=== PATIENT | female | born 1940 | race Caucasian/White ===

== ENCOUNTER → 2016-11-30 | Outpatient (CLI) | payer MEDICARE, BC ==
--- NOTE | 2016-11-30 11:19 | BD ---
EXAMINATION TYPE: MG DEXA axial skeleton. DATE OF EXAM: 11/30/2016 9:59 AM COMPARISON: NONE CLINICAL HISTORY: Postmenopausal female. Height: 61.5 IN Weight: 169 LBS FRAX RISK QUESTIONS: Alcohol (3 or more units per day): NO Family History (Parent hip fracture): NO Glucocorticoids (More than 3mos): NO (Ex: prednisone, prednisolone, methylprednisolone, dexamethasone, and hydrocortisone). History of Fracture in Adulthood: NO Secondary Osteoporosis: 1. Type 1 Diabetes: NO 2. Hyperthyroidism: NO 3. Menopause before 45: NO 4. Malnutrition: NO 5. Chronic liver disease: NO Rheumatoid Arthritis: NO Current Tobacco Use: NO RISK FACTORS HISTORY OF: Active: YES Postmenopausal woman: AGE 51 MEDICATIONS: Additional Medications: CALCIUM, VIT D,AMLODIPINE, ARIMIDEX, ASPIRIN, ATORVASTATIN, BENAZEPRIL, EMLA TOPICAL CREAM, FENTANYL, MAGNESIUM OXIDE, METOPROLOL, NITROSTAT, PLAVIX, PRILOSEC,ZOLOFT, ZOFRAN Additional History: PT HAS HAD BREAST CANCER WITH CHEMO. PT HAS HAD OVARIAN CANCER WITH CHEMO. EXAM MEASUREMENTS: Bone mineral densitometry was performed using the Videoflow System. Bone mineral density as measured about the Lumbar spine is: ----- L1-L4(G/cm2): 1.575 T Score Values are as follows: ----- L2: 2.5 ----- L3: 5.0 ----- L4: 4.1 ----- L1-L4: 3.3 Bone mineral density has: Decreased -0.6% since study of: 07/05/2012 Bone mineral density about the R hip (g/cm2): 0.932 Bone mineral density about the L hip (g/cm2): 0.938 T Score values are as follows: -----R Neck: -0.8 -----L Neck: -0.7 -----R Total: 0.7 -----L Total: 0.7 Bone mineral density has: Decreased -2.9% since study of: 07/05/2012 IMPRESSION: No evidence for osteoporosis or osteopenia. NOTE: T-SCORE=SD OF THE YOUNG ADULT MEAN.
== END | disposition home or self-care (01) ==
LOC: RADBDWWP 09:48
PROVIDERS: ATTEND Internal Medicine Hematology & Oncology
DX: Z03.89 Encounter for observation for other suspected diseases and conditions ruled out (principal); C50.819 Malignant neoplasm of overlapping sites of unspecified female breast; C34.90 Malignant neoplasm of unspecified part of unspecified bronchus or lung; N95.1 Menopausal and female climacteric states; Z88.0 Allergy status to penicillin
CPT/HCPCS: 77080

== ENCOUNTER → 2016-12-15 | Outpatient (CLI) | payer MEDICARE, BC ==
[2016-12-15 13:50] LABS: Blood Urea Nitrogen 20 mg/dL (7-17); Non-African American GFR(MDRD) >60 (>60 ml/min/1.73 sqM)
--- NOTE | 2016-12-15 14:53 | CT ---
EXAMINATION TYPE: CT ChestAbdPelvis w con DATE OF EXAM: 12/15/2016 2:40 PM COMPARISON: April 08, 2016 HISTORY: Lung and breast cancer CT DLP: 997.40 mGycm CONTRAST: CT scan of the chest, abdomen and pelvis is performed with Oral Contrast and with IV Contrast, patien t injected with 100 ml mL of Omnipaque 300. CT Chest: LUNGS: The lungs are clear and free of infiltrate or atelectasis. Stable nodule left lower lobe measu res 5.2 mm. Additional stable 3 mm nodule left lower lobe as well. No additional nodules identified. Linear parenchymal scarring right middle lobe and right lower lobe medially. No pleural effusion or C T evidence of interstitial lung disease. MEDIASTINUM: Thoracic aorta is of normal caliber. The heart is not enlarged. No evidence for media stinal mass or adenopathy. HILAR STRUCTURES: No evidence for mass. No hilar adenopathy is appreciated. OTHER: Bilateral mastectomies are noted. CONTRAST CT ABDOMEN AND PELVIS FINDINGS: LIVER/GB: Mild hepatomegaly with moderate hepatic steatosis. No calcified gallstones. No space occ upying hepatic lesion. Biliary tree is of normal caliber. PANCREAS: No inflammation. No distinct mass. SPLEEN: No splenic enlargement. No lesion seen. ADRENALS: No nodule. No thickening. KIDNEYS/BLADDER: Diminutive the left kidney with areas of parenchymal scarring and parenchymal calcif ications unchanged from prior study. Parenchymal scarring midpole right kidney with adjacent calcific ation noted as well. No hydronephrosis. No nephrolithiasis. No disctinct renal mass. BOWEL: Normal appendix. Normal bowel caliber. No inflammation. GENITAL ORGANS: Hysterectomy changes identified. LYMPH NODES: No greater than 1cm abdominal or pelvic lymph nodes are appreciated. AORTA: No significant abnormality. OSSEOUS STRUCTURES: No significant abnormality is seen. OTHER: Soft tissue density within the right paracolic gutter axial image 73currently measures 17 mm v ersus 12 mm previously. [place] ventral hernia supraumbilical region contains a short segment of co eliceo. No evidence for incarceration at this time. IMPRESSION: 1. 1. Stable nonspecific pulmonary nodules at the left lung base. 2. Fatty liver with mild hepatomegaly. 3. Soft tissue density within the region of the right paracolic gutter is increased in size. Metastat ic deposit is difficult to exclude. 4. Renal parenchymal changes and calcifications are stable.
== END | disposition home or self-care (01) ==
LOC: RADPROMAIN 12:49
PROVIDERS: ATTEND Internal Medicine Hematology & Oncology
DX: R91.1 Solitary pulmonary nodule (principal); C34.90 Malignant neoplasm of unspecified part of unspecified bronchus or lung; C50.819 Malignant neoplasm of overlapping sites of unspecified female breast; K76.0 Fatty (change of) liver, not elsewhere classified; R16.0 Hepatomegaly, not elsewhere classified; M79.89 Other specified soft tissue disorders; N28.89 Other specified disorders of kidney and ureter
CPT/HCPCS: 82565; 84520; 71260; 74177; 36415; Q9967; J1642

== ENCOUNTER → 2017-03-18 | Outpatient (CLI) | payer MEDICARE, BC ==
[2017-03-18 12:13] LABS: Basophils % (A) 1 %; CH 28.1; CHCM 33.1; Eosinophils # (A) 0.1 k/uL (0-0.7); Eosinophils % (A) 2 %; HCT 39.5 % (34.0-46.0); HDW 2.76; HGB 13.3 gm/dL (11.4-16.0); Luc # (Auto) 0.18; Luc % (Auto) 3; Lymphocytes % (A) 32 %; MCH 28.7 pg (25.0-35.0); MCHC 33.7 g/dL (31.0-37.0); MCV 85.2 fL (80.0-100.0); Mean Platelet Volume 7.3; Monocytes # (A) 0.3 k/uL (0-1.0); Monocytes % (A) 5 %; Neutrophils # (A) 3.5 k/uL (1.3-7.7); Neutrophils % (A) 57 %; RBC 4.63 m/uL (3.80-5.40); RDW 13.4 % (11.5-15.5); WBC 6.1 k/uL (3.8-10.6); WBC (Perox) 6.15
[2017-03-18 12:50] LABS: ALT 30 U/L (9-52); AST 20 U/L (14-36); Alkaline Phosphatase 96 U/L (38-126); Anion Gap 10 mmol/L; Blood Urea Nitrogen 20 mg/dL (7-17); Calcium 10.1 mg/dL (8.4-10.2); Carbon Dioxide 25 mmol/L (22-30); Chloride 103 mmol/L (98-107); Glucose 295 mg/dL (74-99); Non-African American GFR(MDRD) >60 (>60 ml/min/1.73 sqM); Potassium 4.6 mmol/L (3.5-5.1); Sodium 138 mmol/L (137-145); Total Bilirubin 0.4 mg/dL (0.2-1.3); Total Protein 7.2 g/dL (6.3-8.2)
--- NOTE | 2017-03-18 13:39 | CT ---
EXAMINATION TYPE: CT ChestAbdPelvis w con DATE OF EXAM: 03/18/2017 COMPARISON: CT chest abdomen pelvis dated 12/15/2016 HISTORY: Lung cancer and breast cancer. CT DLP: 1013.4 mGycm. Automated Exposure Control for Dose Reduction was Utilized. CONTRAST: CT scan of the thorax, abdomen and pelvis is performed with IV Contrast, patient injected with 100 mL of Omnipaque 300. FINDINGS: LUNGS: The 5.2 mm left lower lobe pulmonary nodularity may relate to a true pulmonary nodule or chron ic focus of mucus plugging as a terminal bronchus leads directly to this area, however this is unchan ged in comparison to the prior. Additional left lower lobe punctate noncalcified nodule measures 3 mm it is unchanged in comparison the prior exam on series 4 image 38. Medial fibrosis is seen of the ri ght lower lung from protruding osteophytes of the thoracic spine. Pleural parenchymal scarring is not ed within the right middle lobe, unchanged. No new pulmonary nodule or mass is identified. There is n o pleural effusion or pneumothorax seen. The tracheobronchial tree is patent. MEDIASTINUM: There are no greater than 1 cm hilar or mediastinal lymph nodes. No pericardial effusi on is seen. Calcific atheromatous changes are seen of the thoracic aorta and three-vessel coronary a rtery calcifications are noted. OTHER: No additional significant abnormality is seen. LIVER/GB: Densely calcified granuloma is present in segment one adjacent to inferior vena cava. There is generalized hepatic hypoattenuation in comparison to that of the spleen relating to at least mild hepatic steatosis, limiting evaluation for underlying hepatic masses. No gross evidence of hepatic m asses seen. Gallbladder is either surgically absent or contracted and is not seen on this examination . No intrahepatic or extra hepatic biliary ductal dilatation. PANCREAS: No significant abnormality is seen. SPLEEN: Wedge-shaped area of hypoattenuation within the splenic parenchyma is stable from the prior a nd likely relates to prior infarct. ADRENALS: No significant abnormality is seen. KIDNEYS: Dystrophic cortical calcification is seen of the multilobulated left kidney in the superior pole. Lower pole calculi may represent dystrophic calcifications from prior scarring or nephrolithias is and measure 8 mm and 7 mm. Cortical scar is also seen on the right with punctate calcification. No evidence of hydronephrosis.. BOWEL: Sigmoid diverticula are present without pericolonic fat stranding. Moderate amount of retained stool is seen throughout the colon. Bowel is nondilated.. GENITAL ORGANS: Uterus is surgically absent. LYMPH NODES: No greater than 1cm abdominal or pelvic lymph nodes are appreciated. OSSEOUS STRUCTURES: No suspicious abnormality is seen. Degenerative changes of the femoral acetabular joints and axial skeleton are appreciated. OTHER: Mastectomies have been performed with left axillary node dissection and surgical clips in the left axilla as well as port in the right anterior midline chest wall. Soft tissue density continues t o decrease in size within the lateral conal fascia no measuring 2.0 cm and previously measuring 17 mm when measured in a similar plane. Wide neck ventral hernia is again seen with abutting nonincarcerat ed large bowel. IMPRESSION: 1. Enlarging soft tissue density along the right lateral conal fascia. Metastatic peritoneal implant continues to be considered as a possibility. 2. Stable left lower lobe pulmonary nodules, low suspicion for metastasis. 3. No new evidence of visceral or osseous metastasis.
[2017-03-18 18:08] LABS: Hemoglobin A1C 8.6 % (4.2-6.1)
== END | disposition home or self-care (01) ==
LOC: RADCTMAIN 11:43
PROVIDERS: ATTEND Internal Medicine Hematology & Oncology
DX: M79.89 Other specified soft tissue disorders (principal); R91.8 Other nonspecific abnormal finding of lung field; C50.319 Malignant neoplasm of lower-inner quadrant of unspecified female breast; C34.90 Malignant neoplasm of unspecified part of unspecified bronchus or lung; Z88.0 Allergy status to penicillin
CPT/HCPCS: 80053; 83036; 85025; 71260; 74177; Q9967; J1642

== ENCOUNTER → 2017-04-03 | Outpatient (CLI) | payer MEDICARE, BC | END | disposition home or self-care (01) | LOC: RADPETMAIN 08:08 | PROVIDERS: ATTEND Internal Medicine Hematology & Oncology | DX: Z53.9 Procedure and treatment not carried out, unspecified reason (principal) ==

== ENCOUNTER → 2017-04-10 | Outpatient (CLI) | payer MEDICARE, BC ==
--- NOTE | 2017-04-13 10:32 | PE ---
Nuclear medicine PET/CT HISTORY: Breast cancer, lung cancer Patient received 15 mCi F-18 FDG intravenously and delayed scanning was performed from the skull base through the mid thighs. Localization and attenuation correction CT scan was performed. Exam is corre lated to prior nuclear medicine PET/CT dated 07/28/2014. Neck and chest: There is no evident adenopathy. No suspicious hypermetabolic uptake. Right-sided Port -A-Cath is in place, distal tip of the catheter within the superior vena cava. The heart is enlarged. There are coronary artery calcifications. No evident pleural or pericardial effusion. No evident shila g mass. Patient is status post bilateral mastectomies. Abdomen pelvis: No suspicious hypermetabolic uptake. No retroperitoneal adenopathy evident. No liver mass on this noncontrast exam. Low-attenuation within the liver may represent hepatic steatosis. Retr operitoneal soft tissue focus lateral to the right kidney may be is present residual from previous in flammatory change. Bilateral renal calcifications are present without obstruction. No pelvic adenopat hy or free fluid. Bowel activity with questionable small bowel wall thickening felt likely to be phys iologic, correlate to exclude enteritis. Osseous structures: No lytic or blastic lesion evident. No suspicious hypermetabolic uptake. IMPRESSION: Marked improvement. Metastatic disease is not evident. Additional findings above.
== END ==
LOC: RADPETMAIN 07:21
PROVIDERS: ATTEND Internal Medicine Hematology & Oncology
DX: C50.819 Malignant neoplasm of overlapping sites of unspecified female breast (principal); C34.90 Malignant neoplasm of unspecified part of unspecified bronchus or lung
CPT/HCPCS: 78815; A9552

== ENCOUNTER → 2017-12-14 | Outpatient (CLI) | payer MEDICARE, BC ==
[2017-12-14 11:47] LABS: Blood Urea Nitrogen 21 mg/dL (7-17)
--- NOTE | 2017-12-14 14:53 | CT ---
EXAMINATION TYPE: CT ChestAbdPelvis w con DATE OF EXAM: 12/14/2017 COMPARISON: 04/10/2017 and 12/15/2016 HISTORY: 77-year-old female Breast and Lung cancer TECHNIQUE: Contiguous axial scanning of the chest, abdomen, and pelvis performed with IV Contrast, pa tient injected with 100 ml mL of Isovue 300. Delayed images through the kidneys were obtained. Iraheta l/sagittal reconstructions performed. CT DLP: 942.30 mGycm Automated exposure control for dose reduction was used. FINDINGS: Chest: Bilateral breast implants after mastectomies. Right IJ CVC tip at the mid to lower SVC level. Heart normal size without pericardial effusion. Coronary vessel calcifications are present in remarka ble for coronary artery disease. Moderate atherosclerotic calcifications within the aortic arch with conventional arch vessel branchin g anatomy. A few small mediastinal lymph nodes are unchanged. No thoracic lymphadenopathy by CT size criteria. Evaluation of the lungs shows a stable 5 mm peripheral left lower lobe pulmonary nodule isn't stable groundglass density in the left lower lobe, increased from 12/15/2016 but improved from 04/10/2017. Othe rwise, no consolidation or pleural effusion. ABDOMEN: Small hiatal hernia. Low attenuation of the hepatic parenchyma may select mild fatty infiltration. Portal venous system is patent. No biliary ductal dilatation. Gallbladder surgically absent. The adrenal glands, spleen, and pancreas show no gross abnormality. Cortical defect lateral right kid isma suggesting sequela of prior vascular infectious insult. Multiple cortical defects and relatively atrophic left kidney is similar with renal calculi measuring up to 1 cm. Proximally 5 calculi are present. Symmetric uptake and excretion of contrast from the ki dneys. Moderate to severe atherosclerotic calcifications throughout the abdominal aorta and iliac arteries. No dilated small bowel, free fluid, or free air. Scattered small left periaortic lymph nodes in the r etroperitoneum are unchanged. Normal appendix. Oral contrast progressed to the hepatic flexure. There is moderate scattered stool a nd sigmoid diverticulosis. No pericolonic inflammatory change. Abnormal soft tissue density is along the right lateral pararenal space/lateral conal fascia measures 3.7 x 2.3 cm versus 1.7 x 1.2 cm on 12/15/2016 and 2.5 x 1.6 cm on 04/10/2017. Pelvis: Bladder urine distended. Uterus surgically absent. Neither ovary clearly seen. No abnormal fluid carmita ection in the pelvis or pelvic lymphadenopathy identified. There is severe atherosclerotic calcificat ion involving the left common iliac artery. Bones: Degenerative changes of both hips and within the lower lumbar spine. Endplate spondylosis mid to lowe r thoracic spine. No osseous destructive process seen. IMPRESSION: 1. STATUS POST BILATERAL MASTECTOMIES. THERE IS A STABLE 5 MM LEFT LOWER LOBE PULMONARY NODULE. AGAIN , A BENIGN ETIOLOGY IS SUSPECTED. SOME GROUNDGLASS IN THE LEFT LOWER LOBE IS INCREASED FROM 12/15/2016 BUT SHOW SOME IMPROVEMENT FROM 04/10/2017. CORRELATE FOR A RESIDUAL PNEUMONITIS. 2. FURTHER ENLARGEMENT OF THE ABNORMAL SOFT TISSUE ALONG THE LATERAL RIGHT PARARENAL SPACE CURRENTLY MEASURING 3.7 CM VERSUS 2.5 CM ON 04/10/2017 AND 1.7 CM ON 12/15/2016. A METASTATIC DEPOSIT IS NOT EXCLU DED. 3. ATROPHIC LEFT KIDNEY WITH A NONOBSTRUCTIVE LEFT-SIDED NEPHROLITHIASIS MEASURING UP TO 1 CM. 4. SIGMOID DIVERTICULOSIS WITHOUT ACUTE DIVERTICULITIS.
== END | disposition home or self-care (01) ==
LOC: RADPROMAIN 10:39
PROVIDERS: ATTEND Internal Medicine Hematology & Oncology
DX: C50.819 Malignant neoplasm of overlapping sites of unspecified female breast (principal); C34.90 Malignant neoplasm of unspecified part of unspecified bronchus or lung; R91.1 Solitary pulmonary nodule; N26.1 Atrophy of kidney (terminal); N20.0 Calculus of kidney; K57.30 Diverticulosis of large intestine without perforation or abscess without bleeding; Z88.0 Allergy status to penicillin; Z90.12 Acquired absence of left breast and nipple
CPT/HCPCS: 82565; 84520; 71260; 74177; J1642; Q9967

== ENCOUNTER → 2017-12-25 | Outpatient (CLI) | payer MEDICARE, BC ==
--- NOTE | 2017-12-27 07:51 | PE ---
EXAMINATION TYPE: PET CT fusion skull to thigh DATE OF EXAM: 12/25/2017 COMPARISON: PET/CT dated 04/10/2017 and chest abdomen pelvis dated 12/14/2017 HISTORY: Breast and lung cancer. Subsequent treatment strategy. Prior surgical mastectomy in 2013 an d chemotherapy approximately 1.5 years ago. Surveillance. TECHNIQUE: Following the intravenous administration of 14.64 mCi of F-18 FDG, whole body images are performed from the skull base to the midthigh. Images are reviewed on the computer in the coronal, a xial, and sagittal planes. Reconstructed rotating images are created on independent workstation and reviewed on the computer. A localization and attenuation correction CT is performed in conjunction with the PET scan. SCAN: Second at this institution FINDINGS: Mediastinal background: 1.78. Hepatic background: 2.88. SKULL BASE AND NECK: Slightly asymmetric activity within the right lateral tonsil medial to the grou p of lymph nodes has a maximum SUV of 2.93 and is likely physiologic. CHEST, MEDIASTINUM, AND HILAR REGION: No suspicious hypermetabolic activity. Slight asymmetry and upt clovis is seen within the right lower lobe in the left lower lobe with a maximum SUV of 1.55 on the left and 0.88 on the right. Left basilar groundglass opacities are seen. Therefore pneumonitis versus a p ossibility. ABDOMEN AND PELVIS: The previously described abnormal soft tissue density within the right lateral co nal fascia/pararenal space on series 3 image 152 through 162 demonstrates avid hypermetabolic uptake with a maximum SUV of 6.94. This is suspicious for metastasis or second primary lesion and biopsy is recommended. There is extensive uptake in the sigmoid colon with a maximum SUV of 14.95. This is long segment and may relate to early or resolving inflammatory/infectious change although this colonoscopy has not bee n recently performed would be recommended. Other bowel uptake/excretion is likely physiologic. Mild uptake below mediastinal background at the greater trochanters and glenohumeral joints likely re lates to greater trochanteric bursitis and glenohumeral arthropathy. OSSEOUS STRUCTURES: No suspicious hypermetabolic activity. OTHER CT: There is redemonstrated of bilateral mastectomies, cardiomegaly, right-sided Mediport, candis nary artery calcifications and hepatic steatosis. Cortical atrophy of the left kidney and bilateral n onobstructing renal calculi are again seen. There is diastases recti with abutting small bowel. Colon ic diverticulosis is noted without surrounding inflammatory fat stranding. No dilated bowel. IMPRESSION: 1. Focal hypermetabolic activity within the abnormal soft tissue density along the right lateral cona l fascia/pararenal space that has demonstrated increasing growth over multiple exams. This is conside red suspicious for peritoneal metastatic implant or less likely new primary neoplasm. Biopsy could be performed for pathologic classification. 2. Left basilar uptake without hypermetabolic activity in the multifocal left basilar groundglass opa cities. This either relates to pneumonitis of infectious or inflammatory etiology. 3. Extensive uptake within the sigmoid colon in a long segment. This may relate to early or resolving infectious/inflammatory change although colonoscopy is recommended if not recently performed.
== END | disposition home or self-care (01) ==
LOC: RADPETMAIN 13:25
PROVIDERS: ATTEND Internal Medicine Hematology & Oncology
DX: C50.512 Malignant neoplasm of lower-outer quadrant of left female breast (principal); C34.90 Malignant neoplasm of unspecified part of unspecified bronchus or lung; R94.2 Abnormal results of pulmonary function studies; R93.3 Abnormal findings on diagnostic imaging of other parts of digestive tract; M79.89 Other specified soft tissue disorders
CPT/HCPCS: 78815; A9552

== ENCOUNTER → 2018-04-19 | Outpatient (CLI) | payer MEDICARE, BC ==
[2018-04-19 10:10] LABS: Blood Urea Nitrogen 25 mg/dL (7-17)
--- NOTE | 2018-04-19 13:02 | CT ---
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 TECHNIQUE: Contiguous axial scanning of the chest, abdomen, and pelvis performed with IV Contrast, pa tient injected with 100 mL of Isovue 300. Delayed images through the kidneys were obtained. Coronal/s agittal reconstructions performed. CT DLP: 1635 mGycm Automated exposure control for dose reduction was used. FINDINGS: Chest: Heart normal size with trace anterior pericardial fluid. Coronary vessel calcifications are present. Aorta normal caliber with moderate atherosclerotic arch calcifications and conventional arch vessel b ranching anatomy. Surgical clips in the left axilla status post bilateral mastectomies. Right anterior chest wall injec tion port with catheter tip at the lower SVC. No thoracic lymphadenopathy by CT size criteria. Small groundglass focus anterior right base is new, axial image 42. Stable nonspecific 2 mm posterior left basilar pulmonary nodule and additional 5 mm peripheral left b asilar pulmonary nodule axial image 44. No consolidation or pleural effusion otherwise seen. ABDOMEN: No focal liver lesion or biliary ductal dilatation. Portal venous system is patent. Adrenal glands, spleen, and pancreas show no gross abnormality. There is a diverticulum of the third portion of the duodenum projecting upwards into the pancreatic head region. Minimal residual thickening in the right lateral pararenal space measuring 2.2 x 1.0 cm as compared t o 3.7 x 2.3 cm on 12/14/2017. Multiple cortical defects within the left kidney with calculi measuring up to 1.1 cm. Additional nono bstructive calculi in the right kidney measuring up to 4 mm. Moderate atherosclerotic calcifications within the abdominal aorta and iliac arteries. No dilated small bowel, free fluid, or free air. No mesenteric or retroperitoneal lymphadenopathy. Normal appendix. Moderate stool burden with oral contrast progressed in the hepatic flexure. Diverticulosis along the descending and proximal to mid sigmoid colon. No pericolonic inflammatory ch dante. Pelvis: Bladder partially distended. Uterus surgically absent. No adnexal mass or abnormal fluid collection o r lymphadenopathy in the pelvis. Bones: Degenerative changes in the hips with anterior endplate spondylosis mid thoracic spine. No osseous de structive process seen. IMPRESSION: 1. PARTIAL OR EVOLVING TREATMENT RESPONSE. THE PATIENT'S ABNORMAL HYPERMETABOLIC SOFT TISSUE IN THE R IGHT LATERAL PARARENAL SPACE HAS DECREASED IN SIZE NOW MEASURING 2.2 X 1.0 CM VERSUS 3.7 X 2.3 CM, NC EVIOUSLY. 2. STATUS POST BILATERAL MASTECTOMIES WITH SURGICAL CLIPS IN THE LEFT AXILLA. 3. NONSPECIFIC 5 MM AND 2 MM LEFT LOWER LOBE PULMONARY NODULES ARE STABLE DATING BACK TO AT LEAST 04/10. 4. NEW SMALL AREA OF GROUNDGLASS IN THE ANTERIOR RIGHT BASE SUGGESTS A SMALL INFECTIOUS/INFLAMMATORY FOCUS. 5. LEFT-SIDED COLONIC DIVERTICULOSIS WITHOUT ACUTE DIVERTICULITIS. MULTIPLE BILATERAL NONOBSTRUCTING RENAL CALCULI MEASURING UP TO 1.1 CM. MULTIPLE CORTICAL DEFECTS IN THE LEFT KIDNEY SUGGEST PRIOR VASC ULAR OR INFECTIOUS INSULTS.
== END | disposition home or self-care (01) ==
LOC: RADPROMAIN 09:07
PROVIDERS: ATTEND Internal Medicine Hematology & Oncology
DX: K57.30 Diverticulosis of large intestine without perforation or abscess without bleeding (principal); N20.0 Calculus of kidney; R91.8 Other nonspecific abnormal finding of lung field; C48.1 Malignant neoplasm of specified parts of peritoneum; Z90.13 Acquired absence of bilateral breasts and nipples; Z88.0 Allergy status to penicillin
CPT/HCPCS: 82565; 84520; 71260; 74177; J1642; Q9967

== ENCOUNTER → 2018-06-06 | Outpatient (CLI) | payer MEDICARE, BC ==
--- NOTE | 2018-06-06 14:47 | CT ---
EXAMINATION TYPE: CT ChestAbdPelvis w con DATE OF EXAM: 06/06/2018 COMPARISON: 04/19/2018 HISTORY: Breast cancer CT DLP: 1478 mGycm Automated exposure control for dose reduction was used. CONTRAST: CT scan of the chest, abdomen and pelvis is performed with Oral Contrast and with IV Contrast, patien t injected with 100 mL of Isovue 300. FINDINGS: Chest: Heart normal size with trace anterior pericardial fluid. Coronary vessel calcifications are present. Aorta normal caliber with moderate atherosclerotic arch calcifications and conventional arch vessel b ranching anatomy. Surgical clips in the left axilla status post bilateral mastectomies. Right anterior chest wall injec tion port with catheter tip at the lower SVC. No thoracic lymphadenopathy by CT size criteria. Small groundglass focus anterior right base is stable. Stable nonspecific 2 mm posterior left basilar pulmonary nodule and additional 5 mm peripheral left basilar pulmonary nodule unchanged in size. Lef t upper lobe 2 mm subpleural nodule stable. No consolidation or pleural effusion otherwise seen. ABDOMEN: No focal liver lesion or biliary ductal dilatation. Portal venous system is patent. Calcification van r the IVC and right lobe of the liver stable. Finding nonspecific and of doubtful significance. Adrenal glands, spleen, and pancreas show no gross abnormality. There is a diverticulum of the third portion of the duodenum projecting upwards into the pancreatic head region. Minimal residual thickening in the right lateral pararenal space measuring 2.2 x 1.0 cm as compared t o 3.7 x 2.3 cm on 12/14/2017. Multiple cortical defects within the left kidney with calculi measuring up to 1.1 cm. Additional nonobstructive calculi in the right kidney measuring up to 4 mm. Moderate atherosclerotic calcifications within the abdominal aorta and iliac arteries. No dilated small bowel, free fluid, or free air. No mesenteric or retroperitoneal lymphadenopathy. Normal appendix. Moderate stool burden with oral contrast progressed in the hepatic flexure. Diverticulosis along the descending and proximal to mid sigmoid colon. No pericolonic inflammatory ch dante. Atherosclerotic change of the vasculature including the aorta and mesenteric branches. Atherosc lerotic change of the renal arteries. No aneurysm. Pelvis: Bladder partially distended. Uterus surgically absent. No adnexal mass or abnormal fluid collection o r lymphadenopathy in the pelvis. Bones: Degenerative changes in the hips with anterior endplate spondylosis mid thoracic spine. No osseous de structive process seen. Sclerotic tiny focuses within the left femoral head, sacrum and pelvis are ta ble and likely benign. IMPRESSION: 1. Stable TREATMENT RESPONSE. THE PATIENT'S ABNORMAL HYPERMETABOLIC SOFT TISSUE IN THE RIGHT LATERAL PARARENAL SPACE HAS DECREASED IN SIZE NOW MEASURING 2.2 X 1.0 CM VERSUS 2.2 x 1.0 CM, PREVIOUSLY. 2. STATUS POST BILATERAL MASTECTOMIES WITH SURGICAL CLIPS IN THE LEFT AXILLA. 3. NONSPECIFIC 5 MM AND 2 MM LEFT LOWER AND UPPER LOBE PULMONARY NODULES ARE STABLE DATING BACK TO AT LEAST 04/10/2017. 4. Stable AREA OF GROUNDGLASS IN THE ANTERIOR RIGHT BASE SUGGESTS A SMALL CHRONIC INFECTIOUS/INFLAMMA TORY FOCUS. 5. LEFT-SIDED COLONIC DIVERTICULOSIS WITHOUT ACUTE DIVERTICULITIS. MULTIPLE BILATERAL NONOBSTRUCTING RENAL CALCULI MEASURING UP TO 1.1 CM. MULTIPLE CORTICAL DEFECTS IN THE LEFT KIDNEY SUGGEST PRIOR VASC ULAR OR INFECTIOUS INSULTS.
== END | disposition home or self-care (01) ==
LOC: RADCTMAIN 12:12
PROVIDERS: ATTEND Internal Medicine Hematology & Oncology
DX: R91.8 Other nonspecific abnormal finding of lung field (principal); C50.819 Malignant neoplasm of overlapping sites of unspecified female breast; C48.1 Malignant neoplasm of specified parts of peritoneum; Z90.13 Acquired absence of bilateral breasts and nipples
CPT/HCPCS: 82565; 84520; 71260; 74177; J1642; Q9967

== ENCOUNTER → 2018-12-21 | Outpatient (CLI) | payer MEDICARE, BC ==
[2018-12-21 11:36] LABS: Basophils % (A) 0 %; Eosinophils # (A) 0.2 k/uL (0-0.7); Eosinophils % (A) 3 %; HCT 38.1 % (34.0-46.0); HGB 12.3 gm/dL (11.4-16.0); Lymphocytes # (A) 1.6 k/uL (1.0-4.8); Lymphocytes % (A) 30 %; MCH 30.5 pg (25.0-35.0); MCHC 32.4 g/dL (31.0-37.0); MCV 94.2 fL (80.0-100.0); Mean Platelet Volume 7.1; Monocytes # (A) 0.3 k/uL (0-1.0); Monocytes % (A) 6 %; Neutrophils # (A) 3.2 k/uL (1.3-7.7); Neutrophils % (A) 58 %; Platelet Count 154 k/uL (150-450); RBC 4.05 m/uL (3.80-5.40); WBC 5.4 k/uL (3.8-10.6)
[2018-12-21 11:40] LABS: ALT 10 U/L (9-52); AST 19 U/L (14-36); Alkaline Phosphatase 113 U/L (38-126); Anion Gap 7 mmol/L; Blood Urea Nitrogen 18 mg/dL (7-17); Carbon Dioxide 25 mmol/L (22-30); Chloride 107 mmol/L (98-107); Cholesterol 318 mg/dL (<200); Glucose 186 mg/dL (74-99); HDL Cholesterol 45 mg/dL (40-60); Potassium 4.6 mmol/L (3.5-5.1); Sodium 139 mmol/L (137-145); Total Bilirubin 0.4 mg/dL (0.2-1.3)
[2018-12-21 11:57] LABS: T4, Free (Free Thyroxine) 1.24 ng/dL (0.78-2.19)
[2018-12-21 12:08] LABS: Triglycerides 601 mg/dL (<150)
--- NOTE | 2018-12-21 13:25 | CT ---
EXAMINATION TYPE: CT ChestAbdPelvis w con DATE OF EXAM: 12/21/2018 COMPARISON: NONE HISTORY: History of breast and ovarian cancer. CT DLP: 1247.5 mGycm. Automated Exposure Control for Dose Reduction was Utilized. CONTRAST: CT scan of the thorax, abdomen and pelvis is performed with IV Contrast, patient injected with 100 mL of Isovue M300. FINDINGS: LUNGS: There is a 4 mm solid left basilar pulmonary nodule on series 3 image 39, unchanged from the p rior. No focal consolidation is seen. There is no pleural effusion or pneumothorax seen. The trach eobronchial tree is patent. MEDIASTINUM: There are no greater than 1 cm hilar or mediastinal lymph nodes. No pericardial effusi on is seen. OTHER: Postsurgical changes of the breasts and left axilla are seen from prior mastectomy and lymph n ode dissection. Right-sided Mediport is again noted. A left axillary lymph node that is nonenlarged a nd image 26 is unchanged measuring 5 mm in short axis. LIVER/GB: Hepatic parenchyma is diffusely hypoattenuated in comparison to that of the spleen, most co mmonly seen in hepatic steatosis. This finding limits evaluation for hepatic masses. No gross evidenc e of hepatic mass is seen. No intrahepatic biliary ductal dilatation. PANCREAS: No significant abnormality is seen. SPLEEN: No significant abnormality is seen. ADRENALS: No significant abnormality is seen. KIDNEYS: The left kidney is atrophic and there is chronic uroepithelial thickening of the left renal pelvis and proximal ureter. Multifocal cortical scarring and retraction are seen with nonobstructing renal calculi (3 in number) measuring up to 1.2 cm. Focal cortical scar the right kidney with associa aamir dystrophic calcification is seen on image 72. No right-sided hydronephrosis. BOWEL: Descending duodenal diverticulum is incidentally noted. Colonic diverticulosis is incidentally noted. No dilated large or small bowel. GENITAL ORGANS: No gross abnormality seen. LYMPH NODES: No greater than 1cm abdominal or pelvic lymph nodes are appreciated. OSSEOUS STRUCTURES: Punctate sclerotic focus is nonspecific in the left acetabulum is stable from the prior. Multilevel degenerative changes of the spine are again seen. OTHER: The nodular density in the right pararenal space has evolved and now has a thick nodular compo nent at its inferior margin measuring 1.4 cm and surrounding punctate nodular foci with the elongated portion now measuring up to 3.7 cm contiguous with the serosal hepatic surface, previously measuring up to 2.2 cm. Extensive atherosclerosis of the thoracic and abdominal aorta and its branches are seen. There is a w shane neck ventral abdominal hernia containing portions of the transverse colon and small bowel. The ne ck measures 5.0 cm and is supraumbilical in location. IMPRESSION: 1. More nodular appearance of the hypermetabolic soft tissue deposit in the pararenal space and inter jomar enlargement with spiculated appearance. This now measures up to 3.7 cm in anterior to posterior d imension with a nodular component measuring 1.4 cm. 2. Stable subcentimeter left lower lobe pulmonary nodule with the additional 2 mm pulmonary nodule no t seen on today's examination. 3. Hepatic steatosis. 4. Wide necked supraumbilical ventral hernia containing loops of small and large bowel. 5. Left renal atrophy and multifocal cortical scarring.
[2018-12-21 22:17] LABS: Hemoglobin A1C 7.5 % (4.0-6.0)
== END | disposition home or self-care (01) ==
LOC: RADPROMAIN 10:32
PROVIDERS: ATTEND Internal Medicine Hematology & Oncology
DX: K43.9 Ventral hernia without obstruction or gangrene (principal); R91.8 Other nonspecific abnormal finding of lung field; K76.0 Fatty (change of) liver, not elsewhere classified; N26.1 Atrophy of kidney (terminal); N28.89 Other specified disorders of kidney and ureter; C48.1 Malignant neoplasm of specified parts of peritoneum; N95.1 Menopausal and female climacteric states; Z79.890 Hormone replacement therapy
CPT/HCPCS: 84439; 84481; 80061; 80053; 84443; 85025; 82306; 83036; 71260; 74177; J1642; Q9967 ×2

== ENCOUNTER → 2019-02-03 | Outpatient (CLI) | payer MEDICARE, BC ==
--- NOTE | 2019-02-06 09:49 | PE ---
EXAMINATION TYPE: PET CT fusion skull to thigh DATE OF EXAM: 02/03/2019 COMPARISON: CT chest abdomen pelvis 12/21/2018 Prior PET/CT: 12/25/2017 HISTORY: Breast cancer, lung cancer TECHNIQUE: Following the intravenous administration of 10.802 mCi of F-18 FDG, whole body images are performed from the skull base to the midthigh. Images are reviewed on the computer in the coronal, axial, and sagittal planes. Reconstructed rotating images are created on independent workstation and reviewed on the computer. A localization and attenuation correction CT is performed in conjunction with the PET scan. DLP: 421.43 mGycm SCAN: Subsequent Blood glucose: 121 mg/dL Average Mediastinum SUV: 1.59 Average Liver SUV: 2.38 FINDINGS: NECK: Some minimal increased signal is in the region of the right parapharyngeal space near the leve l of the hyoid. This has an SUV value 2.46. Inflammatory change or metastatic lesion could be conside red. There is some mild diffuse uptake through this region THORAX: No suspicious uptake is evident. No suspicious mediastinal or abnormal uptake within the lung ulrich is evident. ABDOMEN: The right paracolic gutter near the level of the tip of the liver. Renal space has increased uptake with an SUV value of 4.2. This areas suspicious for intraperitoneal metastasis. Example image image 157. Given the diffuse nature of the uptake throughout the bowel loops of bowel within the abd omen and pelvis were subtle intraperitoneal metastasis may be difficult to identify. Obvious addition al foci are not readily apparent. PELVIS: There is some focal uptake within the posterior rectum. There is intense activity throughout the bowel. Some mild diffuse thickening of the rectum however may be present and direct visualization of this area is recommended. SUV value 4.24. Diffuse nature the bowel activity suggests this may be related to benign activity or some inflammatory bowel changes. Suspicious focal uptake is not otherwi se identified. OSSEOUS STRUCTURES: No abnormal uptake LOCALIZATION CT: Findings within the right parapharyngeal space may be new. Diffuse bowel activity is increased from comparison. There is previous intense activity in the region of the rectum diffusely. The more focal area identified currently was not evident. Bilateral breast prostheses are present. T he ascending thoracic aorta at the level the main pulmonary artery is 3.0 cm. The main pulmonary jackeline ry at the bifurcation is 2.8 cm. Coronary artery calcification is noted. The heart size is mildly pro minent. The right perirenal soft tissue stranding appears less dense and less consolidated than the c omparison of November. The appendix is normal. COMPARISON: Some small nodularity at the left lung base is stable from the 12/21/2018 comparison and h as an SUV value of 0.62 is not appear suspicious based on these findings. The right perirenal soft tissue thickening is diminished in size and diminished an SUV value over the interval. IMPRESSION: 1. Improving right pararenal and paracolic gutter uptake. SUV value is diminished from comparison and the appearance is less dense than comparison CT. 2. Small focus of radiotracer in the posterior distal rectum. Bowel uptake present on the current exa mination. Inflammatory processes could also be considered. Neoplasm is not excluded at this location. Direct visualization is recommended. 3. Some mild intermediate uptake may be in the right parapharyngeal space. Inflammatory changes shoul d be considered. Metastatic disease cannot be excluded. 4. Suspicious metastatic disease or progressive changes not identified.
== END | disposition home or self-care (01) ==
LOC: RADPETMAIN 14:37
PROVIDERS: ATTEND Internal Medicine Hematology & Oncology
DX: C48.1 Malignant neoplasm of specified parts of peritoneum (principal)
CPT/HCPCS: 78815; A9552

== ENCOUNTER → 2019-02-17 | Outpatient (CLI) | payer MEDICARE, BC ==
--- NOTE | 2019-02-17 14:28 | BD ---
EXAMINATION TYPE: Axial Bone Density DATE OF EXAM: 02/17/2019 COMPARISON: NONE CLINICAL HISTORY: Breast cancer, postmenopausal hormonal placement therapy Height: 5 FT 1 1/4 IN Weight: 177 FRAX RISK QUESTIONS: Glucocorticoids (More than 3mos): TOOK STEROIDS WITH CHEMO ENDED IN SEPTEMBER 2018 Secondary Osteoporosis: RISK FACTORS HISTORY OF: Active: YES Postmenopausal woman: AGE 51 Poor Health: FAIR MEDICATIONS: Additional Medications: AMLODIPINE, ARIMIDEX, ATORVASTATIN, BENAZEPRIL, CALCIUM, LEVOFLORACIN, MAGNES IUM OXIDE, METFORMIN, METOPROLOL, NEOMYCIN, NITROSTAT,PIOGLITAZONE, PLAVIX, ZOFRAN, ZOLOFT Additional History: BREAST CANCER 2011 CHEMO, PERITONEAL CANCER TREATMENT NOW EXAM MEASUREMENTS: Bone mineral densitometry was performed using the [employer] System. Bone mineral density as measured about the Lumbar spine is: ----- L1-L4(G/cm2): 1.636 T Score Values are as follows: ----- L2: 3.1 ----- L3: 4.9 ----- L4: 4.3 ----- L1-L4: 3.8 Bone mineral density has: INCREASED 2.0 % since study of: 2017 Bone mineral density about the R hip (g/cm2): 0.907 Bone mineral density about the L hip (g/cm2): 0.977 T Score values are as follows: -----R Neck: -0.9 -----L Neck: -0.4 -----R Total: 0.2 -----L Total: 0.6 Bone mineral density has: DECREASED -3.4 % since study of: 2017 IMPRESSION: Normal (Values between +1 and -1 indicate normal bone mass). Consider repeating this study in 5 year s or sooner if there is some new clinical indication. NOTE: T-SCORE=SD OF THE YOUNG ADULT MEAN.
== END | disposition home or self-care (01) ==
LOC: RADBDWWP 10:41
PROVIDERS: ATTEND Internal Medicine Hematology & Oncology
DX: C50.819 Malignant neoplasm of overlapping sites of unspecified female breast (principal); N95.1 Menopausal and female climacteric states; Z79.890 Hormone replacement therapy
CPT/HCPCS: 77080

== ENCOUNTER → 2019-05-13 | Outpatient (CLI) | payer MEDICARE, BC ==
--- NOTE | 2019-05-15 06:52 | PE ---
EXAMINATION TYPE: PET CT fusion skull to thigh DATE OF EXAM: 05/13/2019 COMPARISON: Prior PET/CT February 03, 2019 and older studies. 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 Originally diagnosed with ovarian cancer 2011. TECHNIQUE: Following the intravenous administration of 10.802 mCi of F-18 FDG, whole body images are performed from the skull base to the midthigh. Images are reviewed on the computer in the coronal, axial, and sagittal planes. Reconstructed rotating images are created on independent workstation and reviewed on the computer. A noncontrast CT is performed in conjunction with the PET scan. SCAN: Subsequent Scan FINDINGS: SKULL BASE AND NECK: No new areas of abnormal hypermetabolic uptake. CHEST, MEDIASTINUM, AND HILAR REGION: No new areas of abnormal hypermetabolic uptake. ABDOMEN AND PELVIS: Just posterior inferior to the right hepatic lobe there is increasing size and hy permetabolic uptake of soft tissue lesion adjacent to right kidney measuring 3.9 x 2.9 cm axial image 160, Max SUV is 7.7. Similar to prior studies and even being more prominent there is some hypermetab olic uptake along the bowel loops and subserosal studding would be difficult to exclude throughout th e abdomen and pelvis including sigmoid colon and rectum. No obvious new focal peritoneal hypermetabol ic masses are identified. OSSEOUS STRUCTURES: No areas of abnormal hypermetabolic uptake. OTHER CT: Stable right internal jugular Mediport catheter. Cardiomegaly with coronary artery calcific ation and tiny pericardial effusion are all redemonstrated along with enlarged pulmonary arteries and mild underlying emphysematous change. Bilateral breasts are surgically absent with surgical clips to wards the left axilla redemonstrated. Some cortical thinning in the left kidney. Diverticula in the sigmoid colon. Uterus is surgically abs ent or markedly atrophic. IMPRESSION: Worsening right pararenal and paracolic gutter localized disease. No definitive new perit mcdaniel deposits. More prominent diffuse bowel uptake including at level of rectum, smaller subserosal deposits cannot be excluded.
== END | disposition home or self-care (01) ==
LOC: RADPETMAIN 11:50
PROVIDERS: ATTEND Radiology Radiation Oncology
DX: K66.8 Other specified disorders of peritoneum (principal)
CPT/HCPCS: 78815; A9552

== ENCOUNTER 2019-12-05 09:53 | Inpatient (IN) | payer MEDICARE, BC ==
[2019-12-05] MEDS ORDERED: IPRATROPIUM-ALBUTEROL 3 ML NEB INHALATION STA (10:19)
[2019-12-05 10:54] LABS: Basophils # (A) 0.1 k/uL (0-0.2); Basophils % (A) 1 %; Eosinophils # (A) 0.2 k/uL (0-0.7); Eosinophils % (A) 3 %; HCT 26.8 % (34.0-46.0); HGB 8.7 gm/dL (11.4-16.0); Hypochromasia Slight; Lymphocytes % (A) 15 %; MCH 30.9 pg (25.0-35.0); MCHC 32.6 g/dL (31.0-37.0); MCV 94.8 fL (80.0-100.0); Mean Platelet Volume 8.7; Monocytes # (A) 0.4 k/uL (0-1.0); Monocytes % (A) 6 %; Neutrophils # (A) 5.1 k/uL (1.3-7.7); Neutrophils % (A) 73 %; Platelet Count 224 k/uL (150-450); RBC 2.83 m/uL (3.80-5.40); RDW 15.3 % (11.5-15.5); WBC 6.9 k/uL (3.8-10.6)
[2019-12-05 11:05] LABS: INR 1.1 (<1.2); Partial Thromboplastin Time 23.4 sec (22.0-30.0); Prothrombin Time 11.1 sec (9.0-12.0)
[2019-12-05 11:06] LABS: Albumin 3.5 g/dL (3.5-5.0); Calcium 9.2 mg/dL (8.4-10.2); Magnesium 1.7 mg/dL (1.6-2.3); Potassium 4.2 mmol/L (3.5-5.1); Total Bilirubin 0.5 mg/dL (0.2-1.3); Total Protein 6.2 g/dL (6.3-8.2)
--- NOTE | 2019-12-05 11:08 | XR ---
EXAMINATION TYPE: XR chest 2V DATE OF EXAM: 12/05/2019 COMPARISON: 08/06/2014 HISTORY: Shortness of breath TECHNIQUE: Frontal and lateral views of the chest are obtained. FINDINGS: Scattered senescent parenchymal changes noted. Hyperinflation compatible with COPD. There is cardiomegaly without pulmonary venous congestion and interstitial edema. Small pleural effus ions right greater than left as well as focal infiltrate or atelectasis right medial lung base. Mediastinal structures are stable and grossly unremarkable. No evidence for hilar prominence. Degenerative changes dorsal spine. IMPRESSION: 1. Correlate for congestive failure. Infiltrates of other etiology not excluded.
[2019-12-05] MEDS ORDERED: FUROSEMIDE 10 MG/ML 4 ML VIAL IV STA (11:41)
--- NOTE | 2019-12-05 12:32 | ED ---
SOB HPI - General Chief Complaint: Shortness of Breath Stated Complaint: shortness of breath Time Seen by Provider: 12/05/19 10:10 Source: patient, RN notes reviewed Mode of arrival: wheelchair Limitations: physical limitation - History of Present Illness Initial Comments: Is a 71-year-old female history of CHF who states she's been having exertional dyspnea and shortness of breath for the past week or so edema to her lower extremities and about a 15 pound weight gain over a longer period of time. She has any fevers chills sweats he does have a slight cough no sore throat earaches rhinorrhea. No chest pain no palpitations no other modifying factors MD Complaint: shortness of breath - Related Data Home Medications Medication Instructions Recorded Confirmed Anastrozole [Arimidex] 1 mg PO HS 02/08/14 08/06/14 Atorvastatin [Lipitor] 80 mg PO HS 02/08/14 08/06/14 Benazepril [Lotensin] 20 mg PO DAILY 02/08/14 08/06/14 Sertraline [Zoloft] 50 mg PO DAILY 02/08/14 08/06/14 amLODIPine [Norvasc] 5 mg PO DAILY 02/08/14 08/06/14 Metoprolol Tartrate [Lopressor] 1 tab PO BID 04/25/14 08/06/14 Clopidogrel [Plavix] 1 tab PO DAILY 05/01/14 07/30/14 Acetaminophen [Tylenol] 325 mg PO Q4H PRN 07/30/14 07/30/14 Aspirin 81 mg PO DAILY 07/30/14 07/30/14 Calcium Carb-Vit D 500Mg-200Un 1 tab DAILY 07/30/14 08/06/14 [Oscal 500+D] Enoxaparin [Lovenox] 40 mg SQ DAILY 07/30/14 08/06/14 Nitroglycerin Sl Tabs [Nitrostat] 1 tab SUBLINGUAL TID 07/30/14 08/06/14 Omeprazole [PriLOSEC] 20 mg PO AC-BRKFST 07/30/14 08/06/14 metFORMIN HCL [Glucophage] 500 mg PO BID 07/30/14 08/06/14 Allergies Allergy/AdvReac Type Severity Reaction Status Date / Time Penicillins Allergy Intermediate Swelling Verified 12/05/19 10:04 Review of Systems ROS Statement: Those systems with pertinent positive or pertinent negative responses have been documented in the HPI. ROS Other: All systems not noted in ROS Statement are negative. Past Medical History Past Medical History: Cancer, Heart Failure, Diabetes Mellitus, Hyperlipidemia, Hypertension Additional Past Medical History / Comment(s): Pt instructed to inform Dr. Britany daniels's office.Breast CA 2011- bilateral mastectomy, Kidney Stones History of Any Multi-Drug Resistant Organisms: None Reported Past Surgical History: Heart Catheterization With Stent Additional Past Surgical History / Comment(s): Last heart cath 2012 with stent times 5, TKA 2008, Cataract 2000, Left Lithotripsy ([facility]) 2001, Blepharoplasty 2006, percutaneous nephrostolithomy 04/25/14, surgery for tumours on ovaries and instomach Jul 2014. Past Anesthesia/Blood Transfusion Reactions: No Reported Reaction Date of Last Stent Placement:: 12/2012 Past Psychological History: No Psychological Hx Reported Smoking Status: Former smoker Past Alcohol Use History: None Reported Past Drug Use History: None Reported - Past Family History Father Family Medical History: Myocardial Infarction ([place]) Additional Family Medical History / Comment(s): Father at 85 of [place] Mother Sister(s) Family Medical History: Cancer Additional Family Medical History / Comment(s): Mother and sister both of breast CA Sister(s) Family Medical History: Cancer Additional Family Medical History / Comment(s): Breast CA, Kidney Tumors. Mother Family Medical History: Cancer General Exam - General Exam Comments Initial Comments: This is a well-developed well-nourished awake alert oriented 3 female Limitations: physical limitation General appearance: alert, anxious, in distress Head exam: Present: atraumatic, normocephalic, normal inspection Eye exam: Present: normal appearance, PERRL, EOMI. Absent: scleral icterus, conjunctival injection, periorbital swelling ENT exam: Present: normal exam, mucous membranes moist Neck exam: Present: normal inspection, full ROM, other (No stridor JVD or bruits). Absent: tenderness, meningismus, lymphadenopathy Respiratory exam: Present: wheezes, rales, accessory muscle use, decreased breath sounds. Absent: respiratory distress, rhonchi, stridor Cardiovascular Exam: Present: regular rate, normal rhythm, normal heart sounds. Absent: systolic murmur, diastolic murmur, rubs, gallop, clicks GI/Abdominal exam: Present: soft, normal bowel sounds. Absent: distended, tenderness, guarding, rebound, rigid Extremities exam: Present: normal inspection, full ROM, normal capillary refill, pedal edema. Absent: tenderness, joint swelling, calf tenderness Back exam: Present: normal inspection Neurological exam: Present: alert, oriented X3, CN II-XII intact Psychiatric exam: Present: normal affect, normal mood Skin exam: Present: warm, dry, intact, normal color. Absent: rash Course Vital Signs 12/05/19 12/05/19 12/05/19 10:00 11:07 11:22 Temperature 98.2 F Pulse Rate 60 63 65 Respiratory 24 Rate Blood Pressure 118/68 O2 Sat by Pulse 90 L Oximetry 12/05/19 11:34 Temperature Pulse Rate 62 Respiratory Rate Blood Pressure 114/91 O2 Sat by Pulse 94 L Oximetry - Reevaluation(s) Reevaluation #1: 12/05/19 13:10 Reevaluation reveals some improvement in her breathing after the updraft. Reevaluation #2: 12/05/19 13:11 I did also discuss the findings the patient and her daughter was present. Medical Decision Making - Medical Decision Making I did discuss findings with patient family as well as with . Patient will be admitted with cardiology consultation presentation is consistent with congestive heart failure elevated troponin also noted. - Lab Data Result diagrams: 12/05/19 10:35 12/05/19 10:35 Lab Results 12/05/19 12/05/19 12/05/19 Range/Units 10:35 10:35 10:35 WBC 6.9 (3.8-10.6) k/uL RBC 2.83 L (3.80-5.40) m/uL Hgb 8.7 L (11.4-16.0) gm/dL Hct 26.8 L (34.0-46.0) % MCV 94.8 (80.0-100.0) fL MCH 30.9 (25.0-35.0) pg MCHC 32.6 (31.0-37.0) g/dL RDW 15.3 (11.5-15.5) % Plt Count 224 (150-450) k/uL Neutrophils % 73 % Lymphocytes % 15 % Monocytes % 6 % Eosinophils % 3 % Basophils % 1 % Neutrophils # 5.1 (1.3-7.7) k/uL Lymphocytes # 1.0 (1.0-4.8) k/uL Monocytes # 0.4 (0-1.0) k/uL Eosinophils # 0.2 (0-0.7) k/uL Basophils # 0.1 (0-0.2) k/uL Hypochromasia Slight PT 11.1 (9.0-12.0) sec INR 1.1 (<1.2) APTT 23.4 (22.0-30.0) sec Sodium 140 (137-145) mmol/L Potassium 4.2 (3.5-5.1) mmol/L Chloride 106 (98-107) mmol/L Carbon Dioxide 27 (22-30) mmol/L Anion Gap 7 mmol/L BUN 23 H (7-17) mg/dL Creatinine 0.91 (0.52-1.04) mg/dL Est GFR (CKD-EPI)AfAm 70 (>60 ml/min/1.73 sqM) Est GFR (CKD-EPI)NonAf 61 (>60 ml/min/1.73 sqM) Glucose 141 H (74-99) mg/dL Plasma Lactic Acid Ernesto (0.7-2.0) mmol/L Calcium 9.2 (8.4-10.2) mg/dL Magnesium 1.7 (1.6-2.3) mg/dL Total Bilirubin 0.5 (0.2-1.3) mg/dL AST 29 (14-36) U/L ALT 24 (4-34) U/L Alkaline Phosphatase 101 (38-126) U/L Creatine Kinase 81 (30-135) U/L Troponin I (0.000-0.034) ng/mL NT-Pro-B Natriuret Pep pg/mL Total Protein 6.2 L (6.3-8.2) g/dL Albumin 3.5 (3.5-5.0) g/dL Urine Color Urine Appearance (Clear) Urine pH (5.0-8.0) Ur Specific [place] (1.001-1.035) Urine Protein (Negative) Urine Glucose (UA) (Negative) Urine Ketones (Negative) Urine Blood (Negative) Urine Nitrite (Negative) Urine Bilirubin (Negative) Urine Urobilinogen (<2.0) mg/dL Ur Leukocyte Esterase (Negative) Urine RBC (0-5) /hpf Urine WBC (0-5) /hpf Urine Bacteria (None) /hpf Coronavirus (PCR) (Not Detectd) 12/05/19 12/05/19 12/05/19 Range/Units 10:35 10:35 10:35 WBC (3.8-10.6) k/uL RBC (3.80-5.40) m/uL Hgb (11.4-16.0) gm/dL Hct (34.0-46.0) % MCV (80.0-100.0) fL MCH (25.0-35.0) pg MCHC (31.0-37.0) g/dL RDW (11.5-15.5) % Plt Count (150-450) k/uL Neutrophils % % Lymphocytes % % Monocytes % % Eosinophils % % Basophils % % Neutrophils # (1.3-7.7) k/uL Lymphocytes # (1.0-4.8) k/uL Monocytes # (0-1.0) k/uL Eosinophils # (0-0.7) k/uL Basophils # (0-0.2) k/uL Hypochromasia PT (9.0-12.0) sec INR (<1.2) APTT (22.0-30.0) sec Sodium (137-145) mmol/L Potassium (3.5-5.1) mmol/L Chloride (98-107) mmol/L Carbon Dioxide (22-30) mmol/L Anion Gap mmol/L BUN (7-17) mg/dL Creatinine (0.52-1.04) mg/dL Est GFR (CKD-EPI)AfAm (>60 ml/min/1.73 sqM) Est GFR (CKD-EPI)NonAf (>60 ml/min/1.73 sqM) Glucose (74-99) mg/dL Plasma Lactic Acid Ernesto 0.9 (0.7-2.0) mmol/L Calcium (8.4-10.2) mg/dL Magnesium (1.6-2.3) mg/dL Total Bilirubin (0.2-1.3) mg/dL AST (14-36) U/L ALT (4-34) U/L Alkaline Phosphatase (38-126) U/L Creatine Kinase (30-135) U/L Troponin I 0.262 H* (0.000-0.034) ng/mL NT-Pro-B Natriuret Pep 6170 pg/mL Total Protein (6.3-8.2) g/dL Albumin (3.5-5.0) g/dL Urine Color Urine Appearance (Clear) Urine pH (5.0-8.0) Ur Specific [place] (1.001-1.035) Urine Protein (Negative) Urine Glucose (UA) (Negative) Urine Ketones (Negative) Urine Blood (Negative) Urine Nitrite (Negative) Urine Bilirubin (Negative) Urine Urobilinogen (<2.0) mg/dL Ur Leukocyte Esterase (Negative) Urine RBC (0-5) /hpf Urine WBC (0-5) /hpf Urine Bacteria (None) /hpf Coronavirus (PCR) (Not Detectd) 12/05/19 12/05/19 Range/Units 10:35 12:29 WBC (3.8-10.6) k/uL RBC (3.80-5.40) m/uL Hgb (11.4-16.0) gm/dL Hct (34.0-46.0) % MCV (80.0-100.0) fL MCH (25.0-35.0) pg MCHC (31.0-37.0) g/dL RDW (11.5-15.5) % Plt Count (150-450) k/uL Neutrophils % % Lymphocytes % % Monocytes % % Eosinophils % % Basophils % % Neutrophils # (1.3-7.7) k/uL Lymphocytes # (1.0-4.8) k/uL Monocytes # (0-1.0) k/uL Eosinophils # (0-0.7) k/uL Basophils # (0-0.2) k/uL Hypochromasia PT (9.0-12.0) sec INR (<1.2) APTT (22.0-30.0) sec Sodium (137-145) mmol/L Potassium (3.5-5.1) mmol/L Chloride (98-107) mmol/L Carbon Dioxide (22-30) mmol/L Anion Gap mmol/L BUN (7-17) mg/dL Creatinine (0.52-1.04) mg/dL Est GFR (CKD-EPI)AfAm (>60 ml/min/1.73 sqM) Est GFR (CKD-EPI)NonAf (>60 ml/min/1.73 sqM) Glucose (74-99) mg/dL Plasma Lactic Acid Ernesto (0.7-2.0) mmol/L Calcium (8.4-10.2) mg/dL Magnesium (1.6-2.3) mg/dL Total Bilirubin (0.2-1.3) mg/dL AST (14-36) U/L ALT (4-34) U/L Alkaline Phosphatase (38-126) U/L Creatine Kinase (30-135) U/L Troponin I (0.000-0.034) ng/mL NT-Pro-B Natriuret Pep pg/mL Total Protein (6.3-8.2) g/dL Albumin (3.5-5.0) g/dL Urine Color Light Yellow Urine Appearance Clear (Clear) Urine pH 7.0 (5.0-8.0) Ur Specific [place] 1.011 (1.001-1.035) Urine Protein 3+ H (Negative) Urine Glucose (UA) Negative (Negative) Urine Ketones Negative (Negative) Urine Blood Trace H (Negative) Urine Nitrite Positive H (Negative) Urine Bilirubin Negative (Negative) Urine Urobilinogen <2.0 (<2.0) mg/dL Ur Leukocyte Esterase Moderate H (Negative) Urine RBC 1 (0-5) /hpf Urine WBC 21 H (0-5) /hpf Urine Bacteria Many H (None) /hpf Coronavirus (PCR) Not Detected (Not Detectd) - EKG Data -: EKG Interpreted by Me EKG shows normal: sinus rhythm EKG Comments: EKG shows sinus rhythm a 61. Interval 172 QRS 96 QT since QTC 424/[address]-T wave configuration - Radiology Data Radiology results: report reviewed (I did review the imaging and report evidence of congestive heart failure.), image reviewed Critical Care Time Critical Care Time: Yes Critical Care Time: 39 minutes of critical care time which includes initial presentation with history physical labs x-rays multiple reevaluation the patient discussed with the patient family regarding findings discussed with the beta physician admission orders neck mentation the above Disposition Clinical Impression: Congestive heart failure, Peripheral edema, Bronchospasm, Elevated troponin, COPD (chronic obstructive pulmonary disease) Disposition: ADMITTED IP TO THIS HOSP Condition: Fair Referrals: Quang Lagos MD [Primary Care Provider] - 1-2 days
[2019-12-05 12:48] LABS: Appearance,Urine Clear (Clear); Bacteria,Urine Many /hpf; Bilirubin,Urine Negative (Negative); Blood,Urine Trace (Negative); Color,Urine Light Yellow; Glucose,Urine (UA) Negative (Negative); Ketones,Urine Negative (Negative); Leukocyte Esterase,Urine Moderate (Negative); Nitrite,Urine Positive (Negative); Protein,Urine 3+ (Negative); RBC,Urine 1 /hpf (0-5); Specific Gravity,Urine 1.011 (1.001-1.035); Urobilinogen,Urine <2.0 mg/dL (<2.0); WBC,Urine 21 /hpf (0-5)
[2019-12-05] MEDS ORDERED: NITROGLYCERIN SL TABS 0.4 MG TAB SUBLINGUAL PRN (14:35)
[2019-12-05] MEDS ORDERED: NITROGLYCERIN SL TABS 0.4 MG TAB SUBLINGUAL SCH (16:00)
[2019-12-05] MEDS ORDERED: LEVOFLOXACIN 500MG-D5W PMX 500 MG in DEXTROSE/WATER 1 100ML.BAG IVPB ONE (16:00)
[2019-12-05 16:16] LABS: Basophils # (A) 0.1 k/uL (0-0.2); Basophils % (A) 1 %; Eosinophils # (A) 0.2 k/uL (0-0.7); Eosinophils % (A) 3 %; HCT 33.7 % (34.0-46.0); HGB 10.8 gm/dL (11.4-16.0); Hypochromasia Moderate; Lymphocytes # (A) 0.9 k/uL (1.0-4.8); Lymphocytes % (A) 14 %; MCH 30.8 pg (25.0-35.0); MCHC 31.9 g/dL (31.0-37.0); MCV 96.6 fL (80.0-100.0); Mean Platelet Volume 8.3; Monocytes # (A) 0.5 k/uL (0-1.0); Monocytes % (A) 7 %; Neutrophils # (A) 4.8 k/uL (1.3-7.7); Neutrophils % (A) 74 %; Platelet Count 196 k/uL (150-450); RBC 3.49 m/uL (3.80-5.40); RDW 15.1 % (11.5-15.5); WBC 6.6 k/uL (3.8-10.6)
--- NOTE | 2019-12-05 16:20 | P.HPIM ---
History of Present Illness H&P Date: 12/05/19 Chief Complaint: Shortness of breath This is a pleasant 79-year-old female past medical history of congestive heart failure, [id number] diabetes mellitus, hypertension, hyperlipidemia, coronary artery disease status post PTCA 5, breast cancer status post bilateral mastectomies, abdominal tumor currently undergoing radiation, anxiety, and depression who presents with increased exertional dyspnea over the past month. Patient also admits to a 17 pound weight gain. Patient has been residing in [place] since this past July. Patient does admit that she has been noncompliant with a diabetic and cardiac diet while in [place]. Patient drove from [place] to [place] this past Wednesday to get treatment by her own doctors. Patient arrived home last night. Hence,that is why she waited so long to address her current symptoms. Patient denies chest p ain at this time. Patient does admit to shortness of breath with activity and speaking. Patient denies nausea, vomiting, fevers, chills, diarrhea, or constipation. Patient further denies dizziness, hematochezia, melena, hematuria and hemoptysis. Once patient was evaluated in the emergency department chest x-ray was obtained and it was found to have small pleural effusions right greater than left as well as focal infiltrate or atelectasis right medial lung base. UA was abnormal. Patient also had an elevated troponin level of 0.262 and an elevated pro-BNP of 6170. Patient was treated and admitted for acute heart failure. Symptoms have improved with treatment with IV Lasix, breathing treatments, and oxygen. COV ID 19 was negative. Patient seen and examined at bedside and is resting comfortably. Review of Systems A 12 point review of systems was assessed and patient was only positive for those pertinent in HPI. Past Medical History Past Medical History: Cancer, Heart Failure, Diabetes Mellitus, Hyperlipidemia, Hypertension Additional Past Medical History / Comment(s): Pt instructed to inform Dr. 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 Past Anesthesia/Blood Transfusion Reactions: No Reported Reaction Date of Last Stent Placement:: 12/2012 Past Psychological History: No Psychological Hx Reported Smoking Status: Former smoker Past Alcohol Use History: None Reported Past Drug Use History: None Reported - Past Family History Father Family Medical History: Myocardial Infarction ([place]) Additional Family Medical History / Comment(s): Father at 85 of [place] Mother Sister(s) Family Medical History: Cancer Additional Family Medical History / Comment(s): Mother and sister both of breast CA Sister(s) Family Medical History: Cancer Additional Family Medical History / Comment(s): Breast CA, Kidney Tumors. Mother Family Medical History: Cancer Medications and Allergies Home Medications Medication Instructions Recorded Confirmed Type Anastrozole [Arimidex] 1 mg PO HS 02/08/14 08/06/14 History Atorvastatin [Lipitor] 80 mg PO HS 02/08/14 08/06/14 History Benazepril [Lotensin] 20 mg PO DAILY 02/08/14 08/06/14 History Sertraline [Zoloft] 50 mg PO DAILY 02/08/14 08/06/14 History amLODIPine [Norvasc] 5 mg PO DAILY 02/08/14 08/06/14 History Metoprolol Tartrate [Lopressor] 1 tab PO BID 04/25/14 08/06/14 History Clopidogrel [Plavix] 1 tab PO DAILY 05/01/14 07/30/14 History Acetaminophen [Tylenol] 325 mg PO Q4H PRN 07/30/14 07/30/14 History Aspirin 81 mg PO DAILY 07/30/14 07/30/14 History Calcium Carb-Vit D 500Mg-200Un 1 tab DAILY 07/30/14 08/06/14 History [Oscal 500+D] Enoxaparin [Lovenox] 40 mg SQ DAILY 07/30/14 08/06/14 History Nitroglycerin Sl Tabs [Nitrostat] 1 tab SUBLINGUAL TID 07/30/14 08/06/14 History Omeprazole [PriLOSEC] 20 mg PO AC-BRKFST 07/30/14 08/06/14 History metFORMIN HCL [Glucophage] 500 mg PO BID 07/30/14 08/06/14 History Allergies Allergy/AdvReac Type Severity Reaction Status Date / Time Penicillins Allergy Intermediate Swelling Verified 12/05/19 10:04 Physical Exam Osteopathic Statement: *. No significant issues noted on an osteopathic structural exam other than those noted in the History and Physical/Consult. Vitals: Vital Signs Temp Pulse Resp BP Pulse Ox 12/05/19 14:00 97.8 F 65 18 169/67 95 12/05/19 11:34 62 114/91 94 L 12/05/19 11:22 65 12/05/19 11:07 63 12/05/19 10:00 98.2 F 60 24 118/68 90 L Intake and Output 12/05/19 12/05/19 12/05/19 06:59 14:59 22:59 Other: Weight 89.358 kg General: [non toxic], [no distress], [appears at stated age] Derm: [warm], [dry] Head: [atraumatic], [normocephalic], [symmetric] Eyes: [EOMI], [no lid lag], [anicteric sclera] Mouth: [no lip lesion], [mucus membranes moist] Cardiovascular: [S1S2 reg], [no murmur], [positive posterior tibial pulse bilateral], Lungs: [bilateral crackles], [no rhonchi, no rales] , [no accessory muscle use] Abdominal: [soft], [ nontender to palpation], [no guarding], [no appreciable organomegaly] Ext: [no gross muscle atrophy], [+2 b/l LE edema], [no contractures] Neuro: [ CN II-XI grossly intact], [no focal neuro deficits] Psych: [Alert], [oriented], [appropriate affect] Results CBC & Chem 7: 12/05/19 10:35 12/05/19 10:35 Labs: Abnormal Lab Results - Last 24 Hours (Table) 12/05/19 12/05/19 12/05/19 Range/Units 10:35 10:35 10:35 RBC 2.83 L (3.80-5.40) m/uL Hgb 8.7 L (11.4-16.0) gm/dL Hct 26.8 L (34.0-46.0) % BUN 23 H (7-17) mg/dL Glucose 141 H (74-99) mg/dL Troponin I 0.262 H* (0.000-0.034) ng/mL Total Protein 6.2 L (6.3-8.2) g/dL Urine Protein (Negative) Urine Blood (Negative) Urine Nitrite (Negative) Ur Leukocyte Esterase (Negative) Urine WBC (0-5) /hpf Urine Bacteria (None) /hpf 12/05/19 Range/Units 12:29 RBC (3.80-5.40) m/uL Hgb (11.4-16.0) gm/dL Hct (34.0-46.0) % BUN (7-17) mg/dL Glucose (74-99) mg/dL Troponin I (0.000-0.034) ng/mL Total Protein (6.3-8.2) g/dL Urine Protein 3+ H (Negative) Urine Blood Trace H (Negative) Urine Nitrite Positive H (Negative) Ur Leukocyte Esterase Moderate H (Negative) Urine WBC 21 H (0-5) /hpf Urine Bacteria Many H (None) /hpf Assessment and Plan Assessment: Acute exacerbation of congestive heart failure -Continue IV Lasix, oxygen, and Duonebs -Consult cardiology -Trend troponin levels -Trend pro BNP Possible focal infiltrate or atelectasis of right medial lung base with abnormal UA -Levaquin IV piggyback will be added -Repeat chest x-ray in a.m. -Urine culture ordered CAD status post PTCA 5 per patient -Continue statin, aspirin, Plavix Normocytic anemia no sign of acute GI bleed likely caused from chemo and radiation therapy -Trend H&H -FOB -Consult patient's assistant director of security/oncologist Dr. OJEDA [id number] diabetes mellitus -Insulin sliding scale -Check hemoglobin A1c Hypertension currently uncontrolled -Restart home medications HLD -On statin Anxiety depression -Restart Zoloft History of breast cancer status post bilateral mastectomy History of abdominal tumor followed by Dr. Ojeda oncologist and Dr. Tyler radiology oncology Diabetic diet Activity as tolerated GI DVT prophylaxis Patient is a full code Greater than 60 minutes coordinating care and counseling patient
[2019-12-05 17:25] LABS: Glucose,Whole Blood 184 mg/dL (75-99)
[2019-12-05] MEDS ORDERED: metFORMIN 500 MG TAB PO SCH (17:30)
[2019-12-05] MEDS: INSULIN ASPART (NovoLOG) 100 UNIT/ML VIAL SQ SCH ×2 (17:45→21:10)
[2019-12-05] MEDS: IPRATROPIUM-ALBUTEROL 3 ML NEB INHALATION SCH ×2 (19:17→23:25)
[2019-12-05 20:32] LABS: Glucose,Whole Blood 143 mg/dL (75-99)
[2019-12-05] MEDS: FUROSEMIDE 10 MG/ML 4 ML VIAL IV SCH (21:09)
[2019-12-05] MEDS: ATORVASTATIN 80 MG TAB PO SCH (21:09)
[2019-12-05] MEDS: ANASTROZOLE 1 MG TAB PO SCH (21:10)
[2019-12-05] MEDS: METOPROLOL TARTRATE 25 MG TAB PO SCH (21:10)
[2019-12-06] MEDS ORDERED: FUROSEMIDE 40 MG TAB PO SCH
[2019-12-06] MEDS ORDERED: HEPARIN SODIUM,PORCINE 5,000 UNIT/ML 1 ML VIAL IV PRN (01:58)
[2019-12-06] MEDS ORDERED: HEPARIN SODIUM,PORCINE 5,000 UNIT/ML 1 ML VIAL IV ONE (01:58)
[2019-12-06] MEDS ORDERED: HEPARIN SOD,PORK IN 0.45% NACL 25,000 UNIT in 0.45% NACL 1 250ML.BAG IV SCH (02:00)
[2019-12-06 03:27] LABS: Basophils % (A) 0 %; Eosinophils # (A) 0.2 k/uL (0-0.7); Eosinophils % (A) 3 %; HCT 33.3 % (34.0-46.0); HGB 10.6 gm/dL (11.4-16.0); Hypochromasia Slight; Lymphocytes % (A) 15 %; MCH 30.3 pg (25.0-35.0); MCHC 31.7 g/dL (31.0-37.0); MCV 95.5 fL (80.0-100.0); Mean Platelet Volume 9.2; Monocytes # (A) 0.5 k/uL (0-1.0); Monocytes % (A) 8 %; Neutrophils # (A) 4.6 k/uL (1.3-7.7); Neutrophils % (A) 71 %; Platelet Count 182 k/uL (150-450); RBC 3.49 m/uL (3.80-5.40); WBC 6.5 k/uL (3.8-10.6)
[2019-12-06 03:46] LABS: Albumin 3.3 g/dL (3.5-5.0); Calcium 8.8 mg/dL (8.4-10.2); Potassium 3.8 mmol/L (3.5-5.1); Total Bilirubin 0.4 mg/dL (0.2-1.3); Total Protein 5.9 g/dL (6.3-8.2)
[2019-12-06] MEDS: IPRATROPIUM-ALBUTEROL 3 ML NEB INHALATION SCH ×5 (03:53→20:29)
[2019-12-06 04:21] LABS: INR 1.2 (<1.2); Partial Thromboplastin Time 32.1 sec (22.0-30.0); Prothrombin Time 12.1 sec (9.0-12.0)
[2019-12-06 06:00] LABS: Glucose,Whole Blood 151 mg/dL (75-99)
--- NOTE | 2019-12-06 06:35 | XR ---
EXAMINATION TYPE: XR chest 2V DATE OF EXAM: 12/06/2019 COMPARISON: Most recent CT December 21, 2018. Chest x-ray from yesterday. HISTORY: History of breast and colon cancer with shortness of breath TECHNIQUE: Frontal and lateral views of the chest are obtained. FINDINGS: There is stable right internal jugular Mediport catheter. Stable mild cardiomegaly with at herosclerotic thoracic aorta. Background chronic parenchymal change of small right greater than left pleural effusions and associated bibasilar atelectasis and/or infiltrate redemonstrated. Surgical cli ps left axilla redemonstrated. Multilevel spurring in the spine again seen. IMPRESSION: Chronic parenchymal changes and mild cardiomegaly with small right greater than left ple ural effusions and associated bibasilar atelectasis and/or infiltrate. No significant change from one day earlier.
[2019-12-06] MEDS: INSULIN ASPART (NovoLOG) 100 UNIT/ML VIAL SQ SCH ×4 (06:53→21:05)
[2019-12-06] MEDS: PANTOPRAZOLE 40 MG TABLET PO SCH (06:53)
[2019-12-06] MEDS ORDERED: ENOXAPARIN 40 MG/0.4 ML SYRINGE SQ SCH (09:00)
--- NOTE | 2019-12-06 09:00 | P.CONS ---
History of Present Illness - Reason for Consult Consult date: 12/06/19 anemia, Hx cancer/chemo Requesting physician: Camelia Andrew - Chief Complaint SOB, wt gain - History of Present Illness She is currently admitted with c/o LUCY on exertion, at least 15lb wt. gain in the last 2 weeks, she just drove home from [facility]. CTA was neg for PE, pleural nodules and a sternal lesion noted. Denies fevers, chills, chest pain, SOB is stable, little better since admit, no chest pain, palpitations, she was found to be in a-flutter, started on eliquis, denies bleeding, no nausea, diarrhea, or constipation. She did ot complete recommended radiation course for a perirenal mass last year. She has not had any imaging since leaving. Malignancy Hx: Mrs. Iraheta initially presented with dark colored drainage from the lt. nipple starting 10/11, intermittent but then became persistent, fluid cytology was non-diagnostic, suspicious lesion on mammo and US. 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 MRI revealed possible area of suspicion in the right breast also. Pt opted for bilateral mastectomy with sentinel node biopsy on the left, 03/31/12, without reconstruction. Right breast was negative for malignancy but, she had residual disease on the left, with a mesenchymal component. She was referred to Dr. Ojeda for evaluation and recommendations re: adjuvant therapy. Due to the small mesenchymal component she was [facility]. It was recommended to essentially ignore the small mesenchymal component and proceed with Oncotype Dx testing. This put her in the low intermediate risk category. After detailed discussion, decided to treat with hormonal manipulation alone and she was initiated on Anastrozole in 06/13. She was last seen in 12/12. She then developed cardiac issues and had to have stents. Due to the same, and other family health issues, she did not follow up. She then felt a mass in her LLQ in the latter half of 06/15. Imaging revealed a LLQ pelvic mass. She was referred to Dr. Chayito Ybarra at [facility], and underwent radical resection on 07/03/14. She was found to have a large pelvic mass 22cm x 16 cm, pathology showing small cell carcinoma. There was extensive disease with involvement of the mesentery, retroperitoneum and diaphragm. She required ICU care and rehab. She was seen for f/u for this new diagnosis. Given the extent and type of cancer, she was advised that her disease was not curable. She had a PET scan, and underwent a thoracentesis on 08/06/14 for a right pleural effusion, that was negative for malignancy. Her PS did improve, and she started palliative chemo with TERRAZZO WORKER 16 and Carboplatin. She completed 4 cycles 10/14. F/U CT in 03/18 raised the possibility of progression in the omentum, however, PET and tumor markers were negative. CT scans showed further growth of soft tissue in the rt pararenal space. PET scan showed increased uptake in this area, as well as a long segment of sigmoid colon. Her tumor markers were again negative. She had a biopsy of the rt pararenal mass, positive for high grade carcinoma with neuroendocrine features. She was started back on TERRAZZO WORKER 16 and Carboplatin on 03/23/18, completing 4 cycles 05/27/18. Referred back to [facility], but was not felt to be a candidate for repeat surgery. They recommended continuation of chemo. Thus her regimen was resumed on 07/13/18. She completed s/p 5 cycles and then left for [place]. She continued chemo there and completed 8 cycles by early 10/18. CT scans 12/18 indicated increased nodularity in the rt pararenal density. PET showed decreased uptake, with new uptake in the rectum. Colonoscopy in 01/17 was negative. Referred to Rad Onc for consolidative RT to the rt pararenal area, per Rad Onc, after detailed discussion, she declined the same but, ended up having 1 treatment before leaving. She had no further Radiation. She was last seen 04/17/19, she was going to [facility]. Review of Systems 14 point ROS is negative except as stated in HPI Past Medical History Past Medical History: Cancer, Heart Failure, Diabetes Mellitus, Hyperlipidemia, Hypertension Additional Past Medical History / Comment(s): Pt instructed to inform Dr. 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 Past Anesthesia/Blood Transfusion Reactions: No Reported Reaction Date of Last Stent Placement:: 12/2012 Past Psychological History: No Psychological Hx Reported Smoking Status: Former smoker Past Alcohol Use History: None Reported Past Drug Use History: None Reported - Past Family History Father Family Medical History: Myocardial Infarction ([place]) Additional Family Medical History / Comment(s): Father at 85 of [place] Mother Sister(s) Family Medical History: Cancer Additional Family Medical History / Comment(s): Mother and sister both of breast CA Sister(s) Family Medical History: Cancer Additional Family Medical History / Comment(s): Breast CA, Kidney Tumors. Mother Family Medical History: Cancer Medications and Allergies Home Medications Medication Instructions Recorded Confirmed Type Anastrozole [Arimidex] 1 mg PO DAILY 02/08/14 12/05/19 History Atorvastatin [Lipitor] 80 mg PO HS 02/08/14 12/05/19 History Metoprolol Tartrate [Lopressor] 50 mg PO AC-BID 12/05/19 12/05/19 History Oxybutynin Chloride [Ditropan XL] 5 mg PO DAILY 12/05/19 12/05/19 History Pioglitazone HCl 30 mg PO DAILY 12/05/19 12/05/19 History amLODIPine [Norvasc] 5 mg PO DAILY 12/05/19 12/05/19 History Allergies Allergy/AdvReac Type Severity Reaction Status Date / Time Penicillins Allergy Intermediate Swelling Verified 12/05/19 16:31 Physical Exam Vitals: Vital Signs Temp Pulse Pulse Resp BP BP Pulse Ox 12/06/19 08:40 90 12/06/19 08:28 90 12/06/19 03:00 98.1 F 105 H 20 126/81 95 12/05/19 23:32 67 12/05/19 23:25 65 12/05/19 23:03 84 18 114/76 90 L 12/05/19 21:14 98.8 F 78 18 116/61 96 12/05/19 19:30 66 12/05/19 19:20 65 12/05/19 15:10 98.7 F 72 16 133/77 96 12/05/19 14:00 97.8 F 65 18 169/67 95 12/05/19 11:34 62 114/91 94 L 12/05/19 11:22 65 12/05/19 11:07 63 12/05/19 10:00 98.2 F 60 24 118/68 90 L Intake and Output 12/05/19 12/06/19 12/06/19 22:59 06:59 14:59 Intake Total 120 240 Output Total 750 Balance 120 -750 240 Intake: Oral 120 240 Output: Urine 750 Other: Voiding Method Toilet # Voids 1 Weight 89.358 kg 88.9 kg - Constitutional General appearance: cooperative, no acute distress, obese - EENT Eyes: anicteric sclerae, edentulous ENT: hearing grossly normal, normal oropharynx - Neck Neck: no lymphadenopathy - Respiratory Respiratory: bilateral: diminished - Cardiovascular bradycardia Heart sounds: normal: S1, S2 Abnormal Heart Sounds: no systolic murmur, no diastolic murmur, no rub, no S3 Gallop, no S4 Gallop, no click, no other leg Peripheral Edema: bilateral: 1+, Pitting - Gastrointestinal General gastrointestinal: no absent bowel sounds, no decreased bowel sounds, no distended, no hepatomegaly, no hyperactive bowel sounds, normal bowel sounds, no organomegaly, no rigid, no scaphoid, soft, no splenomegaly, no tenderness, no umbilical hernia, no ventral hernia - Neurologic Neurologic: CNII-XII intact - Musculoskeletal Musculoskeletal: strength equal bilaterally - Psychiatric Psychiatric: A&O x's 3, appropriate affect, intact judgment & insight Results CBC & Chem 7: 12/06/19 02:38 12/06/19 02:38 Labs: Abnormal Lab Results - Last 24 Hours (Table) 12/05/19 12/05/19 12/05/19 Range/Units 10:35 10:35 10:35 RBC 2.83 L (3.80-5.40) m/uL Hgb 8.7 L (11.4-16.0) gm/dL Hct 26.8 L (34.0-46.0) % Lymphocytes # (1.0-4.8) k/uL PT (9.0-12.0) sec INR (<1.2) APTT (22.0-30.0) sec BUN 23 H (7-17) mg/dL Glucose 141 H (74-99) mg/dL POC Glucose (mg/dL) (75-99) mg/dL Troponin I 0.262 H* (0.000-0.034) ng/mL Total Protein 6.2 L (6.3-8.2) g/dL Albumin (3.5-5.0) g/dL Urine Protein (Negative) Urine Blood (Negative) Urine Nitrite (Negative) Ur Leukocyte Esterase (Negative) Urine WBC (0-5) /hpf Urine Bacteria (None) /hpf 12/05/19 12/05/19 12/05/19 Range/Units 12:29 15:56 15:56 RBC 3.49 L (3.80-5.40) m/uL Hgb 10.8 L (11.4-16.0) gm/dL Hct 33.7 L (34.0-46.0) % Lymphocytes # 0.9 L (1.0-4.8) k/uL PT (9.0-12.0) sec INR (<1.2) APTT (22.0-30.0) sec BUN (7-17) mg/dL Glucose (74-99) mg/dL POC Glucose (mg/dL) (75-99) mg/dL Troponin I 0.227 H* (0.000-0.034) ng/mL Total Protein (6.3-8.2) g/dL Albumin (3.5-5.0) g/dL Urine Protein 3+ H (Negative) Urine Blood Trace H (Negative) Urine Nitrite Positive H (Negative) Ur Leukocyte Esterase Moderate H (Negative) Urine WBC 21 H (0-5) /hpf Urine Bacteria Many H (None) /hpf 12/05/19 12/05/19 12/06/19 Range/Units 17:24 20:30 02:38 RBC 3.49 L (3.80-5.40) m/uL Hgb 10.6 L (11.4-16.0) gm/dL Hct 33.3 L (34.0-46.0) % Lymphocytes # (1.0-4.8) k/uL PT (9.0-12.0) sec INR (<1.2) APTT (22.0-30.0) sec BUN (7-17) mg/dL Glucose (74-99) mg/dL POC Glucose (mg/dL) 184 H 143 H (75-99) mg/dL Troponin I (0.000-0.034) ng/mL Total Protein (6.3-8.2) g/dL Albumin (3.5-5.0) g/dL Urine Protein (Negative) Urine Blood (Negative) Urine Nitrite (Negative) Ur Leukocyte Esterase (Negative) Urine WBC (0-5) /hpf Urine Bacteria (None) /hpf 12/06/19 12/06/19 12/06/19 Range/Units 02:38 02:38 05:59 RBC (3.80-5.40) m/uL Hgb (11.4-16.0) gm/dL Hct (34.0-46.0) % Lymphocytes # (1.0-4.8) k/uL PT 12.1 H (9.0-12.0) sec INR 1.2 H (<1.2) APTT 32.1 H (22.0-30.0) sec BUN 21 H (7-17) mg/dL Glucose 137 H (74-99) mg/dL POC Glucose (mg/dL) 151 H (75-99) mg/dL Troponin I (0.000-0.034) ng/mL Total Protein 5.9 L (6.3-8.2) g/dL Albumin 3.3 L (3.5-5.0) g/dL Urine Protein (Negative) Urine Blood (Negative) Urine Nitrite (Negative) Ur Leukocyte Esterase (Negative) Urine WBC (0-5) /hpf Urine Bacteria (None) /hpf 12/06/19 Range/Units 08:13 RBC (3.80-5.40) m/uL Hgb (11.4-16.0) gm/dL Hct (34.0-46.0) % Lymphocytes # (1.0-4.8) k/uL PT (9.0-12.0) sec INR (<1.2) APTT 33.7 H (22.0-30.0) sec BUN (7-17) mg/dL Glucose (74-99) mg/dL POC Glucose (mg/dL) (75-99) mg/dL Troponin I (0.000-0.034) ng/mL Total Protein (6.3-8.2) g/dL Albumin (3.5-5.0) g/dL Urine Protein (Negative) Urine Blood (Negative) Urine Nitrite (Negative) Ur Leukocyte Esterase (Negative) Urine WBC (0-5) /hpf Urine Bacteria (None) /hpf Microbiology - Last 24 Hours (Table) 12/05/19 12:29 Urine Culture - Preliminary Urine,Voided CT scan - chest: report reviewed (no PE, pleural nodules, sternal lesion) Assessment and Plan (1) Papillary adenocarcinoma Current Visit: No Status: Chronic Priority: Medium Code(s): C80.1 - MALIGNANT (PRIMARY) NEOPLASM, UNSPECIFIED SNOMED Code(s): 263035145 (2) Small cell carcinoma carcinomatosis Current Visit: No Status: Chronic Priority: Medium Code(s): C80.0 - DISSEMINATED MALIGNANT NEOPLASM, UNSPECIFIED SNOMED Code(s): 426290009 (3) Neuroendocrine carcinoma Current Visit: No Status: Chronic Priority: Medium Code(s): C7A.8 - OTHER MALIGNANT NEUROENDOCRINE TUMORS SNOMED Code(s): 366146651 Plan: Pt has all of the above malignancy diagnoses, most recent the NET. She never finished XRT to the rt pararenal mass. CT AP to assess disease. May need new biopsy Pt was to see Rad Onc soon. Will discuss case with them Dr Attests: I have performed H&P and developed impression and plan of care for pt, discussed with dictator. I agree with dictated note, documented as a scribe.
[2019-12-06] MEDS: CLOPIDOGREL 75 MG TAB PO SCH (09:04)
[2019-12-06] MEDS: SERTRALINE 50 MG TAB PO SCH (09:04)
[2019-12-06] MEDS: LISINOPRIL 20 MG TAB PO SCH (09:04)
[2019-12-06] MEDS: ASPIRIN 81 MG PO SCH (09:04)
[2019-12-06] MEDS: FUROSEMIDE 10 MG/ML 4 ML VIAL IV SCH ×2 (09:04→21:05)
[2019-12-06] MEDS: METOPROLOL TARTRATE 25 MG TAB PO SCH (09:04)
[2019-12-06] MEDS: amLODIPine 5 MG TAB PO SCH (09:04)
[2019-12-06] MEDS ORDERED: HEPARIN SODIUM 1,000 UN/ML (10ML VL) MISCELLANE ONE (09:49)
--- NOTE | 2019-12-06 10:48 | P.CRDCN ---
History of Present Illness Consult date: 12/06/19 Requesting physician: Marychuy Alicea Consult reason: atrial fibrillation, congestive heart failure Chief complaint: Shortness of breath History of present illness: This is a 79-year-old female patient who follows Dr. OCTAVIA Us in the office. She has a known history of hypertension, hyperlipidemia, presented to the hospital with symptoms of several week duration of progressively worsening shor tness of breath, much worse over the past week. Patient also noticed lower extremity edema and increased weight gain. Her EKG on presentation here showed normal sinus rhythm with nonspecific ST-T wave changes. Chest x-ray showed chronic changes with small right greater than left pleural effusion. Blood pressure 126/80, heart rate 80-100, respirations 20 white blood cell count 6.5, hemoglobin 10.6, platelet count 182. Sodium 139, potassium 3.8, BUN 21, creatinine 0.9. Troponin 0.22, 0.26. BNP level 6620, TSH 2.7. On review of the patient's telemetry, this morning she is noted to be in atrial fibrillation with moderately rapid ventricular response. This appears to be new for the patient, she has not been on anticoagulation in the past. She is currently on IV heparin which we will transition over to Eliquis. We will also request a d- dimer be performed, to rule out the possibility of a pulmonary embolism. Past Medical History Past Medical History: Cancer, Heart Failure, Diabetes Mellitus, Hyperlipidemia, Hypertension Additional Past Medical History / Comment(s): Pt instructed to inform Dr. 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 Past Anesthesia/Blood Transfusion Reactions: No Reported Reaction Date of Last Stent Placement:: 12/2012 Past Psychological History: No Psychological Hx Reported Smoking Status: Former smoker Past Alcohol Use History: None Reported Past Drug Use History: None Reported - Past Family History Father Family Medical History: Myocardial Infarction (PR) Additional Family Medical History / Comment(s): Father at 85 of PR Mother Sister(s) Family Medical History: Cancer Additional Family Medical History / Comment(s): Mother and sister both of breast CA Sister(s) Family Medical History: Cancer Additional Family Medical History / Comment(s): Breast CA, Kidney Tumors. Mother Family Medical History: Cancer Medications and Allergies Home Medications Medication Instructions Recorded Confirmed Type Anastrozole [Arimidex] 1 mg PO DAILY 02/08/14 12/05/19 History Atorvastatin [Lipitor] 80 mg PO HS 02/08/14 12/05/19 History Metoprolol Tartrate [Lopressor] 50 mg PO AC-BID 12/05/19 12/05/19 History Oxybutynin Chloride [Ditropan XL] 5 mg PO DAILY 12/05/19 12/05/19 History Pioglitazone HCl 30 mg PO DAILY 12/05/19 12/05/19 History amLODIPine [Norvasc] 5 mg PO DAILY 12/05/19 12/05/19 History Allergies Allergy/AdvReac Type Severity Reaction Status Date / Time Penicillins Allergy Intermediate Swelling Verified 12/05/19 16:31 Physical Exam Vitals: Vital Signs Temp Pulse Pulse Resp BP BP Pulse Ox 12/06/19 08:40 90 12/06/19 08:28 90 12/06/19 08:00 98.4 F 98 24 106/63 96 12/06/19 03:00 98.1 F 105 H 20 126/81 95 12/05/19 23:32 67 12/05/19 23:25 65 12/05/19 23:03 84 18 114/76 90 L 12/05/19 21:14 98.8 F 78 18 116/61 96 12/05/19 19:30 66 12/05/19 19:20 65 12/05/19 15:10 98.7 F 72 16 133/77 96 12/05/19 14:00 97.8 F 65 18 169/67 95 12/05/19 11:34 62 114/91 94 L 12/05/19 11:22 65 12/05/19 11:07 63 Intake and Output 12/05/19 12/06/19 12/06/19 22:59 06:59 14:59 Intake Total 120 312.898 Output Total 750 Balance 120 -750 312.898 Intake: Intake, IV Titration 72.898 Amount Heparin Sod,Pork in 0.45% 72.898 NaCl 25,000 unit In 0.45 % NaCl 1 250ml.bag @ 11 UNITS/KG/HR 9.829 mls/hr IV .Q[facility]H [facility] Rx#: [id number] Oral 120 240 Output: Urine 750 Other: Voiding Method Toilet # Voids 1 Weight 89.358 kg 88.9 kg PHYSICAL EXAMINATION: GENERAL: 79-year-old female in no acute distress at the time of examination HEENT: Head is atraumatic, normocephalic. Pupils equal, round. Sclera anicteric. Conjunctiva are clear. Mucous membranes of the mouth are moist. Neck is supple. There is mild elevated jugular venous pressure. No carotid bruit is heard. HEART EXAMINATION: Heart S1 and S2 irregularly irregular CHEST EXAMINATION: Lungs reveal mild decreased air entry to the bases bilaterally ABDOMEN: Soft, nontender. Bowel sounds are heard. No organomegaly noted. EXTREMITIES: 2+ peripheral pulses with trace evidence of peripheral edema and no calf tenderness noted. NEUROLOGIC patient is awake, alert and oriented 3 . . Results 12/06/19 02:38 12/06/19 02:38 Cardiac Enzymes 12/05/19 12/05/19 12/05/19 Range/Units 10:35 10:35 15:56 AST 29 (14-36) U/L Troponin I 0.262 H* 0.227 H* (0.000-0.034) ng/mL 12/06/19 Range/Units 02:38 AST 26 (14-36) U/L Troponin I (0.000-0.034) ng/mL Coagulation 12/05/19 12/06/19 12/06/19 Range/Units 10:35 02:38 08:13 PT 11.1 12.1 H (9.0-12.0) sec APTT 23.4 32.1 H 33.7 H (22.0-30.0) sec CBC 12/05/19 12/05/19 12/06/19 Range/Units 10:35 15:56 02:38 WBC 6.9 6.6 6.5 (3.8-10.6) k/uL RBC 2.83 L 3.49 L 3.49 L (3.80-5.40) m/uL Hgb 8.7 L 10.8 L 10.6 L (11.4-16.0) gm/dL Hct 26.8 L 33.7 L 33.3 L (34.0-46.0) % Plt Count 224 196 182 (150-450) k/uL Comprehensive Metabolic Panel 12/05/19 12/06/19 Range/Units 10:35 02:38 Sodium 140 139 (137-145) mmol/L Potassium 4.2 3.8 (3.5-5.1) mmol/L Chloride 106 104 (98-107) mmol/L Carbon Dioxide 27 27 (22-30) mmol/L BUN 23 H 21 H (7-17) mg/dL Creatinine 0.91 0.92 (0.52-1.04) mg/dL Glucose 141 H 137 H (74-99) mg/dL Calcium 9.2 8.8 (8.4-10.2) mg/dL AST 29 26 (14-36) U/L ALT 24 19 (4-34) U/L Alkaline Phosphatase 101 108 (38-126) U/L Total Protein 6.2 L 5.9 L (6.3-8.2) g/dL Albumin 3.5 3.3 L (3.5-5.0) g/dL Current Medications Generic Name Dose Route Start Last Admin Trade Name Freq PRN Reason Stop Dose Admin Acetaminophen 325 mg 12/05/19 13:16 Tylenol Tab PO Q4H PRN Pain Albuterol/Ipratropium 3 ml 12/05/19 20:00 12/06/19 08:28 Duoneb 0.5 Mg-3 Mg/3 Ml Soln INHALATION 3 ml RT-Q4H [facility] Administration Amlodipine Besylate 5 mg 12/06/19 09:00 12/06/19 09:04 Norvasc PO 5 mg DAILY [facility] Administration Anastrozole 1 mg 12/05/19 21:00 12/05/19 21:10 Arimidex PO 1 mg HS [facility] Administration Aspirin 81 mg 12/06/19 09:00 12/06/19 09:04 Aspirin PO 81 mg DAILY [facility] Administration Atorvastatin Calcium 80 mg 12/05/19 21:00 12/05/19 21:09 Lipitor PO 80 mg HS [facility] Administration Clopidogrel Bisulfate 75 mg 12/06/19 09:00 12/06/19 09:04 Plavix PO 75 mg DAILY [facility] Administration Furosemide 40 mg 12/05/19 21:00 12/06/19 09:04 Lasix IV 40 mg Q12HR [facility] Administration Heparin Sodium (Porcine) 0 unit 12/06/19 01:58 12/06/19 09:57 Heparin IV 4,000 unit PER PROTOCOL PRN Administration Low PTT Protocol Levofloxacin/Dextrose 250 mg/ 50 mls @ 50 mls/hr 12/06/19 17:00 IV Solution IVPB Q24H [facility] Heparin Sodium/Sodium Chloride 250 mls @ 9.829 mls/hr 12/06/19 02:00 12/06/19 09:38 25,000 unit/ Sodium Chloride IV 14 units/kg/hr .Q24H [facility] 12.51 mls/hr Titration Protocol 11 UNITS/KG/HR Insulin Aspart 0 unit 12/05/19 17:30 12/06/19 06:53 Novolog SQ 1 unit ACHS [facility] Administration Protocol Lisinopril 20 mg 12/06/19 09:00 12/06/19 09:04 Zestril PO 20 mg DAILY [facility] Administration Metoprolol Tartrate 37.5 mg 12/06/19 21:00 Lopressor PO BID [facility] Nitroglycerin 0.4 mg 12/05/19 14:35 Nitrostat SUBLINGUAL Q5M PRN Chest Pain Pantoprazole Sodium 40 mg 12/06/19 07:30 12/06/19 06:53 Protonix PO 40 mg AC-BRKFST [facility] Administration Sertraline HCl 50 mg 12/06/19 09:00 12/06/19 09:04 Zoloft PO 50 mg DAILY [facility] Administration Intake and Output 12/05/19 12/06/19 12/06/19 22:59 06:59 14:59 Intake Total 120 312.898 Output Total 750 Balance 120 -750 312.898 Intake: Intake, IV Titration 72.898 Amount Heparin Sod,Pork in 0.45% 72.898 NaCl 25,000 unit In 0.45 % NaCl 1 250ml.bag @ 11 UNITS/KG/HR 9.829 mls/hr IV .Q24H [facility] Rx#: [id number] Oral 120 240 Output: Urine 750 Other: Voiding Method Toilet # Voids 1 Weight 89.358 kg 88.9 kg 12/06/19 02:38 12/06/19 02:38 EKG Interpretations (text) Initial EKG shows normal sinus rhythm with nonspecific ST-T wave changes Assessment and Plan Plan: Assessment and plan #1 symptoms of shortness of breath for several weeks duration, significantly worse over the past one week. Element of congestive heart failure, mild. Rule out possibility of embolism. #2 hypertension #3 hyperlipidemia #4 atrial fibrillation with rapid ventricular response, appears to be new for the patient, paroxysmal Plan We will obtain an echocardiogram with Doppler study, increase dose of beta b locker, obtain a d-dimer to rule out possibility of pulmonary embolism. Continue to diurese the patient monitoring intake and output along with daily weights and daily lytes BUN and creatinine. Discontinue IV heparin and transition the patient over to oral Eliquis. Further recommendations to follow. DNP note has been reviewed, I agree with a documented findings and plan of care. Patient was seen and examined.
[2019-12-06 11:08] LABS: % Iron Saturation 9.51 (12.00-45.00)
--- NOTE | 2019-12-06 12:20 | CT ---
EXAMINATION TYPE: CT angio chest DATE OF EXAM: 12/06/2019 COMPARISON: Most recent CT December 21, 2018 HISTORY: SOB, elevated d dimer. 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 CT DLP: 387 mGycm. Automated Exposure Control for Dose Reduction was Utilized. CONTRAST: CTA scan of the thorax is performed with IV Contrast, patient injected with 55 mL of Isovue 370, pulm onary embolism protocol. MIP Images are created on CT scanner and reviewed. FINDINGS: LUNGS: New small left and [id number] size right pleural fluid collections with associated righ t basilar compressive atelectasis. Mild to moderate bibasilar linear atelectasis progressed from most recent CT. Suspicious peripheral subcentimeter nodularity for reference axial image 81 in the lingul a measuring 6 mm. MEDIASTINUM: There is satisfactory enhancement of the pulmonary artery and its branches, there is no CT evidence for pulmonary embolism. There are suspicious prominent but subcentimeter bilateral hilar and mediastinal lymph nodes on current study. No cardiomegaly or pericardial effusion is seen. Bay picious right pericardial lymph node axial image 100 from prior study. Suspicious new 1.3 x 0.7 cm th ere are sternal lesion axial image 49. OTHER: Redemonstration of right internal jugular Mediport catheter. Surgical clips left axilla with s table subcentimeter lymph node inferior to this axis image 61. Bilateral mastectomy changes redemonst rated. IMPRESSION: No CT evidence for acute pulmonary embolism. New small to moderate size right greater tereza n left pleural effusions. Suspicious mediastinal and peripheral probable pleural-based nodularity lik ruben reflecting neoplastic progression. Consider repeat PET/CT to confirm.
[2019-12-06 12:24] LABS: Glucose,Whole Blood 164 mg/dL (75-99)
[2019-12-06 14:48] LABS: Hemoglobin A1C 7.2 % (4.0-6.0)
[2019-12-06] MEDS: APIXABAN 5 MG TAB PO SCH ×2 (14:50→21:07)
[2019-12-06 15:08] VITALS: BMI 38.2
--- NOTE | 2019-12-06 15:11 | P.PN ---
Subjective Progress Note Date: 12/06/19 Principal diagnosis: Shortness of breath Patient was seen and examined. No acute events overnight. Patient reports considerable improvement in her breathing since admission. She continues to complain of shortness of breath. She denies any chest pain or palpitations. No nausea or vomiting. No fever or chills. Objective - Vital Signs Vital signs: Vital Signs Temp 98.4 F 12/06/19 12:00 Pulse 65 12/06/19 12:00 Resp 3 L 12/06/19 12:00 BP 95/65 12/06/19 12:00 Pulse Ox 95 12/06/19 12:00 Intake & Output 12/05/19 12/06/19 12/06/19 18:59 06:59 18:59 Intake Total 120 672.898 Output Total 750 800 Balance 120 -750 -127.102 Weight 89.358 kg 88.9 kg Intake: Intake, IV Titration 72.898 Amount Heparin Sod,Pork in 0.45% 72.898 NaCl 25,000 unit In 0.45 % NaCl 1 250ml.bag @ 11 UNITS/KG/HR 9.829 mls/hr IV .Q24H [facility] Rx#: [id number] Oral 120 600 Output: Urine 750 800 Other: Voiding Method Toilet Toilet # Voids 1 1 - Exam General: [non toxic], [no distress], [appears at stated age] Derm: [warm], [dry] Head: [atraumatic], [normocephalic], [symmetric] Eyes: [EOMI], [no lid lag], [anicteric sclera] Mouth: [no lip lesion], [mucus membranes moist] Cardiovascular: [S1S2 reg], [no murmur], [positive DP pulse bilateral], Lungs: [Decreased breath sounds bilateral], [no rhonchi, no rales] , [no accessory muscle use] Abdominal: [soft], [ nontender to palpation], [no guarding], [no appreciable organomegaly] Ext: [no gross muscle atrophy], [no edema], [no contractures] Neuro: [no focal neuro deficits] Psych: [Alert], [oriented], [appropriate affect] - Labs CBC & Chem 7: 12/06/19 02:38 05/06/20 02:38 Labs: Abnormal Lab Results - Last 24 Hours (Table) 12/05/19 12/05/19 12/05/19 Range/Units 15:56 15:56 17:24 RBC 3.49 L (3.80-5.40) m/uL Hgb 10.8 L (11.4-16.0) gm/dL Hct 33.7 L (34.0-46.0) % Lymphocytes # 0.9 L (1.0-4.8) k/uL PT (9.0-12.0) sec INR (<1.2) APTT (22.0-30.0) sec D-Dimer (<0.60) mg/L FEU BUN (7-17) mg/dL Glucose (74-99) mg/dL POC Glucose (mg/dL) 184 H (75-99) mg/dL Hemoglobin A1c (4.0-6.0) % Iron (50-170) ug/dL % Saturation (12.00-45.00) Troponin I 0.227 H* (0.000-0.034) ng/mL Total Protein (6.3-8.2) g/dL Albumin (3.5-5.0) g/dL 12/05/19 12/06/19 12/06/19 Range/Units 20:30 02:38 02:38 RBC 3.49 L (3.80-5.40) m/uL Hgb 10.6 L (11.4-16.0) gm/dL Hct 33.3 L (34.0-46.0) % Lymphocytes # (1.0-4.8) k/uL PT (9.0-12.0) sec INR (<1.2) APTT (22.0-30.0) sec D-Dimer (<0.60) mg/L FEU BUN (7-17) mg/dL Glucose (74-99) mg/dL POC Glucose (mg/dL) 143 H (75-99) mg/dL Hemoglobin A1c 7.2 H (4.0-6.0) % Iron (50-170) ug/dL % Saturation (12.00-45.00) Troponin I (0.000-0.034) ng/mL Total Protein (6.3-8.2) g/dL Albumin (3.5-5.0) g/dL 12/06/19 12/06/19 12/06/19 Range/Units 02:38 02:38 05:59 RBC (3.80-5.40) m/uL Hgb (11.4-16.0) gm/dL Hct (34.0-46.0) % Lymphocytes # (1.0-4.8) k/uL PT 12.1 H (9.0-12.0) sec INR 1.2 H (<1.2) APTT 32.1 H (22.0-30.0) sec D-Dimer (<0.60) mg/L FEU BUN 21 H (7-17) mg/dL Glucose 137 H (74-99) mg/dL POC Glucose (mg/dL) 151 H (75-99) mg/dL Hemoglobin A1c (4.0-6.0) % Iron 29 L (50-170) ug/dL % Saturation 9.51 L (12.00-45.00) Troponin I (0.000-0.034) ng/mL Total Protein 5.9 L (6.3-8.2) g/dL Albumin 3.3 L (3.5-5.0) g/dL 12/06/19 12/06/19 12/06/19 Range/Units 08:13 08:13 12:23 RBC (3.80-5.40) m/uL Hgb (11.4-16.0) gm/dL Hct (34.0-46.0) % Lymphocytes # (1.0-4.8) k/uL PT (9.0-12.0) sec INR (<1.2) APTT 33.7 H (22.0-30.0) sec D-Dimer 3.83 H (<0.60) mg/L FEU BUN (7-17) mg/dL Glucose (74-99) mg/dL POC Glucose (mg/dL) 164 H (75-99) mg/dL Hemoglobin A1c (4.0-6.0) % Iron (50-170) ug/dL % Saturation (12.00-45.00) Troponin I (0.000-0.034) ng/mL Total Protein (6.3-8.2) g/dL Albumin (3.5-5.0) g/dL Microbiology - Last 24 Hours (Table) 12/05/19 12:29 Urine Culture - Preliminary Urine,Voided Assessment and Plan Assessment: Shortness of breath likely related to Acute exacerbation of congestive heart failure -Elevated d-dimer, chest CTA ruled out PE -Continue IV Lasix, oxygen, and Duonebs -Consult cardiology, follow echocardiogram Troponin elevation -Troponin 0.262, 0.227 with EKG showing normal sinus rhythm with T-wave abnormalities -Acute coronary syndrome ruled out -Telemetry monitoring. -Follow cardiology recommendations Abnormal UA -Levaquin IV piggyback will be added -Urine culture ordered CAD status post PTCA 5 per patient -Continue statin, aspirin, Plavix Normocytic anemia no sign of acute GI bleed likely caused from chemo and radiation therapy -Trend H&H -Iron studies show iron deficiency -Consult patient's basketballs and footballs reverser/oncologist Dr. FONTANA [id number] diabetes mellitus -Insulin sliding scale -A1c 7.2 Hypertension currently uncontrolled -Restart home medications HLD -On statin Anxiety depression -Restart Zoloft Possible progression of neoplastic disease seen on CTA chest. Oncology is consulted. [Patient is pending clinical improvement. Likely DC in 1-3 days.]
[2019-12-06] MEDS: LEVOFLOXACIN 250MG-D5W PMX 250 MG in DEXTROSE/WATER 1 50ML.BAG IVPB SCH (16:42)
[2019-12-06 16:50] LABS: Glucose,Whole Blood 119 mg/dL (75-99)
[2019-12-06 20:13] LABS: Glucose,Whole Blood 222 mg/dL (75-99)
[2019-12-06] MEDS: ANASTROZOLE 1 MG TAB PO SCH (21:05)
[2019-12-06] MEDS: ATORVASTATIN 80 MG TAB PO SCH (21:05)
[2019-12-06] MEDS: METOPROLOL TARTRATE 12.5 MG TAB PO SCH (21:05)
[2019-12-06] MEDS: ACETAMINOPHEN TAB 325 MG TAB PO PRN (21:14)
[2019-12-07] MEDS: IPRATROPIUM-ALBUTEROL 3 ML NEB INHALATION SCH ×6 (04:34→23:12)
[2019-12-07 06:11] LABS: Glucose,Whole Blood 149 mg/dL (75-99)
[2019-12-07] MEDS: INSULIN ASPART (NovoLOG) 100 UNIT/ML VIAL SQ SCH ×4 (06:32→20:45)
[2019-12-07] MEDS: PANTOPRAZOLE 40 MG TABLET PO SCH (06:32)
[2019-12-07] MEDS: ASPIRIN 81 MG PO SCH (08:16)
[2019-12-07] MEDS: FUROSEMIDE 10 MG/ML 4 ML VIAL IV SCH ×3 (08:16→22:31)
[2019-12-07] MEDS: SERTRALINE 50 MG TAB PO SCH (08:16)
[2019-12-07] MEDS: METOPROLOL TARTRATE 12.5 MG TAB PO SCH ×2 (08:16→19:59)
[2019-12-07] MEDS: CLOPIDOGREL 75 MG TAB PO SCH (08:16)
[2019-12-07] MEDS: APIXABAN 5 MG TAB PO SCH ×2 (08:16→20:00)
[2019-12-07] MEDS: LISINOPRIL 20 MG TAB PO SCH (08:19)
--- NOTE | 2019-12-07 09:50 | ECHOF ---
Referral Reason:chf MEASUREMENTS -------- HEIGHT: 152.4 cm WEIGHT: 88.5 kg BP: 106/63 RVIDd: 3.4 cm (< 3.3) IVSd: 1.7 cm (0.6 - 1.1) LVIDd: 4.7 cm (3.9 - 5.3) LVPWd: 1.8 cm (0.6 - 1.1) IVSs: 2.3 cm LVIDs: 3.5 cm LVPWs: 2.0 cm LAESV Index (A-L): 47.54 ml/m Ao Diam: 2.8 cm (2.0 - 3.7) AV Cusp: 1.8 cm (1.5 - 2.6) MV EXCURSION: 12.148 mm (> 18.000) MV EF SLOPE: 60 mm/s (70 - 150) EPSS: 1.0 cm MV E Diogenes: 1.51 m/s MV DecT: 222 ms MV A Diogenes: 1.00 m/s MV E/A Ratio: 1.50 RAP: 5.00 mmHg RVSP: 43.39 mmHg FINDINGS -------- Sinus rhythm. This was a technically adequate study. The left ventricular size is normal. There is severe concentric left ventricular hypertrophy. Ove rall left ventricular systolic function is mildly impaired with, an EF between 45 - 50 %. Both the mean atrial pressure as well as the LV end diastolic pressure is elevated 25.06. The right ventricle is mildly enlarged. LA is severely dilated >40 ml/m2 The right atrial size is normal. Interatrial and interventricular septum intact. The aortic valve is trileaflet and appears structurally normal. There is mild aortic valve sclerosi s. There is no evidence of aortic regurgitation. There is no evidence of aortic stenosis. Eacsqhdc-df-hqlfop mitral regurgitation is present. Moderate tricuspid regurgitation present. There is moderate pulmonary hypertension. The right hernandez tricular systolic pressure, as measured by Doppler, is 43.39mmHg. Trace/mild (physiologic) pulmonic regurgitation. The aortic root size is normal. IVC Not well visulized. There is no pericardial effusion. CONCLUSIONS -------- 1. Sinus rhythm. 2. This was a technically adequate study. 3. The left ventricular size is normal. 4. There is severe concentric left ventricular hypertrophy. 5. Overall left ventricular systolic function is mildly impaired with, an EF between 45 - 50 %. 6. Both the mean atrial pressure as well as the LV end diastolic pressure is elevated 25.06. 7. The right ventricle is mildly enlarged. 8. LA is severely dilated >40 ml/m2 9. The right atrial size is normal. 10. Interatrial and interventricular septum intact. 11. The aortic valve is trileaflet and appears structurally normal. 12. There is mild aortic valve sclerosis. 13. There is no evidence of aortic regurgitation. 14. There is no evidence of aortic stenosis. 15. Uydaxjbh-sa-zgvhhk mitral regurgitation is present. 16. Moderate tricuspid regurgitation present. 17. There is moderate pulmonary hypertension. 18. The right ventricular systolic pressure, as measured by Doppler, is 43.39mmHg. 19. Trace/mild (physiologic) pulmonic regurgitation. 20. The aortic root size is normal. 21. IVC Not well visulized. 22. There is no pericardial effusion. BRAILLE TEACHER: Kelly Short RDCS
[2019-12-07] MEDS: IOPAMIDOL CONTRAST (ORAL USE) VIAL PO PRN ×2 (10:10→11:30)
[2019-12-07] MEDS: amLODIPine 5 MG TAB PO SCH (10:52)
[2019-12-07 10:55] LABS: Albumin 3.6 g/dL (3.5-5.0); Total Bilirubin 0.5 mg/dL (0.2-1.3); Total Protein 6.5 g/dL (6.3-8.2)
--- NOTE | 2019-12-07 10:59 | P.PN ---
<Melvina Cobb - Last Filed: 12/07/19 10:55> Subjective Progress Note Date: 12/07/19 Principal diagnosis: CHF In f/u today pt looks better, less labored breathing, she feels good, swelling in the legs is down. No pain to report. CT is at Noon today Objective - Vital Signs Vital signs: Vital Signs Temp 98.3 F 12/07/19 08:00 Pulse 80 12/07/19 09:07 Resp 18 12/07/19 08:00 BP 109/58 12/07/19 08:00 Pulse Ox 95 12/07/19 08:00 Intake & Output 12/06/19 12/07/19 12/07/19 18:59 06:59 18:59 Intake Total 1032.898 222 240 Output Total 1500 1250 Balance -467.102 -1028 240 Weight 88.9 kg 64.8 kg Intake: Intake, IV Titration 72.898 Amount Heparin Sod,Pork in 0.45% 72.898 NaCl 25,000 unit In 0.45 % NaCl 1 250ml.bag @ 11 UNITS/KG/HR 9.829 mls/hr IV .Q24H [facility] Rx#: [id number] Oral 960 222 240 Output: Urine 1500 1250 Other: Voiding Method Toilet Toilet # Voids 1 2 - Constitutional General appearance: Present: average body habitus, cooperative, no acute distress - EENT Eyes: Present: anicteric sclerae, EOMI ENT: Present: hearing grossly normal - Respiratory Details: Less labored today Respiratory: bilateral: diminished - Cardiovascular Heart sounds: normal: S1, S2 - Peripheral edema leg Peripheral Edema: bilateral: Trace - Gastrointestinal General gastrointestinal: Present: soft - Integumentary Integumentary: Present: normal - Neurologic Neurologic: Present: CNII-XII intact - Musculoskeletal Musculoskeletal: Present: strength equal bilaterally - Psychiatric Psychiatric: Present: A&O x's 3, appropriate affect, intact judgment & insight - Labs CBC & Chem 7: 12/06/19 02:38 12/06/19 02:38 Labs: Abnormal Lab Results - Last 24 Hours (Table) 12/06/19 12/06/19 12/06/19 Range/Units 02:38 02:38 12:23 POC Glucose (mg/dL) 164 H (75-99) mg/dL Hemoglobin A1c 7.2 H (4.0-6.0) % Iron 29 L (50-170) ug/dL % Saturation 9.51 L (12.00-45.00) 12/06/19 12/06/19 12/07/19 Range/Units 16:49 20:09 06:10 POC Glucose (mg/dL) 119 H 222 H 149 H (75-99) mg/dL Hemoglobin A1c (4.0-6.0) % Iron (50-170) ug/dL % Saturation (12.00-45.00) Microbiology - Last 24 Hours (Table) 12/05/19 12:29 Urine Culture - Preliminary Urine,Voided Gram Neg Bacilli Assessment and Plan (1) Papillary adenocarcinoma Status: Chronic Priority: Medium Code(s): C80.1 - MALIGNANT (PRIMARY) NEOPLASM, UNSPECIFIED SNOMED Code(s): 916414544 (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 She never finished XRT to the rt pararenal mass. CT AP to assess disease. If target for biopsy will request the same. If no target, PET outpt will be scheduled Will discuss with Rad Onc today. Pt daughter on phone, she was updated and her questions answered. Attests: I have performed H&P and developed impression and plan of care for pt, discussed with dictator. I agree with dictated note, documented as a scribe. <Caleb Ojeda - Last Filed: 12/10/19 00:15> Subjective Clarification : Pt did complete recommended RT course. She was recommended and given 1 session of SBRT to the rt pararenal lesion, prior to leaving for [place] Objective - Vital Signs Vital signs: Vital Signs Temp 99.4 F 12/08/19 11:16 Pulse 75 12/08/19 12:00 Resp 18 12/08/19 11:16 BP 115/60 12/08/19 11:16 Pulse Ox 93 L 12/08/19 11:16 - Labs CBC & Chem 7: 12/08/19 12:07 12/08/19 12:07
[2019-12-07 11:40] LABS: Glucose,Whole Blood 198 mg/dL (75-99)
--- NOTE | 2019-12-07 11:40 | XR ---
EXAMINATION TYPE: XR chest 1V portable DATE OF EXAM: 12/07/2019 HISTORY: Shortness of breath. COMPARISON: 12/06/2019 TECHNIQUE: Single view of the chest is submitted. FINDINGS: Demonstrated are scattered senescent parenchymal change. Cardiomegaly with pulmonary venous congestion and small bilateral pleural effusions persist. Right ba silar atelectasis or infiltrate. Overall no change. Hilar and mediastinal structures are within normal limits. Degenerative changes are seen of the dorsal spine. IMPRESSION: 1. Cardiomegaly with pulmonary venous congestion and small bilateral pleural effusions persist. Righ t basilar atelectasis or infiltrate. Overall no change.
--- NOTE | 2019-12-07 14:59 | P.PN ---
Subjective Progress Note Date: 12/07/19 Principal diagnosis: Shortness of breath Patient was seen and examined. No acute events overnight. Patient reports considerable improvement in her breathing since admission, almost back to baseline. She denies any dysuria. She denies any chest pain or palpitations. No nausea or vomiting. No fever or chills. Objective - Vital Signs Vital signs: Vital Signs Temp 98.3 F 12/07/19 08:00 Pulse 82 12/07/19 13:28 Resp 18 12/07/19 12:00 BP 112/70 12/07/19 12:00 Pulse Ox 95 12/07/19 12:00 Intake & Output 12/06/19 12/07/19 12/07/19 18:59 06:59 18:59 Intake Total 1032.898 222 480 Output Total 1500 1250 Balance -467.102 -1028 480 Weight 88.9 kg 64.8 kg 84.6 kg Intake: Intake, IV Titration 72.898 Amount Heparin Sod,Pork in 0.45% 72.898 NaCl 25,000 unit In 0.45 % NaCl 1 250ml.bag @ 11 UNITS/KG/HR 9.829 mls/hr IV .Q24H [facility] Rx#: [id number] Oral 960 222 480 Output: Urine 1500 1250 Other: Voiding Method Toilet Toilet # Voids 1 2 1 # Bowel Movements 0 - Exam General: [non toxic], [no distress], [appears at stated age] Derm: [warm], [dry] Head: [atraumatic], [normocephalic], [symmetric] Eyes: [EOMI], [no lid lag], [anicteric sclera] Mouth: [no lip lesion], [mucus membranes moist] Cardiovascular: [S1S2 reg], [no murmur], [positive DP pulse bilateral], Lungs: [Decreased breath sounds bilateral], [no rhonchi, no rales] , [no accessory muscle use] Abdominal: [soft], [ nontender to palpation], [no guarding], [no appreciable organomegaly] Ext: [no gross muscle atrophy], [no edema], [no contractures] Neuro: [no focal neuro deficits] Psych: [Alert], [oriented], [appropriate affect] - Labs CBC & Chem 7: 12/06/19 02:38 12/07/19 09:58 Labs: Abnormal Lab Results - Last 24 Hours (Table) 12/06/19 12/06/19 12/07/19 Range/Units 16:49 20:09 06:10 Glucose (74-99) mg/dL POC Glucose (mg/dL) 119 H 222 H 149 H (75-99) mg/dL 12/07/19 12/07/19 Range/Units 09:58 11:25 Glucose 198 H (74-99) mg/dL POC Glucose (mg/dL) 198 H (75-99) mg/dL Microbiology - Last 24 Hours (Table) 12/05/19 12:29 Urine Culture - Preliminary Urine,Voided Gram Neg Bacilli Assessment and Plan Assessment: Shortness of breath likely related to Acute exacerbation of congestive heart failure -Elevated d-dimer, chest CTA ruled out PE -Continue IV Lasix (increased to 3 times a day as chest x-ray shows continued venous congestion), oxygen, and Duonebs -Strict intake and output, daily weights -Consult cardiology, echocardiogram shows EF 45-50% with severe concentric LVH -Follow home oxygen testing Troponin elevation -Troponin 0.262, 0.227 with EKG showing normal sinus rhythm with T-wave abnormalities -Acute coronary syndrome ruled out -Telemetry monitoring -Follow cardiology recommendations Abnormal UA -Levaquin IV piggyback will be added -Urine culture shows gram-negative bacilli, culture pending CAD status post PTCA 5 per patient -Continue statin, aspirin, Plavix Normocytic anemia no sign of acute GI bleed likely caused from chemo and radiation therapy -Trend H&H -Iron studies show iron deficiency -Consult patient's blankmaker/oncologist Dr. FONTANA Qea-qbhtofs-slnjjnues diabetes mellitus -Insulin sliding scale -A1c 7.2 Hypertension currently uncontrolled -Restart home medications HLD -On statin Anxiety depression -Restart Zoloft Possible progression of neoplastic disease seen on CTA chest. Oncology is consulted and CT chest is ordered. [Patient is pending clinical improvement. Pending urine culture. Follow 6 minute walk test. Oncology testing underway. Likely DC tomorrow.]
--- NOTE | 2019-12-07 15:03 | P.PN ---
Subjective Progress Note Date: 12/07/19 This is a 79-year-old female patient who follows Dr. OCTAVIA Us in the office. She has a known history of hypertension, hyperlipidemia, presented to the hospital with symptoms of several week duration of progressively worsening shortness of breath, much worse over the past week. Patient also noticed lower extremity edema and increased weight gain. Her EKG on presentation here showed normal sinus rhythm with nonspecific ST-T wave changes. Chest x-ray showed chronic changes with small right greater than left pleural effusion. Blood pressure 126/80, heart rate 80-100, respirations 20 white blood cell count 6.5, hemoglobin 10.6, platelet count 182. Sodium 139, potassium 3.8, BUN 21, creatinine 0.9. Troponin 0.22, 0.26. BNP level 6620, TSH 2.7. On review of the patient's telemetry, this morning she is noted to be in atrial fibrillation with moderately rapid ventricular response. This appears to be new for the patient, she has not been on anticoagulation in the past. She is currently on I V heparin which we will transition over to Eliquis. We will also request a d- dimer be performed, to rule out the possibility of a pulmonary embolism. 12/07/2019 Patient seen and examined today, overall feeling better, continues to be short of breath and had bilateral lower extremity edema. Continues to be on IV Lasix 40 mg twice a day. Blood pressure 112/70 with a heart rate in the 70s, 95% on 2 L of oxygen. Sodium 139, potassium 4.0, BUN 16, creatinine 0.8. Objective - Vital Signs Vital signs: Vital Signs Temp 98.3 F 12/07/19 08:00 Pulse 82 12/07/19 13:28 Resp 18 12/07/19 12:00 BP 112/70 12/07/19 12:00 Pulse Ox 95 12/07/19 12:00 Intake & Output 12/06/19 12/07/19 12/07/19 18:59 06:59 18:59 Intake Total 1032.898 222 480 Output Total 1500 1250 Balance -467.102 -1028 480 Weight 88.9 kg 64.8 kg 84.6 kg Intake: Intake, IV Titration 72.898 Amount Heparin Sod,Pork in 0.45% 72.898 NaCl 25,000 unit In 0.45 % NaCl 1 250ml.bag @ 11 UNITS/KG/HR 9.829 mls/hr IV .Q24H [facility] Rx#: [id number] Oral 960 222 480 Output: Urine 1500 1250 Other: Voiding Method Toilet Toilet # Voids 1 2 1 # Bowel Movements 0 - Exam PHYSICAL EXAMINATION: GENERAL: 79-year-old female in no acute distress at the time of examination HEENT: Head is atraumatic, normocephalic. Pupils equal, round. Sclera anicteric. Conjunctiva are clear. Mucous membranes of the mouth are moist. Neck is supple. There is mild elevated jugular venous pressure. No carotid bruit is heard. HEART EXAMINATION: Heart S1 and S2 irregularly irregular CHEST EXAMINATION: Lungs reveal mild decreased air entry to the bases bilaterally ABDOMEN: Soft, nontender. Bowel sounds are heard. No organomegaly noted. EXTREMITIES: 2+ peripheral pulses with trace evidence of peripheral edema and no calf tenderness noted. NEUROLOGIC patient is awake, alert and oriented 3 . - Labs CBC & Chem 7: 12/06/19 02:38 12/07/19 09:58 Labs: Abnormal Lab Results - Last 24 Hours (Table) 12/06/19 12/06/19 12/06/19 Range/Units 02:38 16:49 20:09 Glucose (74-99) mg/dL POC Glucose (mg/dL) 119 H 222 H (75-99) mg/dL Hemoglobin A1c 7.2 H (4.0-6.0) % 12/07/19 12/07/19 12/07/19 Range/Units 06:10 09:58 11:25 Glucose 198 H (74-99) mg/dL POC Glucose (mg/dL) 149 H 198 H (75-99) mg/dL Hemoglobin A1c (4.0-6.0) % Microbiology - Last 24 Hours (Table) 12/05/19 12:29 Urine Culture - Preliminary Urine,Voided Gram Neg Bacilli Assessment and Plan Plan: Assessment and plan #1 symptoms of shortness of breath for several weeks duration, significantly worse over the past one week. Diastolic congestive heart failure acute on chronic . #2 hypertension #3 hyperlipidemia #4 atrial fibrillation with rapid ventricular response, appears to be new for the patient, paroxysmal Plan Echocardiogram with Doppler study was performed which revealed an ejection fraction of 45-50%. Moderate to severe mitral regurgitation with moderate tricuspid regurg. Our recommendation is to continue current dose of IV Lasix. Continue Eliquis 5 twice a day. DNP note has been reviewed, I agree with a documented findings and plan of care. Patient was seen and examined.
[2019-12-07] MEDS ORDERED: FUROSEMIDE 10 MG/ML 4 ML VIAL IV SCH ×2 (16:00→21:00)
[2019-12-07 16:46] LABS: Glucose,Whole Blood 212 mg/dL (75-99)
[2019-12-07] MEDS: LEVOFLOXACIN 250MG-D5W PMX 250 MG in DEXTROSE/WATER 1 50ML.BAG IVPB SCH (17:43)
[2019-12-07] MEDS: ATORVASTATIN 80 MG TAB PO SCH (19:59)
[2019-12-07] MEDS: ANASTROZOLE 1 MG TAB PO SCH (20:00)
[2019-12-07] MEDS: ACETAMINOPHEN TAB 325 MG TAB PO PRN (20:00)
[2019-12-07 20:28] LABS: Glucose,Whole Blood 201 mg/dL (75-99)
[2019-12-08] MEDS: IPRATROPIUM-ALBUTEROL 3 ML NEB INHALATION SCH ×3 (02:56→11:49)
[2019-12-08 06:20] LABS: Glucose,Whole Blood 168 mg/dL (75-99)
[2019-12-08] MEDS: INSULIN ASPART (NovoLOG) 100 UNIT/ML VIAL SQ SCH ×2 (06:22→12:28)
[2019-12-08] MEDS: PANTOPRAZOLE 40 MG TABLET PO SCH (06:23)
[2019-12-08] MEDS: FUROSEMIDE 10 MG/ML 4 ML VIAL IV SCH (08:31)
[2019-12-08] MEDS: amLODIPine 5 MG TAB PO SCH (08:32)
[2019-12-08] MEDS: LISINOPRIL 20 MG TAB PO SCH (08:32)
[2019-12-08] MEDS: APIXABAN 5 MG TAB PO SCH (08:32)
[2019-12-08] MEDS: CLOPIDOGREL 75 MG TAB PO SCH (08:32)
[2019-12-08] MEDS: SERTRALINE 50 MG TAB PO SCH (08:32)
[2019-12-08] MEDS: ASPIRIN 81 MG PO SCH (08:32)
[2019-12-08] MEDS: METOPROLOL TARTRATE 12.5 MG TAB PO SCH (08:32)
[2019-12-08 08:43] VITALS: RESP 18
[2019-12-08 11:19] VITALS: BP 115/60; TEMP 99.4
[2019-12-08] MEDS ORDERED: LEVOFLOXACIN 250 MG TAB PO STA (11:30)
--- NOTE | 2019-12-08 11:49 | P.DS ---
Providers Date of admission: 12/05/19 13:14 Expected date of discharge: 12/08/19 Attending physician: Marychuy Alicea DO Consults: 12/05/19 13:14 Consult Physician Routine Consulting Provider: Cathy Us Consult Reason/Comments: CHF, elevated troponin Do you want consulting provider notified?: Yes 12/05/19 15:39 Consult Physician Routine Consulting Provider: Caleb Ojeda Consult Reason/Comments: Anemia with history of chemo and radiation Do you want consulting provider notified?: Yes Primary care physician: [facility] Course: 79-year-old female with PMH of CHF, diabetes mellitus, hypertension, dyslipidemia, CAD post PTCA, breast cancer post bilateral mastectomies, abdominal tumor currently undergoing radiation, anxiety and depression presented to the ED for exertional shortness of breath and 17 pound weight gain. She reported noncompliance with her diet while vacationing in [place]. Upon presentation to the ED, chest x-ray showed small pleural effusions right greater than left as well as focal infiltrate or atelectasis. Urinalysis was positive for nitrates and patient did have some urinary hesitancy. She had an elevated troponin of 0.262 and elevated BNP of 6170. She was admitted for treatment of CHF with cardiology consultation. Coronavirus testing was negative. She was started on Lasix 40 mg IV 3 times a day. Echocardiogram was ordered which showed EF 45-50% with severe concentric LVH. CTA chest was done which ruled out PE but showed pleural based nodularity likely reflecting neoplastic progression. Oncology was consulted and recommended CT of the abdomen and pelvis. Urine culture came back for gram-negative bacilli at the time of discharge. She did complete 3 days of levofloxacin while inpatient. Patient was seen and examined. No acute events overnight. Patient reports significant improvement in her breathing, back to baseline. She denies any chest pain, shortness of breath or palpitations. No dysuria. No abdominal pain. Tolerating diet well. General: [non toxic], [no distress], [appears at stated age] Derm: [warm], [dry] Head: [atraumatic], [normocephalic], [symmetric] Eyes: [EOMI], [no lid lag], [anicteric sclera] Mouth: [no lip lesion], [mucus membranes moist] Cardiovascular: [S1S2 reg], [no murmur], [positive DP pulse bilateral], Lungs: [Decreased breath sounds bilateral], [no rhonchi, no rales] , [no accessory muscle use] Abdominal: [soft], [ nontender to palpation], [no guarding], [no appreciable organomegaly] Ext: [no gross muscle atrophy], [no edema], [no contractures] Neuro: [no focal neuro deficits] Psych: [Alert], [oriented], [appropriate affect] Shortness of breath likely related to Acute exacerbation of congestive heart failure -Elevated d-dimer, chest CTA ruled out PE -Continue IV Lasix (transition to Lasix by mouth for discharge), oxygen, and Duonebs -Strict intake and output, daily weights -Consult cardiology, echocardiogram shows EF 45-50% with severe concentric LVH -Follow home oxygen testing A. fib with RVR -As seen on telemetry -Continue metoprolol for rate control along with Eliquis for anticoagulation as started by cardiology Troponin elevation -Troponin 0.262, 0.227 with EKG showing normal sinus rhythm with T-wave ab normalities -Acute coronary syndrome ruled out -Telemetry monitoring -Follow cardiology recommendations Abnormal UA -Urine culture shows gram-negative bacilli, culture pending, completed 3 days of levofloxacin CAD status post PTCA 5 per patient -Continue statin, aspirin, Plavix Normocytic anemia no sign of acute GI bleed likely caused from chemo and radiation therapy -Trend H&H -Iron studies show iron deficiency -Consult patient's com writer/oncologist Dr. OJEDA Dgn-owtaaoo-icykzwoew diabetes mellitus -Insulin sliding scale -A1c 7.2 Hypertension currently uncontrolled -Restart home medications HLD -On statin Anxiety depression -Restart Zoloft Possible progression of neoplastic disease seen on CTA chest. Oncology is consulted and CT chest is obtained. [Patient has completed 3 days of antibiotics for UTI. Her breathing is considerably improved. She is rate controlled. Anticipated DC today. This complex discharge took about 35 minutes to complete.] Pertinent Studies: Chest x-ray, chest CTA, echocardiogram, CT abdomen and pelvis Patient Condition at Discharge: Stable Plan - Discharge Summary Discharge Rx Participant: Yes New Discharge Prescriptions: New Aspirin 81 mg PO DAILY #30 chew Apixaban [Eliquis] 5 mg PO BID #60 tab Furosemide [Lasix] 40 mg PO BID #60 tablet Metoprolol Tartrate [Lopressor] 37.5 mg PO BID #60 tab amLODIPine [Norvasc] 5 mg PO DAILY #30 tab Clopidogrel [Plavix] 75 mg PO DAILY #30 tab Lisinopril [Zestril] 20 mg PO DAILY #30 tab Sertraline [Zoloft] 50 mg PO DAILY tab Continue Anastrozole [Arimidex] 1 mg PO DAILY Oxybutynin Chloride [Ditropan XL] 5 mg PO DAILY amLODIPine [Norvasc] 5 mg PO DAILY Pioglitazone HCl 30 mg PO DAILY Atorvastatin [Lipitor] 80 mg PO HS #30 tab Discontinued Metoprolol Tartrate [Lopressor] 50 mg PO AC-BID Discharge Medication List Anastrozole [Arimidex] 1 mg PO DAILY 02/08/14 [History] Oxybutynin Chloride [Ditropan XL] 5 mg PO DAILY 12/05/19 [History] Pioglitazone HCl 30 mg PO DAILY 12/05/19 [History] amLODIPine [Norvasc] 5 mg PO DAILY 12/05/19 [History] Apixaban [Eliquis] 5 mg PO BID #60 tab 12/08/19 [Rx] Aspirin 81 mg PO DAILY #30 chew 12/08/19 [Rx] Atorvastatin [Lipitor] 80 mg PO HS #30 tab 12/08/19 [Rx] Clopidogrel [Plavix] 75 mg PO DAILY #30 tab 12/08/19 [Rx] Furosemide [Lasix] 40 mg PO BID #60 tablet 12/08/19 [Rx] Lisinopril [Zestril] 20 mg PO DAILY #30 tab 12/08/19 [Rx] Metoprolol Tartrate [Lopressor] 37.5 mg PO BID #60 tab 12/08/19 [Rx] Sertraline [Zoloft] 50 mg PO DAILY tab 12/08/19 [Rx] amLODIPine [Norvasc] 5 mg PO DAILY #30 tab 12/08/19 [Rx] Follow up Appointment(s)/Referral(s): Caleb Ojeda MD [STAFF PHYSICIAN] - 12/14/19 2:30 pm Prince Tyler MD [STAFF PHYSICIAN] - 12/20/19 10:30 am Quang Lagos MD [Primary Care Provider] - 1-2 days Travis Shah MD [STAFF PHYSICIAN] - 1 Week Activity/Diet/Wound Care/Special Instructions: Diet: Diabetic, cardiac Follow-up PCP within 3 days of discharge. Follow-up with cardiology within 1 week of discharge. Follow up with oncology within 1 week of discharge. Take all medications as advised. Come back to the ED or call 911 for worsening chest pain, shortness of breath, lightheadedness or palpitations. Discharge Disposition: HOME SELF-CARE
[2019-12-08 11:52] VITALS: PULSE 75
[2019-12-08 12:03] LABS: Glucose,Whole Blood 160 mg/dL (75-99)
[2019-12-08 13:03] LABS: Albumin 3.6 g/dL (3.5-5.0); Calcium 9.4 mg/dL (8.4-10.2); Potassium 3.9 mmol/L (3.5-5.1); Total Bilirubin 0.4 mg/dL (0.2-1.3); Total Protein 6.4 g/dL (6.3-8.2)
[2019-12-08 13:05] LABS: Basophils % (A) 1 %; Eosinophils # (A) 0.2 k/uL (0-0.7); Eosinophils % (A) 3 %; HGB 11.2 gm/dL (11.4-16.0); Hypochromasia Marked; Lymphocytes # (A) 0.9 k/uL (1.0-4.8); Lymphocytes % (A) 13 %; MCH 30.2 pg (25.0-35.0); MCHC 31.3 g/dL (31.0-37.0); MCV 96.7 fL (80.0-100.0); Mean Platelet Volume 8.1; Monocytes # (A) 0.5 k/uL (0-1.0); Monocytes % (A) 7 %; Neutrophils # (A) 5.1 k/uL (1.3-7.7); Neutrophils % (A) 75 %; Platelet Count 221 k/uL (150-450); RBC 3.72 m/uL (3.80-5.40); RDW 14.6 % (11.5-15.5); WBC 6.8 k/uL (3.8-10.6)
--- NOTE | 2019-12-08 13:43 | P.PN ---
Subjective This is Chyna Hanna PA-C scribing on behalf of Dr. Shah The patient was interviewed and examined by Dr. Shah HPI/interval history Patient is a 79-year-old female with a history of hypertension, dyslipidemia who presented with complaints of progressive shortness of breath, lower extremity edema, and weight gain. She was admitted for treatment of congestive heart failure. Her initial EKG showed sinus rhythm on telemetry she was noted to be in atrial fibrillation with RVR. She has been started on anticoagulation with eliquis. She has converted back to sinus rhythm and remains in sinus rhythm today. She remains on IV Lasix. Patient seen and examined in follow-up by Dr. Shah today. Patient states she is feeling much better and her breathing has improved. EXAMINATION Temperature 99.4F, pulse in 70s, respirations 18, blood pressure 115/60, oxygen saturation 93% on room air Patient was seen and examined by Dr. Shah Lungs reveal mildly diminished air entry at the bases Heart is regular, no audible murmurs Trace edema bilaterally REVIEW OF LABS, ECG WBC 6.8, hemoglobin 11.2, platelets 221, potassium 3.9, BUN 19, creatinine 0.96 Telemetry reveals sinus mechanism, rates in the 70s IMPRESSION / ASSESSMENT: #1 symptoms of shortness of breath for several weeks duration, significantly worse over the past one week secondary to acute systolic CHF, improved #2 hypertension #3 hyperlipidemia #4 paroxysmal atrial fibrillation with rapid ventricular response, currently in sinus rhythm with rates in the 70s, anticoagulated with eliquis #5 valvular heart disease, moderate to severe MR and moderate tricuspid regu rgitation #6 cardiomyopathy, EF 45-50% recent echocardiogram, previous echocardiogram shows EF 55% in 2019 #7 history of CAD status post stenting to the RCA in 2012 PLAN: Discontinue baby aspirin, continue eliquis and Plavix to reduce risk of GI bleeding switch to oral Lasix, 80 milligrams in the morning and 40 mg in the afternoon Monitor BMP Continue statins and beta blockers Continue antihypertensive therapy Outpatient workup for newly detected cardiomyopathy Objective - Vital Signs Vital signs: Vital Signs Temp 99.4 F 12/08/19 11:16 Pulse 75 12/08/19 12:00 Resp 18 12/08/19 11:16 BP 115/60 12/08/19 11:16 Pulse Ox 93 L 12/08/19 11:16 Intake & Output 12/07/19 12/08/19 12/08/19 18:59 06:59 18:59 Intake Total 720 120 Output Total 1700 Balance 720 -1700 120 Weight 84.6 kg 83.3 kg Intake: Oral 720 120 Output: Urine 1700 Other: Voiding Method Toilet Toilet Toilet # Voids 1 # Bowel Movements 0 - Labs CBC & Chem 7: 12/08/19 12:07 12/08/19 12:07 Labs: Abnormal Lab Results - Last 24 Hours (Table) 12/07/19 12/07/19 12/08/19 Range/Units 16:23 20:26 06:19 POC Glucose (mg/dL) 212 H 201 H 168 H (75-99) mg/dL 12/08/19 Range/Units 11:56 POC Glucose (mg/dL) 160 H (75-99) mg/dL
--- NOTE | 2019-12-08 14:21 | CT ---
EXAMINATION TYPE: CT abdomen pelvis w con DATE OF EXAM: 12/07/2019 COMPARISON: PET/CT 05/13/2019, CT 12/21/2018 HISTORY: Untreated malignancy, restaging.Peritoneal cancer completed chemotherapy in September 2018. Orig inally diagnosed with ovarian cancer 2011. CT DLP: 1348.3 mGycm CONTRAST: CT scan of the abdomen and pelvis is performed with Oral Contrast and with IV Contrast, patient injec aamir with 100 mL of Isovue 300. FINDINGS: LUNG BASES-: There is cardiomegaly and moderate bilateral pleural effusions right greater than left w ith compressive atelectasis. Nodularity at the lung bases persists. LIVER/GB: The gallbladder is surgically absent. No space occupying hepatic lesion. Biliary tree is of normal caliber. PANCREAS: No inflammation. No distinct mass. SPLEEN: No splenic enlargement. No lesion seen. ADRENALS: No nodule. No thickening. KIDNEYS/BLADDER: No hydronephrosis. No nephrolithiasis. No distinct renal mass. Urinary bladder g rossly unremarkable. Nodularity adjacent to the right kidney persists and currently measures 2.7 cm i n maximal dimension versus 3.7 cm previously. Atrophic changes left kidney again noted with parenchym al calcifications noted. BOWEL: Normal appendix. Normal bowel caliber. No inflammation. GENITAL ORGANS: Hysterectomy and oophorectomy change. No recurrent mass seen. LYMPH NODES: No greater than 1cm abdominal or pelvic lymph nodes are appreciated. AORTA: No significant abnormality. OSSEOUS STRUCTURES: No significant abnormality is seen. OTHER: Umbilical hernia contains a short segment of the colon without obstruction. IMPRESSION: 1. Persistent nodular density right pararenal space is slightly smaller in size. No new nodules are i dentified. 2. Increasing basilar pleural effusions, and compressive atelectasis. Nodularity persists.
[2019-12-08] MEDS ORDERED: LEVOFLOXACIN 250 MG TAB PO SCH (17:00)
[2019-12-09] MEDS ORDERED: FUROSEMIDE 80 MG TAB PO SCH (08:00)
[2019-12-09] MEDS ORDERED: FUROSEMIDE 40 MG TAB PO SCH (14:00)
== END 2019-12-08 13:59 | disposition home or self-care (01) | DRG 292 ==
LOC: EC 09:53 → 3SCARD 13:14
PROVIDERS: ADMIT Internal Medicine; ATTEND Internal Medicine
DX: I11.0 Hypertensive heart disease with heart failure (principal); C80.0 Disseminated malignant neoplasm, unspecified; N39.0 Urinary tract infection, site not specified; I50.33 Acute on chronic diastolic (congestive) heart failure; D64.81 Anemia due to antineoplastic chemotherapy; T45.1X5A Adverse effect of antineoplastic and immunosuppressive drugs, initial encounter; T66.XXXA Radiation sickness, unspecified, initial encounter; W88.1XXA Exposure to radioactive isotopes, initial encounter; E11.9 Type 2 diabetes mellitus without complications; E61.1 Iron deficiency; E78.5 Hyperlipidemia, unspecified; F41.9 Anxiety disorder, unspecified; F32.9 Major depressive disorder, single episode, unspecified; I25.10 Atherosclerotic heart disease of native coronary artery without angina pectoris; I42.9 Cardiomyopathy, unspecified; I48.0 Paroxysmal atrial fibrillation; J44.9 Chronic obstructive pulmonary disease, unspecified; I08.1 Rheumatic disorders of both mitral and tricuspid valves; Z20.828 Contact with and (suspected) exposure to other viral communicable diseases; Z79.01 Long term (current) use of anticoagulants; Z79.02 Long term (current) use of antithrombotics/antiplatelets; Z79.811 Long term (current) use of aromatase inhibitors; Z79.82 Long term (current) use of aspirin; Z79.84 Long term (current) use of oral hypoglycemic drugs; Z79.899 Other long term (current) drug therapy; Z80.3 Family history of malignant neoplasm of breast; Z82.49 Family history of ischemic heart disease and other diseases of the circulatory system; Z85.3 Personal history of malignant neoplasm of breast; Z87.442 Personal history of urinary calculi; Z87.891 Personal history of nicotine dependence; Z90.13 Acquired absence of bilateral breasts and nipples; Z91.11 Patient's noncompliance with dietary regimen; Z91.19 Patient's noncompliance with other medical treatment and regimen; Z95.5 Presence of coronary angioplasty implant and graft; Z96.659 Presence of unspecified artificial knee joint; Z88.0 Allergy status to penicillin; Z98.49 Cataract extraction status, unspecified eye; D3A.8 Other benign neuroendocrine tumors
CPT/HCPCS: 36415; 71045; 71046; 71275; 74177; 80053; 81001; 82550; 83036; 83540; 83550; 83605; 83735; 83880; 84443; 84484; 85025; 85379; 85610; 85730; 87086; 87635; 93005; 93306; 94640; 96374; 99291

== ENCOUNTER → 2019-12-22 | Outpatient (CLI) | payer MEDICARE, BC ==
--- NOTE | 2019-12-26 07:23 | PE ---
Nuclear medicine PET/CT HISTORY: Peritoneal carcinoma, subsequent Patient received 11.3 mCi F-18 FDG intravenously in delayed scanning was performed from the skull bas e to the mid thighs. Localization and attenuation correction CT scan was performed. Correlation to CT scan 12/07/2019, prior nuclear medicine PET/CT 05/13/2019 Neck and chest: There is no cervical or supraclavicular adenopathy. No mediastinal, axillary, or afia r adenopathy. Surgical clips are present in the left axillary region as on previous exam. There are c oronary artery calcifications. No pleural or pericardial effusion. No suspicious hypermetabolic uptak e. There is a port in the right pectoral region, catheter courses via a right internal jugular vein a pproach into the superior vena cava. No evident lung mass. Patient shows post mastectomy changes. ABDOMEN: The soft tissue density seen along the region of the right kidney as described on prior CT i s not show associated hypermetabolic uptake. Visualized bowel uptake is felt likely to be physiologic . No evident liver mass or retroperitoneal adenopathy. There is a calcification along the intrahepati c inferior vena cava is noted on previous exams. Extensive atheromatous change present within the aor ta and iliac regions. Uterus and adnexal structures are not seen. Left kidney somewhat atrophic and s hows associated calcifications. Diverticular changes are present within the colon. Probable phlebolit hs within the pelvis. Along the anterior abdomen there is a focus of hypermetabolic uptake present which is at the level of the skin, SUV 9.6, no corresponding abnormality on CT, this may represent contamination. Osseous structures show no suspicious abnormality. IMPRESSION: No suspicious uptake, previous identified uptake in the pararenal space on the right has improved. Interval resolution of patient's pleural effusions. Possible skin contamination, area of in determinate uptake as described
== END | disposition home or self-care (01) ==
LOC: RADPETMAIN 12:04
PROVIDERS: ATTEND Radiology Radiation Oncology
DX: R93.421 Abnormal radiologic findings on diagnostic imaging of right kidney (principal); C48.1 Malignant neoplasm of specified parts of peritoneum
CPT/HCPCS: 78815; A9552

== ENCOUNTER → 2020-01-10 | Outpatient (CLI) | payer MEDICARE, BC ==
[2020-01-10 13:03] LABS: HCT 39.9 % (34.0-46.0); HGB 12.4 gm/dL (11.4-16.0); MCH 28.5 pg (25.0-35.0); MCV 91.9 fL (80.0-100.0); Mean Platelet Volume 7.6; Platelet Count 207 k/uL (150-450); RBC 4.34 m/uL (3.80-5.40); RDW 14.7 % (11.5-15.5); WBC 6.4 k/uL (3.8-10.6)
[2020-01-10 13:18] LABS: Potassium 4.7 mmol/L (3.5-5.1)
== END | disposition home or self-care (01) ==
LOC: LABWHC1 12:15
PROVIDERS: ATTEND Internal Medicine Interventional Cardiology
DX: Z01.818 Encounter for other preprocedural examination (principal); Z11.59 Encounter for screening for other viral diseases; I25.10 Atherosclerotic heart disease of native coronary artery without angina pectoris; I10 Essential (primary) hypertension
CPT/HCPCS: 80051; 82565; 82947; 84520; 85027; 36415; U0003

== ENCOUNTER → 2020-01-11 | Day surgery (SDC) | payer MEDICARE, BC ==
[2020-01-09 12:16] VITALS: BMI 33.2
[~2020-01-11] MED LIST: ALPRAZolam 0.25 MG TAB PO PRN; ALPRAZolam 0.5 MG TAB PO PRN; ASPIRIN 325 MG TAB PO STA; HEPARIN SOD,PORK IN 0.45% NACL 25,000 UNIT in 0.45% NACL 1 250ML.BAG IV ONE; INSULIN ASPART (NovoLOG) 100 UNIT/ML VIAL SQ ONE; IOPAMIDOL-370 100ML BTL INJ ONE; LIDOCAINE 1% INJ 10MG/ML (20 ML MDV) SQ ONE; MIDAZOLAM 2 MG/2 ML VIAL IV ONE; NITROGLYCERIN SL TABS 0.4 MG TAB SUBLINGUAL PRN; SODIUM CHLORIDE 0.9% 1,000 ML IV ONE; SODIUM CHLORIDE 0.9% 1,000 ML in EMPTY BAG 1 BAG IV ONE
[2020-01-11 07:09] LABS: Glucose,Whole Blood 223 mg/dL (75-99)
[2020-01-11 07:10] VITALS: BP 106/61; PULSE 75; RESP 16; TEMP 97.9
--- NOTE | 2020-01-11 10:23 | CC ---
CARDIAC CATHETERIZATION REPORT DATE OF SERVICE: 01/11/2020. PROCEDURE: Left heart catheterization and coronary angiography. PERFORMED BY: Dr. Bettina Us. Moderate conscious sedation time was 28 minutes. Patient was administered Versed. Oxygen saturation, hemodynamics and EKG were monitored closely. CLINICAL INFORMATION: Mrs. Jennifer Iraheta is a 79-year-old lady with ovarian and breast cancer in remission. She has history of CAD and in December 2012, I performed stenting of a heavily calcified tortuous RCA in 2 locations and also the PLV branch. She has since then developed ovarian cancer, which has been in remission. She has also developed recently paroxysmal atrial fibrillation, was on Eliquis 5 mg b.i.d., which has been held 48 hours before the cardiac cath today. She has other comorbid conditions in the form of hypertension and hyperlipidemia. She has type 2 diabetes under decent control. Because of significant symptoms of angina, I recommended coronary angiography and brought in for the procedure. Stress test also with Lexiscan revealed inferolateral reversible defect of a moderate size. PROCEDURE NOTE: Under local anesthesia and strict aseptic precautions, a 6-Malian introducer was placed in the right femoral artery. Using standard Nadeen catheters, I performed coronary angiography and the same right Nadeen catheter was used to check pressures in the LV. LV gram was not performed. The sheath was sutured and I advised that she should be transferred to [facility] for chronic total occlusion of the proximal/ostial RCA with heavy calcification. The results were discussed in detail with the patient, her and daughter by phone. CARDIAC CATHETERIZATION FINDINGS: The left ventricular end-diastolic pressure was 15 mmHg without any gradient across the aortic valve. CORONARY ANGIOGRAPHY FINDINGS: RIGHT CORONARY ARTERY: A very dominant vessel, heavily calcified. The ostium of the vessel appears to be patent and I was barely able to get antegrade injection. The proximal portion is a chronic total occlusion. The vessel fills very slowly and appears to opacify at least until the distal portion of the RCA and the bifurcation is also visualized, but the ostium and proximal RCA have a chronic total occlusion of at least 15 mm length with heavy calcification. There are stents located in the proximal and mid RCA as well as in the PLV branch. The are rich collaterals coming from the left system opacifying the branches of RCA. RCA is a super dominant vessel. LEFT MAIN CORONARY ARTERY: This is a very long vessel, free of significant disease that bifurcates into a circumflex and LAD. Left main itself has mild narrowing distally of about 15%. LEFT ANTERIOR DESCENDING CORONARY ARTERY: Good caliber vessel, gives off a good-sized diagonal branch, several septal branches runs all the way to the apex, has minor irregularities. No significant disease is noted in the LAD other than 20%-40% narrowing diffusely. LEFT POSTERIOR CIRCUMFLEX CORONARY ARTERY: Technically nondominant vessel, has a groove branch and a single obtuse marginal branch, has minor irregularities, no significant disease in the circumflex system. COLLATERAL CIRCULATION: There is a rich network of collaterals coming from the left system. Both circumflex and LAD opacifying the branches of RCA. FINAL IMPRESSION: This patient has slightly elevated filling pressures. No gradient across the aortic valve, chronic total occlusion of the proximal/ostial RCA which is a super dominant vessel that was stented in three areas in the proximal, mid branch of RCA and proximal and midportion of RCA and the PLV branch. This vessel is subtotally occluded, filling by collaterals from the left system. Left main has 15% stenosis. The LAD has 20%-40% areas of mild irregularities and no significant disease in the nondominant circumflex. RECOMMENDATIONS: In view of the preserved LV function and because of the ostium of the RCA and proximal RCA appearing like a chronic total occlusion, I am recommending that she should be transferred to [facility] for possible Rotablator and intervention. I discussed my thoughts in detail with the patient, , and also talked to the daughter by phone. I will transfer her by [facility] ambulance today and place her on a heparin drip. MMSRINIVAS / IJN: [id number] /
== END ==
LOC: CATHCVL 06:12
PROVIDERS: ATTEND Internal Medicine Interventional Cardiology
DX: I25.10 Atherosclerotic heart disease of native coronary artery without angina pectoris (principal); I25.84 Coronary atherosclerosis due to calcified coronary lesion; I25.82 Chronic total occlusion of coronary artery; I10 Essential (primary) hypertension; R94.39 Abnormal result of other cardiovascular function study; Z72.0 Tobacco use; Z85.3 Personal history of malignant neoplasm of breast; Z85.43 Personal history of malignant neoplasm of ovary; E11.9 Type 2 diabetes mellitus without complications; Z79.4 Long term (current) use of insulin; Z98.890 Other specified postprocedural states; E78.00 Pure hypercholesterolemia, unspecified; I48.0 Paroxysmal atrial fibrillation; R60.0 Localized edema; E78.5 Hyperlipidemia, unspecified; Z79.01 Long term (current) use of anticoagulants; Z79.84 Long term (current) use of oral hypoglycemic drugs; Z79.82 Long term (current) use of aspirin; Z79.899 Other long term (current) drug therapy; Z88.0 Allergy status to penicillin
CPT/HCPCS: 93458; C1769 ×3; C1894; J2250; J2001; Q9967; J1644

== ENCOUNTER → 2020-03-25 | Outpatient (CLI) | payer MEDICARE, BC ==
--- NOTE | 2020-03-25 21:24 | CT ---
EXAMINATION TYPE: CT ChestAbdPelvis w con DATE OF EXAM: 03/25/2020 INDICATION: Peritoneal cancer. COMPARISON: PET/CT 12/22/2019 CT DLP: 1152.4 mGycm CONTRAST: Performed with Oral Contrast and with IV Contrast, patient injected with 80ml mL of Isovue 300. TECHNIQUE: Axial images at 5 mm thick sections. Reconstructed images in the coronal plane. Delayed images through the kidneys. FINDINGS: CT CHEST: Portion of the thyroid visualized is normal. There is a 0.6 cm nodule along the periphery of the lingula. Series 4 image 44 No enlarged mediastinal or hilar adenopathy is evident. The ascending aorta diameter at the level of the main pulmonary artery is 3.0 cm. The main pulmonary artery diameter at the bifurcation is 3.2 cm. Dense coronary artery calcification is noted. CT ABDOMEN: Anterior abdominal wall hernias present containing a loop of colon. No obstruction is pat dent Liver: Normal Spleen: Normal Pancreas: Normal Adrenal glands: The adrenal glands are normal. Gallbladder: Not identified. Correlate with surgical history. Kidneys: Left kidney is atrophic. No masses are evident. No hydronephrosis is present. No cysts are present. There is a 1.5 cm calcification at the inferior pole left kidney without obstruction. Aorta: Vascular calcification is within the aorta. Inferior vena cava: Normal. CT PELVIS: Loops of bowel within the abdomen and pelvis are normal. Diverticulosis without acute diverticulitis is within the sigmoid colon There are loops of bowel which are incompletely distended or lack oral contrast limiting their evaluation. Appendix: Normal as visualized. Urinary bladder: Decompressed with limited evaluation Genitourinary structures: Uterus and ovaries are not identified. Osseous structures: No suspicious lytic or sclerotic lesions. Facet degenerative changes are present. IMPRESSIONS: 1. Diverticulosis without acute diverticulitis. 2. Left renal atrophy with large calcification inferior pole
== END | disposition home or self-care (01) ==
LOC: RADPROMAIN 14:03
PROVIDERS: ATTEND Internal Medicine Hematology & Oncology
DX: K57.30 Diverticulosis of large intestine without perforation or abscess without bleeding (principal); N26.1 Atrophy of kidney (terminal); N28.89 Other specified disorders of kidney and ureter; C48.1 Malignant neoplasm of specified parts of peritoneum; Z88.0 Allergy status to penicillin
CPT/HCPCS: 82565; 84520; 71260; 74177; 36415; J1642; Q9967

== ENCOUNTER → 2020-05-30 | Outpatient (CLI) | payer MEDICARE, BC ==
--- NOTE | 2020-05-30 14:31 | CT ---
EXAMINATION TYPE: CT ChestAbdPelvis wo/w con DATE OF EXAM: 05/30/2020 COMPARISON: 03/25/2020 HISTORY: 79-year-old female Right flank pain, history of ovarian CA TECHNIQUE: Contiguous axial scanning of the chest, abdomen, and pelvis performed without and with IV Contrast, patient injected with 100 mL of Isovue 300. Delayed images through the kidneys were obtaine d. Coronal/sagittal reconstructions performed. CT DLP: 2794 mGycm Automated exposure control for dose reduction was used. FINDINGS: CHEST: Right anterior chest wall injection port with catheter tip in the upper SVC. Heart normal size without pericardial effusion. Extensive LAD and RCA coronary artery calcifications are present. Moderate scattered vascular calcifications thoracic aorta. Stable nonenlarged mediastinal lymph nodes. Right upper internal mammary chain lymph node remains pro minent at 8 mm thick, unchanged. Enlarging right pericardiac lymph nodes measuring 2.1 x 1.0 cm and 2.2 x 1.7 cm (versus 1.6 x 1.0 cm and 1.8 x 1.4 cm, previously and respectively). Stable 6 mm and 3 mm left lower lobe pulmonary nodules. No consolidation or pleural effusion. ABDOMEN: No focal liver lesion seen. Portal venous system is patent. Stable prominent duct measuring 8 mm stat us post cholecystectomy. Adrenal glands within normal limits. Stable 8 mm cystic lesion at the junction of the pancreatic body and tail. Large 3.6 cm diverticulum of the third portion of the duodenum projecting into the pancreatic head region. Continued fluid and soft tissue thickening inferior to the right hepatic lobe along the right paracol ic gutter. Some nodularity in the right lateral pararenal space measures 1.5 cm versus 1.4 cm, previo usly, axial image 77. Some nodularity just anteriorly measures up to 1.0 cm and has increased in size . There is abnormal hypoenhancement involving the lateral midpole of the right kidney for which bilater al nephritis should be excluded. Symmetric uptake and excretion of contrast from both kidneys. Multiple cortical defects within the left kidney from prior vascular infectious insult. Left-sided ne phrolithiasis measuring up to 1.1 cm. Additional contour deformity upper pole spleen probably from pr ior vascular insults. Moderate to advanced atherosclerotic calcification and plaque throughout the ab dominal aorta and common iliac arteries. No dilated small bowel, free fluid, or free air. No mesenteric or retroperitoneal lymphadenopathy. Normal appendix. There is some annular narrowing and wall thickening along the upper ascending colon which persists on the delayed kidney images, refer to axial image 74. Moderate stool burden. Sigmoid diverticulosis. No pericolonic inflammatory change. PELVIS: The bladder is urine distended. Uterus surgically absent. Neither ovary clearly identified. There is some focal irregular soft tissue within the cul-de-sac measuring 2.9 x 1.2 cm versus 2.4 x 0.9 cm on 12/22/2019. BONES: Degenerative change of the hips. Hypertrophic facet arthropathy lower lumbar spine. DISH within the m id to lower thoracic spine. IMPRESSION: 1. FOCAL HYPOENHANCEMENT INVOLVING THE MIDPOLE OF THE RIGHT KIDNEY. FINDINGS CAN BE SEEN IN SETTING O F PYELONEPHRITIS. CLINICALLY CORRELATE. 2. LEFT NEPHROLITHIASIS WITHOUT HYDRONEPHROSIS. 3. FINDINGS SUGGEST SUBTLE DISEASE PROGRESSION GIVEN ENLARGING RIGHT PARACARDIAC LYMPH NODES, SOFT TI SSUE NODULARITY IN THE RIGHT PARARENAL SPACE ALSO SLIGHTLY ENLARGING, AND IRREGULAR SOFT TISSUE IN TH E CUL-DE-SAC ALSO SLIGHTLY LARGER 2.9 X 1.2 CM (VERSUS 2.4 X 0.9 CM ON 12/22/2019). 4. THERE IS SOME MURAL THICKENING AND NARROWING INVOLVING THE UPPER ASCENDING COLON ADJACENT TO THE R IGHT PARARENAL SPACE THAT COULD REPRESENT EARLY SEROSAL DISEASE.
== END | disposition home or self-care (01) ==
LOC: RADPROMAIN 11:57
PROVIDERS: ATTEND Nurse Practitioner Adult Health
DX: N12 Tubulo-interstitial nephritis, not specified as acute or chronic (principal); N20.0 Calculus of kidney; R59.9 Enlarged lymph nodes, unspecified; K63.89 Other specified diseases of intestine; C34.90 Malignant neoplasm of unspecified part of unspecified bronchus or lung; C50.819 Malignant neoplasm of overlapping sites of unspecified female breast; C56.1 Malignant neoplasm of right ovary; R10.9 Unspecified abdominal pain; Z88.0 Allergy status to penicillin
CPT/HCPCS: 82565; 84520; 71270; 74178; 36415; J1642; Q9967; 80048; 83036

== ENCOUNTER → 2020-06-07 | Outpatient (CLI) | payer MEDICARE, BC ==
--- NOTE | 2020-06-10 13:30 | PE ---
[facility] PET/CT HISTORY: Peritoneal carcinoma Patient received 12.3 mCi F-18 FDG intravenously in delayed scanning was performed from the skull bas e to the mid thighs. Localization and attenuation correction CT scan was performed. Correlation to prior nuclear medicine PET/CT 12/22/2019 Chest and neck: Left supraclavicular node is present and shows associated hypermetabolic uptake which is a new finding. Second smaller node is also present with associated uptake. Small posterior medias tinal node also shows uptake which was not seen on prior exam, internal mammary node on the right ford ws uptake that was not identified on prior exam, the node is increased in size. Epicardial nodes are noted on the right which show associated uptake which is new, lymph nodes have increased in size. Ret rocrural nodes are also present with associated uptake which is progressed from prior. abdomen: Uptake along the right paracolic gutter is an interval finding, there is some associated abn ormal soft tissue at this level. Uptake in the perineum is indeterminate. Osseous structures: No hypermetabolic uptake. IMPRESSION: There has been progression of uptake as described.
== END | disposition home or self-care (01) ==
LOC: RADPETMAIN 14:22
PROVIDERS: ATTEND Internal Medicine Hematology & Oncology
DX: C48.1 Malignant neoplasm of specified parts of peritoneum (principal); R93.5 Abnormal findings on diagnostic imaging of other abdominal regions, including retroperitoneum; R91.8 Other nonspecific abnormal finding of lung field
CPT/HCPCS: 78815; A9552; J1642

== ENCOUNTER → 2020-08-12 | Outpatient (CLI) | payer MEDICARE, BC | END | disposition home or self-care (01) | LOC: LABPAT 11:03 | PROVIDERS: ATTEND Thoracic Surgery (Cardiothoracic Vascular Surgery) | DX: Z01.818 Encounter for other preprocedural examination (principal); C78.1 Secondary malignant neoplasm of mediastinum; R59.0 Localized enlarged lymph nodes; U07.1 COVID-19 | CPT/HCPCS: 87635; C9803; U0005; 36591; 80051; 82565; 82947; 84520; 85025; 85610; 85730 ==

== ENCOUNTER → 2020-08-12 | Outpatient (CLI) | payer MEDICARE, BC ==
[2020-08-12 12:17] LABS: Potassium 4.2 mmol/L (3.5-5.1)
[2020-08-12 12:30] LABS: Basophils # (A) 0.1 k/uL (0-0.2); Basophils % (A) 1 %; Eosinophils # (A) 0.1 k/uL (0-0.7); Eosinophils % (A) 2 %; HCT 35.6 % (34.0-46.0); HGB 11.9 gm/dL (11.4-16.0); Lymphocytes # (A) 0.9 k/uL (1.0-4.8); Lymphocytes % (A) 12 %; MCH 30.2 pg (25.0-35.0); MCHC 33.5 g/dL (31.0-37.0); MCV 90.2 fL (80.0-100.0); Mean Platelet Volume 7.8; Monocytes # (A) 0.5 k/uL (0-1.0); Monocytes % (A) 7 %; Neutrophils # (A) 5.6 k/uL (1.3-7.7); Neutrophils % (A) 78 %; Platelet Count 199 k/uL (150-450); RBC 3.94 m/uL (3.80-5.40); RDW 14.9 % (11.5-15.5); WBC 7.2 k/uL (3.8-10.6)
[2020-08-12 12:58] LABS: INR 0.9 (<1.2)
== END | disposition home or self-care (01) ==
LOC: PROCWHC3 11:11
PROVIDERS: ATTEND Thoracic Surgery (Cardiothoracic Vascular Surgery)
DX: Z01.818 Encounter for other preprocedural examination (principal); R59.0 Localized enlarged lymph nodes; C78.1 Secondary malignant neoplasm of mediastinum
CPT/HCPCS: 80051; 82565; 82947; 84520; 85025; 85610; 85730; 36591; J1642

== ENCOUNTER → 2020-08-26 | Outpatient (CLI) | payer MEDICARE, BC | END | disposition home or self-care (01) | LOC: LABWHC1 10:28 | PROVIDERS: ATTEND Thoracic Surgery (Cardiothoracic Vascular Surgery) | DX: U07.1 COVID-19 (principal) | CPT/HCPCS: U0003; C9803; U0005 ==

== ENCOUNTER → 2020-12-18 | Outpatient (CLI) | payer MEDICARE, BC ==
[2020-12-18 15:35] VITALS: BP 114/69; PULSE 61; RESP 18; TEMP 98.2
[2020-12-18 18:46] LABS: Potassium 4.7 mmol/L (3.5-5.1)
[2020-12-18 19:17] LABS: HCT 35.8 % (34.0-46.0); HGB 11.9 gm/dL (11.4-16.0); MCHC 33.3 g/dL (31.0-37.0); MCV 90.2 fL (80.0-100.0); Mean Platelet Volume 7.9; Platelet Count 253 k/uL (150-450); RBC 3.97 m/uL (3.80-5.40); RDW 14.7 % (11.5-15.5); WBC 6.8 k/uL (3.8-10.6)
== END ==
LOC: PROCWHC3 15:18
PROVIDERS: ATTEND Internal Medicine
DX: Z01.818 Encounter for other preprocedural examination (principal); Z88.0 Allergy status to penicillin; Z87.891 Personal history of nicotine dependence
CPT/HCPCS: 80051; 82565; 84520; 85027; 36591; J1642

== ENCOUNTER 2020-12-30 22:53 | Inpatient (IN) | payer MEDICARE, BC ==
[2020-12-30] MEDS ORDERED: MORPHINE SULFATE 4 MG/ML SYRINGE IVP STA (23:13)
[2020-12-30] MEDS ORDERED: LABETALOL 5 MG/ML VIAL MDV IVP STA (23:13)
--- NOTE | 2020-12-30 23:14 | ED ---
Chest Pain HPI - General Chief Complaint: Chest Pain Stated Complaint: Chest Pain, Abd Pain Time Seen by Provider: 12/30/20 23:03 Source: patient, RN notes reviewed, old records reviewed Mode of arrival: ambulatory Limitations: no limitations - History of Present Illness Initial Comments: This is a 80-year-old female to the ER today. Patient presents today for evaluation of chest pain patient has severe chest pain in her chest and back. Patient states she is scheduled for heart catheterization in the morning MD Complaint: chest pain -: days(s) Onset: during rest, during exertion Pain Location: substernal, left chest Pain Radiation: back Severity: moderate Severity scale (1-10): 7 Quality: sharp Consistency: constant Improves With: nothing Worsens With: nothing Anginal Symptoms: nausea, dyspnea Other Symptoms: palpitations Treatments Prior to Arrival: none - Related Data Home Medications Medication Instructions Recorded Confirmed Anastrozole [Arimidex] 1 mg PO DAILY 02/08/14 01/06/21 metFORMIN HCL [Glucophage] 500 mg PO DIRECTED 01/09/20 01/06/21 Clopidogrel [Plavix] 75 mg PO DIRECTED 08/09/20 01/06/21 Furosemide [Lasix] 40 mg PO DAILY 08/09/20 01/06/21 Nitroglycerin Sl Tabs [Nitrostat] 0.4 mg SL Q5M PRN 12/27/20 01/06/21 Apixaban [Eliquis] 2.5 mg PO DIRECTED 12/31/20 01/06/21 Calcium Carbonate [Tums] 500 mg PO DAILY 12/31/20 01/06/21 Lidocaine-Prilocaine Cream [Emla 1 applic TOPICAL DIRECTED 12/31/20 01/06/21 Cream 2.5%/2.5%] Magnesium Oxide 400 mg PO DAILY 12/31/20 01/06/21 Metoprolol Tartrate [Lopressor] 50 mg PO BID 12/31/20 01/06/21 lisinopriL [Zestril] 10 mg PO BID 12/31/20 01/06/21 metFORMIN HCL [Glucophage] 1,000 mg PO DIRECTED 12/31/20 01/06/21 dexAMETHasone ORAL [Hexadrol] See Taper PO DIRECTED 01/06/21 01/06/21 oxyCODONE-APAP 10-325MG [Percocet 1 tab PO Q6H PRN 01/06/21 01/06/21 10-325 mg] Previous Rx's Medication Instructions Recorded Atorvastatin [Lipitor] 80 mg PO HS #30 tab 12/08/19 Sertraline [Zoloft] 50 mg PO DAILY tab 12/08/19 Sennosides [Senokot] 8.6 mg PO BID PRN #30 tab 01/03/21 amLODIPine [Norvasc] 10 mg PO DAILY #30 tab 01/03/21 polyethylene glycoL 3350 [Miralax] 17 gm PO DAILY PRN #20 powd.pack 01/03/21 HYDROmorphone [Dilaudid] 4 mg PO Q6H PRN 3 Days #12 tab 01/06/21 Ondansetron Odt [Zofran Odt] 4 mg PO Q8HR PRN #12 tab 01/06/21 Famotidine [Pepcid] 20 mg PO BID #60 tablet 01/07/21 Allergies Allergy/AdvReac Type Severity Reaction Status Date / Time Penicillins Allergy Intermediate Swelling Verified 01/06/21 11:31 Review of Systems ROS Statement: Those systems with pertinent positive or pertinent negative responses have been documented in the HPI. ROS Other: All systems not noted in ROS Statement are negative. EKG Findings - EKG Comments: EKG Findings:: EKG is sinus rhythm 97, CA 192 QRS 90 QTC 421 - EKG Results: EKG: WNL (EKG is sinus rhythm 81 CA 132 QRS 78 QTc 455) Past Medical History Past Medical History: Cancer, Chest Pain / Angina, Heart Failure, Diabetes Mellitus, Hyperlipidemia, Hypertension, Osteoarthritis (OA) Additional Past Medical History / Comment(s): Breast CA 2011- bilateral mastectomy-radiation & chemo, Kidney Stones-having left flank pain currently- thinks she might have one now-restarted antibiotic on her own for, some SOB w/exertion, chest pain w/exertion recently History of Any Multi-Drug Resistant Organisms: None Reported Past Surgical History: Heart Catheterization With Stent Additional Past Surgical History / Comment(s): Last heart cath 2013 with stent times 7, left TKA 2008, Cataract 2000, Left Lithotripsy ([facility]) 2001, Blepharoplasty 2006, percutaneous nephrostolithomy 04/25/14, 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 Past Anesthesia/Blood Transfusion Reactions: No Reported Reaction Date of Last Stent Placement:: January 2020 Past Psychological History: No Psychological Hx Reported Smoking Status: Former smoker Past Alcohol Use History: None Reported Past Drug Use History: None Reported - Past Family History Mother Sister(s) Family Medical History: Cancer Sister(s) Family Medical History: Cancer Additional Family Medical History / Comment(s): 2 had Breast CA, 1 had Kidney cancer Mother Family Medical History: Cancer Additional Family Medical History / Comment(s): kidney, breast cancer General Exam Limitations: no limitations General appearance: alert, in no apparent distress, anxious Head exam: Present: atraumatic, normocephalic, normal inspection Eye exam: Present: normal appearance, PERRL, EOMI. Absent: scleral icterus, conjunctival injection, periorbital swelling ENT exam: Present: normal exam, mucous membranes moist Neck exam: Present: normal inspection. Absent: tenderness, meningismus, lymphadenopathy Respiratory exam: Present: normal lung sounds bilaterally. Absent: respiratory distress, wheezes, rales, rhonchi, stridor Cardiovascular Exam: Present: regular rate, normal rhythm, normal heart sounds. Absent: systolic murmur, diastolic murmur, rubs, gallop, clicks GI/Abdominal exam: Present: soft, normal bowel sounds. Absent: distended, tenderness, guarding, rebound, rigid Extremities exam: Present: normal inspection, full ROM, normal capillary refill. Absent: tenderness, pedal edema, joint swelling, calf tenderness Back exam: Present: normal inspection Neurological exam: Present: alert, oriented X3, CN II-XII intact Psychiatric exam: Present: normal affect, normal mood Skin exam: Present: warm, dry, intact, normal color. Absent: rash Course Vital Signs 12/30/20 12/30/20 12/30/20 22:57 23:30 23:55 Temperature 98.0 F Pulse Rate 99 83 Pulse Rate [ 82 [employer] ] Respiratory 20 18 Rate Blood Pressure 204/118 180/109 O2 Sat by Pulse 95 95 Oximetry 12/31/20 12/31/20 00:30 01:31 Temperature Pulse Rate 67 82 Pulse Rate [ [employer] ] Respiratory 18 16 Rate Blood Pressure 107/72 118/78 O2 Sat by Pulse 94 L 92 L Oximetry - Reevaluation(s) Reevaluation #1: Medical record is reviewed Patient symptoms are improved here in the ER Patient informed results questions answered Patient feels comfortable with observation for chest pain does not fill comfortable with discharge Reevaluation #2: Studies CT chest negative for acute disease Chest Pain MDM - MDM 80 female DF for evaluation patient be admitted for cardiology to observe and see Critical Care Time Critical Care Time: Yes Total Critical Care Time: 31 Disposition Clinical Impression: Chest pain, NSTEMI (non-ST elevated myocardial infarction) Disposition: ADMITTED IP TO THIS HOSP Condition: Undetermined Is patient prescribed a controlled substance at d/c from ED?: No
[2020-12-30 23:40] LABS: Basophils # (A) 0.1 k/uL (0-0.2); Basophils % (A) 1 %; Eosinophils # (A) 0.2 k/uL (0-0.7); Eosinophils % (A) 2 %; HGB 11.8 gm/dL (11.4-16.0); Lymphocytes # (A) 1.2 k/uL (1.0-4.8); Lymphocytes % (A) 16 %; MCH 29.4 pg (25.0-35.0); MCHC 32.8 g/dL (31.0-37.0); MCV 89.7 fL (80.0-100.0); Mean Platelet Volume 7.1; Monocytes # (A) 0.6 k/uL (0-1.0); Monocytes % (A) 8 %; Neutrophils # (A) 5.5 k/uL (1.3-7.7); Neutrophils % (A) 71 %; Platelet Count 213 k/uL (150-450); RBC 4.01 m/uL (3.80-5.40); RDW 14.6 % (11.5-15.5); WBC 7.7 k/uL (3.8-10.6)
[2020-12-30 23:54] LABS: Albumin 4.2 g/dL (3.5-5.0); Calcium 10.4 mg/dL (8.4-10.2); Magnesium 1.5 mg/dL (1.6-2.3); Potassium 4.6 mmol/L (3.5-5.1); Total Bilirubin 0.2 mg/dL (0.2-1.3); Total Protein 7.2 g/dL (6.3-8.2)
[2020-12-31 00:18] LABS: INR 0.9 (<1.2); Prothrombin Time 9.9 sec (9.0-12.0)
[2020-12-31 00:25] LABS: Partial Thromboplastin Time 17.9 sec (22.0-30.0)
--- NOTE | 2020-12-31 00:30 | XR ---
EXAMINATION TYPE: XR abdomen acute w cxr DATE OF EXAM: 12/31/2020 COMPARISON: Chest x-ray 12/07/2019 HISTORY: Chest pain TECHNIQUE: 4 views FINDINGS: Heart size is normal. There is no heart failure. There are multiple small pulmonary nodules scattered in the lungs. There is a larger nodule in the right upper lobe that measures 17 mm. There are chest leads. There are no hilar masses. There is right central venous catheter with tip in the murray perior vena cava. There is no sign of intestinal obstruction or pneumoperitoneum. Fecal pattern is normal. There is no evidence of a mass. IMPRESSION: Nonacute abdomen. Numerous pulmonary nodules appear essentially new compared to the recent exam of 12/07/2019. Follow-up is recommended. There is clearing of the small pleural effusions to a large extent compared to last exam.
[2020-12-31] MEDS ORDERED: ASPIRIN 81 MG PO STA (01:32)
[2020-12-31] MEDS ORDERED: NITROGLYCERIN SL TABS 0.4 MG TAB SUBLINGUAL PRN (01:32)
--- NOTE | 2020-12-31 02:05 | CT ---
EXAM: CT Angiography Chest With Intravenous Contrast CLINICAL HISTORY: ITS.REASON CT Reason: pain TECHNIQUE: Axial computed tomographic angiography images of the chest with intravenous contrast. CTDI is 8.8 mGy and DLP is 332.70 mGy-cm. This CT exam was performed using one or more of the following dose reduction techniques: automated exposure control, adjustment of the mA and/or kV according to patient size, and/or use of iterative reconstruction technique. MIP reconstructed images were created and reviewed. COMPARISON: 05/30/2020 CT chest abdomen pelvis. Chest x-ray earlier today. FINDINGS: Pulmonary arteries: Unremarkable. No pulmonary embolism. Aorta: Moderate atherosclerotic calcifications of the aorta and branches. Coronary calcifications. No thoracic aortic aneurysm. Lungs: Multiple bilateral pulmonary nodules, as seen on chest x-ray today and new since the prior CT. Largest nodules in the upper lobes measure approximately 1.8 cm. Pleural space: Unremarkable. No significant effusion. No pneumothorax. Heart: See above. Bones/joints/soft tissues: Irregular, sclerotic lesion involving the whole T12 vertebral body and extending into the pedicles, especially on the right side. New/increased since the prior. Surrounding paravertebral soft tissue edema/tumor extension. Likely some component extending posteriorly into the spinal canal and right foramen, although limited evaluation. Increased confluent nodes/lobular mass in the right pericardiophrenic fat. Asymmetric soft tissue nodule along the right internal mammary vessels, approximately 2 cm. Possible adjacent sternal involvement. Left axillary clips as on the prior. Mastectomies. Lymph nodes: Mediastinal adenopathy, new since the prior. Query narrowing of the mid esophagus by adenopathy versus nondistended appearance. Liver: Partially visualized liver lesion. Please see CT abdomen pelvis also today for further details. Tubes, lines and devices: Right-sided chest port with the tip in the distal SVC. IMPRESSION: 1. Multiple bilateral pulmonary nodules, as seen on chest x-ray today and new since the prior CT. 2. Mediastinal adenopathy, new since the prior. Query narrowing of the mid esophagus by adenopathy versus nondistended appearance. 3. Increased confluent nodes/lobular mass in the right pericardiophrenic fat. 4. Irregular, sclerotic lesion involving the whole T12 vertebral body and extending into the pedicles, especially on the right side. New/increased since the prior. Surrounding paravertebral soft tissue edema/tumor extension. Likely some component extending posteriorly into the spinal canal and right foramen, although limited evaluation. MRI may be helpful to evaluate extent. 5. Partially visualized liver lesion. Please see CT abdomen pelvis also today for further details. 6. Asymmetric soft tissue nodule along the right internal mammary vessels, approximately 2 cm. Possible adjacent sternal involvement.
--- NOTE | 2020-12-31 02:17 | CT ---
EXAM: CT Abdomen and Pelvis With Intravenous Contrast CLINICAL HISTORY: ITS.REASON CT Reason: pain TECHNIQUE: Axial computed tomography images of the abdomen and pelvis with intravenous contrast. CTDI is 25.17 mGy and DLP is 937.80 mGy-cm. This CT exam was performed using one or more of the following dose reduction techniques: automated exposure control, adjustment of the mA and/or kV according to patient size, and/or use of iterative reconstruction technique. COMPARISON: 05/30/2020 CT chest abdomen pelvis. Chest x-ray earlier today. FINDINGS: Lung bases: See chest CTA also today ABDOMEN: Liver: Multiple mildly hypodense liver lesions, new since the prior. Largest in the inferior right hepatic lobe 5 cm. Gallbladder and bile ducts: Cholecystectomy and mild central biliary dilation, similar to the prior and likely chronic postcholecystectomy changes. Pancreas: Stable 8 mm pancreatic cystic lesion at the body and tail junction. No ductal dilation. Spleen: Stable heterogeneous appearance of the spleen and contour. Adrenals: Unremarkable. No mass. Kidneys and ureters: 4.5 cm heterogeneous right renal mass. Scarring of the left kidney. Multiple bilateral renal nonobstructing calculi. Stomach and bowel: Colonic diverticulosis. Duodenal diverticula. No obstruction. No mucosal thickening. PELVIS: Appendix: Normal appendix. Bladder: Unremarkable. No mass. Reproductive: Hysterectomy ABDOMEN and PELVIS: Intraperitoneal space: Unremarkable. No free air. No significant fluid collection. Bones/joints: No acute fracture. No dislocation. Soft tissues: Increased nodularity in the right anterior pararenal space. Posterior pelvic soft tissue density mildly increased. Series 501 image 60. Vasculature: Marked atherosclerotic calcifications of the aorta and branches. No abdominal aortic aneurysm. Lymph nodes: Retroperitoneal adenopathy, increased since the prior. Aortocaval node. 13.3 mm. IMPRESSION: 1. Please also see CT chest today regarding thoracic findings. 2. Multiple findings consistent with progression of metastases as below. 3. Multiple mildly hypodense liver lesions, new since the prior. Largest in the inferior right hepatic lobe 5 cm. 4. Increased nodularity in the right anterior pararenal space. 5. 4.5 cm heterogeneous right renal mass. 6. Retroperitoneal adenopathy, increased since the prior. 7. Posterior pelvic soft tissue density mildly increased. 8. Other nonacute findings.
[2020-12-31] MEDS: MORPHINE SULFATE 4 MG/ML SYRINGE IVP PRN ×3 (03:35→19:32)
[2020-12-31] MEDS: SODIUM CHLORIDE 0.9% 1,000 ML IV SCH ×3 (03:44→22:00)
[2020-12-31] MEDS ORDERED: Magnesium Replacement Protocol 1 EACH MISC MISCELLANE PRN (08:18)
[2020-12-31] MEDS: MAGNESIUM SULFATE-D5W PMX 1 GM in DEXTROSE/WATER 1 100ML.BAG IVPB SCH ×2 (09:21→10:35)
[2020-12-31 11:09] LABS: Basophils % (A) 1 %; Eosinophils # (A) 0.1 k/uL (0-0.7); Eosinophils % (A) 1 %; HCT 30.1 % (34.0-46.0); HGB 10.1 gm/dL (11.4-16.0); Lymphocytes % (A) 16 %; MCH 30.5 pg (25.0-35.0); MCHC 33.6 g/dL (31.0-37.0); MCV 90.9 fL (80.0-100.0); Mean Platelet Volume 8.8; Monocytes # (A) 0.5 k/uL (0-1.0); Monocytes % (A) 9 %; Neutrophils # (A) 4.5 k/uL (1.3-7.7); Neutrophils % (A) 72 %; Platelet Count 168 k/uL (150-450); RBC 3.32 m/uL (3.80-5.40); RDW 14.8 % (11.5-15.5); WBC 6.1 k/uL (3.8-10.6)
--- NOTE | 2020-12-31 11:23 | P.CRDCN ---
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 She follows in the office with Dr. Us. We have been asked to see in consultation for chest pain. She presented to the hospital with symptoms of lower back pain and chest tightness. She is seen and examined resting comfortably with her at the bedside. She is quite fatigued and falling asleep frequently during my exam. On admission she underwent CT imaging revealing multiple bilateral pulmonary nodules, mediastinal adenopathy, narrowing of the mid esophagus secondary to adenopathy, increased nodes/lobular mass in the right. Cardiophrenic fat, irregular sclerotic lesion involving T2 vertebral body and extending into the pedicles, multiple hypodense liver lesions, soft tissue nodule along the right internal mammary vessels, right renal mass, posterior pelvic soft tissue density increased from previous study and retroperitoneal adenopathy. Most recent cardiac catheterization performed January 2020 revealed chronic total occlusion of the proximal/ostial RCA, subtotally occluded filling by collaterals from the left system, left main has 15% stenosis, LAD has 20-40% areas of mild irregularities with no significant disease. At that time she was transferred to [facility] for high risk PCI with Rotablator. She is maintained on eliquis and plavix. Most recent echocardiogram obtained December 2019 reveals mildly impaired LV systolic function with ejection fraction 45-50%, severely dilated left atrium, moderate to severe mitral regurgitation, moderate tricuspid regurgitation and moderate pulmonary hypertension with RVSP of 43 mmHg. DIAGNOSTICS EKG reveals sinus mechanism with mild ST depression noted in the inferior lateral leads. Telemetry tracings indicate sinus mechanism. Laboratory reviewed, CBC unremarkable, sodium 140, potassium 4.6, creatinine 0.94, magnesium 1.5, troponin negative 2 and third value 0.08, NT proBNP 1710. Current cardiac medications include Eliquis 2.5 mg twice a day, atorvastatin 80 mg daily, Plavix 75 mg daily, Lasix 40 mg daily, Lopressor 50 mg twice a day, amlodipine 5 mg daily and lisinopril 10 mg twice a day. REVIEW OF SYSTEMS At the time of my exam: CONSTITUTIONAL: Denies fever or chills. CARDIOVASCULAR: Denies chest pain, shortness of breath, orthopnea, PND or palpitations. RESPIRATORY: Denies cough. GASTROINTESTINAL: Denies abdominal pain, diarrhea, constipation, nausea or vom iting. MUSCULOSKELETAL: Denies myalgias. NEUROLOGIC: Denies numbness, tingling, headacbe or weakness. ENDOCRINE: Denies fatigue, weight change, polydipsia or polyurina. GENITOURINARY: Denies burning, hematuria or urgency with micturation. HEMATOLOGIC: Denies history of anemia or bleeding. PHYSICAL EXAMINATION Blood pressure 160/70 heart rate 63 afebrile and maintaining oxygen saturation on room air. CONSTITUTIONAL: No apparent distress. HEENT: Head is normocephalic. Pupils are equal, round. Sclerae anicteric. Mucous membranes of the mouth are moist. No JVD. No carotid bruit. CHEST EXAMINATION: Lungs are clear to auscultation. No chest wall tenderness is noted on palpation or with deep breathing. HEART EXAMINATION: Regular rate and rhythm. S1, S2 heard. Systolic ejection murmur at the left sternal border, no gallops or rub. ABDOMEN: Soft, nontender. Positive bowel sounds. EXTREMITIES: 2+ peripheral pulses, no lower extremity edema and no calf tenderness. NEUROLOGIC EXAMINATION: Patient is awake, alert and oriented x3. ASSESSMENT NSTEMI Metastatic cancer Coronary artery disease status post recent PCI maintained on eliquis and plavix Paroxysmal atrial fibrillation on long-term anticoagulation currently maintaining sinus mechanism Hypertension Dyslipidemia Diabetes mellitus PLAN Obtain 2D echocardiogram and doppler stud to assess cardiac structure and function. Continue eliquis and plavix. Given her significant metastatic disease, we would not recommend invasive cardia c procedures at this time. We will maximize her medical therapy. Thank you kindly for this consultation. Nurse Practitioner note has been reviewed, I agree with a documented findings and plan of care. Patient was seen and examined. Past Medical History Past Medical History: Cancer, Chest Pain / Angina, Heart Failure, Diabetes Mellitus, Hyperlipidemia, Hypertension, Osteoarthritis (OA) Additional Past Medical History / Comment(s): Breast CA 2011- bilateral mastectomy-radiation to the spine tx last treatment was 07/2020 & chemo last 2018, Kidney Stones-having left flank pain currently-thinks she might have one now-restarted antibiotic on her own for, some SOB w/exertion, chest pain w/exertion recently History of Any Multi-Drug Resistant Organisms: None Reported Past Surgical History: Breast Surgery, Cholecystectomy, Heart Catheterization With Stent, Hysterectomy Additional Past Surgical History / Comment(s): Last heart cath 2012 with stent t imes 7, left TKA 2008, Cataract 2000, Left Lithotripsy ([facility]) 2001, Blepharoplasty 2006, percutaneous nephrostolithomy 04/25/14, 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 Past Anesthesia/Blood Transfusion Reactions: No Reported Reaction Date of Last Stent Placement:: January 2020 Past Psychological History: Depression Smoking Status: Former smoker Past Alcohol Use History: None Reported Additional Past Alcohol Use History / Comment(s): quit smoking 25 yrs. ago, smoked for 10 yrs. <ppd Past Drug Use History: None Reported - Past Family History Mother Sister(s) Family Medical History: Cancer Sister(s) Family Medical History: Cancer Additional Family Medical History / Comment(s): 2 had Breast CA, 1 had Kidney cancer Mother Family Medical History: Cancer Additional Family Medical History / Comment(s): kidney, breast cancer Medications and Allergies Home Medications Medication Instructions Recorded Confirmed Type Anastrozole [Arimidex] 1 mg PO DAILY 02/08/14 12/31/20 History amLODIPine [Norvasc] 5 mg PO DAILY 12/05/19 12/31/20 History Atorvastatin [Lipitor] 80 mg PO HS #30 tab 12/08/19 12/31/20 Rx Sertraline [Zoloft] 50 mg PO DAILY tab 12/08/19 12/31/20 Rx metFORMIN HCL [Glucophage] 500 mg PO DAILY 01/09/20 12/31/20 History Clopidogrel [Plavix] 75 mg PO DAILY 08/09/20 12/31/20 History Furosemide [Lasix] 40 mg PO DAILY 08/09/20 12/31/20 History Nitroglycerin Sl Tabs [Nitrostat] 0.4 mg SUBLINGUAL Q5M PRN 12/27/20 12/31/20 History Apixaban [Eliquis] 2.5 mg PO BID 12/31/20 12/31/20 History Calcium Carbonate [Tums] 500 mg PO DAILY 12/31/20 12/31/20 History Lidocaine-Prilocaine Cream [Emla 1 applic TOPICAL DIRECTED 12/31/20 12/31/20 History Cream 2.5%/2.5%] Magnesium Oxide 400 mg PO DAILY 12/31/20 12/31/20 History Metoprolol Tartrate [Lopressor] 50 mg PO BID 12/31/20 12/31/20 History lisinopriL [Zestril] 10 mg PO BID 12/31/20 12/31/20 History metFORMIN HCL [Glucophage] 1,000 mg PO HS 12/31/20 12/31/20 History Allergies Allergy/AdvReac Type Severity Reaction Status Date / Time Penicillins Allergy Intermediate Swelling Verified 12/31/20 06:56 Physical Exam Vitals: Vital Signs Temp Pulse Pulse Resp BP BP Pulse Ox 12/31/20 07:37 63 12/31/20 07:00 97.9 F 63 16 160/70 93 L 12/31/20 04:22 69 18 163/66 91 L 12/31/20 03:30 98.4 F 72 18 193/93 96 12/31/20 01:31 82 16 118/78 92 L 12/31/20 00:30 67 18 107/72 94 L 12/30/20 23:55 82 12/30/20 23:30 83 18 180/109 95 12/30/20 22:57 98.0 F 99 20 204/118 95 Intake and Output 12/30/20 12/31/20 12/31/20 22:59 06:59 14:59 Other: Voiding Method Toilet Incontinent # Voids 1 Weight 72.575 kg 72.575 kg Results 12/31/20 05:23 12/30/20 23:20 Cardiac Enzymes 12/30/20 12/30/20 12/31/20 Range/Units 23:20 23:20 02:19 AST 30 (14-36) U/L Troponin I <0.012 0.029 (0.000-0.034) ng/mL 12/31/20 Range/Units 05:23 AST (14-36) U/L Troponin I 0.080 H* (0.000-0.034) ng/mL Coagulation 12/30/20 Range/Units 23:20 PT 9.9 (9.0-12.0) sec APTT 17.9 L (22.0-30.0) sec CBC 12/30/20 Range/Units 23:20 WBC 7.7 (3.8-10.6) k/uL RBC 4.01 (3.80-5.40) m/uL Hgb 11.8 (11.4-16.0) gm/dL Hct 36.0 (34.0-46.0) % Plt Count 213 (150-450) k/uL Comprehensive Metabolic Panel 12/30/20 Range/Units 23:20 Sodium 140 (137-145) mmol/L Potassium 4.6 (3.5-5.1) mmol/L Chloride 108 H (98-107) mmol/L Carbon Dioxide 23 (22-30) mmol/L BUN 26 H (7-17) mg/dL Creatinine 0.94 (0.52-1.04) mg/dL Glucose 158 H (74-99) mg/dL Calcium 10.4 H (8.4-10.2) mg/dL AST 30 (14-36) U/L ALT 11 (4-34) U/L Alkaline Phosphatase 177 H (38-126) U/L Total Protein 7.2 (6.3-8.2) g/dL Albumin 4.2 (3.5-5.0) g/dL Current Medications Generic Name Dose Route Start Last Admin Trade Name Freq PRN Reason Stop Dose Admin Aspirin 325 mg 01/01/21 09:00 Aspirin 325 Mg Tab PO DAILY SANDEEP Sodium Chloride 1,000 mls @ 100 mls/hr 12/31/20 01:45 12/31/20 03:44 Saline 0.9% IV 100 mls/hr .Q10H SANDEEP Administration Magnesium Sulfate/Dextrose 1 100 mls @ 100 mls/hr 12/31/20 08:30 gm/ IV Solution IVPB 12/31/20 10:29 Q1H [facility] Miscellaneous Information 1 each 12/31/20 08:18 Magnesium Replacement Protocol 1 Each Misc MISCELLANE DAILY PRN Per Protocol Protocol Morphine Sulfate 4 mg 12/30/20 23:13 12/31/20 03:35 Morphine Sulfate 4 Mg/Ml Syringe IVP 4 mg Q4HR PRN Administration Pain Nitroglycerin 0.4 mg 12/31/20 01:32 Nitroglycerin Sl Tabs 0.4 Mg Tab SUBLINGUAL Q5M PRN Chest Pain Intake and Output 12/30/20 12/31/20 12/31/20 22:59 06:59 14:59 Other: Voiding Method Toilet Incontinent # Voids 1 Weight 72.575 kg 72.575 kg 12/30/20 23:20 12/30/20 23:20
[2020-12-31] MEDS: dexAMETHasone 4 MG TAB PO SCH (11:47)
[2020-12-31] MEDS: amLODIPine 5 MG TAB PO SCH (11:47)
[2020-12-31] MEDS: FUROSEMIDE 40 MG TAB PO SCH (11:47)
[2020-12-31] MEDS: lisinopriL 10 MG TAB PO SCH ×2 (11:48→23:21)
[2020-12-31] MEDS: PANTOPRAZOLE 40 MG/10 ML VIAL IVP SCH ×2 (11:48→23:36)
[2020-12-31 12:21] LABS: Glucose,Whole Blood 210 mg/dL (75-99)
--- NOTE | 2020-12-31 13:43 | P.HPIM ---
History of Present Illness 80-year-old female patient came in the with complaints of severe low back pain. Is also complaining of epigastric abdominal discomfort which is mostly burning sensation. Patient had a CT angios the chest as well as abdominal CT both of which showed multiple liver lesions and multiple nodular lesions in the left lung as well as a 4.5 cm heterogeneous mass in the right kidney and retroperitoneal adenopathy and an irregular sclerotic lesion involving the T12 vertebral body with the paravertebral soft tissue edema. Patient does have history of breast cancer for which patient completed her chemotherapy and radiation therapy in September. Patient appears to have progression of the disease. Cardiology was consulted with concerns of chest pain. Patient has minimally elevated troponin of 0.080 and the troponin before that was 0.012. Patient will also comparing of some numbness in the mid to lower back area no weakness. Review of Systems REVIEW OF SYSTEMS: CONSTITUTIONAL: No fever, no malaise, no fatigue. HEENT: No recent visual problems or hearing problems. Denied any sore throat. CARDIOVASCULAR: No chest pain, orthopnea, PND, no palpitations, no syncope. PULMONARY: No shortness of breath, no cough, no hemoptysis. GASTROINTESTINAL: As mentioned in HPI NEUROLOGICAL: No headaches, no weakness, no numbness. HEMATOLOGICAL: Denies any bleeding or petechiae. GENITOURINARY: Denies any burning micturition, frequency, or urgency. MUSCULOSKELETAL/RHEUMATOLOGICAL: Back pain as mentioned in HPI ENDOCRINE: Denies any polyuria or polydipsia. The rest of the 14-point review of systems is negative. Past Medical History Past Medical History: Cancer, Chest Pain / Angina, Heart Failure, Diabetes Mellitus, Hyperlipidemia, Hypertension, Osteoarthritis (OA) Additional Past Medical History / Comment(s): Breast CA 2011- bilateral mastectomy-radiation to the spine tx last treatment was 07/2020 & chemo last 2018, Kidney Stones-having left flank pain currently-thinks she might have one now-restarted antibiotic on her own for, some SOB w/exertion, chest pain w/exertion recently History of Any Multi-Drug Resistant Organisms: None Reported Past Surgical History: Breast Surgery, Cholecystectomy, Heart Catheterization With Stent, Hysterectomy Additional Past Surgical History / Comment(s): Last heart cath 2012 with stent times 7, left TKA 2008, Cataract 2000, Left Lithotripsy ([facility]) 2001, Blepharoplasty 2006, percutaneous nephrostolithomy 04/25/14, 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 Past Anesthesia/Blood Transfusion Reactions: No Reported Reaction Date of Last Stent Placement:: January 2020 Past Psychological History: Depression Smoking Status: Former smoker Past Alcohol Use History: None Reported Additional Past Alcohol Use History / Comment(s): quit smoking 25 yrs. ago, s moked for 10 yrs. <ppd Past Drug Use History: None Reported - Past Family History Mother Sister(s) Family Medical History: Cancer Sister(s) Family Medical History: Cancer Additional Family Medical History / Comment(s): 2 had Breast CA, 1 had Kidney cancer Mother Family Medical History: Cancer Additional Family Medical History / Comment(s): kidney, breast cancer Medications and Allergies Home Medications Medication Instructions Recorded Confirmed Type Anastrozole [Arimidex] 1 mg PO DAILY 02/08/14 12/31/20 History amLODIPine [Norvasc] 5 mg PO DAILY 12/05/19 12/31/20 History Atorvastatin [Lipitor] 80 mg PO HS #30 tab 12/08/19 12/31/20 Rx Sertraline [Zoloft] 50 mg PO DAILY tab 12/08/19 12/31/20 Rx metFORMIN HCL [Glucophage] 500 mg PO DAILY 01/09/20 12/31/20 History Clopidogrel [Plavix] 75 mg PO DAILY 08/09/20 12/31/20 History Furosemide [Lasix] 40 mg PO DAILY 08/09/20 12/31/20 History Nitroglycerin Sl Tabs [Nitrostat] 0.4 mg SUBLINGUAL Q5M PRN 12/27/20 12/31/20 History Apixaban [Eliquis] 2.5 mg PO BID 12/31/20 12/31/20 History Calcium Carbonate [Tums] 500 mg PO DAILY 12/31/20 12/31/20 History Lidocaine-Prilocaine Cream [Emla 1 applic TOPICAL DIRECTED 12/31/20 12/31/20 History Cream 2.5%/2.5%] Magnesium Oxide 400 mg PO DAILY 12/31/20 12/31/20 History Metoprolol Tartrate [Lopressor] 50 mg PO BID 12/31/20 12/31/20 History lisinopriL [Zestril] 10 mg PO BID 12/31/20 12/31/20 History metFORMIN HCL [Glucophage] 1,000 mg PO HS 12/31/20 12/31/20 History Allergies Allergy/AdvReac Type Severity Reaction Status Date / Time Penicillins Allergy Intermediate Swelling Verified 12/31/20 06:56 Physical Exam Vitals: Vital Signs Temp Pulse Pulse Resp BP BP Pulse Ox 12/31/20 07:37 63 12/31/20 07:00 97.9 F 63 16 160/70 93 L 12/31/20 04:22 69 18 163/66 91 L 12/31/20 03:30 98.4 F 72 18 193/93 96 12/31/20 01:31 82 16 118/78 92 L 12/31/20 00:30 67 18 107/72 94 L 12/30/20 23:55 82 12/30/20 23:30 83 18 180/109 95 12/30/20 22:57 98.0 F 99 20 204/118 95 Intake and Output 12/30/20 12/31/20 12/31/20 22:59 06:59 14:59 Intake Total 340 Balance 340 Intake: Intake, IV Titration 340 Amount Magnesium Sulfate-D5w Pmx 200 1 gm In Dextrose/Water 1 100ml.bag @ 100 mls/hr IVPB Q1H SANDEEP Rx#: [id number] Sodium Chloride 0.9% 1, 140 000 ml @ 100 mls/hr IV . Q10H SANDEEP Rx#:[id number] Other: Voiding Method Toilet Incontinent # Voids 1 Weight 72.575 kg 72.575 kg PHYSICAL EXAMINATION: GENERAL: The patient is alert and oriented x3, not in any acute distress. Well developed, well nourished. HEENT: Pupils are round and equally reacting to light. EOMI. No scleral icterus. No conjunctival pallor. Normocephalic, atraumatic. No pharyngeal erythema. No thyromegaly. CARDIOVASCULAR: S1 and S2 present. No murmurs, rubs, or gallops. PULMONARY: Chest is clear to auscultation, no wheezing or crackles. ABDOMEN: Soft, nontender, nondistended, normoactive bowel sounds. No palpable organomegaly. MUSCULOSKELETAL: No joint swelling or deformity. Patient does have tenderness in mid to lower lumbar spine area EXTREMITIES: No cyanosis, clubbing, or pedal edema. NEUROLOGICAL: Gross neurological examination did not reveal any focal deficits. SKIN: No rashes. Results CBC & Chem 7: 12/31/20 05:23 12/30/20 23:20 Labs: Abnormal Lab Results - Last 24 Hours (Table) 12/30/20 12/30/20 12/31/20 Range/Units 23:20 23:20 05:23 RBC (3.80-5.40) m/uL Hgb (11.4-16.0) gm/dL Hct (34.0-46.0) % APTT 17.9 L (22.0-30.0) sec Chloride 108 H (98-107) mmol/L BUN 26 H (7-17) mg/dL Glucose 158 H (74-99) mg/dL POC Glucose (mg/dL) (75-99) mg/dL Calcium 10.4 H (8.4-10.2) mg/dL Magnesium 1.5 L (1.6-2.3) mg/dL Alkaline Phosphatase 177 H (38-126) U/L Troponin I 0.080 H* (0.000-0.034) ng/mL 12/31/20 12/31/20 Range/Units 05:23 12:18 RBC 3.32 L (3.80-5.40) m/uL Hgb 10.1 L (11.4-16.0) gm/dL Hct 30.1 L (34.0-46.0) % APTT (22.0-30.0) sec Chloride (98-107) mmol/L BUN (7-17) mg/dL Glucose (74-99) mg/dL POC Glucose (mg/dL) 210 H (75-99) mg/dL Calcium (8.4-10.2) mg/dL Magnesium (1.6-2.3) mg/dL Alkaline Phosphatase (38-126) U/L Troponin I (0.000-0.034) ng/mL Thrombosis Risk Factor Assmnt - Choose All That Apply Any of the Below Risk Factors Present?: Yes Each Factor Represents 1 point: Obesity (BMI >25) Other Risk Factors: Yes Each Risk Factor Represents 2 Points: Malignancy Each Risk Factor Represents 3 Points: Age 75 years or older Other congenital or acquired thrombophilia - If yes, enter type in comment: No Thrombosis Risk Factor Assessment Total Risk Factor Score: 6 Thrombosis Risk Factor Assessment Level: High Risk Assessment and Plan Plan: -Abdominal pain: Secondary to peptic ulcer disease or gastritis patient will be started on Protonix twice a day. Cardiology evaluated the patient patient has minimally elevated troponin. -Lower back pain secondary to metastatic disease patient probably will need radiation therapy radiation oncology and oncology will be consulted -Breast cancer with the metastatic disease possible worsening. Patient completed chemotherapy and radiation therapy oncology will be consulted as mentioned above and patient is on anastrozole which will be continued -History of coronary artery disease with PCI in the past -Hypertension -Hyperlipidemia -Type 2 diabetes mellitus For above-mentioned chronic medical problems patient will resumed on appropriate home medications -DVT prophylaxis patient is already on Eliquis
--- NOTE | 2020-12-31 17:30 | ECHOF ---
Referral Reason:nstemi MEASUREMENTS -------- HEIGHT: 152.4 cm WEIGHT: 72.6 kg BP: 160/72 IVSd: 1.3 cm (0.6 - 1.1) LVIDd: 4.5 cm (3.9 - 5.3) LVPWd: 2.0 cm (0.6 - 1.1) IVSs: 1.6 cm LVIDs: 3.4 cm LVPWs: 1.6 cm LA Diam: 4.3 cm (2.7 - 3.8) LAESV Index (A-L): 50.36 ml/m Ao Diam: 2.7 cm (2.0 - 3.7) AV Cusp: 1.5 cm (1.5 - 2.6) LA Diam: 4.3 cm (2.7 - 3.8) MV EXCURSION: 19.436 mm (> 18.000) MV EF SLOPE: 54 mm/s (70 - 150) EPSS: 0.3 cm MV E Diogenes: 0.79 m/s MV DecT: 337 ms MV A Diogenes: 1.28 m/s MV E/A Ratio: 0.62 RAP: 5.00 mmHg RVSP: 15.06 mmHg FINDINGS -------- Sinus rhythm. This was a technically adequate study. The left ventricular size is normal. There is mild concentric left ventricular hypertrophy. Overa ll left ventricular systolic function is low-normal with, an EF between 50 - 55 %. The right ventricle is normal in size. LA is severely dilated >40 ml/m2 The right atrial size is normal. There is mild aortic valve sclerosis. There is no evidence of aortic regurgitation. Mild mitral regurgitation is present. Mild tricuspid regurgitation present. Right ventricular systolic pressure is normal at < 35 mmHg. Trace/mild (physiologic) pulmonic regurgitation. The aortic root size is normal. There is no pericardial effusion. CONCLUSIONS -------- 1. The left ventricular size is normal. 2. There is mild concentric left ventricular hypertrophy. 3. Overall left ventricular systolic function is low-normal with, an EF between 50 - 55 %. 4. The right ventricle is normal in size. 5. LA is severely dilated >40 ml/m2 6. The right atrial size is normal. 7. There is mild aortic valve sclerosis. 8. Mild mitral regurgitation is present. 9. Mild tricuspid regurgitation present. 10. Trace/mild (physiologic) pulmonic regurgitation. 11. The aortic root size is normal. 12. There is no pericardial effusion. HYSTER MACHINE OPERATOR: Margie Trevino RDCS
[2020-12-31] MEDS ORDERED: ONDANSETRON 4 MG/2 ML VIAL IVP PRN (19:23)
[2020-12-31] MEDS: NITROGLYCERIN SL TABS 0.4 MG TAB SUBLINGUAL PRN ×3 (20:34→20:45)
[2020-12-31] MEDS ORDERED: HEPARIN SODIUM 1,000 UN/ML (10ML VL) IV PRN (20:50)
[2020-12-31] MEDS ORDERED: HEPARIN SODIUM 1,000 UN/ML (10ML VL) IV ONE (20:50)
[2020-12-31] MEDS ORDERED: APIXABAN 2.5 MG TABLET PO SCH (21:00)
[2020-12-31] MEDS ORDERED: HEPARIN SOD,PORK IN 0.45% NACL 25,000 UNIT in 0.45% NACL 1 250ML.BAG IV SCH (21:00)
[2020-12-31] MEDS ORDERED: LIDOCAINE 1% INJ 10MG/ML (20 ML MDV) ONE (21:01)
[2020-12-31 21:02] LABS: Basophils % (A) 0 %; Eosinophils % (A) 1 %; HCT 35.1 % (34.0-46.0); HGB 11.9 gm/dL (11.4-16.0); Lymphocytes # (A) 0.9 k/uL (1.0-4.8); Lymphocytes % (A) 10 %; MCH 30.4 pg (25.0-35.0); MCV 89.5 fL (80.0-100.0); Mean Platelet Volume 7.4; Monocytes # (A) 0.2 k/uL (0-1.0); Monocytes % (A) 2 %; Neutrophils # (A) 7.3 k/uL (1.3-7.7); Neutrophils % (A) 86 %; Platelet Count 263 k/uL (150-450); RBC 3.92 m/uL (3.80-5.40); WBC 8.5 k/uL (3.8-10.6)
[2020-12-31 21:11] LABS: INR 1.1 (<1.2); Prothrombin Time 11.9 sec (9.0-12.0)
[2020-12-31] MEDS ORDERED: METOPROLOL TARTRATE 5 MG/5 ML VIAL IVP ONE ×4 (21:13→21:35)
[2020-12-31] MEDS ORDERED: IV FLUID CONTINUATION 1,000 ML IV ONE (21:13)
[2020-12-31] MEDS ORDERED: LIDOCAINE 1% INJ 10MG/ML (20 ML MDV) SQ ONE (21:15)
[2020-12-31] MEDS ORDERED: MIDAZOLAM 2 MG/2 ML VIAL IV ONE (21:15)
[2020-12-31] MEDS ORDERED: fentaNYL (PF) 50 MCG/ML 2 ML AMP IV ONE (21:15)
[2020-12-31] MEDS ORDERED: NITROGLYCERIN OINT 1 INCH/GM PACKET TOPICAL ONE ×2 (21:16→21:22)
[2020-12-31] MEDS ORDERED: fentaNYL (PF) 50 MCG/ML 2 ML AMP ONE (21:16)
--- NOTE | 2020-12-31 21:29 | P.CONS ---
History of Present Illness - Reason for Consult Consult date: 12/31/20 Progressive Cancer Requesting physician: Shahab Torres - History of Present Illness We were asked to see patient regarding her known history of malignancy, unfortunetly she has not remained adherent and has not followed since Novemebr until recently. Concern of progression at present, repeat biopsy will be needed. An outpatient PET is scheduled. Full History of Malignancy This is a very pleasant post menopausal WF , who developed some dark colored drainage from the left nipple since 10/11. This was initially off and on but became more persistent this summer. She contacted Dr Lagos and hui referred to Dr Sullivan. Her fluid cytology was non-diagnostic, but mammogram and ultrasound did show a suspicious lesion. 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 She then had a MRI which revealed possible area of suspicion in the right breast also. The pt opted for bilateral mastectomy with sentinel node biopsy on the left, without reconstruction, and underwent that on 03/31/12. She tolerated surgery well without any major post-op complications. 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 She was referred here for evaluation and recommendations re adjuvant therapy. Due to the small mesenchymal component she was referred to the [facility] for an opinion. It was recommended by the [facility] to essentially ignore the small mesenchymal component and proceed with Oncotype Dx testing. This put her in the low intermediate risk category. After detailed discussion , we decided to treat with hormonal manipulation alone and she was initiated on Anastrozole in 06/13. Baseline bone density was normal. She was last seen in 12/12. She then developed cardiac issues, and had to have stents. Due to the same, and other family health issues, she did not follow up. She developed problems with obstruction due to kidney stones in 05/15, and had to have percutaneous and cystoscopic removal. She then felt a mass in her LLQ in the latter half of 06/15. She was seen by Dr Lagos, and then Dr Baca, with imaging revealing a LLQ pelvic mass. She was referred to Dr Chayito Ybarra at [facility], and underwent radical resection on 07/03. She was found to have a large pelvic mass 22cm x 16 cm, with pathology actually showing small cell carcinoma. There was extensive disease with inolvement of the mesentry, retroperitoneum and diaphragm. Post surgery she developed respiratory failure, requiring ICU care. Post discharge, she did require rehab. She was seen for f/u for this new diagnosis. Given the extent and type of cancer, she was advised that her disease was not curable. She had a PET scan, and underwent a thoracentesis on 08/06/14 for a right pleural effusion, that was negative for malignancy. Her PS did improve, and she started palliative chemo with RAILCAR MECHANIC 16 and Carboplatin. She is s/p 4 cycles, completing those in 10/14 While in [place], in 11/14, she was admitted overnight with n/v/sweating. This resolved within 24 hrs, and apparently pancreatitis was diagnosed. F/U CT in 03/18 raised the possibility of progression in the omentum. However, PET and tumor ,markers were negative . CT scans showed further growth of soft tissue in the rt pararenal space. PET scan showed increased uptake in this area, as well as a long segment of sigmoid colon. Her tumor markers were again negative. She had a biopsy of the rt pararenal mass, positive for high grade ca with NE features. She was started back on RAILCAR MECHANIC 16 and Carboplatin on 03/23/18 and is s/p 4 cycles. completing those on 05/27/18. She was then referred back to [facility], but was not felt to be a candidate for repeat surgery. They recommended continuation of chemo. Thus her regimen was resumed on 07/13/18. She completed s/p 5 cycles, and then left for [place]. She continued chemo there and completed 8 cycles by early 10/18. Ct scans in 12/18 indicated increased nodularity in the rt pararenal density PET scan however showed decreased uptake, with new uptake in the rectum. She however had had a colonoscopy in 01/17 , with PET positivity in rectum, which was negative. She was referred to Rad Onc for consolidative RT to the rt pararenal area. However per Rad Onc after detailed discussion, she initially declined the same. on repeat follow-up she subsequently agreed to radiation and had 1 dose of SB RT in 05/20, prior to leaving for [place] for the winter. Telemedicine audiovisual 12/14/19: The patient had a fairly uneventful winter in [place]. However on coming back to [place], she was admitted in early 12/19 with shortness of breath, orthopnea, lower extremity swelling and palpitations. She also reported a cough. She was felt to have congestive heart failure with ongoing a flutter. There was also possibility of underlying pneumonia, with coronavirus testing being negative. CT scans were negative for PE. However there was evidence of borderline adenopathy and some peripheral nodularity that was overall small nonspecific. CT of the abdomen and pelvis showed urther decrease in size of the pararenal mass with no new findings. The patient was discharged on 12/07/19. She denies any fever/chills/nausea/vomiting at this time. Respiratory status is back to normal. She is not having any palpitations or chest pain ae tolerating eliquis well. She reports fair appetite. No lower extremity swelling at this time. E ndurance is still somewhat diminished but improving. Review of systems otherwise as per HPI and negative out of 10 telemedicine audiovisual 12/26/19: Due to the findings on the CT scan in the hospital, the patient proceeded to a PET scan on 12/22/19. This was negative for any evidence of recurrent malignancy. She denied any fevers/chills/nausea or vomiting. She is tolerating eliquis w ell. Respiratory status is stable. She has had no recurrent symptoms assistive of active CHF. She continues anastrozole with good tolerance. endurance is improving slowly. She has been evaluated by cardiology, and cardiac catheterization is planned. Review of systems otherwise as per HPI and negative out of 10 As above. the patient had a CT scan of the chest abdomen and pelvis ordered by her PCP in late 05/21. This was prompted by right flank pain which actually turned out to be due to a UTI. However the CT scans showed enlarging right epicardial lymph nodes, as well as some increase in the right pararenal soft tissue. The patient then had a PET scan which showed hypermetabolic uptake in the left supraclavicular node, right internal mammary node, the above-mentioned epicardial notes, as well as in the right pararenal nodular soft tissue. at this point the patient was referred to cardiology thoracic surgery for biopsy. She states that she was anxious about the same and initially delayed it. She was seen by radiation oncology, and had radiation to one of the right retrocrural nodes that was felt to be impinging on the T12 nerve roots. According to the patient the biopsy was then delayed as she contracted Covid. Subsequently she states that she started feeling overwhelmed and just decided to "take off". [place] went [place] She came back to [place] in 12/20 and called the office to reestablish follow-up. She denied any fevers/chills/nausea or vomiting. right flank / mid back pain has been persistent, and [id number].. She is tolerating eliquis well. he reports some increase in shortness of breath, and chest tightness with exertion. She is scheduled to have a cardiac catheterization on 12/31/20. She has had no recurrent symptoms ssuggest of active CHF. She continues anastrozole with good tolerance. Endurance is improved. SHe had a cardiac stent placed in 02/18 Review of systems otherwise as per HPI and negative out of 10 Last seen 12/25/20: And prior to this was June of 2020, the patient unfortunately has been quite noncompliant with her recommendations and follow- up. As noted she did not follow-up with cardiothoracic surgery for lymph node biopsy after recovery from coronavirus infection. She left [facility] for the winter, and canceled her follow-up here. She states that she felt overwhelmed with the situation and just decided to take off. She did not inform us of the same. - She continues to complain of persistent right flank/midback pain even after completion of radiation. She also reports some increasing shortness of breath for which a cardiac workup is planned. - Her CBC was normal other than hemoglobin of 11.1 - The patient was advised that most likely she has had progression of for zakiya barlow. We will restage her with a PET scan and see her back in the short-term. Further recommendations will depend on the results of the PET scan, including plans for repeat biopsy. Review of Systems All systems: negative Constitutional: Reports as per HPI Past Medical History Past Medical History: Cancer, Chest Pain / Angina, Heart Failure, Diabetes Mellitus, Hyperlipidemia, Hypertension, Osteoarthritis (OA) Additional Past Medical History / Comment(s): Breast CA 2011- bilateral mastectomy-radiation to the spine tx last treatment was 07/2020 & chemo last 2017, Kidney Stones-having left flank pain currently-thinks she might have one now-restarted antibiotic on her own for, some SOB w/exertion, chest pain w/exertion recently History of Any Multi-Drug Resistant Organisms: None Reported Past Surgical History: Breast Surgery, Cholecystectomy, Heart Catheterization With Stent, Hysterectomy Additional Past Surgical History / Comment(s): Last heart cath 2012 with stent times 7, left TKA 2008, Cataract 2000, Left Lithotripsy ([facility]) 2001, Blepharoplasty 2006, percutaneous nephrostolithomy 04/25/14, 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 Past Anesthesia/Blood Transfusion Reactions: No Reported Reaction Date of Last Stent Placement:: January 2020 Past Psychological History: Depression Smoking Status: Former smoker Past Alcohol Use History: None Reported Additional Past Alcohol Use History / Comment(s): quit smoking 25 yrs. ago, smoked for 10 yrs. <ppd Past Drug Use History: None Reported - Past Family History Mother Sister(s) Family Medical History: Cancer Sister(s) Family Medical History: Cancer Additional Family Medical History / Comment(s): 2 had Breast CA, 1 had Kidney c ancer Mother Family Medical History: Cancer Additional Family Medical History / Comment(s): kidney, breast cancer Medications and Allergies Home Medications Medication Instructions Recorded Confirmed Type Anastrozole [Arimidex] 1 mg PO DAILY 02/08/14 12/31/20 History amLODIPine [Norvasc] 5 mg PO DAILY 12/05/19 12/31/20 History Atorvastatin [Lipitor] 80 mg PO HS #30 tab 12/08/19 12/31/20 Rx Sertraline [Zoloft] 50 mg PO DAILY tab 12/08/19 12/31/20 Rx metFORMIN HCL [Glucophage] 500 mg PO DAILY 01/09/20 12/31/20 History Clopidogrel [Plavix] 75 mg PO DAILY 08/09/20 12/31/20 History Furosemide [Lasix] 40 mg PO DAILY 08/09/20 12/31/20 History Nitroglycerin Sl Tabs [Nitrostat] 0.4 mg SUBLINGUAL Q5M PRN 12/27/20 12/31/20 History Apixaban [Eliquis] 2.5 mg PO BID 12/31/20 12/31/20 History Calcium Carbonate [Tums] 500 mg PO DAILY 12/31/20 12/31/20 History Lidocaine-Prilocaine Cream [Emla 1 applic TOPICAL DIRECTED 12/31/20 12/31/20 History Cream 2.5%/2.5%] Magnesium Oxide 400 mg PO DAILY 12/31/20 12/31/20 History Metoprolol Tartrate [Lopressor] 50 mg PO BID 12/31/20 12/31/20 History lisinopriL [Zestril] 10 mg PO BID 12/31/20 12/31/20 History metFORMIN HCL [Glucophage] 1,000 mg PO HS 12/31/20 12/31/20 History Allergies Allergy/AdvReac Type Severity Reaction Status Date / Time Penicillins Allergy Intermediate Swelling Verified 12/31/20 06:56 Physical Exam Vitals: Vital Signs Temp Pulse Pulse Resp BP BP Pulse Ox 12/31/20 07:37 63 12/31/20 07:00 97.9 F 63 16 160/70 93 L 12/31/20 04:22 69 18 163/66 91 L 12/31/20 03:30 98.4 F 72 18 193/93 96 12/31/20 01:31 82 16 118/78 92 L 12/31/20 00:30 67 18 107/72 94 L 12/30/20 23:55 82 12/30/20 23:30 83 18 180/109 95 12/30/20 22:57 98.0 F 99 20 204/118 95 Intake and Output 12/30/20 12/31/20 12/31/20 22:59 06:59 14:59 Other: Voiding Method Toilet Incontinent # Voids 1 Weight 72.575 kg 72.575 kg - Constitutional General appearance: cooperative, no acute distress - EENT Eyes: EOMI, PERRLA ENT: NA/AT - Neck Neck: normal ROM - Respiratory Respiratory: bilateral: diminished - Cardiovascular Rhythm: regular - Gastrointestinal General gastrointestinal: soft - Integumentary Integumentary: pale - Neurologic Neurologic: CNII-XII intact - Musculoskeletal Musculoskeletal: generalized weakness - Psychiatric Psychiatric: A&O x's 3 Results CBC & Chem 7: 01/01/21 01:59 01/01/21 01:59 Labs: Abnormal Lab Results - Last 24 Hours (Table) 12/30/20 12/30/20 12/31/20 Range/Units 23:20 23:20 05:23 APTT 17.9 L (22.0-30.0) sec Chloride 108 H (98-107) mmol/L BUN 26 H (7-17) mg/dL Glucose 158 H (74-99) mg/dL Calcium 10.4 H (8.4-10.2) mg/dL Magnesium 1.5 L (1.6-2.3) mg/dL Alkaline Phosphatase 177 H (38-126) U/L Troponin I 0.080 H* (0.000-0.034) ng/mL CT scan - abdomen: report reviewed CT scan - chest: report reviewed CT scan - pelvis: report reviewed Assessment and Plan Plan: Assessment and Recommendations: High Grade Neuroendocrine cancer: - 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
[2020-12-31] MEDS ORDERED: IOPAMIDOL-370 125ML BTL INJ ONE (21:31)
[2020-12-31] MEDS ORDERED: hydrALAZINE HCL 20 MG/ML 1 ML VIAL ONE (21:32)
[2020-12-31] MEDS ORDERED: ASPIRIN 325 MG TAB PO STA (21:35)
[2020-12-31] MEDS ORDERED: hydrALAZINE HCL 20 MG/ML 1 ML VIAL IV ONE (21:36)
[2020-12-31] MEDS: LABETALOL SYRINGE 5 MG/ML IV ONE ×2 (21:45→21:55)
[2020-12-31] MEDS ORDERED: RX INFO: IV CONTRAST WAS GIVEN 1 EACH MISC MISCELLANE PRN (21:54)
[2020-12-31] MEDS ORDERED: FUROSEMIDE 10 MG/ML 4 ML VIAL ONE (22:04)
[2020-12-31] MEDS ORDERED: FUROSEMIDE 10 MG/ML 4 ML VIAL IV ONE (22:04)
--- NOTE | 2020-12-31 22:41 | P.EN ---
A team note 80 year old female admitted for NSTEMI cardiology evaluated earlier and recommended maximal medical therapy , she also has possible metastatic cancer to the spine now patient is complaining of recurrent chest pain ,described as severe 10/10 retrosternal lungs good breath sounds bilaterally heart tachycardia HR 110 BP 178/101 repeat EKG showed STEMI inferior leads supervisor cytogenetic laboratory activated , cardiology notified patient given ASA 325, nitro , she is already on plavix and statin , metoprolol. she is currently on eliquis , will hold and start on heparin drip 35 minutes were spent in critical care time in the care of this patient
[2020-12-31] MEDS: METOPROLOL TARTRATE 50 MG TAB PO SCH (23:32)
[2020-12-31] MEDS: metFORMIN 500 MG TAB PO SCH (23:41)
[2020-12-31] MEDS: ATORVASTATIN 80 MG TAB PO SCH (23:42)
[2021-01-01] MEDS: dexAMETHasone 4 MG TAB PO SCH ×3 (00:22→21:11)
[2021-01-01] MEDS: SODIUM CHLORIDE 0.9% 1,000 ML IV SCH ×4 (02:09→20:49)
[2021-01-01 02:30] LABS: Basophils % (A) 0 %; Eosinophils % (A) 0 %; HCT 33.1 % (34.0-46.0); HGB 11.1 gm/dL (11.4-16.0); Lymphocytes # (A) 0.6 k/uL (1.0-4.8); Lymphocytes % (A) 7 %; MCH 30.2 pg (25.0-35.0); MCHC 33.4 g/dL (31.0-37.0); MCV 90.4 fL (80.0-100.0); Monocytes # (A) 0.3 k/uL (0-1.0); Monocytes % (A) 4 %; Neutrophils # (A) 7.5 k/uL (1.3-7.7); Neutrophils % (A) 88 %; Platelet Count 222 k/uL (150-450); RBC 3.66 m/uL (3.80-5.40); WBC 8.5 k/uL (3.8-10.6)
[2021-01-01 02:47] LABS: Prothrombin Time 10.7 sec (9.0-12.0)
[2021-01-01 02:49] LABS: Partial Thromboplastin Time 21.2 sec (22.0-30.0)
--- NOTE | 2021-01-01 07:54 | CC ---
CARDIAC CATHETERIZATION REPORT INDICATION: Acute coronary syndrome. This is a 80-year-old lady with history of coronary artery disease status post prior angioplasty who was to undergo an outpatient cardiac catheterization today by Dr. Bettina Us, her primary napper runner. Came into hospital yesterday with chest pain but was found to have metastatic cancer with mets into the bones. Due to this, Dr. Us has canceled the cardiac catheterization and advised medical therapy. Late this evening, patient developed chest pain with new EKG changes including ST-segment elevation in the inferior leads. Due to this, the hospitalists have activated the STEMI team and I was called about it. At the time of my evaluation, the patient is in chest pain. She is tachycardic. Blood pressure is poorly controlled. We gave her nitro paste, intravenous Lopressor and decided to proceed with cardiac catheterization. She understood risks and benefits. PROCEDURE NOTE: After obtaining informed consent, left heart catheterization and coronary angiogram were performed via the right femoral artery using standard Nadeen catheters. Patient tolerated the procedure well without any obvious immediate complications. A femoral angiogram was performed and the patient will have manual hemostasis. FINDINGS: HEMODYNAMICS: Left ventricular end-diastolic pressure is 26 mm. There is no significant gradient across the aortic valve. LEFT VENTRICULOGRAM: Not performed. ANGIOGRAPHIC DATA: RIGHT CORONARY ARTERY: Right coronary artery was extensively stented in the past. It seems occluded proximally. Both with a blair and Nadeen catheter, we could not visualize the proximal right coronary artery. There are extensive collaterals from the left filling the distal RCA all the way to the mid right coronary artery. LEFT MAIN: Left main coronary artery is a normal-sized vessel and is free of stenosis. Divides into left anterior descending coronary artery and circumflex coronary artery. LEFT ANTERIOR DESCENDING CORONARY ARTERY: LAD and its branches are free of significant stenosis. CIRCUMFLEX CORONARY ARTERY: There is a small nondominant circumflex coronary artery that shows ostial stenosis of 70-80 percent. CONCLUSIONS: Chronic occlusion of the right coronary artery with extensive collaterals to the distal right from the left. No significant disease in the LAD and ostial stenosis in the small nondominant circumflex coronary artery. The angiographic data was reviewed by Dr. Andrade the on-call iridologist, and decision was made for medical therapy. The patient's chest pain and the EKG changes could be related to severe uncontrolled hypertension and tachycardia. We will treat her with beta blockers, nitrates, adequate pain control and we can admit her back to the floor. MMODL / IJN: [id number] /
[2021-01-01] MEDS: CLOPIDOGREL 75 MG TAB PO SCH (08:30)
[2021-01-01] MEDS: FUROSEMIDE 40 MG TAB PO SCH (08:30)
[2021-01-01] MEDS: lisinopriL 10 MG TAB PO SCH ×2 (08:30→21:12)
[2021-01-01] MEDS: ANASTROZOLE 1 MG TAB PO SCH (08:30)
[2021-01-01] MEDS: SERTRALINE 50 MG TAB PO SCH (08:30)
[2021-01-01] MEDS: amLODIPine 5 MG TAB PO SCH (08:30)
[2021-01-01] MEDS: PANTOPRAZOLE 40 MG/10 ML VIAL IVP SCH ×2 (08:30→21:12)
[2021-01-01] MEDS: METOPROLOL TARTRATE 50 MG TAB PO SCH ×2 (08:30→21:12)
[2021-01-01] MEDS: MORPHINE SULFATE 4 MG/ML SYRINGE IVP PRN (08:37)
[2021-01-01] MEDS ORDERED: MAGNESIUM OXIDE 400 MG TAB PO SCH (09:00)
[2021-01-01] MEDS ORDERED: ASPIRIN 325 MG TAB PO SCH (09:00)
[2021-01-01] MEDS: APIXABAN 2.5 MG TABLET PO SCH ×2 (09:10→21:11)
[2021-01-01 10:50] LABS: African American GFR (CKD) 49.8 (60.0-200.0); Albumin 3.8 g/dL (3.80-4.90); Albumin/Globulin Ratio 1.58 (1.60-3.17); Anion Gap 11.1 mmol/L (4.00-12.00); BUN/Creat Ratio 25.83 Ratio (12.00-20.00); Calcium 9.3 mg/dL (8.7-10.3); Carbon Dioxide 22.9 mmol/L (21.6-31.8); Chol/HDL Ratio 3.22; Globulin 2.4 g/dL (1.6-3.3); LDL Cholesterol,Calculated 64.8 mg/dL (0.0-131.0); Magnesium 1.7 mg/dL (1.5-2.4); Non-African American GFR(CKD) 42.9 (60.0-200.0); Potassium 4.8 mmol/L (3.5-5.5); Total Bilirubin 0.2 mg/dL (0.2-1.2); Total Protein 6.2 g/dL (6.2-8.2); VLDL Calculation 35.2 mg/dL (5.00-40.00)
[2021-01-01] MEDS ORDERED: HYDROcodone/APAP 7.5-325MG 1 EACH TAB PO PRN (11:05)
--- NOTE | 2021-01-01 11:06 | P.PN ---
Subjective HISTORY OF PRESENTING ILLNESS This is a pleasant 80-year-old female past medical history significant for coronary artery disease status post PCI, history of breast cancer status post bilateral mastectomy, metastatic disease to the spine status post radiation July 2020, hypertension, dyslipidemia, diabetes mellitus, chronic diastolic heart failure and paroxysmal atrial fibrillation on long-term anticoagulation. She follows in the office with Dr. Us. We have been asked to see in consultation for chest pain. She presented to the hospital with symptoms of lower back pain and chest tightness. She is seen and examined resting c omfortably with her at the bedside. She is quite fatigued and falling asleep frequently during my exam. On admission she underwent CT imaging revealing multiple bilateral pulmonary nodules, mediastinal adenopathy, narrowing of the mid esophagus secondary to adenopathy, increased nodes/lobular mass in the right. Cardiophrenic fat, irregular sclerotic lesion involving T2 vertebral body and extending into the pedicles, multiple hypodense liver lesions, soft tissue nodule along the right internal mammary vessels, right renal mass, posterior pelvic soft tissue density increased from previous study and retroperitoneal adenopathy. Most recent cardiac catheterization performed January 2020 revealed chronic total occlusion of the proximal/ostial RCA, subtotally occluded filling by collaterals from the left system, left main has 15% stenosis, LAD has 20-40% areas of mild irregularities with no significant disease. At that time she was transferred to [facility] for high risk PCI with Rotablator. She is maintained on eliquis and plavix. Most recent echocardiogram obtained December 2019 reveals mildly impaired LV systolic function with ejection fraction 45-50%, severely dilated left atrium, moderate to severe mitral regurgitation, moderate tricuspid regurgitation and moderate pulmonary hypertension with RVSP of 43 mmHg. 01/01/2021 Patient seen and examined sitting up eating breakfast in no acute distress. She underwent cardiac catheterization last night revealing RCA extensively stented previously with proximal occlusion noted, inability to visualize the proximal RCA, extensive collaterals from the left filling the distal RCA all the way to the mid portion, left main free of stenosis, LAD free of stenosis, circumflex with an ostial stenosis of 70-80%. Medical therapy was recommended by Dr. Dr. Andrade. Blood pressure 113/68 heart rate 76 afebrile maintaining oxygen saturation on nasal cannula. Laboratory data reviewed, WBC 8.5, hemoglobin 11.1, platelets 222. She denies symptoms of chest pain, shortness of breath, dizziness or palpitations. In general she states she feels extremely tired and is having ongoing recurrent lower back discomfort. Echocardiogram obtained reveals preserved LV systolic function with ejection fraction 50-55%, severely dilated left atrium, mild MR and mild TR noted. PHYSICAL EXAMINATION CONSTITUTIONAL: No apparent distress. HEENT: Head is normocephalic. Pupils are equal, round. Sclerae anicteric. Mucous membranes of the mouth are moist. No JVD. No carotid bruit. CHEST EXAMINATION: Lungs are clear to auscultation. No chest wall tenderness is noted on palpation or with deep breathing. HEART EXAMINATION: Regular rate and rhythm. S1, S2 heard. Systolic ejection murmur at the left sternal border, no gallops or rub. EXTREMITIES: 2+ peripheral pulses, no lower extremity edema and no calf tenderness. Right femoral access site soft, nontender with no ecchymosis, hematoma or bleeding. ASSESSMENT NSTEMI Metastatic cancer Coronary artery disease status post recent PCI maintained on eliquis and plavix Paroxysmal atrial fibrillation on long-term anticoagulation currently maintaining sinus mechanism Hypertension Dyslipidemia Diabetes mellitus PLAN Continue current medical regimen. Repeat troponin. Maximize her medical therapy from a cardiac perspective. Nurse Practitioner note has been reviewed, I agree with a documented findings and plan of care. Patient was seen and examined. Objective - Vital Signs Vital signs: Vital Signs Temp 98.2 F 01/01/21 07:00 Pulse 76 01/01/21 07:00 Resp 16 01/01/21 07:00 BP 113/68 01/01/21 07:00 Pulse Ox 95 01/01/21 07:00 Intake & Output 12/31/20 01/01/21 01/01/21 18:59 06:59 18:59 Intake Total 640 150 200 Output Total 1600 Balance 640 -1450 200 Intake: IV 150 Intake, IV Titration 340 Amount Magnesium Sulfate-D5w Pmx 200 1 gm In Dextrose/Water 1 100ml.bag @ 100 mls/hr IVPB Q1H SANDEEP Rx#: [id number] Sodium Chloride 0.9% 1, 140 000 ml @ 100 mls/hr IV . Q10H SANDEEP Rx#:[id number] Oral 300 200 Output: Urine 1600 Other: Voiding Method Toilet Toilet Incontinent Incontinent # Voids 1 1 - Labs CBC & Chem 7: 01/01/21 01:59 01/01/21 01:59 Labs: Abnormal Lab Results - Last 24 Hours (Table) 12/31/20 12/31/20 12/31/20 Range/Units 05:23 05:23 12:18 RBC 3.32 L (3.80-5.40) m/uL Hgb 10.1 L (11.4-16.0) gm/dL Hct 30.1 L (34.0-46.0) % Lymphocytes # (1.0-4.8) k/uL APTT (22.0-30.0) sec POC Glucose (mg/dL) 210 H (75-99) mg/dL Troponin I (0.000-0.034) ng/mL Vitamin D 25-Hydroxy 15.3 L (30.0-100.0) ng/mL 12/31/20 12/31/20 01/01/21 Range/Units 20:58 20:58 01:59 RBC (3.80-5.40) m/uL Hgb (11.4-16.0) gm/dL Hct (34.0-46.0) % Lymphocytes # 0.9 L (1.0-4.8) k/uL APTT 21.2 L (22.0-30.0) sec POC Glucose (mg/dL) (75-99) mg/dL Troponin I 0.107 H* (0.000-0.034) ng/mL Vitamin D 25-Hydroxy (30.0-100.0) ng/mL 01/01/21 Range/Units 01:59 RBC 3.66 L (3.80-5.40) m/uL Hgb 11.1 L (11.4-16.0) gm/dL Hct 33.1 L (34.0-46.0) % Lymphocytes # 0.6 L (1.0-4.8) k/uL APTT (22.0-30.0) sec POC Glucose (mg/dL) (75-99) mg/dL Troponin I (0.000-0.034) ng/mL Vitamin D 25-Hydroxy (30.0-100.0) ng/mL
--- NOTE | 2021-01-01 11:45 | P.PN ---
Subjective Progress Note Date: 01/01/21 Principal diagnosis: Progressive metastatic Cancer CT scans with what looks progressive metastatic disease liver, enlarging retroperitonal nodes Objective - Vital Signs Vital signs: Vital Signs Temp 98.2 F 01/01/21 07:00 Pulse 76 01/01/21 07:00 Resp 16 01/01/21 07:00 BP 113/68 01/01/21 07:00 Pulse Ox 95 01/01/21 07:00 Intake & Output 12/31/20 01/01/21 01/01/21 18:59 06:59 18:59 Intake Total 640 150 200 Output Total 1600 Balance 640 -1450 200 Intake: IV 150 Intake, IV Titration 340 Amount Magnesium Sulfate-D5w Pmx 200 1 gm In Dextrose/Water 1 100ml.bag @ 100 mls/hr IVPB Q1H [facility] Rx#: [id number] Sodium Chloride 0.9% 1, 140 000 ml @ 100 mls/hr IV . Q10H SANDEEP Rx#:[id number] Oral 300 200 Output: Urine 1600 Other: Voiding Method Toilet Toilet Incontinent Incontinent # Voids 1 1 - Exam - Constitutional General appearance: cooperative, no acute distress - EENT Eyes: EOMI, PERRLA ENT: NA/AT - Neck Neck: normal ROM - Respiratory Respiratory: bilateral: diminished - Cardiovascular Rhythm: regular - Gastrointestinal General gastrointestinal: soft - Integumentary Integumentary: pale - Neurologic Neurologic: CNII-XII intact - Musculoskeletal Musculoskeletal: generalized weakness - Psychiatric Psychiatric: A&O x's 3 - Labs CBC & Chem 7: 01/01/21 01:59 01/01/21 01:59 Labs: Abnormal Lab Results - Last 24 Hours (Table) 12/31/20 12/31/20 12/31/20 Range/Units 05:23 12:18 20:58 RBC (3.80-5.40) m/uL Hgb (11.4-16.0) gm/dL Hct (34.0-46.0) % Lymphocytes # 0.9 L (1.0-4.8) k/uL APTT (22.0-30.0) sec BUN (9.0-27.0) mg/dL Est GFR (CKD-EPI)AfAm (60.0-200.0) Est GFR (CKD-EPI)NonAf (60.0-200.0) BUN/Creatinine Ratio (12.00-20.00) Ratio Glucose (70-110) mg/dL POC Glucose (mg/dL) 210 H (75-99) mg/dL Alkaline Phosphatase (41-126) U/L Troponin I (0.000-0.034) ng/mL Albumin/Globulin Ratio (1.60-3.17) g/dL Triglycerides (0.0-149.0) mg/dL Vitamin D 25-Hydroxy 15.3 L (30.0-100.0) ng/mL 12/31/20 01/01/21 01/01/21 Range/Units 20:58 01:59 01:59 RBC (3.80-5.40) m/uL Hgb (11.4-16.0) gm/dL Hct (34.0-46.0) % Lymphocytes # (1.0-4.8) k/uL APTT 21.2 L (22.0-30.0) sec BUN 31.0 H (9.0-27.0) mg/dL Est GFR (CKD-EPI)AfAm 49.8 L (60.0-200.0) Est GFR (CKD-EPI)NonAf 42.9 L (60.0-200.0) BUN/Creatinine Ratio 25.83 H (12.00-20.00) Ratio Glucose 235 H (70-110) mg/dL POC Glucose (mg/dL) (75-99) mg/dL Alkaline Phosphatase 161 H (41-126) U/L Troponin I 0.107 H* (0.000-0.034) ng/mL Albumin/Globulin Ratio 1.58 L (1.60-3.17) g/dL Triglycerides 176.0 H (0.0-149.0) mg/dL Vitamin D 25-Hydroxy (30.0-100.0) ng/mL 01/01/21 Range/Units 01:59 RBC 3.66 L (3.80-5.40) m/uL Hgb 11.1 L (11.4-16.0) gm/dL Hct 33.1 L (34.0-46.0) % Lymphocytes # 0.6 L (1.0-4.8) k/uL APTT (22.0-30.0) sec BUN (9.0-27.0) mg/dL Est GFR (CKD-EPI)AfAm (60.0-200.0) Est GFR (CKD-EPI)NonAf (60.0-200.0) BUN/Creatinine Ratio (12.00-20.00) Ratio Glucose (70-110) mg/dL POC Glucose (mg/dL) (75-99) mg/dL Alkaline Phosphatase (41-126) U/L Troponin I (0.000-0.034) ng/mL Albumin/Globulin Ratio (1.60-3.17) g/dL Triglycerides (0.0-149.0) mg/dL Vitamin D 25-Hydroxy (30.0-100.0) ng/mL Assessment and Plan Plan: Assessment and Recommendations: High Grade Neuroendocrine cancer: - 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 plan: - Biopsy of liver given history of two primary cancers - unknown which is metastatic - MRI brain and Thoracic SPine - Discussed with primary team will hold rojas feliciano 12/31 Physician Attest: i have completed the full history and physical and agree with above dictation, dictated as a ascribe
--- NOTE | 2021-01-01 14:44 | P.PN ---
Subjective 80-year-old female patient came in the with complaints of severe low back pain. Is also complaining of epigastric abdominal discomfort which is mostly burning sensation. Patient had a CT angios the chest as well as abdominal CT both of which showed multiple liver lesions and multiple nodular lesions in the left lung as well as a 4.5 cm heterogeneous mass in the right kidney and retroperitoneal adenopathy and an irregular sclerotic lesion involving the T12 vertebral body with the paravertebral soft tissue edema. Patient does have history of breast cancer for which patient completed her chemotherapy and radiation therapy in September. Patient appears to have progression of the disease. Cardiology was consulted with concerns of chest pain. Patient has minimally elevated troponin of 0.080 and the troponin before that was 0.012. Patient will also comparing of some numbness in the mid to lower back area no weakness. 01/01/2021 Patient had an episode yesterday where she had epigastric abdominal discomfort and EKG was obtained at that time it was better patient had ST elevation myocardial infarction and patient had a cardiac catheterization which showed complete occlusion of RCA although this is a chronic occlusion with the collate rals. LAD is at essentially not occluded. Medical management was advised by cardiology. Patient's epigastric pain is secondary to gastritis or peptic ulcer disease. Patient is receiving Decadron at this time will order Maalox will continue with Protonix. Patient will undergo 6 MRA of the head and thoracic spine for metastatic disease. Biopsy of one of these lesions is being ordered as well. Oncology evaluated the patient. Patient still having pain patient had a fall without any significant injury today. Patient's troponin went up to 2.8. This is probably because of cardiac catheterization. Patient can use to have pain patient will be started on oral opiate medications for pain. Constitutional: Denied any fatigue denied any fever. Cardio vascular: denied any chest pain, palpitations Gastrointestinal as mentioned in HPI Pulmonary: Denied any shortness of breath cough Neurologic denied any new focal deficits All inpatient medications were reviewed and appropriate changes in these medications as dictated in the interval history and assessment and plan. Objective - Vital Signs Vital signs: Vital Signs Temp 98.2 F 01/01/21 07:00 Pulse 76 01/01/21 07:00 Resp 16 01/01/21 07:00 BP 113/68 01/01/21 07:00 Pulse Ox 95 01/01/21 07:00 Intake & Output 12/31/20 01/01/21 01/01/21 18:59 06:59 18:59 Intake Total 640 150 200 Output Total 1600 Balance 640 -1450 200 Intake: IV 150 Intake, IV Titration 340 Amount Magnesium Sulfate-D5w Pmx 200 1 gm In Dextrose/Water 1 100ml.bag @ 100 mls/hr IVPB Q1H [facility] Rx#: [id number] Sodium Chloride 0.9% 1, 140 000 ml @ 100 mls/hr IV . Q10H [facility] Rx#:[id number] Oral 300 200 Output: Urine 1600 Other: Voiding Method Toilet Toilet Incontinent Incontinent # Voids 1 1 1 - Exam PHYSICAL EXAMINATION: GENERAL: The patient is alert and oriented x3, not in any acute distress. Well developed, well nourished. HEENT: Pupils are round and equally reacting to light. EOMI. No scleral icterus. No conjunctival pallor. Normocephalic, atraumatic. No pharyngeal erythema. No thyromegaly. CARDIOVASCULAR: S1 and S2 present. No murmurs, rubs, or gallops. PULMONARY: Chest is clear to auscultation, no wheezing or crackles. ABDOMEN: Soft, nontender, nondistended, normoactive bowel sounds. No palpable organomegaly. MUSCULOSKELETAL: No joint swelling or deformity. EXTREMITIES: No cyanosis, clubbing, or pedal edema. NEUROLOGICAL: Gross neurological examination did not reveal any focal deficits. SKIN: No rashes. - Labs CBC & Chem 7: 01/01/21 01:59 01/01/21 01:59 Labs: Abnormal Lab Results - Last 24 Hours (Table) 12/31/20 12/31/20 12/31/20 Range/Units 05:23 20:58 20:58 RBC (3.80-5.40) m/uL Hgb (11.4-16.0) gm/dL Hct (34.0-46.0) % Lymphocytes # 0.9 L (1.0-4.8) k/uL APTT (22.0-30.0) sec BUN (9.0-27.0) mg/dL Est GFR (CKD-EPI)AfAm (60.0-200.0) Est GFR (CKD-EPI)NonAf (60.0-200.0) BUN/Creatinine Ratio (12.00-20.00) Ratio Glucose (70-110) mg/dL Alkaline Phosphatase (41-126) U/L Troponin I 0.107 H* (0.000-0.034) ng/mL Albumin/Globulin Ratio (1.60-3.17) g/dL Triglycerides (0.0-149.0) mg/dL Vitamin D 25-Hydroxy 15.3 L (30.0-100.0) ng/mL 01/01/21 01/01/21 01/01/21 Range/Units 01:59 01:59 01:59 RBC 3.66 L (3.80-5.40) m/uL Hgb 11.1 L (11.4-16.0) gm/dL Hct 33.1 L (34.0-46.0) % Lymphocytes # 0.6 L (1.0-4.8) k/uL APTT 21.2 L (22.0-30.0) sec BUN 31.0 H (9.0-27.0) mg/dL Est GFR (CKD-EPI)AfAm 49.8 L (60.0-200.0) Est GFR (CKD-EPI)NonAf 42.9 L (60.0-200.0) BUN/Creatinine Ratio 25.83 H (12.00-20.00) Ratio Glucose 235 H (70-110) mg/dL Alkaline Phosphatase 161 H (41-126) U/L Troponin I (0.000-0.034) ng/mL Albumin/Globulin Ratio 1.58 L (1.60-3.17) g/dL Triglycerides 176.0 H (0.0-149.0) mg/dL Vitamin D 25-Hydroxy (30.0-100.0) ng/mL 01/01/21 Range/Units 12:33 RBC (3.80-5.40) m/uL Hgb (11.4-16.0) gm/dL Hct (34.0-46.0) % Lymphocytes # (1.0-4.8) k/uL APTT (22.0-30.0) sec BUN (9.0-27.0) mg/dL Est GFR (CKD-EPI)AfAm (60.0-200.0) Est GFR (CKD-EPI)NonAf (60.0-200.0) BUN/Creatinine Ratio (12.00-20.00) Ratio Glucose (70-110) mg/dL Alkaline Phosphatase (41-126) U/L Troponin I 2.840 H* (0.000-0.034) ng/mL Albumin/Globulin Ratio (1.60-3.17) g/dL Triglycerides (0.0-149.0) mg/dL Vitamin D 25-Hydroxy (30.0-100.0) ng/mL Assessment and Plan Plan: -Abdominal pain: Secondary to peptic ulcer disease or gastritis patient will continued on Protonix twice a day. -Elevated troponin possibly day for non-ST elevation myocardial infarction patient is status post cardiac catheterization with chronic occlusion of RCA with collaterals -Lower back pain secondary to metastatic disease patient probably will need radiation therapy radiation oncology and oncology evaluated the patient. MRI of the thoracic spine is being ordered. -Breast cancer with the metastatic disease possible worsening. Patient completed chemotherapy and radiation therapy patient is on anastrozole which will be continued -History of coronary artery disease with PCI in the past -Hypertension -Hyperlipidemia -Type 2 diabetes mellitus -DVT prophylaxis patient is already on Eliquis
--- NOTE | 2021-01-01 16:50 | MR ---
EXAMINATION TYPE: MR brain wo/w con DATE OF EXAM: 01/01/2021 COMPARISON: NONE HISTORY: Concern for metastatic disease, Breast CA TECHNIQUE: Multiplanar, multisequence images of the brain and brainstem is performed without and with IV contras t, utilizing 7 mL intravenous Gadavist . FINDINGS: Diffusion weighted images demonstrate no evidence of a recent infarct or other diffusion ab normality. There is mild to moderate diffuse ventricular and sulcal prominence. There are focal and confluent areas of T2 hyperintensity seen throughout the white matter bilaterally. Lesions are nonspe cific in appearance and distribution. Midline structures demonstrate somewhat empty sella morphology. The craniocervical junction appears within normal limits. Post contrast images demonstrate no suspicious enhancing intraparenchymal mass es. The dural venous sinuses appear patent. Visualized paranasal sinuses are clear. The globes are intact bilaterally. In the left orbit intracon al fat there is 4 mm round lesion of T1 hypointensity and T2 hyperintensity upper outer quadrant with homogeneous postcontrast enhancement of uncertain etiology axial postcontrast image 28. IMPRESSION: There is mild to moderate diffuse cerebral atrophy and fairly advanced nonspecific white matter changes may be an basis of product of proximal small vessel ischemic change. Other etiologies not excluded. There is 4 mm round enhancing structure left orbit possible mass versus focal aneurysm, this can be better investigated with dedicated orbital imaging.
--- NOTE | 2021-01-01 16:59 | MR ---
EXAMINATION TYPE: MR thoracic spine wo/w con DATE OF EXAM: 01/01/2021 COMPARISON: CTA chest from yesterday HISTORY: Concern for metastatic disease, Breast CA, back pain. TECHNIQUE: Multiplanar, multisequence imaging of thoracic spine is performed without contrast FINDINGS: Localizer shows posterior disc herniation effaces anterior thecal sac at C6-C7 level sagitt al image 7. Spinal cord shows normal course, caliber, and signal as it courses the thoracic spine. V ertebral body heights and alignment are satisfactory. Disc space heights are fairly well-maintained i n the thoracic spine. Mild to moderate multilevel anterior spurring is seen. There is diffuse low T1 and heterogeneous diminished T2 signal with heterogeneous postcontrast enhancement involving the T12 vertebra at the site of sclerosis on CT. No suspicious posterior disc herniation seen on sagittal jared ges. Review of the axial images shows no significant spinal canal stenosis or neural foraminal narrowing a t any thoracic level. There is heterogeneous enhancing soft tissue near the T12 vertebra most promin ent posterior right aspect extending to the neural foramina. There is right lateral involvement throu gh the pedicle and lamina with abnormal diminished signal and enhancement. Corresponding to CT there are innumerable bilateral pulmonary nodules consistent with metastatic disease. IMPRESSION: Confirmation of osseous metastatic disease T12 vertebra with right paraspinal soft tissue involvement. Involvement of the right lower thoracic neural foramina noted at both T11-T12 and T12- L1 levels. Pulmonary metastatic disease redemonstrated.
[2021-01-01] MEDS: MAG HYDROX/AL HYDROX/SIMETH 30 ML CUP PO SCH ×2 (18:12→21:13)
[2021-01-01 18:17] LABS: Cancer Antigen 153 12.3 U/mL (0.0-32.3)
[2021-01-01] MEDS: ATORVASTATIN 80 MG TAB PO SCH (21:11)
[2021-01-01] MEDS: metFORMIN 500 MG TAB PO SCH (21:12)
[2021-01-02] MEDS: SODIUM CHLORIDE 0.9% 1,000 ML IV SCH ×4 (00:25→17:52)
[2021-01-02 02:24] LABS: African American GFR (CKD) 62.1 (60.0-200.0); Albumin 3.5 g/dL (3.80-4.90); Albumin/Globulin Ratio 1.35 (1.60-3.17); Anion Gap 18.6 mmol/L (4.00-12.00); Calcium 9.3 mg/dL (8.7-10.3); Carbon Dioxide 10.4 mmol/L (21.6-31.8); Globulin 2.6 g/dL (1.6-3.3); Magnesium 1.4 mg/dL (1.5-2.4); Non-African American GFR(CKD) 53.5 (60.0-200.0); Phosphorus 3.7 mg/dL (2.4-5.1); Potassium 4.6 mmol/L (3.5-5.5); Total Bilirubin 0.1 mg/dL (0.2-1.2); Total Protein 6.1 g/dL (6.2-8.2)
[2021-01-02 06:27] LABS: African American GFR (CKD) 54 (>60 ml/min/1.73 sqM); Anion Gap 5 mmol/L; Blood Urea Nitrogen 38 mg/dL (7-17); Calcium 9.3 mg/dL (8.4-10.2); Carbon Dioxide 28 mmol/L (22-30); Chloride 106 mmol/L (98-107); Glucose 185 mg/dL (74-99); Non-African American GFR(CKD) 46 (>60 ml/min/1.73 sqM); Potassium 4.8 mmol/L (3.5-5.1); Sodium 139 mmol/L (137-145)
[2021-01-02] MEDS: MAG HYDROX/AL HYDROX/SIMETH 30 ML CUP PO SCH ×4 (07:40→20:57)
[2021-01-02] MEDS: lisinopriL 10 MG TAB PO SCH ×2 (07:40→20:56)
[2021-01-02] MEDS: dexAMETHasone 4 MG TAB PO SCH ×2 (07:40→20:55)
[2021-01-02] MEDS: PANTOPRAZOLE 40 MG/10 ML VIAL IVP SCH ×2 (07:41→20:57)
[2021-01-02] MEDS: FUROSEMIDE 40 MG TAB PO SCH (07:41)
[2021-01-02] MEDS: METOPROLOL TARTRATE 50 MG TAB PO SCH ×2 (07:41→20:56)
[2021-01-02] MEDS: SERTRALINE 50 MG TAB PO SCH (07:41)
[2021-01-02] MEDS: amLODIPine 5 MG TAB PO SCH (07:41)
[2021-01-02] MEDS: ANASTROZOLE 1 MG TAB PO SCH (07:42)
[2021-01-02 09:37] LABS: HCT 31.8 % (37.2-46.3); HGB 9.9 g/dL (12.0-15.0); MCHC 31.1 g/dL (32.0-37.0); MCV 93.3 fL (80.0-97.0); Mean Platelet Volume 10.2 fL (9.5-12.2); Platelet Count 221 X 10*3/uL (140-440); RBC 3.41 X 10*6/uL (4.10-5.20); RDW 14.8 % (11.5-14.5); WBC 10.28 X 10*3/uL (4.50-10.00)
[2021-01-02] MEDS ORDERED: amLODIPine 5 MG TAB PO STA (09:59)
[2021-01-02] MEDS: APIXABAN 2.5 MG TABLET PO SCH ×2 (10:02→20:55)
[2021-01-02] MEDS: CLOPIDOGREL 75 MG TAB PO SCH (10:03)
--- NOTE | 2021-01-02 10:52 | P.PN ---
Subjective HISTORY OF PRESENTING ILLNESS This is a pleasant 80-year-old female past medical history significant for coronary artery disease status post PCI, history of breast cancer status post bilateral mastectomy, metastatic disease to the spine status post radiation July 2020, hypertension, dyslipidemia, diabetes mellitus, chronic diastolic heart failure and paroxysmal atrial fibrillation on long-term anticoagulation. She follows in the office with Dr. Us. We have been asked to see in consultation for chest pain. She presented to the hospital with symptoms of lower back pain and chest tightness. She is seen and examined resting c omfortably with her at the bedside. She is quite fatigued and falling asleep frequently during my exam. On admission she underwent CT imaging revealing multiple bilateral pulmonary nodules, mediastinal adenopathy, narrowing of the mid esophagus secondary to adenopathy, increased nodes/lobular mass in the right. Cardiophrenic fat, irregular sclerotic lesion involving T2 vertebral body and extending into the pedicles, multiple hypodense liver lesions, soft tissue nodule along the right internal mammary vessels, right renal mass, posterior pelvic soft tissue density increased from previous study and retroperitoneal adenopathy. Most recent cardiac catheterization performed January 2020 revealed chronic total occlusion of the proximal/ostial RCA, subtotally occluded filling by collaterals from the left system, left main has 15% stenosis, LAD has 20-40% areas of mild irregularities with no significant disease. At that time she was transferred to [facility] for high risk PCI with Rotablator. She is maintained on eliquis and plavix. Most recent echocardiogram obtained December 2019 reveals mildly impaired LV systolic function with ejection fraction 45-50%, severely dilated left atrium, moderate to severe mitral regurgitation, moderate tricuspid regurgitation and moderate pulmonary hypertension with RVSP of 43 mmHg. 01/02/2021 Patient seen and examined sitting up eating breakfast in no acute distress. She denies symptoms of chest pain, shortness of breath, dizziness or palpitations. She continues to have lower back discomfort. She underwent an MRI of the thoracic spine and brain yesterday revealing mild to moderate diffuse cerebral atrophy and fairly advanced nonspecific white matter changes with a 4 mm round enhancing structure of the left orbit possible mass versus focal aneurysm, confirmation of osseous metastatic disease of T12 vertebra and right paraspinal soft tissue involvement, involvement of the right lower thoracic neural foramina noted at T11 through T12 and T12 through L1. There is also redemonstrated pulmonary metastatic disease. Blood pressure 166/72 heart rate 70 afebrile maintaining oxygen saturation on room air. Laboratory data reviewed, WBC 10, hemoglobin 9.9, platelets 221, sodium 139, potassium 4.8, creatinine 1.13. Currently maintained on Plavix 75 mg daily, amlodipine 5 mg daily, Eliquis 2.5 mg twice a day, atorvastatin 80 mg at bedtime, Lasix 40 mg daily, lisinopril 10 mg twice a day and Lopressor 50 mg twice a day. PHYSICAL EXAMINATION CONSTITUTIONAL: No apparent distress. HEENT: Head is normocephalic. Pupils are equal, round. Sclerae anicteric. Mucous membranes of the mouth are moist. No JVD. No carotid bruit. CHEST EXAMINATION: Lungs are clear to auscultation. No chest wall tenderness is noted on palpation or with deep breathing. HEART EXAMINATION: Regular rate and rhythm. S1, S2 heard. Systolic ejection murmur at the left sternal border, no gallops or rub. EXTREMITIES: 2+ peripheral pulses, no lower extremity edema and no calf tenderness. Right femoral access site soft, nontender with no ecchymosis, hematoma or bleeding. ASSESSMENT NSTEMI Metastatic cancer, progressively worsening Coronary artery disease status post recent PCI maintained on eliquis and plavix Paroxysmal atrial fibrillation on long-term anticoagulation currently maintaining sinus mechanism Hypertension Dyslipidemia Diabetes mellitus PLAN Increase amlodipine to 10 mg daily for optimal blood pressure control. Eliquis currently being held by nursing for probable liver biopsy. Resume when appropriate for thromboembolic protection. Clinically stable on current medical regimen, we will follow along as needed. Follow up in the office with Dr. Us next week. Nurse Practitioner note has been reviewed, I agree with a documented findings and plan of care. Patient was seen and examined. Objective - Vital Signs Vital signs: Vital Signs Temp 97.8 F 01/02/21 07:00 Pulse 70 01/02/21 07:00 Resp 16 01/02/21 07:00 BP 166/72 01/02/21 07:00 Pulse Ox 95 01/02/21 07:00 Intake & Output 01/01/21 01/02/21 01/02/21 18:59 06:59 18:59 Intake Total 700 180 Output Total 620 Balance 700 -620 180 Intake: Oral 700 180 Output: Urine 620 Other: Voiding Method Toilet Toilet Incontinent Incontinent # Voids 1 2 - Labs CBC & Chem 7: 01/02/21 04:58 01/02/21 04:58 Labs: Abnormal Lab Results - Last 24 Hours (Table) 12/31/20 01/01/21 01/01/21 Range/Units 05:23 01:59 01:59 WBC (4.50-10.00) X 10*3/uL RBC (4.10-5.20) X 10*6/uL Hgb (12.0-15.0) g/dL Hct (37.2-46.3) % MCHC (32.0-37.0) g/dL RDW (11.5-14.5) % Chloride 115 H (96-109) mmol/L Carbon Dioxide 10.4 L (21.6-31.8) mmol/L Anion Gap 18.60 H (4.00-12.00) mmol/L BUN 31.0 H (9.0-27.0) mg/dL Creatinine (0.52-1.04) mg/dL Est GFR (CKD-EPI)AfAm 49.8 L (60.0-200.0) Est GFR (CKD-EPI)NonAf 53.5 L 42.9 L (60.0-200.0) BUN/Creatinine Ratio 26.00 H 25.83 H (12.00-20.00) Ratio Glucose 133 H 235 H (70-110) mg/dL Magnesium 1.4 L (1.5-2.4) mg/dL Total Bilirubin 0.1 L (0.2-1.2) mg/dL Alkaline Phosphatase 149 H 161 H (41-126) U/L Troponin I (0.000-0.034) ng/mL Total Protein 6.1 L (6.2-8.2) g/dL Albumin 3.50 L (3.80-4.90) g/dL Albumin/Globulin Ratio 1.35 L 1.58 L (1.60-3.17) g/dL Triglycerides 176.0 H (0.0-149.0) mg/dL CA 125 Antigen 39.0 H (0.0-30.1) U/mL 01/01/21 01/02/21 01/02/21 Range/Units 12:33 04:58 04:58 WBC 10.28 H (4.50-10.00) X 10*3/uL RBC 3.41 L (4.10-5.20) X 10*6/uL Hgb 9.9 L (12.0-15.0) g/dL Hct 31.8 L (37.2-46.3) % MCHC 31.1 L (32.0-37.0) g/dL RDW 14.8 H (11.5-14.5) % Chloride (96-109) mmol/L Carbon Dioxide (21.6-31.8) mmol/L Anion Gap (4.00-12.00) mmol/L BUN 38 H (9.0-27.0) mg/dL Creatinine 1.13 H (0.52-1.04) mg/dL Est GFR (CKD-EPI)AfAm (60.0-200.0) Est GFR (CKD-EPI)NonAf (60.0-200.0) BUN/Creatinine Ratio (12.00-20.00) Ratio Glucose 185 H (70-110) mg/dL Magnesium (1.5-2.4) mg/dL Total Bilirubin (0.2-1.2) mg/dL Alkaline Phosphatase (41-126) U/L Troponin I 2.840 H* (0.000-0.034) ng/mL Total Protein (6.2-8.2) g/dL Albumin (3.80-4.90) g/dL Albumin/Globulin Ratio (1.60-3.17) g/dL Triglycerides (0.0-149.0) mg/dL CA 125 Antigen (0.0-30.1) U/mL
[2021-01-02] MEDS ORDERED: polyethylene glycoL 3350 17 GM POWD.PACK PO PRN (11:09)
[2021-01-02] MEDS ORDERED: SENNOSIDES 8.6 MG TAB PO PRN (11:09)
--- NOTE | 2021-01-02 13:37 | P.PN ---
Subjective 80-year-old female patient came in the with complaints of severe low back pain. Is also complaining of epigastric abdominal discomfort which is mostly burning sensation. Patient had a CT angios the chest as well as abdominal CT both of which showed multiple liver lesions and multiple nodular lesions in the left lung as well as a 4.5 cm heterogeneous mass in the right kidney and retroperitoneal adenopathy and an irregular sclerotic lesion involving the T12 vertebral body with the paravertebral soft tissue edema. Patient does have history of breast cancer for which patient completed her chemotherapy and radiation therapy in September. Patient appears to have progression of the disease. Cardiology was consulted with concerns of chest pain. Patient has minimally elevated troponin of 0.080 and the troponin before that was 0.012. Patient will also comparing of some numbness in the mid to lower back area no weakness. 01/01/2021 Patient had an episode yesterday where she had epigastric abdominal discomfort and EKG was obtained at that time it was better patient had ST elevation myocardial infarction and patient had a cardiac catheterization which showed complete occlusion of RCA although this is a chronic occlusion with the collate rals. LAD is at essentially not occluded. Medical management was advised by cardiology. Patient's epigastric pain is secondary to gastritis or peptic ulcer disease. Patient is receiving Decadron at this time will order Maalox will continue with Protonix. Patient will undergo 6 MRA of the head and thoracic spine for metastatic disease. Biopsy of one of these lesions is being ordered as well. Oncology evaluated the patient. Patient still having pain patient had a fall without any significant injury today. Patient's troponin went up to 2.8. This is probably because of cardiac catheterization. Patient can use to have pain patient will be started on oral opiate medications for pain. 01/02/2021 Patient had an MRI of the thorax is 6 spine which showed osseous metastatic lesion involving T12 vertebrae along with soft tissue involvement and involvement of right lower thoracic neural foramina in both T11-T12 and T12- level LI. Patient had a MRI of the head which showed nonspecific white matter changes along with a 4 mm round enhancing structure in the left orbit which is possibly a metastatic lesion. Still has some epigastric and chest pain. Patient will be switched from" Percocet for better pain control. Patient is constipated will start her on senna scheduled and MiraLAX as needed. Constipation secondary to opiates. Awaiting recommendations from physical therapy and occupational therapy patient was also scheduled to get biopsy of the liver and anticoagulation and antiplatelet therapy is on hold presently Constitutional: Denied any fatigue denied any fever. Cardio vascular: Continue strict complain of chest pain and back pain Gastrointestinal as mentioned in HPI Pulmonary: Denied any shortness of breath cough Neurologic denied any new focal deficits All inpatient medications were reviewed and appropriate changes in these medications as dictated in the interval history and assessment and plan. Objective - Vital Signs Vital signs: Vital Signs Temp 97.8 F 01/02/21 07:00 Pulse 70 01/02/21 08:00 Resp 16 01/02/21 08:00 BP 166/72 01/02/21 07:00 Pulse Ox 95 01/02/21 07:00 Intake & Output 01/01/21 01/02/21 01/02/21 18:59 06:59 18:59 Intake Total 700 180 Output Total 620 Balance 700 -620 180 Intake: Oral 700 180 Output: Urine 620 Other: Voiding Method Toilet Toilet Toilet Incontinent Incontinent Incontinent # Voids 1 2 1 - Exam PHYSICAL EXAMINATION: GENERAL: The patient is alert and oriented x3, not in any acute distress. Well developed, well nourished. HEENT: Pupils are round and equally reacting to light. EOMI. No scleral icterus. No conjunctival pallor. Normocephalic, atraumatic. No pharyngeal erythema. No thyromegaly. CARDIOVASCULAR: S1 and S2 present. No murmurs, rubs, or gallops. PULMONARY: Chest is clear to auscultation, no wheezing or crackles. ABDOMEN: Soft, nontender, nondistended, normoactive bowel sounds. No palpable organomegaly. MUSCULOSKELETAL: No joint swelling or deformity. EXTREMITIES: No cyanosis, clubbing, or pedal edema. NEUROLOGICAL: Gross neurological examination did not reveal any focal deficits. SKIN: No rashes. - Labs CBC & Chem 7: 01/02/21 04:58 01/02/21 04:58 Labs: Abnormal Lab Results - Last 24 Hours (Table) 12/31/20 01/01/21 01/01/21 Range/Units 05:23 01:59 12:33 WBC (4.50-10.00) X 10*3/uL RBC (4.10-5.20) X 10*6/uL Hgb (12.0-15.0) g/dL Hct (37.2-46.3) % MCHC (32.0-37.0) g/dL RDW (11.5-14.5) % Chloride 115 H (96-109) mmol/L Carbon Dioxide 10.4 L (21.6-31.8) mmol/L Anion Gap 18.60 H (4.00-12.00) mmol/L BUN (7-17) mg/dL Creatinine (0.52-1.04) mg/dL Est GFR (CKD-EPI)NonAf 53.5 L (60.0-200.0) BUN/Creatinine Ratio 26.00 H (12.00-20.00) Ratio Glucose 133 H (70-110) mg/dL Magnesium 1.4 L (1.5-2.4) mg/dL Total Bilirubin 0.1 L (0.2-1.2) mg/dL Alkaline Phosphatase 149 H (41-126) U/L Troponin I 2.840 H* (0.000-0.034) ng/mL Total Protein 6.1 L (6.2-8.2) g/dL Albumin 3.50 L (3.80-4.90) g/dL Albumin/Globulin Ratio 1.35 L (1.60-3.17) g/dL CA 125 Antigen 39.0 H (0.0-30.1) U/mL 01/02/21 01/02/21 Range/Units 04:58 04:58 WBC 10.28 H (4.50-10.00) X 10*3/uL RBC 3.41 L (4.10-5.20) X 10*6/uL Hgb 9.9 L (12.0-15.0) g/dL Hct 31.8 L (37.2-46.3) % MCHC 31.1 L (32.0-37.0) g/dL RDW 14.8 H (11.5-14.5) % Chloride (96-109) mmol/L Carbon Dioxide (21.6-31.8) mmol/L Anion Gap (4.00-12.00) mmol/L BUN 38 H (7-17) mg/dL Creatinine 1.13 H (0.52-1.04) mg/dL Est GFR (CKD-EPI)NonAf (60.0-200.0) BUN/Creatinine Ratio (12.00-20.00) Ratio Glucose 185 H (70-110) mg/dL Magnesium (1.5-2.4) mg/dL Total Bilirubin (0.2-1.2) mg/dL Alkaline Phosphatase (41-126) U/L Troponin I (0.000-0.034) ng/mL Total Protein (6.2-8.2) g/dL Albumin (3.80-4.90) g/dL Albumin/Globulin Ratio (1.60-3.17) g/dL CA 125 Antigen (0.0-30.1) U/mL Assessment and Plan Plan: -Abdominal pain: Secondary to peptic ulcer disease or gastritis patient will c ontinued on Protonix twice a day. -Elevated troponin possibility of non-ST elevation myocardial infarction patient is status post cardiac catheterization with chronic occlusion of RCA with collaterals -Lower back pain secondary to metastatic disease patient MRI of the brain and thoracic spine as mentioned above showed metastatic disease to thoracic spine and MRI of the brain showed some metastases to orbit. -Breast cancer with the metastatic disease possible worsening. Patient completed chemotherapy and radiation therapy patient is on anastrozole which will be continued. Oncology is recommending biopsy of the liver. Anticoagulation is on hold at this time. -History of coronary artery disease with PCI in the past -Hypertension -Hyperlipidemia -Type 2 diabetes mellitus -DVT prophylaxis patient is on Eliquis which is being held for possible biopsy of the liver lesion
[2021-01-02] MEDS: MORPHINE SULFATE 4 MG/ML SYRINGE IVP PRN (15:19)
[2021-01-02] MEDS: ATORVASTATIN 80 MG TAB PO SCH (20:56)
[2021-01-02] MEDS: metFORMIN 500 MG TAB PO SCH (20:56)
[2021-01-03] MEDS: SODIUM CHLORIDE 0.9% 1,000 ML IV SCH ×4 (01:11→09:11)
[2021-01-03] MEDS: oxyCODONE-APAP 10-325MG 1 EACH TAB PO PRN ×2 (05:03→12:17)
[2021-01-03] MEDS ORDERED: metFORMIN 500 MG TAB PO SCH (07:30)
--- NOTE | 2021-01-03 08:07 | P.CONS ---
History of Present Illness - Reason for Consult Consult date: 01/02/21 T12 painful metastasis Requesting physician: Caleb Ojeda - Chief Complaint back pain - History of Present Illness The patient is a 80-year-old female with a remote history of an early stage breast cancer treated with mastectomy in 2011 followed by endocrine therapy. 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 She underwent resection followed by adjuvant chemotherapy, and subsequently underwent further chemotherapy in 2017 for disease progression. In June 2020, the patient had some imaging again worrisome for disease progression. She underwent palliative radiotherapy finishing in July to a T12 lesion causing pain. She was recommended to have repeat biopsy of some of her progressive adenopathy, but this was delayed and subsequently the patient traveled to [place] and did not follow-up for some time. She has now been hospitalized with significant evidence of disease progression. The patient was admitted to the hospital secondary to difficulty with lower back pain and epigastric discomfort. During her hospital stay, she was found to have an NSTEMI and had cardiac catheterization. Medical management was recommended only as the patient's stenosis appeared chronic. She reports that she has had increasing back pain over the past few weeks. She states over the last 1-2 weeks the pain has become constant in nature. It can be up to 9 out of 10, and she was taking Tylenol at home with partial relief (5 out of 10). She underwent a CT scan of the chest, abdomen and pelvis on December 31. This revealed multiple n ew hypodense liver masses measuring up to 5 cm. There is a 4.5 cm right renal mass, and increased anterior right pararenal space density as well as retroperitoneal adenopathy. Within the chest there was multiple new bilateral pulmonary nodules and mediastinal adenopathy. There was also progression of the sclerotic lesion involving the T12 vertebral body. She underwent an MRI of the brain on January 01, this showed no evidence of intracranial disease, but she did have a small enhancing area in the left orbit. MRI of the thoracic spine redemonstrate the T12 soft tissue mass with extension into the right neural foramen. The patient is tentatively scheduled today for CT-guided liver biopsy. Review of Systems Constitutional: Denies chills, Denies fever Eyes: denies blurred vision Ears, nose, mouth and throat: Denies headache Cardiovascular: Denies chest pain Respiratory: Denies cough, Denies dyspnea Gastrointestinal: Denies BRBPR, Denies change in bowel habits Genitourinary: Reports flank pain Musculoskeletal: Reports low back pain Neurological: Denies aphasia, Denies confusion, Denies double vision, Denies motor disturbance, Denies numbness, Denies paresthesias, Denies seizures Psychiatric: Denies confusion Past Medical History Past Medical History: Cancer, Chest Pain / Angina, Heart Failure, Diabetes Mellitus, Hyperlipidemia, Hypertension, Osteoarthritis (OA) Additional Past Medical History / Comment(s): Breast CA 2011- bilateral mastectomy-radiation to the spine tx last treatment was 07/2020 & chemo last 2017, Kidney Stones-having left flank pain currently-thinks she might have one now-restarted antibiotic on her own for, some SOB w/exertion, chest pain w/exertion recently History of Any Multi-Drug Resistant Organisms: None Reported Past Surgical History: Breast Surgery, Cholecystectomy, Heart Catheterization With Stent, Hysterectomy Additional Past Surgical History / Comment(s): Last heart cath 2012 with stent times 7, left TKA 2008, Cataract 2000, Left Lithotripsy ([facility]) 2001, Blepharoplasty 2006, percutaneous nephrostolithomy 04/25/14, 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 Past Anesthesia/Blood Transfusion Reactions: No Reported Reaction Date of Last Stent Placement:: January 2020 Past Psychological History: Depression Smoking Status: Former smoker Past Alcohol Use History: None Reported Additional Past Alcohol Use History / Comment(s): quit smoking 25 yrs. ago, smoked for 10 yrs. <ppd Past Drug Use History: None Reported - Past Family History Mother Sister(s) Family Medical History: Cancer Sister(s) Family Medical History: Cancer Additional Family Medical History / Comment(s): 2 had Breast CA, 1 had Kidney cancer Mother Family Medical History: Cancer Additional Family Medical History / Comment(s): kidney, breast cancer Medications and Allergies Home Medications Medication Instructions Recorded Confirmed Type Anastrozole [Arimidex] 1 mg PO DAILY 02/08/14 12/31/20 History amLODIPine [Norvasc] 5 mg PO DAILY 12/05/19 12/31/20 History Atorvastatin [Lipitor] 80 mg PO HS #30 tab 12/08/19 12/31/20 Rx Sertraline [Zoloft] 50 mg PO DAILY tab 12/08/19 12/31/20 Rx metFORMIN HCL [Glucophage] 500 mg PO DAILY 01/09/20 12/31/20 History Clopidogrel [Plavix] 75 mg PO DAILY 08/09/20 12/31/20 History Furosemide [Lasix] 40 mg PO DAILY 08/09/20 12/31/20 History Nitroglycerin Sl Tabs [Nitrostat] 0.4 mg SUBLINGUAL Q5M PRN 12/27/20 12/31/20 History Apixaban [Eliquis] 2.5 mg PO BID 12/31/20 12/31/20 History Calcium Carbonate [Tums] 500 mg PO DAILY 12/31/20 12/31/20 History Lidocaine-Prilocaine Cream [Emla 1 applic TOPICAL DIRECTED 12/31/20 12/31/20 History Cream 2.5%/2.5%] Magnesium Oxide 400 mg PO DAILY 12/31/20 12/31/20 History Metoprolol Tartrate [Lopressor] 50 mg PO BID 12/31/20 12/31/20 History lisinopriL [Zestril] 10 mg PO BID 12/31/20 12/31/20 History metFORMIN HCL [Glucophage] 1,000 mg PO HS 12/31/20 12/31/20 History Allergies Allergy/AdvReac Type Severity Reaction Status Date / Time Penicillins Allergy Intermediate Swelling Verified 12/31/20 06:56 Physical Exam Vitals: Vital Signs Temp Pulse Resp BP BP Pulse Ox 01/03/21 02:13 17 01/03/21 01:43 97.9 F 72 17 156/81 94 L 01/02/21 19:38 97.8 F 70 17 191/68 95 01/02/21 14:53 98.8 F 70 16 147/84 95 01/02/21 08:00 70 16 Intake and Output 01/02/21 01/03/21 01/03/21 22:59 06:59 14:59 Intake Total 222 Balance 222 Intake: Oral 222 Other: Voiding Method Toilet Incontinent # Voids 1 1 - Constitutional General appearance: no acute distress - EENT Eyes: EOMI, PERRLA ENT: hearing grossly normal - Neck Neck: no lymphadenopathy - Respiratory Respiratory: bilateral: CTA - Cardiovascular Rhythm: regular - Gastrointestinal General gastrointestinal: no distended, no tenderness - Integumentary Integumentary: no calor, no jaundiced - Neurologic Neurologic: CNII-XII intact - Musculoskeletal Musculoskeletal: strength equal bilaterally - Psychiatric Psychiatric: A&O x's 3, appropriate affect Results CBC & Chem 7: 01/02/21 04:58 01/02/21 04:58 Labs: Abnormal Lab Results - Last 24 Hours (Table) 01/02/21 Range/Units 04:58 WBC 10.28 H (4.50-10.00) X 10*3/uL RBC 3.41 L (4.10-5.20) X 10*6/uL Hgb 9.9 L (12.0-15.0) g/dL Hct 31.8 L (37.2-46.3) % MCHC 31.1 L (32.0-37.0) g/dL RDW 14.8 H (11.5-14.5) % CT scan - abdomen: report reviewed, image reviewed CT scan - chest: report reviewed, image reviewed CT scan - pelvis: report reviewed, image reviewed MRI - head: report reviewed, image reviewed Assessment and Plan Assessment: The patient is a 80-year-old female with a remote history of an early stage breast cancer treated with mastectomy in 2011 followed by endocrine therapy. 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 She underwent resection followed by adjuvant chemotherapy, and subsequently underwent further chemotherapy in 2017 for disease progression. In June 2020, the patient had some imaging again worrisome for disease progression. She underwent palliative radiotherapy finishing in July to a T12 lesion causing pain. She was recommended to have repeat biopsy of some of her progressive adenopathy, but this was delayed and subsequently the patient traveled to [place] and did not follow-up for some time. She has now been hospitalized with significant evidence of disease progression. Plan: 1. Low back pain: Despite undergoing palliative radiotherapy 6 months ago to the T12 lesion, this appears larger on current imaging studies. This appears to be the most likely reason for her mid/lower back pain. The patient initially had a good palliative response to the previous pain she was having, but clearly this was not a very durable response. I discussed with the patient that haroldo rradiation of this area is feasible considering she had a relatively modest dose during her prior treatment. I discussed that my hope would be this helps with her pain. Based on MRI, the patient does not have any urgent need for radiotherapy, and does not have a pending cord/canal compromise. 2. 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 The patient however does have a remote history of breast cancer as well, and agreed that biopsy would be helpful. 3. Small orbital enhancing mass: This measured 4 mm, and the patient does not appear to be symptomatic from this. It was considered possibly to represent an aneurysm in the differential as well as a metastatic focus. As the patient is currently asymptomatic, we will plan to have outpatient studies of this area. Time: I spent 45 minutes with this patient, of which greater than 50% of that time was spent counseling, coordinating care, and reviewing the risks, benefits, and all potential complications of radiation. Time with Patient: Greater than 30
[2021-01-03 08:17] VITALS: RESP 16; TEMP 97.8
[2021-01-03] MEDS: APIXABAN 2.5 MG TABLET PO SCH (08:54)
[2021-01-03] MEDS: CLOPIDOGREL 75 MG TAB PO SCH (08:54)
[2021-01-03] MEDS ORDERED: amLODIPine 10 MG TAB PO SCH (09:00)
[2021-01-03] MEDS: FUROSEMIDE 40 MG TAB PO SCH (09:08)
[2021-01-03] MEDS: lisinopriL 10 MG TAB PO SCH (09:08)
[2021-01-03] MEDS: dexAMETHasone 4 MG TAB PO SCH (09:08)
[2021-01-03] MEDS: MAG HYDROX/AL HYDROX/SIMETH 30 ML CUP PO SCH (09:08)
[2021-01-03] MEDS: PANTOPRAZOLE 40 MG/10 ML VIAL IVP SCH (09:08)
[2021-01-03] MEDS: ANASTROZOLE 1 MG TAB PO SCH (09:08)
[2021-01-03] MEDS: METOPROLOL TARTRATE 50 MG TAB PO SCH (09:08)
[2021-01-03] MEDS: SERTRALINE 50 MG TAB PO SCH (09:08)
[2021-01-03 10:41] VITALS: BP 189/45; PULSE 57
--- NOTE | 2021-01-03 16:03 | P.DS ---
Providers Date of admission: 12/31/20 13:51 Attending physician: Moira Redd Consults: 12/31/20 01:32 Consult Physician Urgent Consulting Provider: Bre Andrade Consult Reason/Comments: cp Do you want consulting provider notified?: Yes 12/31/20 10:43 Consult Physician Routine Consulting Provider: Caleb Ojeda Consult Reason/Comments: Breast cancer Do you want consulting provider notified?: Yes 12/31/20 13:36 Consult Physician Routine Consulting Provider: Prince Tyler Consult Reason/Comments: Back pain metastatic disease Do you want consulting provider notified?: Yes Primary care physician: Quique Ulloa MD Hospital Course: 80-year-old female patient came in the with complaints of severe low back pain. Is also complaining of epigastric abdominal discomfort which is mostly burning sensation. Patient had a CT angios the chest as well as abdominal CT both of which showed multiple liver lesions and multiple nodular lesions in the left lung as well as a 4.5 cm heterogeneous mass in the right kidney and retroperitoneal adenopathy and an irregular sclerotic lesion involving the T12 vertebral body with the paravertebral soft tissue edema. Patient does have history of breast cancer for which patient completed her chemotherapy and radiation therapy in September. Patient appears to have progression of the disease. Cardiology was consulted with concerns of chest pain. Patient has minimally elevated troponin of 0.080 and the troponin before that was 0.012. Patient will also comparing of some numbness in the mid to lower back area no weakness. 01/01/2021 Patient had an episode yesterday where she had epigastric abdominal discomfort and EKG was obtained at that time it was better patient had ST elevation myocardial infarction and patient had a cardiac catheterization which showed complete occlusion of RCA although this is a chronic occlusion with the collaterals. LAD is at essentially not occluded. Medical management was advised by cardiology. Patient's epigastric pain is secondary to gastritis or peptic ulcer disease. Patient is receiving Decadron at this time will order Maalox will continue with Protonix. Patient will undergo 6 MRA of the head and thoracic spine for metastatic disease. Biopsy of one of these lesions is being ordered as well. Oncology evaluated the patient. Patient still having pain patient had a fall without any significant injury today. Patient's troponin went up to 2.8. This is probably because of cardiac catheterization. Patient can use to have pain patient will be started on oral opiate medications for pain. 01/02/2021 Patient had an MRI of the thorax is 6 spine which showed osseous metastatic lesion involving T12 vertebrae along with soft tissue involvement and involvement of right lower thoracic neural foramina in both T11-T12 and T12- level LI. Patient had a MRI of the head which showed nonspecific white matter changes along with a 4 mm round enhancing structure in the left orbit which is possibly a metastatic lesion. Still has some epigastric and chest pain. Patient will be switched from" Percocet for better pain control. Patient is constipated will start her on senna scheduled and MiraLAX as needed. Constipation secondary to opiates. Awaiting recommendations from physical therapy and occupational therapy patient was also scheduled to get biopsy of the liver and anticoagulation and antiplatelet therapy is on hold presently 01/03/2021 Patient back pain improved patient will be discharged today patient will undergo outpatient biopsy of the liver lesion. Once the biopsy set up for patient will need to hold off on Eliquis at least 2 days before the procedure until the procedure Plavix will be held as well. Patient will be discharged on Percocet and Decadron. Patient was evaluated by radiation oncology and radiation treatments as per them. PHYSICAL EXAMINATION: GENERAL: The patient is alert and oriented x3, not in any acute distress. Well developed, well nourished. HEENT: Pupils are round and equally reacting to light. EOMI. No scleral icterus. No conjunctival pallor. Normocephalic, atraumatic. No pharyngeal erythema. No thyromegaly. CARDIOVASCULAR: S1 and S2 present. No murmurs, rubs, or gallops. PULMONARY: Chest is clear to auscultation, no wheezing or crackles. ABDOMEN: Soft, nontender, nondistended, normoactive bowel sounds. No palpable organomegaly. MUSCULOSKELETAL: No joint swelling or deformity. EXTREMITIES: No cyanosis, clubbing, or pedal edema. NEUROLOGICAL: Gross neurological examination did not reveal any focal deficits. SKIN: No rashes. Assessment and Plan Plan: -Abdominal pain: Secondary to peptic ulcer disease or gastritis patient will be discharged on Prilosec for a month -Elevated troponin possibility of non-ST elevation myocardial infarction patient is status post cardiac catheterization with chronic occlusion of RCA with collaterals -Lower back pain secondary to metastatic disease patient MRI of the brain and thoracic spine as mentioned above showed metastatic disease to thoracic spine and MRI of the brain showed some metastases to orbit. Patient will be discharged on Percocet and Decadron -Breast cancer with the metastatic disease possible worsening. Patient completed chemotherapy and radiation therapy patient is on anastrozole which will be continued. Oncology is recommending biopsy of the liver. Which will be done as an outpatient -History of coronary artery disease with PCI in the past -Hypertension -Hyperlipidemia -Type 2 diabetes mellitus Patient Condition at Discharge: Undetermined Plan - Discharge Summary New Discharge Prescriptions: New polyethylene glycoL 3350 [Miralax] 17 gm PO DAILY PRN #20 powd.pack PRN Reason: Constipation amLODIPine [Norvasc] 10 mg PO DAILY #30 tab dexAMETHasone ORAL [Hexadrol] 4 mg PO BID #21 tab oxyCODONE-APAP 10-325MG [Percocet 10-325 mg] 1 each PO Q6H PRN #20 tab PRN Reason: Pain Sennosides [Senokot] 8.6 mg PO BID PRN #30 tab PRN Reason: Constipation Continue Anastrozole [Arimidex] 1 mg PO DAILY Sertraline [Zoloft] 50 mg PO DAILY tab Atorvastatin [Lipitor] 80 mg PO HS #30 tab metFORMIN HCL [Glucophage] 500 mg PO DAILY Clopidogrel [Plavix] 75 mg PO DAILY Furosemide [Lasix] 40 mg PO DAILY Calcium Carbonate [Tums] 500 mg PO DAILY Metoprolol Tartrate [Lopressor] 50 mg PO BID Magnesium Oxide 400 mg PO DAILY Lidocaine-Prilocaine Cream [Emla Cream 2.5%/2.5%] 1 applic TOPICAL DIRECTED Nitroglycerin Sl Tabs [Nitrostat] 0.4 mg SUBLINGUAL Q5M PRN PRN Reason: Chest Pain lisinopriL [Zestril] 10 mg PO BID metFORMIN HCL [Glucophage] 1,000 mg PO HS Apixaban [Eliquis] 2.5 mg PO BID Discontinued amLODIPine [Norvasc] 5 mg PO DAILY Discharge Medication List Anastrozole [Arimidex] 1 mg PO DAILY 02/08/14 [History] Atorvastatin [Lipitor] 80 mg PO HS #30 tab 12/08/19 [Rx] Sertraline [Zoloft] 50 mg PO DAILY tab 12/08/19 [Rx] metFORMIN HCL [Glucophage] 500 mg PO DAILY 01/09/20 [History] Clopidogrel [Plavix] 75 mg PO DAILY 08/09/20 [History] Furosemide [Lasix] 40 mg PO DAILY 08/09/20 [History] Nitroglycerin Sl Tabs [Nitrostat] 0.4 mg SUBLINGUAL Q5M PRN 12/27/20 [History] Apixaban [Eliquis] 2.5 mg PO BID 12/31/20 [History] Calcium Carbonate [Tums] 500 mg PO DAILY 12/31/20 [History] Lidocaine-Prilocaine Cream [Emla Cream 2.5%/2.5%] 1 applic TOPICAL DIRECTED 12/31/20 [History] Magnesium Oxide 400 mg PO DAILY 12/31/20 [History] Metoprolol Tartrate [Lopressor] 50 mg PO BID 12/31/20 [History] lisinopriL [Zestril] 10 mg PO BID 12/31/20 [History] metFORMIN HCL [Glucophage] 1,000 mg PO HS 12/31/20 [History] Sennosides [Senokot] 8.6 mg PO BID PRN #30 tab 01/03/21 [Rx] amLODIPine [Norvasc] 10 mg PO DAILY #30 tab 01/03/21 [Rx] dexAMETHasone ORAL [Hexadrol] 4 mg PO BID #21 tab 01/03/21 [Rx] oxyCODONE-APAP 10-325MG [Percocet 10-325 mg] 1 each PO Q6H PRN #20 tab 01/03/21 [Rx] polyethylene glycoL 3350 [Miralax] 17 gm PO DAILY PRN #20 powd.pack 01/03/21 [Rx] Follow up Appointment(s)/Referral(s): Caleb Ojeda MD [STAFF PHYSICIAN] - 01/09/21 11:30 am Cathy Us MD [STAFF PHYSICIAN] - 1 Week (will call patient to schedule) Quique Ulloa MD [Primary Care Provider] - 3 Days Patient Instructions/Handouts: Chest Pain (DC) Activity/Diet/Wound Care/Special Instructions: liver bx at 0800 on january 14 Discharge Disposition: HOME SELF-CARE
--- NOTE | 2021-01-03 21:07 | P.PN ---
Subjective Progress Note Date: 01/03/21 Principal diagnosis: Progressive metastatic Cancer discussed with nursing, plan for biopsy to be scheduled prior. RN to call IR and our office will follow-up and fax prescription if an additional outpatient order needed. We will also order PET for next week and follow-up with dr leiva shortly after these. Objective - Vital Signs Vital signs: Vital Signs Temp 97.8 F 01/03/21 07:00 Pulse 57 L 01/03/21 10:40 Resp 16 01/03/21 07:00 BP 189/45 01/03/21 10:40 Pulse Ox 93 L 01/03/21 10:40 Intake & Output 01/02/21 01/03/21 01/03/21 18:59 06:59 18:59 Intake Total 624 Balance 624 Intake: Oral 624 Other: Voiding Method Toilet Toilet Incontinent Incontinent # Voids 2 1 - Exam - Constitutional General appearance: cooperative, no acute distress - EENT Eyes: EOMI, PERRLA ENT: NA/AT - Neck Neck: normal ROM - Respiratory Respiratory: bilateral: diminished - Cardiovascular Rhythm: regular - Gastrointestinal General gastrointestinal: soft - Integumentary Integumentary: pale - Neurologic Neurologic: CNII-XII intact - Musculoskeletal Musculoskeletal: generalized weakness - Psychiatric Psychiatric: A&O x's 3 - Labs CBC & Chem 7: 01/02/21 04:58 01/02/21 04:58 Assessment and Plan Plan: Assessment and Recommendations: High Grade Neuroendocrine cancer: - 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 plan: discussed with nursing, plan for biopsy to be scheduled prior. RN to call IR and our office will follow-up and fax prescription if an additional outpatient order needed. We will also order PET for next week and follow-up with dr leiva shortly after these. - MRI Reviewed, - Continue to hold AC therapy for Biopsy early next week
== END 2021-01-03 12:40 | disposition home or self-care (01) | DRG 281 ==
LOC: EC 22:53 → 6NMEDSUR 12-31 01:32 → OBSVTOIN 12-31 13:51 → 2SICU 12-31 21:07 → 6NMEDSUR 12-31 21:45
PROVIDERS: ADMIT Hospitalist; ATTEND Hospitalist
PROC: B2111ZZ Fluoroscopy of Multiple Coronary Arteries using Low Osmolar Contrast (ICD-10-PCS; 2020-12-31)
PROC: 4A023N7 Measurement of Cardiac Sampling and Pressure, Left Heart, Percutaneous Approach (ICD-10-PCS; principal; 2020-12-31 20:58)
DX: I21.19 ST elevation (STEMI) myocardial infarction involving other coronary artery of inferior wall (principal); C79.51 Secondary malignant neoplasm of bone; T82.855A Stenosis of coronary artery stent, initial encounter; C79.49 Secondary malignant neoplasm of other parts of nervous system; I50.32 Chronic diastolic (congestive) heart failure; N28.89 Other specified disorders of kidney and ureter; I11.0 Hypertensive heart disease with heart failure; I50.9 Heart failure, unspecified; E11.9 Type 2 diabetes mellitus without complications; Z20.822 Contact with and (suspected) exposure to COVID-19; M19.90 Unspecified osteoarthritis, unspecified site; E78.5 Hyperlipidemia, unspecified; Z86.16 Personal history of COVID-19; Z87.891 Personal history of nicotine dependence; Z79.01 Long term (current) use of anticoagulants; Z79.84 Long term (current) use of oral hypoglycemic drugs; Z88.0 Allergy status to penicillin; Z85.3 Personal history of malignant neoplasm of breast; Z92.3 Personal history of irradiation; Z92.21 Personal history of antineoplastic chemotherapy; Z80.3 Family history of malignant neoplasm of breast; Z80.51 Family history of malignant neoplasm of kidney; K29.70 Gastritis, unspecified, without bleeding; Z79.02 Long term (current) use of antithrombotics/antiplatelets; R59.0 Localized enlarged lymph nodes; K27.9 Peptic ulcer, site unspecified, unspecified as acute or chronic, without hemorrhage or perforation; I25.10 Atherosclerotic heart disease of native coronary artery without angina pectoris; I48.0 Paroxysmal atrial fibrillation; I10 Essential (primary) hypertension; E83.52 Hypercalcemia; Y83.8 Other surgical procedures as the cause of abnormal reaction of the patient, or of later complication, without mention of misadventure at the time of the procedure; T40.605A Adverse effect of unspecified narcotics, initial encounter; K59.03 Drug induced constipation; C50.919 Malignant neoplasm of unspecified site of unspecified female breast; G89.3 Neoplasm related pain (acute) (chronic); F32.9 Major depressive disorder, single episode, unspecified; I08.1 Rheumatic disorders of both mitral and tricuspid valves; I27.20 Pulmonary hypertension, unspecified; Z79.811 Long term (current) use of aromatase inhibitors; Z90.13 Acquired absence of bilateral breasts and nipples; Z90.710 Acquired absence of both cervix and uterus; Z87.442 Personal history of urinary calculi; Z96.652 Presence of left artificial knee joint; Z91.19 Patient's noncompliance with other medical treatment and regimen; Z95.5 Presence of coronary angioplasty implant and graft
CPT/HCPCS: 36415; 70553; 71275; 72157; 74022; 74177; 80048; 80053; 80061; 82306; 82550; 83690; 83735; 83880; 84100; 84443; 84484; 85025; 85027; 85610; 85730; 86300; 86304; 87635; 93005; 93306; 93458; 96374; 96375; 99285

== ENCOUNTER 2021-01-06 10:36 | Emergency (ER) | payer MEDICARE, BC ==
[2021-01-06 10:54] VITALS: TEMP 99.5
[2021-01-06] MEDS ORDERED: MORPHINE SULFATE 4 MG/ML SYRINGE IV STA (11:37)
--- NOTE | 2021-01-06 11:45 | ED ---
General Adult HPI - General Chief complaint: Back Pain/Injury Stated complaint: Back pain/vomiting Time Seen by Provider: 01/06/21 11:09 Source: patient Mode of arrival: wheelchair Limitations: no limitations - History of Present Illness Initial comments: Dictation was produced using [employer] dictation software. please excuse any grammatical, word or spelling errors. Chief Complaint: 80-year-old female presents with back pain History of Present Illness: It is 80-year-old female she presents today with back pain. Patient has history of breast cancer with metastatic disease. States that she's had back pain for several months now. She was recently admitted to the hospital for elevated troponin, abdominal pain and lower back pain. She had a recent MRI that showed metastatic disease to the thoracic spine. Patient cut a catheterization recently with chronic occlusion of the RCA. Patient denies any saddle anesthesia. She denies any urinary incontinence or retention. Denies any fevers. She localizes the pain to her lower lumbar area. Does not radiate. She states it's severe. No exacerbating or mitigating factors. The ROS documented in this emergency department record has been reviewed and confirmed by me. Those systems with pertinent positive or negative responses have been documented in the HPI. All other systems are other negative and/or noncontributory. PHYSICAL EXAM: General Impression: Alert and oriented x3, not in acute distress HEENT: Normocephalic atraumatic, extra-ocular movements intact, pupils equal and reactive to light bilaterally, mucous membranes moist. Cardiovascular: Heart regular rate and rhythm Chest: Able to complete full sentences, no retractions, no tachypnea Abdomen: abdomen soft, non-tender, non-distended, no organomegaly Musculoskeletal: Pulses present and equal in all extremities, no peripheral edema Motor: no focal deficits noted Neurological: CN II-XII grossly intact, no focal motor or sensory deficits noted Skin: Intact with no visualized rashes Psych: Normal affect and mood ED course: 80-year-old female with breast cancer and metastatic disease presents with back pain. Vital signs upon arrival are within acceptable limits. Laboratory evaluation obtained. CBC and metabolic panel is unremarkable. Lumbar spine CT shows redemonstration of right paraspinal mass with extension into the right neural foramina. Cannot exclude involvement of the spinal canal. Cells constructive changes of T12. There is also multilevel degenerative disc disease. Pulmonary nodules and nonobstructing calculi. Patient relented bedside. She is agreeable with discharge. She has outpatient follow-ups with her oncologist. She is given prescription for by mouth analgesia and antiemetics. EKG interpretation: Ventricular rate 76, normal sinus rhythm, NJ interval 152, QRS 92, QTC 414. No NJ prolongation, no QTC prolongation, no ST or T-wave changes noted.Overall, this EKG is unremarkable - Related Data Home Medications Medication Instructions Recorded Confirmed Anastrozole [Arimidex] 1 mg PO DAILY 02/08/14 01/06/21 metFORMIN HCL [Glucophage] 500 mg PO DIRECTED 01/09/20 01/06/21 Clopidogrel [Plavix] 75 mg PO DIRECTED 08/09/20 01/06/21 Furosemide [Lasix] 40 mg PO DAILY 08/09/20 01/06/21 Nitroglycerin Sl Tabs [Nitrostat] 0.4 mg SL Q5M PRN 12/27/20 01/06/21 Apixaban [Eliquis] 2.5 mg PO DIRECTED 12/31/20 01/06/21 Calcium Carbonate [Tums] 500 mg PO DAILY 12/31/20 01/06/21 Lidocaine-Prilocaine Cream [Emla 1 applic TOPICAL DIRECTED 12/31/20 01/06/21 Cream 2.5%/2.5%] Magnesium Oxide 400 mg PO DAILY 12/31/20 01/06/21 Metoprolol Tartrate [Lopressor] 50 mg PO BID 12/31/20 01/06/21 lisinopriL [Zestril] 10 mg PO BID 12/31/20 01/06/21 metFORMIN HCL [Glucophage] 1,000 mg PO DIRECTED 12/31/20 01/06/21 dexAMETHasone ORAL [Hexadrol] See Taper PO DIRECTED 01/06/21 01/06/21 oxyCODONE-APAP 10-325MG [Percocet 1 tab PO Q6H PRN 01/06/21 01/06/21 10-325 mg] Previous Rx's Medication Instructions Recorded Atorvastatin [Lipitor] 80 mg PO HS #30 tab 12/08/19 Sertraline [Zoloft] 50 mg PO DAILY tab 12/08/19 Omeprazole [PriLOSEC] 40 mg PO AC-BRKFST #30 capsule. 01/03/21 Sennosides [Senokot] 8.6 mg PO BID PRN #30 tab 01/03/21 amLODIPine [Norvasc] 10 mg PO DAILY #30 tab 01/03/21 polyethylene glycoL 3350 [Miralax] 17 gm PO DAILY PRN #20 powd.pack 01/03/21 HYDROmorphone [Dilaudid] 4 mg PO Q6H PRN 3 Days #12 tab 01/06/21 Ondansetron Odt [Zofran Odt] 4 mg PO Q8HR PRN #12 tab 01/06/21 Allergies Allergy/AdvReac Type Severity Reaction Status Date / Time Penicillins Allergy Intermediate Swelling Verified 01/06/21 11:31 Review of Systems ROS Statement: Those systems with pertinent positive or pertinent negative responses have been documented in the HPI. ROS Other: All systems not noted in ROS Statement are negative. Past Medical History Past Medical History: Cancer, Chest Pain / Angina, Heart Failure, Diabetes Mellitus, Hyperlipidemia, Hypertension, Myocardial Infarction ([place]), Osteoarthritis (OA) Additional Past Medical History / Comment(s): Breast CA 2011- bilateral mastectomy-radiation to the spine tx last treatment was 07/2020 & chemo last , Kidney Stones-having left flank pain currently-thinks she might have one now-restarted antibiotic on her own for, some SOB w/exertion, chest pain w/exertion recently History of Any Multi-Drug Resistant Organisms: None Reported Past Surgical History: Breast Surgery, Cholecystectomy, Heart Catheterization, Heart Catheterization With Stent, Hysterectomy Additional Past Surgical History / Comment(s): Last heart cath 2012 with stent times 7, left TKA 2008, Cataract 2000, Left Lithotripsy ([facility]) 2001, Blepharoplasty 2006, percutaneous nephrostolithomy 04/25/14, 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 Past Anesthesia/Blood Transfusion Reactions: No Reported Reaction Date of Last Stent Placement:: January 2020 Past Psychological History: Depression Smoking Status: Former smoker Past Alcohol Use History: None Reported Past Drug Use History: None Reported - Past Family History Mother Sister(s) Family Medical History: Cancer Sister(s) Family Medical History: Cancer Additional Family Medical History / Comment(s): 2 had Breast CA, 1 had Kidney cancer Mother Family Medical History: Cancer Additional Family Medical History / Comment(s): kidney, breast cancer General Exam Limitations: no limitations Course Vital Signs 01/06/21 01/06/21 10:50 14:01 Temperature 99.5 F Pulse Rate 74 89 Respiratory 18 16 Rate Blood Pressure 99/66 136/79 O2 Sat by Pulse 95 99 Oximetry Medical Decision Making - Lab Data Result diagrams: 01/06/21 11:54 01/06/21 11:54 Lab Results 01/06/21 01/06/21 Range/Units 11:54 11:54 WBC 8.3 (3.8-10.6) k/uL RBC 3.87 (3.80-5.40) m/uL Hgb 11.1 L (11.4-16.0) gm/dL Hct 34.4 (34.0-46.0) % MCV 88.9 (80.0-100.0) fL MCH 28.8 (25.0-35.0) pg MCHC 32.3 (31.0-37.0) g/dL RDW 15.6 H (11.5-15.5) % Plt Count 234 (150-450) k/uL MPV 7.5 Neutrophils % 82 % Lymphocytes % 8 % Monocytes % 8 % Eosinophils % 1 % Basophils % 0 % Neutrophils # 6.9 (1.3-7.7) k/uL Lymphocytes # 0.6 L (1.0-4.8) k/uL Monocytes # 0.6 (0-1.0) k/uL Eosinophils # 0.1 (0-0.7) k/uL Basophils # 0.0 (0-0.2) k/uL Sodium 138 (137-145) mmol/L Potassium 4.6 (3.5-5.1) mmol/L Chloride 104 (98-107) mmol/L Carbon Dioxide 30 (22-30) mmol/L Anion Gap 4 mmol/L BUN 30 H (7-17) mg/dL Creatinine 1.01 (0.52-1.04) mg/dL Est GFR (CKD-EPI)AfAm 61 (>60 ml/min/1.73 sqM) Est GFR (CKD-EPI)NonAf 53 (>60 ml/min/1.73 sqM) Glucose 178 H (74-99) mg/dL Calcium 9.3 (8.4-10.2) mg/dL Disposition Clinical Impression: Back pain Disposition: HOME SELF-CARE Condition: Fair Instructions (If sedation given, give patient instructions): Chronic Back Pain (DC) Prescriptions: HYDROmorphone [Dilaudid] 4 mg PO Q6H PRN 3 Days #12 tab PRN Reason: Pain Ondansetron Odt [Zofran Odt] 4 mg PO Q8HR PRN #12 tab PRN Reason: Nausea Is patient prescribed a controlled substance at d/c from ED?: No Referrals: Quique Ulloa MD [Primary Care Provider] - 1-2 days
[2021-01-06 12:04] LABS: Basophils % (A) 0 %; Eosinophils # (A) 0.1 k/uL (0-0.7); Eosinophils % (A) 1 %; HCT 34.4 % (34.0-46.0); HGB 11.1 gm/dL (11.4-16.0); Lymphocytes # (A) 0.6 k/uL (1.0-4.8); Lymphocytes % (A) 8 %; MCH 28.8 pg (25.0-35.0); MCHC 32.3 g/dL (31.0-37.0); MCV 88.9 fL (80.0-100.0); Mean Platelet Volume 7.5; Monocytes # (A) 0.6 k/uL (0-1.0); Monocytes % (A) 8 %; Neutrophils # (A) 6.9 k/uL (1.3-7.7); Neutrophils % (A) 82 %; Platelet Count 234 k/uL (150-450); RBC 3.87 m/uL (3.80-5.40); RDW 15.6 % (11.5-15.5); WBC 8.3 k/uL (3.8-10.6)
[2021-01-06 13:17] LABS: Calcium 9.3 mg/dL (8.4-10.2); Potassium 4.6 mmol/L (3.5-5.1)
[2021-01-06 14:02] VITALS: BP 136/79; PULSE 89; RESP 16
[2021-01-06] MEDS ORDERED: HYDROmorphone 0.5 MG/0.5 ML SYRINGE IVP STA (14:09)
--- NOTE | 2021-01-06 14:56 | CT ---
EXAMINATION TYPE: CT lumbar spine w con DATE OF EXAM: 01/06/2021 COMPARISON: MRI of thoracic spine HISTORY: low back pain CT DLP: 903 mGycm Automated exposure control for dose reduction was used. CONTRAST: CT scan of the lumbar is performed with IV Contrast, patient injected with 100 mL of Isovue 300. Enhanced CT of the lumbar spine was performed. Bone and soft tissue window settings are submitted as well as coronal and sagittal reconstructions. There is abnormal soft tissue in the paraspinal region at the level of T12 with destructive change of the vertebral body. There appears to be extension of abnormal soft tissue mass into the right neural foramina and spinal canal. Multiple pulmonary nodules are also noted. There is multilevel hypertrophic and degenerative change of the spine with no additional areas of ethan tructive change identified. There appears to be nonobstructing bilateral renal calculi with a cyst murray spicious appearing right renal mass measuring 4 cm. Atherosclerotic change aorta. Right hepatic poste rior segment lesion also noted. Cortical thinning and loss involving the left kidney with atrophic ch anges also noted. Mild heterogeneity of the spleen may be related to the phase of imaging. There are paraspinal soft tissue nodules are present in shotty lymph nodes. Suspected aortocaval lymph node pat hologic in size measuring short axis of 1.1 cm. Additional 1.6 cm right periaortic lymph node is path ologic. L1-L2: Degenerative disc disease. Assessment spinal canal limited. Posterior spondylosis seen. No obv ious canal stenosis. L2-L3: Degenerative disc disease and hypertrophic spurring. Facet arthropathy noted. No obvious destr uctive pattern. L3-L4: Facet arthropathy and degenerative change with circumferential disc bulging and ligamentum fla vum hypertrophy. Suspect canal stenosis and bilateral foraminal encroachment. L4-L5: Degenerative disc disease and facet arthropathy with circumferential disc bulging. Suspect can al stenosis and bilateral foraminal encroachment. L5-S1: Disc bulging with posterior paracentral spurring result in severe right-sided foraminal encroa chment. Mild effacement of thecal sac. No destructive changes. IMPRESSION: 1. Right paraspinal mass with extension into the right neural foramina T12-L1 and T11-T12. Could not exclude involvement of the spinal canal. There appears to be destructive change of the vertebral segm ent of T12 2. Multilevel degenerative disc disease, facet arthropathy and disc bulging resulting in multilevel f oraminal encroachment. 3. Pulmonary nodules, hepatic mass, retroperitoneal adenopathy and suspicious appearing right renal m ass suspicious for malignancy. 4. Nonobstructing renal calculi.
== END 2021-01-06 15:37 | disposition home or self-care (01) ==
LOC: EC 10:36
DX: M54.5 Low back pain (principal); R11.10 Vomiting, unspecified; I11.0 Hypertensive heart disease with heart failure; I50.9 Heart failure, unspecified; E78.5 Hyperlipidemia, unspecified; M19.90 Unspecified osteoarthritis, unspecified site; I25.2 Old myocardial infarction; E11.36 Type 2 diabetes mellitus with diabetic cataract; F32.9 Major depressive disorder, single episode, unspecified; Z87.891 Personal history of nicotine dependence; Z85.3 Personal history of malignant neoplasm of breast; Z79.84 Long term (current) use of oral hypoglycemic drugs; Z79.02 Long term (current) use of antithrombotics/antiplatelets; Z79.01 Long term (current) use of anticoagulants; Z79.52 Long term (current) use of systemic steroids; Z79.899 Other long term (current) drug therapy; Z88.0 Allergy status to penicillin
CPT/HCPCS: 36415; 80048; 85025; 72132; 99284; 96374; 96375; J2270; J1170; Q9967

== ENCOUNTER → 2021-01-10 | Outpatient (CLI) | payer MEDICARE, BC ==
--- NOTE | 2021-01-15 06:47 | PE ---
EXAMINATION TYPE: PET CT fusion skull to thigh DATE OF EXAM: 01/10/2021 COMPARISON: CT abdomen and pelvis December 31, 2020. Prior PET/CT June 07, 2020. Older studies. HISTORY: Ovarian cancer with peritoneal spread . History of left-sided breast cancer 2011. Currently not on treatment. TECHNIQUE: Following the intravenous administration of 13.67 mCi of F-18 FDG, whole body images are performed from the skull base to the midthigh. Images are reviewed on the computer in the coronal, a xial, and sagittal planes. Reconstructed rotating images are created on independent workstation and reviewed on the computer. A localization and attenuation correction CT is performed in conjunction with the PET scan. Blood glucose level equals 155. SCAN: Subsequent Scan FINDINGS: SKULL BASE AND NECK: Larger but slightly more ill-defined left supraclavicular lymph node measuring 2.4 x 1.9 cm current study image 62 versus 1.6 x 1.3 cm prior study image 59, slightly hypermetabolic max SUV is 2.74 on current study. Adjacent mildly hypermetabolic enlarged subcarinal lymph nodes are seen. CHEST, MEDIASTINUM, AND HILAR REGION: There are new hypermetabolic pulmonary nodules bilaterally khalif mated 20-30 scattered throughout each lung. For reference one of the largest and most hypermetabolic is 1.7 x 1.4 cm nodule axial image 86, max SUV is 4.92. There is abnormal slightly hypermetabolic 2.3 x 1.6 cm mass or lymph node adjacent to inferior right atrium axial image 114, max SUV is 3.43. Additional hypermetabolic nodule or lymph node inferior late ral to this axial image 119 anterior to the superior liver is redemonstrated. Persistent abnormal anterior mid lung soft tissue pleural nodularity or thickening with hypermetaboli c uptake images 92 through 99. ABDOMEN AND PELVIS: Confirmation of hyperdense 6.5 cm hypermetabolic lesion posterior right hepatic l obe axial image 149, max SUV is 5.8 by. Just above sigmoid colon there is new pelvic peritoneal hypermetabolic 3.2 x 2.4 cm mass image 199 co rresponding to recent CT axial image 60, max SUV is 3.81 OSSEOUS STRUCTURES: Abnormal hypermetabolic uptake surrounds the T11 vertebra near the level of surro unding soft tissue or retrocrural adenopathy axial image 129, max SUV is 4.19. There is neural forami nal encroachment. No distinct abnormal hypermetabolic uptake localized osseous structures identified. OTHER CT: There is cardiomegaly with moderate to severe three-vessel coronary artery calcification an d/or stents redemonstrated. There is moderate to severe left atrial and left ventricular dilatation r edemonstrated. There is right internal jugular Mediport catheter terminating in SVC redemonstrated. M ild to moderate calcified plaque bilateral carotid bulb level. Mild to moderate diffuse colonic fecal stasis. Moderate to severe calcified plaque of the aorta. Mult ilevel facet arthropathy in the lumbar spine IMPRESSION: Continued neoplastic metastatic progression as detailed above.
== END | disposition home or self-care (01) ==
LOC: RADPETMAIN 15:43
PROVIDERS: ATTEND Internal Medicine Hematology & Oncology
DX: C78.6 Secondary malignant neoplasm of retroperitoneum and peritoneum (principal); C78.7 Secondary malignant neoplasm of liver and intrahepatic bile duct; C78.5 Secondary malignant neoplasm of large intestine and rectum; C79.51 Secondary malignant neoplasm of bone
CPT/HCPCS: 78815; A9552

== ENCOUNTER 2021-01-14 07:51 | Day surgery (SDC) | payer MEDICARE, BC ==
[2021-01-14 08:37] LABS: Mean Platelet Volume 7.5; Platelet Count 253 k/uL (150-450)
[2021-01-14 08:44] LABS: Prothrombin Time 10.6 sec (9.0-12.0)
[2021-01-14] MEDS ORDERED: ALPRAZolam 0.25 MG TAB PO PRN (08:54)
[2021-01-14 09:17] VITALS: TEMP 98.8
[2021-01-14 11:31] VITALS: RESP 16
--- NOTE | 2021-01-14 12:05 | CT ---
EXAMINATION TYPE: CT biopsy bone superficial DATE OF EXAM: 01/14/2021 COMPARISON: 01/10/2021 HISTORY: Paraspinal mass T12-L1 CT DLP: 1107 mGycm The procedure is discussed with the patient, the risks, complications, benefits and alternatives, wer e discussed and any questions were answered. Informed consent was obtained. The patient is placed p ailyn on the CT table, prepped and draped in the usual sterile fashion. Utilizing a 18-gauge core biopsy needle access into the right paraspinal mass was achieved with 2 malou ples obtained. Pathology pending. All elements of maximal barrier and sterile technique were utiliz ed. The patient remained stable throughout the procedure with no immediate postprocedural complicati on. IMPRESSION: 1. Successful CT guided core biopsy of right paraspinal mass
[2021-01-14 13:35] VITALS: PULSE 58
[2021-01-14 13:41] VITALS: BP 140/61
== END 2021-01-14 13:13 | disposition home or self-care (01) ==
LOC: RADPROMAIN 07:51
PROVIDERS: ATTEND Internal Medicine Hematology & Oncology
DX: C79.51 Secondary malignant neoplasm of bone (principal); Z88.0 Allergy status to penicillin
CPT/HCPCS: 20220; 36415; 77012; 82947; 85049; 85610; 88305; 88341; 88342

== ENCOUNTER 2021-02-12 15:55 | Inpatient (IN) | payer MEDICARE, BC ==
[2021-02-12] MEDS ORDERED: ASPIRIN 81 MG PO STA (16:06)
[2021-02-12] MEDS ORDERED: MORPHINE SULFATE 4 MG/ML SYRINGE IVP STA ×2 (16:23→17:30)
[2021-02-12] MEDS ORDERED: MORPHINE SULFATE 2 MG/ML SYRINGE IVP STA (16:27)
[2021-02-12 16:30] LABS: Basophils # (A) 0.1 k/uL (0-0.2); Basophils % (A) 1 %; Eosinophils # (A) 0.1 k/uL (0-0.7); Eosinophils % (A) 2 %; HCT 33.4 % (34.0-46.0); HGB 10.9 gm/dL (11.4-16.0); Lymphocytes # (A) 0.4 k/uL (1.0-4.8); Lymphocytes % (A) 6 %; MCH 29.1 pg (25.0-35.0); MCHC 32.5 g/dL (31.0-37.0); MCV 89.8 fL (80.0-100.0); Mean Platelet Volume 8.3; Monocytes # (A) 0.4 k/uL (0-1.0); Monocytes % (A) 6 %; Neutrophils # (A) 5.3 k/uL (1.3-7.7); Neutrophils % (A) 83 %; Platelet Count 152 k/uL (150-450); RBC 3.72 m/uL (3.80-5.40); RDW 15.4 % (11.5-15.5); WBC 6.4 k/uL (3.8-10.6)
[2021-02-12] MEDS ORDERED: DILTIAZEM 5 MG/ML 5 ML VIAL IVP STA (16:32)
[2021-02-12 16:42] LABS: Albumin 3.2 g/dL (3.5-5.0); Calcium 8.8 mg/dL (8.4-10.2); Magnesium 1.4 mg/dL (1.6-2.3); Partial Thromboplastin Time 24.3 sec (22.0-30.0); Potassium 3.8 mmol/L (3.5-5.1); Prothrombin Time 10.8 sec (9.0-12.0); Total Bilirubin 0.4 mg/dL (0.2-1.3); Total Protein 5.7 g/dL (6.3-8.2)
[2021-02-12] MEDS ORDERED: DILTIAZEM 125 MG in SODIUM CHLORIDE 0.9% 100 ML IV SCH (16:45)
--- NOTE | 2021-02-12 16:52 | XR ---
EXAMINATION TYPE: XR chest 1V portable DATE OF EXAM: 02/12/2021 COMPARISON: 12/07/2019, PET CT 01/10/2021 INDICATION: Chest pain TECHNIQUE: Single frontal view of the chest is obtained. FINDINGS: The heart size is normal. The pulmonary vasculature is normal. There are multiple scattered nodules present bilaterally. Dominant nodule right upper lobe measures 1 .5 cm. Too numerous to count nodules are present bilaterally ranging from approximately 0.6 to 1.5 cm . Findings are suspicious for metastatic disease. IMPRESSION: 1. Extensive pulmonary nodularity through the bilateral lung ulrich.
--- NOTE | 2021-02-12 17:14 | P.CRDCN ---
History of Present Illness Consult date: 02/12/21 Chief complaint: chest pain History of present illness: This is a very pleasant 80-year-old female patient who unfortunately was diagnosed with metastatic breast cancer as well as history of coronary artery disease and prior revascularization with does heart catheterization was performed a few weeks ago showing chronic total occlusion of the right coronary artery which fills by bridging collateral as well as paroxysmal atrial fibrillation as well as diabetes and hypertension and dyslipidemia. We asked to see the patient in a consultation in the emergency department for chest discomfort and abnormal EKG. She has been experiencing intermittent episodes of chest discomfort for the last 24-48 hours. She described the discomfort as a pressure across the chest. No radiation to the arms or neck or shoulders or back. An EKG was performed and showed ST segment elevation about 1 mm in aVR was diffuse ST segment depression concerning for global ischemia. Initially the plan was to take the patient to the cardiac prestressed concrete laborer for emergent heart catheterization but giving care breast cancer with metastasis and giving her prognosis and also talking to the family the family would like the patient to be treated medically. Please note that the patient currently also is in atrial fibrillation with rapid ventricular response which is known to have paroxysmal atrial fibrillation. Currently had heart rate around 120 bpm. Currently she is on Cardizem IV. With that being sedated and after we discuss that with the family was going to treat her medically. We'll continue Cardizem IV. Restart her home medication. Restart her on oral anticoagulation after we obtain an echocardiogram to rule out any pericardial effusion from her metastatic breast cancer. Also would hold on any heparin at this point. We'll continue following up with her Past Medical History Past Medical History: Cancer, Chest Pain / Angina, Heart Failure, Diabetes Mellitus, Hyperlipidemia, Hypertension, Myocardial Infarction ([place]), Osteoarthritis (OA) Additional Past Medical History / Comment(s): Breast CA 2011- bilateral mastectomy-radiation to the spine tx last treatment was 07/2020 & chemo last 2018, Kidney Stones-having left flank pain currently-thinks she might have one now-restarted antibiotic on her own for, some SOB w/exertion, chest pain w/exertion recently History of Any Multi-Drug Resistant Organisms: None Reported Past Surgical History: Breast Surgery, Cholecystectomy, Heart Catheterization, Heart Catheterization With Stent, Hysterectomy Additional Past Surgical History / Comment(s): Last heart cath 2012 with stent times 7, left TKA 2008, Cataract 2000, Left Lithotripsy ([facility]) 2001, Blepharoplasty 2006, percutaneous nephrostolithomy 04/25/14, 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 Past Anesthesia/Blood Transfusion Reactions: No Reported Reaction Date of Last Stent Placement:: January 2020 Past Psychological History: Depression Smoking Status: Former smoker Past Alcohol Use History: None Reported Past Drug Use History: None Reported - Past Family History Mother Sister(s) Family Medical History: Cancer Sister(s) Family Medical History: Cancer Additional Family Medical History / Comment(s): 2 had Breast CA, 1 had Kidney cancer Mother Family Medical History: Cancer Additional Family Medical History / Comment(s): kidney, breast cancer Medications and Allergies Home Medications Medication Instructions Recorded Confirmed Type Anastrozole [Arimidex] 1 mg PO DAILY 02/08/14 01/14/21 History Atorvastatin [Lipitor] 80 mg PO HS #30 tab 12/08/19 01/14/21 Rx Sertraline [Zoloft] 50 mg PO DAILY tab 12/08/19 01/14/21 Rx metFORMIN HCL [Glucophage] 500 mg PO DIRECTED 01/09/20 01/14/21 History Clopidogrel [Plavix] 75 mg PO DIRECTED 08/09/20 01/14/21 History Furosemide [Lasix] 40 mg PO DAILY 08/09/20 01/14/21 History Apixaban [Eliquis] 2.5 mg PO DIRECTED 12/31/20 01/14/21 History Lidocaine-Prilocaine Cream [Emla 1 applic TOPICAL DIRECTED 12/31/20 01/14/21 History Cream 2.5%/2.5%] Magnesium Oxide 400 mg PO DAILY 12/31/20 01/14/21 History Metoprolol Tartrate [Lopressor] 50 mg PO BID 12/31/20 01/14/21 History lisinopriL [Zestril] 10 mg PO BID 12/31/20 01/14/21 History metFORMIN HCL [Glucophage] 1,000 mg PO DIRECTED 12/31/20 01/14/21 History amLODIPine [Norvasc] 10 mg PO DAILY #30 tab 01/03/21 01/14/21 Rx polyethylene glycoL 3350 [Miralax] 17 gm PO DAILY PRN #20 powd.pack 01/03/21 01/14/21 Rx HYDROmorphone [Dilaudid] 4 mg PO Q6H PRN 3 Days #12 tab 01/06/21 01/14/21 Rx Ondansetron Odt [Zofran Odt] 4 mg PO Q8HR PRN #12 tab 01/06/21 01/14/21 Rx Lactulose 10 gm PO DAILY 01/14/21 01/14/21 History Sennosides/Docusate Sodium [Senna 1 each PO DAILY 01/14/21 01/14/21 History Plus 8.6-50 mg Softgel] fentaNYL 50MCG/HR PATCH [Duragesic 1 patch TRANSDERM Q72H 01/14/21 01/14/21 History 50MCG/HR] oxyCODONE HCL [OxyIR] 5 mg PO Q4H PRN 01/14/21 01/14/21 History Allergies Allergy/AdvReac Type Severity Reaction Status Date / Time Penicillins Allergy Intermediate Swelling Verified 01/14/21 08:36 Physical Exam Vitals: Vital Signs Temp Pulse Resp BP Pulse Ox 02/12/21 16:54 116 H 18 108/80 96 02/12/21 16:30 130 H 18 134/111 97 02/12/21 16:20 124 H 18 138/119 96 02/12/21 15:58 98.8 F 128 H 20 118/74 96 Intake and Output 02/12/21 02/12/21 02/12/21 06:59 14:59 22:59 Other: Weight 72.575 kg - Constitutional General appearance: no acute distress - Respiratory Respiratory: bilateral: diminished - Cardiovascular Rhythm: irregularly irregular Abnormal Heart Sounds: systolic murmur Results 02/12/21 16:18 02/12/21 16:18 Cardiac Enzymes 02/12/21 Range/Units 16:18 AST 41 H (14-36) U/L Coagulation 02/12/21 Range/Units 16:18 PT 10.8 (9.0-12.0) sec APTT 24.3 (22.0-30.0) sec CBC 02/12/21 Range/Units 16:18 WBC 6.4 (3.8-10.6) k/uL RBC 3.72 L (3.80-5.40) m/uL Hgb 10.9 L (11.4-16.0) gm/dL Hct 33.4 L (34.0-46.0) % Plt Count 152 (150-450) k/uL Comprehensive Metabolic Panel 02/12/21 Range/Units 16:18 Sodium 139 (137-145) mmol/L Potassium 3.8 (3.5-5.1) mmol/L Chloride 105 (98-107) mmol/L Carbon Dioxide 27 (22-30) mmol/L BUN 67 H (7-17) mg/dL Creatinine 2.40 H (0.52-1.04) mg/dL Glucose 189 H (74-99) mg/dL Calcium 8.8 (8.4-10.2) mg/dL AST 41 H (14-36) U/L ALT 17 (4-34) U/L Alkaline Phosphatase 114 (38-126) U/L Total Protein 5.7 L (6.3-8.2) g/dL Albumin 3.2 L (3.5-5.0) g/dL Current Medications Generic Name Dose Route Start Last Admin Trade Name Freq PRN Reason Stop Dose Admin Diltiazem HCl 125 mg/ Sodium 125 mls @ 0 mls/hr 02/12/21 16:45 02/12/21 16:52 Chloride IV 5 mg/hr .Q0M SANDEEP 5 mls/hr Administration Protocol Per Protocol Intake and Output 02/12/21 02/12/21 02/12/21 06:59 14:59 22:59 Other: Weight 72.575 kg Patient Weight 02/13/21 06:59 Weight 72.575 kg 02/12/21 16:18 02/12/21 16:18 Assessment and Plan Assessment: Assessment #1 atrial fibrillation with rapid ventricular response #2 chest discomfort #3 metastatic breast cancer #4 diabetes #5 hypertension #6 dyslipidemia #7 multiple comorbid conditions #8 coronary artery disease and prior revascularization Plan 1 consider conservative medical approach #2 continue Cardizem IV #3 hold any anticoagulation #4 rule out any pericardial effusion #5 follow-up with the patient
--- NOTE | 2021-02-12 17:27 | ED ---
General Adult HPI - General Chief complaint: Chest Pain Stated complaint: Chest pain Time Seen by Provider: 02/12/21 16:06 Source: patient Mode of arrival: wheelchair Limitations: no limitations - History of Present Illness Initial comments: Patient is a 80-year-old female with past medical history remarkable for active cancer, significant cardiac disease with 5 stents placed in the past, diabetes, heart failure who presents emergency Department complaining of chest pain has been ongoing since this morning. She describes it as sharp achy located murray bsternally. She attempted to take her nitroglycerin tablets at home without much effect on the pain. She states it does not radiate. It has been more or less constant. She denies any nausea, abdominal pain, headache, blurry vision. She has no other acute complaints at this time other than the chest pain. States she is not short of breath. She denies any fevers, chills, sick contacts. She recently received a cardiac cath back in December which revealed partial stenosis of the circumflex.She is currently not undergoing chemo but previously did receive chemo. She has metastases to her spine. She presents emergency department over this chest pain. She may regular heart rate and round. She denies any headache, blurry vision. - Related Data Home Medications Medication Instructions Recorded Confirmed metFORMIN HCL [Glucophage] 500 mg PO DAILY 01/09/20 02/12/21 Clopidogrel [Plavix] 75 mg PO DAILY 08/09/20 02/12/21 Furosemide [Lasix] 40 mg PO DAILY 08/09/20 02/12/21 Metoprolol Tartrate [Lopressor] 50 mg PO BID 12/31/20 02/12/21 lisinopriL [Zestril] 10 mg PO BID 12/31/20 02/12/21 metFORMIN HCL [Glucophage] 1,000 mg PO HS 12/31/20 02/12/21 Sennosides/Docusate Sodium [Senna 1 tab PO BID 01/14/21 02/12/21 Plus 8.6-50 mg Softgel] fentaNYL 50MCG/HR PATCH [Duragesic 1 patch TRANSDERM Q72H 01/14/21 02/12/21 50MCG/HR] oxyCODONE HCL [OxyIR] 5 - 10 mg PO Q4H PRN 01/14/21 02/12/21 Apixaban [Eliquis] 5 mg PO BID 02/12/21 02/12/21 Previous Rx's Medication Instructions Recorded Sertraline [Zoloft] 50 mg PO DAILY tab 12/08/19 amLODIPine [Norvasc] 10 mg PO DAILY #30 tab 01/03/21 Ondansetron Odt [Zofran Odt] 4 mg PO Q8HR PRN #12 tab 01/06/21 Allergies Allergy/AdvReac Type Severity Reaction Status Date / Time Penicillins Allergy Intermediate Swelling Verified 01/14/21 08:36 Review of Systems ROS Statement: Those systems with pertinent positive or pertinent negative responses have been documented in the HPI. Review of Systems: CONST: Denies fever EYES: Denies blurry vision ENT: Denies nasal congestion C/V: Endorses chest pain RESP: Denies shortness of breath GI: Denies abdominal pain : Denies dysuria SKIN: Denies rash. MSK: Denies joint pain. NEURO: Denies headache ROS Other: All systems not noted in ROS Statement are negative. Past Medical History Past Medical History: Cancer, Chest Pain / Angina, Heart Failure, Diabetes Mellitus, Hyperlipidemia, Hypertension, Myocardial Infarction ([place]), Osteoarthritis (OA) Additional Past Medical History / Comment(s): Breast CA 2011- bilateral mas tectomy-radiation to the spine tx last treatment was 07/2020 & chemo last 2017, Kidney Stones-having left flank pain currently-thinks she might have one now- restarted antibiotic on her own for, some SOB w/exertion, chest pain w/exertion recently History of Any Multi-Drug Resistant Organisms: None Reported Past Surgical History: Breast Surgery, Cholecystectomy, Heart Catheterization, Heart Catheterization With Stent, Hysterectomy Additional Past Surgical History / Comment(s): Last heart cath 2013 with stent times 7, left TKA 2008, Cataract 2000, Left Lithotripsy ([facility]) 2001, Blepharoplasty 2006, percutaneous nephrostolithomy 04/25/14, 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 Past Anesthesia/Blood Transfusion Reactions: No Reported Reaction Date of Last Stent Placement:: January 2020 Past Psychological History: Depression Smoking Status: Former smoker Past Alcohol Use History: None Reported Past Drug Use History: None Reported - Past Family History Mother Sister(s) Family Medical History: Cancer Sister(s) Family Medical History: Cancer Additional Family Medical History / Comment(s): 2 had Breast CA, 1 had Kidney cancer Mother Family Medical History: Cancer Additional Family Medical History / Comment(s): kidney, breast cancer General Exam - General Exam Comments Initial Comments: General: Appears in significant distress secondary to chest pain. HEAD: Normal with no signs of head trauma. EYES: PERRLA, EOMI, conjunctiva normal, no discharge. ENT: Hearing grossly intact, normal oropharynx. RESPIRATORY: Clear breath sounds bilaterally. No wheezes, rales, or rhonchi. C/V: Irregular rate and rhythm. S1 and S2 auscultated. No peripheral edema. Peripheral pulses are 2+ and intact throughout. ABD: Abd is soft, nontender, nondistended EXT: Normal range of motion, no obvious deformity SKIN: No rashes or lesions observed on exposed skin. NEURO: Alert and oriented x 4. Cranial nerves II-XII intact. No focal sensory or strength deficits. Limitations: no limitations Course Vital Signs 02/12/21 02/12/21 02/12/21 15:58 16:20 16:30 Temperature 98.8 F Pulse Rate 128 H 124 H 130 H Respiratory 20 18 18 Rate Blood Pressure 118/74 138/119 134/111 O2 Sat by Pulse 96 96 97 Oximetry 02/12/21 02/12/21 16:54 17:00 Temperature Pulse Rate 116 H 110 H Respiratory 18 18 Rate Blood Pressure 108/80 141/94 O2 Sat by Pulse 96 98 Oximetry Medical Decision Making - Medical Decision Making Patient presented as a medical resuscitation. Based on her presentation and physical exam, I'm concerned for possible cardiac etiology for her current symptoms, particularly with her history. We will obtain cardiac workup including troponins, EKG, chest x-ray. Patient be administered an aspirin and will be connected to continuous cardiac monitoring. She'll be given 4 mg IV morphine for pain management. She was connected to 2 L nasal cannula action. She was given this plan. EKG was obtained at bedside and was found to show diffuse ischemia. There is particularly concerned for possible ST segment elevated myocardial infarction in the inferior posterior distribution based on the EKG. Patient was also in acute atrial fibrillation with RVR. There is uncertain history of A. fib with RVR. This could be secondary to an acute LA. Therefore STEMI pager was activated and I spoke with cardiology on-call, Dr. Rivera who was in agreement this plan. Patient's timber treating tank operator is Dr. Us, who Dr. Rivera spoke with. After a joint discussion with Dr. Us and Dr. Rivera, based on the patient's poor prognosis with metastatic breast cancer, Dr. Us spoke with the patient and family and the decision was made not to take the patient for cardiac cath. Patient will be treated medically. Plan is for medical management of the afib with RVR with a cardizem IVP and IV drip. All anticoagulation will be held for now. She will be admitted to the hospital after blood work and obtain an echocardiogram on inpatient basis. STEMI activation was cancelled. Laboratory studies remarkable for a normocytic anemia of 10.9. Patient has an AK I with an elevated creatinine of 2.4 and elevated BUNs 67. Patient's been using his lowest at 1.4 and will be replenished. Troponin is elevated as expected to 0.159. Repeats are pending. Urinalysis revealed signs of a UTI, as the patient's moderate leuk esterase as well as 18 wbc's and trace blood. Due to the patient's AK I, she will be started on 1 L fluid bolus as well as maintenance IV fluids. The patient's UTI, she will be started on Rocephin 1 g daily. We'll continue to hold anticoagulation at this time. Patient was started on a Cardizem drip and her heart rate is now improved as she is in the low 100s. After multiple doses of morphine, she states her chest pain is improving. Vital signs remained stable throughout her stay in the emergency department. At this time I do believe it is safe to admit her to the hospital. Patient be admitted in serious condition. Patient's PCP admits to [facility], and I contacted the physician on-call who accepted the admi ssion. Patient will be admitted to telemetry monitoring to 3 S. cardiac floor in serious condition. - Lab Data Result diagrams: 02/12/21 16:18 02/12/21 16:18 Lab Results 02/12/21 02/12/21 02/12/21 Range/Units 16:18 16:18 16:18 WBC 6.4 (3.8-10.6) k/uL RBC 3.72 L (3.80-5.40) m/uL Hgb 10.9 L (11.4-16.0) gm/dL Hct 33.4 L (34.0-46.0) % MCV 89.8 (80.0-100.0) fL MCH 29.1 (25.0-35.0) pg MCHC 32.5 (31.0-37.0) g/dL RDW 15.4 (11.5-15.5) % Plt Count 152 (150-450) k/uL MPV 8.3 Neutrophils % 83 % Lymphocytes % 6 % Monocytes % 6 % Eosinophils % 2 % Basophils % 1 % Neutrophils # 5.3 (1.3-7.7) k/uL Lymphocytes # 0.4 L (1.0-4.8) k/uL Monocytes # 0.4 (0-1.0) k/uL Eosinophils # 0.1 (0-0.7) k/uL Basophils # 0.1 (0-0.2) k/uL PT 10.8 (9.0-12.0) sec INR 1.0 (<1.2) APTT 24.3 (22.0-30.0) sec Sodium 139 (137-145) mmol/L Potassium 3.8 (3.5-5.1) mmol/L Chloride 105 (98-107) mmol/L Carbon Dioxide 27 (22-30) mmol/L Anion Gap 7 mmol/L BUN 67 H (7-17) mg/dL Creatinine 2.40 H (0.52-1.04) mg/dL Est GFR (CKD-EPI)AfAm 22 (>60 ml/min/1.73 sqM) Est GFR (CKD-EPI)NonAf 19 (>60 ml/min/1.73 sqM) Glucose 189 H (74-99) mg/dL Calcium 8.8 (8.4-10.2) mg/dL Magnesium 1.4 L (1.6-2.3) mg/dL Total Bilirubin 0.4 (0.2-1.3) mg/dL AST 41 H (14-36) U/L ALT 17 (4-34) U/L Alkaline Phosphatase 114 (38-126) U/L Troponin I (0.000-0.034) ng/mL Total Protein 5.7 L (6.3-8.2) g/dL Albumin 3.2 L (3.5-5.0) g/dL Urine Color Urine Appearance (Clear) Urine pH (5.0-8.0) Ur Specific [place] (1.001-1.035) Urine Protein (Negative) Urine Glucose (UA) (Negative) Urine Ketones (Negative) Urine Blood (Negative) Urine Nitrite (Negative) Urine Bilirubin (Negative) Urine Urobilinogen (<2.0) mg/dL Ur Leukocyte Esterase (Negative) Urine RBC (0-5) /hpf Urine WBC (0-5) /hpf Urine Bacteria (None) /hpf 02/12/21 02/12/21 Range/Units 16:18 16:18 WBC (3.8-10.6) k/uL RBC (3.80-5.40) m/uL Hgb (11.4-16.0) gm/dL Hct (34.0-46.0) % MCV (80.0-100.0) fL MCH (25.0-35.0) pg MCHC (31.0-37.0) g/dL RDW (11.5-15.5) % Plt Count (150-450) k/uL MPV Neutrophils % % Lymphocytes % % Monocytes % % Eosinophils % % Basophils % % Neutrophils # (1.3-7.7) k/uL Lymphocytes # (1.0-4.8) k/uL Monocytes # (0-1.0) k/uL Eosinophils # (0-0.7) k/uL Basophils # (0-0.2) k/uL PT (9.0-12.0) sec INR (<1.2) APTT (22.0-30.0) sec Sodium (137-145) mmol/L Potassium (3.5-5.1) mmol/L Chloride (98-107) mmol/L Carbon Dioxide (22-30) mmol/L Anion Gap mmol/L BUN (7-17) mg/dL Creatinine (0.52-1.04) mg/dL Est GFR (CKD-EPI)AfAm (>60 ml/min/1.73 sqM) Est GFR (CKD-EPI)NonAf (>60 ml/min/1.73 sqM) Glucose (74-99) mg/dL Calcium (8.4-10.2) mg/dL Magnesium (1.6-2.3) mg/dL Total Bilirubin (0.2-1.3) mg/dL AST (14-36) U/L ALT (4-34) U/L Alkaline Phosphatase (38-126) U/L Troponin I 0.159 H* (0.000-0.034) ng/mL Total Protein (6.3-8.2) g/dL Albumin (3.5-5.0) g/dL Urine Color Colorless Urine Appearance Clear (Clear) Urine pH 6.0 (5.0-8.0) Ur Specific [place] 1.006 (1.001-1.035) Urine Protein 1+ H (Negative) Urine Glucose (UA) Negative (Negative) Urine Ketones Negative (Negative) Urine Blood Trace H (Negative) Urine Nitrite Negative (Negative) Urine Bilirubin Negative (Negative) Urine Urobilinogen <2.0 (<2.0) mg/dL Ur Leukocyte Esterase Moderate H (Negative) Urine RBC 2 (0-5) /hpf Urine WBC 18 H (0-5) /hpf Urine Bacteria Rare H (None) /hpf - EKG Data -: EKG Interpreted by Me EKG Comments: 12-lead Electrocardiogram Interpretation Note EKG was reviewed and interpreted by myself. 12-lead ECG performed at 1609 is interpreted by me as revealing A. fib with RVR at a rate of 135 beats per minute. [place] is normal. [place] interval is undetectable, QRS duration is 104 ms, QTc is 482 ms.. There are significant signs of global ischemia, with some ST segment elevations in lead III, aVR. Patient has ST segment depressions in leads 1, 2, aVL, V4, V5, V6. There are very mild ST segment elevations in lead V1. I'm concerned for possible acute inferior posterior LA.. R wave p rogression across the precordium is slightly delayed.. By my interpretation, this EKG is concerning for possible acute ischemia in the inferior posterior distribution. Patient also has A. fib with RVR.. Disposition Clinical Impression: ST elevation myocardial infarction (STEMI), NATHANIEL (acute kidney injury), UTI (urinary tract infection), Atrial fibrillation with rapid ventricular response, History of cancer, Chest pain Disposition: ADMITTED IP TO THIS HOSP Condition: Serious Referrals: Quique Ulloa MD [Primary Care Provider] - 1-2 days
[2021-02-12] MEDS ORDERED: SODIUM CHLORIDE 0.9% 1,000 ML IV ONE ×2 (18:00→18:41)
[2021-02-12 18:02] LABS: Appearance,Urine Clear (Clear); Bacteria,Urine Rare /hpf; Bilirubin,Urine Negative (Negative); Blood,Urine Trace (Negative); Color,Urine Colorless; Glucose,Urine (UA) Negative (Negative); Ketones,Urine Negative (Negative); Leukocyte Esterase,Urine Moderate (Negative); Nitrite,Urine Negative (Negative); Protein,Urine 1+ (Negative); RBC,Urine 2 /hpf (0-5); Specific Gravity,Urine 1.006 (1.001-1.035); Urobilinogen,Urine <2.0 mg/dL (<2.0); WBC,Urine 18 /hpf (0-5)
[2021-02-12] MEDS ORDERED: MORPHINE SULFATE 4 MG/ML SYRINGE IV PRN (18:41)
[2021-02-12] MEDS ORDERED: NALOXONE 0.4 MG/ML 1 ML VIAL IV PRN (18:41)
[2021-02-12] MEDS ORDERED: ONDANSETRON ODT 4 MG TAB PO PRN (18:44)
[2021-02-12] MEDS: SENNOSIDES-DOCUSATE SODIUM 1 EACH TAB PO SCH (21:43)
[2021-02-12] MEDS: MAGNESIUM SULFATE-D5W PMX 1 GM in DEXTROSE/WATER 1 100ML.BAG IVPB SCH ×2 (21:43→23:55)
--- NOTE | 2021-02-13 04:50 | P.HPIM ---
History of Present Illness H&P Date: 02/12/21 Chief Complaint: chest pain 80-year-old female with paroxysmal A. fib, diabetes mellitus, hypertension, hyperlipidemia, metastatic breast cancer Patient comes in with 2-3 day history of chest pain she described it as pressure-like across the chest and nonradiating denies being associated with any nausea vomiting diaphoresis or palpitations however pain has persisted even while resting doing nothing comes and goes and episodes. For which family decided to bring her to the hospital for evaluation Patient also noticed swelling of her left leg more than the right with some discomfort in her legs. Patient is on Eliquis for paroxysmal A. fib. She is currently laying comfortable in bed denies any chest pain. She was evaluated by cardiology in the ER who recommended not starting any anticoagulation his family requested only medical management. Patient did have left heart cath few weeks ago at bedtime new stent was deployed. Currently patient feels comfortable denies any chest pain or trouble breathing she is again requesting only medical management. Blood work in the ED showed elevated creatinine chronic anemia low magnesium and elevated troponin Patient admitted for management of NSTEMI Review of Systems Pertinent positives as noted in HPI. All other systems were reviewed and are negative Past Medical History Past Medical History: Cancer, Chest Pain / Angina, Heart Failure, Diabetes Mellitus, Hyperlipidemia, Hypertension, Myocardial Infarction (UT), Osteoarthritis (OA) Additional Past Medical History / Comment(s): Breast CA 2011- bilateral mastectomy-radiation to the spine tx last treatment was 07/2020 & chemo last 2017, some SOB w/exertion, chest pain w/exertion recently Last Myocardial Infarction Date:: 11/2020 History of Any Multi-Drug Resistant Organisms: None Reported Past Surgical History: Breast Surgery, Cholecystectomy, Heart Catheterization, Heart Catheterization With Stent, Hysterectomy Additional Past Surgical History / Comment(s): Last heart cath 2012 with stent times 7, left TKA 2008, Cataract 2000, Left Lithotripsy ([facility]) 2001, Ble pharoplasty 2006, percutaneous nephrostolithomy 04/25/14, 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 Past Anesthesia/Blood Transfusion Reactions: No Reported Reaction Date of Last Stent Placement:: January 2020 Past Psychological History: Depression Smoking Status: Former smoker Past Alcohol Use History: None Reported Additional Past Alcohol Use History / Comment(s): quit smoking 25 yrs. ago, smoked for 10 yrs. <ppd Past Drug Use History: None Reported - Past Family History Mother Sister(s) Family Medical History: Cancer Sister(s) Family Medical History: Cancer Additional Family Medical History / Comment(s): 2 had Breast CA, 1 had Kidney cancer Mother Family Medical History: Cancer Additional Family Medical History / Comment(s): kidney, breast cancer Medications and Allergies Home Medications Medication Instructions Recorded Confirmed Type Sertraline [Zoloft] 50 mg PO DAILY tab 12/08/19 02/12/21 Rx metFORMIN HCL [Glucophage] 500 mg PO DAILY 01/09/20 02/12/21 History Clopidogrel [Plavix] 75 mg PO DAILY 08/09/20 02/12/21 History Furosemide [Lasix] 40 mg PO DAILY 08/09/20 02/12/21 History Metoprolol Tartrate [Lopressor] 50 mg PO BID 12/31/20 02/12/21 History lisinopriL [Zestril] 10 mg PO BID 12/31/20 02/12/21 History metFORMIN HCL [Glucophage] 1,000 mg PO HS 12/31/20 02/12/21 History amLODIPine [Norvasc] 10 mg PO DAILY #30 tab 01/03/21 02/12/21 Rx Ondansetron Odt [Zofran Odt] 4 mg PO Q8HR PRN #12 tab 01/06/21 02/12/21 Rx Sennosides/Docusate Sodium [Senna 1 tab PO BID 01/14/21 02/12/21 History Plus 8.6-50 mg Softgel] fentaNYL 50MCG/HR PATCH [Duragesic 1 patch TRANSDERM Q72H 01/14/21 02/12/21 History 50MCG/HR] oxyCODONE HCL [OxyIR] 5 - 10 mg PO Q4H PRN 01/14/21 02/12/21 History Apixaban [Eliquis] 5 mg PO BID 02/12/21 02/12/21 History Allergies Allergy/AdvReac Type Severity Reaction Status Date / Time Penicillins Allergy Intermediate Swelling Verified 01/14/21 08:36 Physical Exam Vitals: Vital Signs Temp Pulse Pulse Resp BP BP Pulse Ox 02/12/21 19:49 101 H 18 98/64 98 02/12/21 19:14 97.9 F 87 17 85/57 97 02/12/21 19:00 106 H 18 105/87 98 02/12/21 17:00 110 H 18 141/94 98 02/12/21 16:54 116 H 18 108/80 96 02/12/21 16:30 130 H 18 134/111 97 02/12/21 16:20 124 H 18 138/119 96 02/12/21 15:58 98.8 F 128 H 20 118/74 96 Intake and Output 02/12/21 02/12/21 02/12/21 06:59 14:59 22:59 Other: # Voids 1 Weight 72.575 kg Constitutional: No acute distress, conversant, pleasant Eyes: Anicteric sclerae, moist conjunctiva, Pupils equal round reactive to light ENMT: NC/AT Oropharynx clear, no erythema, or exudates Neck: Supple, FROM, no masses, or JVD No carotid bruits No thyromegaly Lungs: Clear to auscultation Clear to percussion Normal respiratory effort, no accessory muscle use Cardiovascular: Heart irregular in rate and rhythm, No murmurs, gallops, or rubs Bilateral peripheral edema worse on the left leg compared to the right Abdominal: Soft Nontender, no guarding, rebound or rigidity Abdomen moving with respiration Normoactive bowel sounds No hepatomegaly, No splenomegaly No palpable mass No abdominal wall hernia noted Skin: Normal temperature, tone, texture, turgor No induration No subcutaneous nodules No rash, lesions No ulcers Extremities: No digital cyanosis No clubbing Pedal pulses intact and symmetrical Radial pulses intact and symmetrical Discomfort to palpation of the left leg Psychiatric: Alert and oriented to person, place and time Appropriate affect fair judgement Neuro Muscles Strength 4/5 in all 4 extremities Sensation to light touch grossly present throughout Cranial nerves II-XII grossly intact No focal sensory deficits Lymphatics: no palpable cervical or supraclavicular , or inguinal lymph nodes Results CBC & Chem 7: 02/12/21 16:18 02/12/21 16:18 Labs: Abnormal Lab Results - Last 24 Hours (Table) 02/12/21 02/12/21 02/12/21 Range/Units 16:18 16:18 16:18 RBC 3.72 L (3.80-5.40) m/uL Hgb 10.9 L (11.4-16.0) gm/dL Hct 33.4 L (34.0-46.0) % Lymphocytes # 0.4 L (1.0-4.8) k/uL BUN 67 H (7-17) mg/dL Creatinine 2.40 H (0.52-1.04) mg/dL Glucose 189 H (74-99) mg/dL Magnesium 1.4 L (1.6-2.3) mg/dL AST 41 H (14-36) U/L Troponin I 0.159 H* (0.000-0.034) ng/mL Total Protein 5.7 L (6.3-8.2) g/dL Albumin 3.2 L (3.5-5.0) g/dL Urine Protein (Negative) Urine Blood (Negative) Ur Leukocyte Esterase (Negative) Urine WBC (0-5) /hpf Urine Bacteria (None) /hpf 02/12/21 Range/Units 16:18 RBC (3.80-5.40) m/uL Hgb (11.4-16.0) gm/dL Hct (34.0-46.0) % Lymphocytes # (1.0-4.8) k/uL BUN (7-17) mg/dL Creatinine (0.52-1.04) mg/dL Glucose (74-99) mg/dL Magnesium (1.6-2.3) mg/dL AST (14-36) U/L Troponin I (0.000-0.034) ng/mL Total Protein (6.3-8.2) g/dL Albumin (3.5-5.0) g/dL Urine Protein 1+ H (Negative) Urine Blood Trace H (Negative) Ur Leukocyte Esterase Moderate H (Negative) Urine WBC 18 H (0-5) /hpf Urine Bacteria Rare H (None) /hpf Thrombosis Risk Factor Assmnt - Choose All That Apply Any of the Below Risk Factors Present?: Yes Each Factor Represents 1 point: Obesity (BMI >25), Swollen legs (current) Other Risk Factors: Yes Each Risk Factor Represents 3 Points: Age 75 years or older Other congenital or acquired thrombophilia - If yes, enter type in comment: No Thrombosis Risk Factor Assessment Total Risk Factor Score: 5 Thrombosis Risk Factor Assessment Level: High Risk Assessment and Plan Assessment: NSTEMI Acute kidney injury Metastatic breast cancer Left leg swelling and pain Paroxysmal A. fib Diabetes mellitus Chronic anemia, patient denies GI bleeding Hypomagnesemia replace and follow-up levels Plan Trend troponins Nitro for chest pain Cardiology evaluated patient who requested medical management and declined left heart cath. Coronary artery disease status post stents, left heart cath done couple weeks ago Resume cardiac meds Hold off anticoagulation per cardiology recommendations Check echocardiogram to rule out pericardial effusion Check lower extremity venous duplex ultrasound rule out left clots Resume Plavix Insulin sliding scale Follow-up labs CODE STATUS: Full code DVT prophylaxis: No anticoagulation per cardiology recommendations Discussed with: Patient, ER, RN Anticipated length of stay more than [address]: Pending clinical course A total of 75 minutes was spent on the care of this complex patient more than 50% of the time was spent in counseling and care coordination.
[2021-02-13 06:05] LABS: Glucose,Whole Blood 136 mg/dL (75-99)
[2021-02-13 07:55] LABS: Basophils % (A) 1 %; Eosinophils # (A) 0.1 k/uL (0-0.7); Eosinophils % (A) 2 %; HCT 28.2 % (34.0-46.0); Lymphocytes # (A) 0.4 k/uL (1.0-4.8); Lymphocytes % (A) 11 %; MCH 28.4 pg (25.0-35.0); MCHC 31.6 g/dL (31.0-37.0); Mean Platelet Volume 8.5; Monocytes # (A) 0.3 k/uL (0-1.0); Monocytes % (A) 7 %; Neutrophils # (A) 2.7 k/uL (1.3-7.7); Neutrophils % (A) 76 %; Platelet Count 105 k/uL (150-450); RBC 3.13 m/uL (3.80-5.40); RDW 15.4 % (11.5-15.5); WBC 3.5 k/uL (3.8-10.6)
[2021-02-13 07:57] LABS: Albumin 2.4 g/dL (3.5-5.0); Calcium 8.2 mg/dL (8.4-10.2); HGB 8.9 gm/dL (11.4-16.0); Potassium 3.5 mmol/L (3.5-5.1); Total Protein 4.6 g/dL (6.3-8.2)
[2021-02-13 07:58] LABS: Magnesium 2.1 mg/dL (1.6-2.3); Total Bilirubin 0.2 mg/dL (0.2-1.3)
[2021-02-13] MEDS ORDERED: APIXABAN 5 MG TAB PO SCH (09:00)
[2021-02-13] MEDS: amLODIPine 10 MG TAB PO SCH (09:12)
[2021-02-13] MEDS: CLOPIDOGREL 75 MG TAB PO SCH (09:12)
[2021-02-13] MEDS: SENNOSIDES-DOCUSATE SODIUM 1 EACH TAB PO SCH ×2 (09:12→21:23)
[2021-02-13] MEDS: METOPROLOL TARTRATE 50 MG TAB PO SCH ×2 (09:12→21:23)
[2021-02-13] MEDS: NITROGLYCERIN OINT 1 INCH/GM PACKET TOPICAL SCH ×4 (09:24→23:10)
[2021-02-13] MEDS: ASPIRIN 81 MG PO SCH (09:24)
--- NOTE | 2021-02-13 09:55 | P.PN ---
Subjective Progress Note Date: 02/13/21 HISTORY OF PRESENT ILLNESS: This is a very pleasant 80-year-old female patient who unfortunately was diagnosed with metastatic breast cancer as well as history of coronary artery di sease and prior revascularization with does heart catheterization was performed a few weeks ago showing chronic total occlusion of the right coronary artery which fills by bridging collateral as well as paroxysmal atrial fibrillation as well as diabetes and hypertension and dyslipidemia. We asked to see the patient in a consultation in the emergency department for chest discomfort and abnormal EKG. She has been experiencing intermittent episodes of chest discomfort for the last 24-48 hours. She described the discomfort as a pressure across the chest. No radiation to the arms or neck or shoulders or back. An EKG was performed and showed ST segment elevation about 1 mm in aVR was diffuse ST segment depression concerning for global ischemia. Initially the plan was to take the patient to the cardiac micro lab analyst for emergent heart catheterization but giving care breast cancer with metastasis and giving her prognosis and also talking to the family the family would like the patient to be treated medically. Please note that the patient currently also is in atrial fibrillation with rapid ventricular response which is known to have paroxysmal atrial fibrillation. Currently had heart rate around 120 bpm. Currently she is on Cardizem IV. With that being sedated and after we discuss that with the family was going to treat her medically. We'll continue Cardizem IV. Restart her home medication. Restart her on oral anticoagulation after we obtain an echocardiogram to rule out any pericardial effusion from her metastatic breast cancer. Also would hold on any heparin at this point. We'll continue following up with her 02/13/2021 This is a 80 year old female who follows with Dr. Us. Patient has a history of intervention to the RCA initially in 2012 and subsequently in January 2020 which was a chronic total occlusion. Patient was transferred to [facility] where she underwent stenting of that vessel at that time. Patient recently underwent cardiac catheterization on 01/08/2021 revealing chronic occlusion of the right coronary artery with extensive collaterals to the distal right than the left. No significant disease in the LAD and ostial stenosis in the small nondominant circumflex coronary artery. Medical management was recommended. Patient examined this morning at the bedside. Patient denies shortness of breath. She reports intermittent chest pain overnight. At the time of examination, the patient currently denies chest pain and appears comfortable. However, shortly after I left the patients room the patient apparently started having some chest discomfort. Patient has converted to sinus mechanism. Her cardizem drip has been discontinued. IV heparin and/or Eliquis remain on hold. Hemoglobin today down 2 grams from 10.9 to 8.9. PHYSICAL EXAM: VITAL SIGNS: Reviewed. GENERAL: Well-developed in no acute distress. NECK: Supple. No JVD or thyromegaly LUNGS: Respirations even and unlabored. Lungs diminished bilaterally. HEART: Regular rate and rhythm. S1 and S2 heard. Systolic murmur. EXTREMITIES: Normal range of motion. No clubbing or cyanosis. Peripheral pulses intact. 1-2+ bilateral lower extremity edema ASSESSMENT: Paroxysmal atrial fibrillation with RVR, on anticoagulations with Eliquis Non-STEMI Metastatic breast cancer Acute kidney injury Coronary artery disease with previous PCI of RCA Hypertension Hyperlipidemia Diabetes mellitus PLAN: 2D echo ordered. Await results No heparin and/or Eliquis until echo results are reviewed Add Nitro paste Continue additional cardiac medications Further recommendations pending patient course Nurse practitioner note has been reviewed by physician. Signing provider agrees with the documented findings, assessment, and plan of care. Objective - Vital Signs Vital signs: Vital Signs Temp 98.1 F 02/13/21 04:00 Pulse 68 02/13/21 08:00 Resp 16 02/13/21 08:00 BP 154/72 02/13/21 08:00 Pulse Ox 97 02/13/21 08:00 Intake & Output 02/12/21 02/13/21 02/13/21 18:59 06:59 18:59 Intake Total 65.667 477 Balance 65.667 477 Weight 72.575 kg 77 kg Intake: Intake, IV Titration 65.667 Amount Diltiazem 125 mg In 65.667 Sodium Chloride 0.9% 100 ml @ Per Protocol IV .Q0M [facility] Rx#:[id number] Oral 477 Other: Voiding Method Toilet # Voids 1 - Labs CBC & Chem 7: 02/13/21 10:32 02/13/21 07:05 Labs: Abnormal Lab Results - Last 24 Hours (Table) 02/12/21 02/12/21 02/12/21 Range/Units 16:18 16:18 16:18 WBC (3.8-10.6) k/uL RBC 3.72 L (3.80-5.40) m/uL Hgb 10.9 L (11.4-16.0) gm/dL Hct 33.4 L (34.0-46.0) % Plt Count (150-450) k/uL Lymphocytes # 0.4 L (1.0-4.8) k/uL BUN 67 H (7-17) mg/dL Creatinine 2.40 H (0.52-1.04) mg/dL Glucose 189 H (74-99) mg/dL POC Glucose (mg/dL) (75-99) mg/dL Calcium (8.4-10.2) mg/dL Magnesium 1.4 L (1.6-2.3) mg/dL AST 41 H (14-36) U/L Troponin I 0.159 H* (0.000-0.034) ng/mL Total Protein 5.7 L (6.3-8.2) g/dL Albumin 3.2 L (3.5-5.0) g/dL Urine Protein (Negative) Urine Blood (Negative) Ur Leukocyte Esterase (Negative) Urine WBC (0-5) /hpf Urine Bacteria (None) /hpf 02/12/21 02/12/21 02/13/21 Range/Units 16:18 21:31 00:00 WBC (3.8-10.6) k/uL RBC (3.80-5.40) m/uL Hgb (11.4-16.0) gm/dL Hct (34.0-46.0) % Plt Count (150-450) k/uL Lymphocytes # (1.0-4.8) k/uL BUN (7-17) mg/dL Creatinine (0.52-1.04) mg/dL Glucose (74-99) mg/dL POC Glucose (mg/dL) (75-99) mg/dL Calcium (8.4-10.2) mg/dL Magnesium (1.6-2.3) mg/dL AST (14-36) U/L Troponin I 5.800 H* 16.500 H* (0.000-0.034) ng/mL Total Protein (6.3-8.2) g/dL Albumin (3.5-5.0) g/dL Urine Protein 1+ H (Negative) Urine Blood Trace H (Negative) Ur Leukocyte Esterase Moderate H (Negative) Urine WBC 18 H (0-5) /hpf Urine Bacteria Rare H (None) /hpf 02/13/21 02/13/21 02/13/21 Range/Units 06:04 07:05 07:05 WBC 3.5 L (3.8-10.6) k/uL RBC 3.13 L (3.80-5.40) m/uL Hgb 8.9 L D (11.4-16.0) gm/dL Hct 28.2 L (34.0-46.0) % Plt Count 105 L (150-450) k/uL Lymphocytes # 0.4 L (1.0-4.8) k/uL BUN 62 H (7-17) mg/dL Creatinine 2.21 H (0.52-1.04) mg/dL Glucose 138 H (74-99) mg/dL POC Glucose (mg/dL) 136 H (75-99) mg/dL Calcium 8.2 L (8.4-10.2) mg/dL Magnesium (1.6-2.3) mg/dL AST 115 H (14-36) U/L Troponin I (0.000-0.034) ng/mL Total Protein 4.6 L (6.3-8.2) g/dL Albumin 2.4 L (3.5-5.0) g/dL Urine Protein (Negative) Urine Blood (Negative) Ur Leukocyte Esterase (Negative) Urine WBC (0-5) /hpf Urine Bacteria (None) /hpf
[2021-02-13] MEDS ORDERED: HEPARIN SODIUM 1,000 UN/ML (10ML VL) IV PRN (10:27)
[2021-02-13] MEDS ORDERED: HEPARIN SODIUM 1,000 UN/ML (10ML VL) IV ONE (10:27)
[2021-02-13] MEDS ORDERED: HEPARIN SOD,PORK IN 0.45% NACL 25,000 UNIT in 0.45% NACL 1 250ML.BAG IV SCH (10:30)
[2021-02-13 11:00] LABS: Basophils % (A) 0 %; Eosinophils # (A) 0.1 k/uL (0-0.7); Eosinophils % (A) 2 %; HCT 26.1 % (34.0-46.0); HGB 8.8 gm/dL (11.4-16.0); Lymphocytes # (A) 0.3 k/uL (1.0-4.8); Lymphocytes % (A) 8 %; MCH 30.4 pg (25.0-35.0); MCHC 33.7 g/dL (31.0-37.0); MCV 90.2 fL (80.0-100.0); Mean Platelet Volume 8.3; Monocytes # (A) 0.3 k/uL (0-1.0); Monocytes % (A) 9 %; Neutrophils # (A) 2.9 k/uL (1.3-7.7); Neutrophils % (A) 79 %; Platelet Count 104 k/uL (150-450); RBC 2.89 m/uL (3.80-5.40); RDW 15.1 % (11.5-15.5); WBC 3.6 k/uL (3.8-10.6)
[2021-02-13 11:11] LABS: Partial Thromboplastin Time 22.8 sec (22.0-30.0); Prothrombin Time 10.5 sec (9.0-12.0)
--- NOTE | 2021-02-13 12:07 | US ---
EXAMINATION TYPE: US venous doppler duplex LE DATE OF EXAM: 02/13/2021 9:16 AM COMPARISON: NONE CLINICAL HISTORY: r/o dvt. Chest pain. No hx of DVT. SIDE PERFORMED: Bilateral TECHNIQUE: The lower extremity deep venous system is examined utilizing real time linear array sonog rebekah with graded compression, doppler sonography and color-flow sonography. VESSELS IMAGED: Common Femoral Vein Deep Femoral Vein Greater Saphenous Vein * Femoral Vein Popliteal Vein Proximal Calf Veins (* superficial vessels) Right Leg: Negative for DVT Left Leg: Negative for DVT IMPRESSION: No sonographic evidence for deep vein thrombosis of the bilateral lower extremities.
[2021-02-13 12:23] LABS: Glucose,Whole Blood 206 mg/dL (75-99)
--- NOTE | 2021-02-13 13:00 | ECHOF ---
Referral Reason:r/o pericardial effusion MEASUREMENTS -------- HEIGHT: 152.4 cm WEIGHT: 76.7 kg BP: 98/63 FINDINGS -------- Sinus rhythm. Limited Study Overall left ventricular systolic function is low-normal with, an EF between 50 - 55 %. Basal infer ior LV wall motion is hypokinetic. Basal inferoseptal LV wall motion is hypokinetic. Echo free space indicative of a pericardial fat pad. There is no pericardial effusion. CONCLUSIONS -------- 1. Limited Study 2. Overall left ventricular systolic function is low-normal with, an EF between 50 - 55 %. 3. Basal inferior LV wall motion is hypokinetic. 4. Basal inferoseptal LV wall motion is hypokinetic. 5. Echo free space indicative of a pericardial fat pad. 6. There is no pericardial effusion. MAINFRAME SYSTEMS ADMINISTRATOR: María Sykes RDCS
[2021-02-13] MEDS: APIXABAN 5 MG TAB PO SCH ×2 (13:08→21:23)
--- NOTE | 2021-02-13 13:47 | P.PN ---
Subjective Progress Note Date: 02/13/21 Hospital course: Patient is a 80-year-old female with a past medical history of CAD, hypertension, hyperlipidemia, paroxysmal atrial fibrillation on Eliquis, conge stive heart failure, and metastatic breast cancer status post bilateral mastectomy. She presented to the hospital on 05/22 with a chief complaint of chest pain/pressure. In the emergency department an EKG was completed revealing atrial fibrillation with RVR to [address] depression in leads I, II, aVL, V4, V5, and V6 as well as slight ST elevation in leads III and aVR showing concerns for global ischemia. Troponins drawn and were elevated at 0.159, 5.800, and 16.500. Cardiology evaluated patient had bedside in the emergency department and after long discussion with patient and family, due to patient's breast cancer with metastasis and poor prognosis patient and family decided against cardiac catheterization and opting for medical management. Patient was admitted under our services for NSTEMI and cardiology following. Echocardiogram completed showing a preserved ejection fraction between 50 and 55% with left ventricular wall hypokinesis, no significant valvular abno rmalities reported. Pt anticoagulated on Eliquis and placed on aspirin and Nitropaste. Physical exam: Patient seen and fully evaluated at the bedside this morning. At this time she did report mild chest discomfort to left anterior chest and a repeat EKG was being obtained and cardiology notified. Patient currently reports mild chest discomfort rated 4 out of 10, denies palpitations, shortness of breath, dizziness, lightheadedness, or experiencing any numbness/tingling sensations. General: non toxic, appears chronically ill. Derm: warm, dry, pale Head: Atraumatic, normocephalic, symmetric Eyes: EOMI, no lid lag, anicteric sclera Mouth: no lip lesion, mucus membranes moist Cardiovascular: S1S2 reg, no murmur, positive posterior tibial pulse bi laterally, cap refill less than 2 seconds. Lungs: CTA bilateral, no rhonchi, no rales , no accessory muscle use Abdominal: soft, nontender to palpation, no guarding, no appreciable organomegaly Ext: no gross muscle atrophy, 2+ pitting edema, no contractures Neuro: CN II-XI grossly intact, no focal neuro deficits Psych: Alert, oriented, appropriate affect Plan of care: NSTEMI Metastatic breast cancer Paroxysmal Atrial fibrillation with RVR Acute kidney injury, Likely cardiorenal, medical management for NSTEMI Anemia of chronic disease Hypertension Hyperlipidemia -EKG was completed revealing atrial fibrillation with RVR to [address] depression in leads I, II, aVL, V4, V5, and V6 as well as slight ST elevation in leads III and aVR showing concerns for global ischemia. -Troponins drawn and were elevated at 0.159, 5.800, and 16.500. -Echocardiogram completed showing a preserved ejection fraction between 50 and 55% with left ventricular wall hypokinesis, no significant valvular abnorma lities reported -Cardiology following, patient and family declining cardiac cath and requesting medical management. -Continue anticoagulation with eliquis -Telemetry monitoring -Aspirin daily -Nitropaste -Monitor vital signs and continue daily medication regimen with amlodipine, Plavix, and metoprolol. CODE STATUS: DO NOT RESUSCITATE/DO NOT INTUBATE DVT prophylaxis: Eliquis Discussed with: Patient, , and RN Anticipated discharge date: Clinical course to determine Anticipated discharge place: Home A total of 45 minutes was spent on the care of this complex patient more than 50% of the time was spent in counseling and care coordination. Objective - Vital Signs Vital signs: Vital Signs Temp 98.1 F 02/13/21 04:00 Pulse 68 02/13/21 08:00 Resp 16 02/13/21 08:00 BP 154/72 02/13/21 08:00 Pulse Ox 97 02/13/21 08:00 Intake & Output 02/12/21 02/13/21 02/13/21 18:59 06:59 18:59 Intake Total 65.667 477 Balance 65.667 477 Weight 72.575 kg 77 kg 77 kg Intake: Intake, IV Titration 65.667 Amount Diltiazem 125 mg In 65.667 Sodium Chloride 0.9% 100 ml @ Per Protocol IV .Q0M [facility] Rx#:[id number] Oral 477 Other: Voiding Method Toilet # Voids 1 - Labs CBC & Chem 7: 02/13/21 10:32 02/13/21 07:05 Labs: Abnormal Lab Results - Last 24 Hours (Table) 02/12/21 02/12/21 02/12/21 Range/Units 16:18 16:18 16:18 WBC (3.8-10.6) k/uL RBC 3.72 L (3.80-5.40) m/uL Hgb 10.9 L (11.4-16.0) gm/dL Hct 33.4 L (34.0-46.0) % Plt Count (150-450) k/uL Lymphocytes # 0.4 L (1.0-4.8) k/uL BUN 67 H (7-17) mg/dL Creatinine 2.40 H (0.52-1.04) mg/dL Glucose 189 H (74-99) mg/dL POC Glucose (mg/dL) (75-99) mg/dL Calcium (8.4-10.2) mg/dL Magnesium 1.4 L (1.6-2.3) mg/dL AST 41 H (14-36) U/L Troponin I 0.159 H* (0.000-0.034) ng/mL Total Protein 5.7 L (6.3-8.2) g/dL Albumin 3.2 L (3.5-5.0) g/dL Urine Protein (Negative) Urine Blood (Negative) Ur Leukocyte Esterase (Negative) Urine WBC (0-5) /hpf Urine Bacteria (None) /hpf 02/12/21 02/12/21 02/13/21 Range/Units 16:18 21:31 00:00 WBC (3.8-10.6) k/uL RBC (3.80-5.40) m/uL Hgb (11.4-16.0) gm/dL Hct (34.0-46.0) % Plt Count (150-450) k/uL Lymphocytes # (1.0-4.8) k/uL BUN (7-17) mg/dL Creatinine (0.52-1.04) mg/dL Glucose (74-99) mg/dL POC Glucose (mg/dL) (75-99) mg/dL Calcium (8.4-10.2) mg/dL Magnesium (1.6-2.3) mg/dL AST (14-36) U/L Troponin I 5.800 H* 16.500 H* (0.000-0.034) ng/mL Total Protein (6.3-8.2) g/dL Albumin (3.5-5.0) g/dL Urine Protein 1+ H (Negative) Urine Blood Trace H (Negative) Ur Leukocyte Esterase Moderate H (Negative) Urine WBC 18 H (0-5) /hpf Urine Bacteria Rare H (None) /hpf 02/13/21 02/13/21 02/13/21 Range/Units 06:04 07:05 07:05 WBC 3.5 L (3.8-10.6) k/uL RBC 3.13 L (3.80-5.40) m/uL Hgb 8.9 L D (11.4-16.0) gm/dL Hct 28.2 L (34.0-46.0) % Plt Count 105 L (150-450) k/uL Lymphocytes # 0.4 L (1.0-4.8) k/uL BUN 62 H (7-17) mg/dL Creatinine 2.21 H (0.52-1.04) mg/dL Glucose 138 H (74-99) mg/dL POC Glucose (mg/dL) 136 H (75-99) mg/dL Calcium 8.2 L (8.4-10.2) mg/dL Magnesium (1.6-2.3) mg/dL AST 115 H (14-36) U/L Troponin I (0.000-0.034) ng/mL Total Protein 4.6 L (6.3-8.2) g/dL Albumin 2.4 L (3.5-5.0) g/dL Urine Protein (Negative) Urine Blood (Negative) Ur Leukocyte Esterase (Negative) Urine WBC (0-5) /hpf Urine Bacteria (None) /hpf
[2021-02-13 16:55] LABS: Glucose,Whole Blood 181 mg/dL (75-99)
[2021-02-13 20:29] LABS: Glucose,Whole Blood 206 mg/dL (75-99)
[2021-02-14 06:02] LABS: Glucose,Whole Blood 172 mg/dL (75-99)
[2021-02-14] MEDS: NITROGLYCERIN OINT 1 INCH/GM PACKET TOPICAL SCH ×2 (06:38→12:42)
[2021-02-14 09:19] LABS: Basophils % (A) 0 %; Eosinophils # (A) 0.1 k/uL (0-0.7); Eosinophils % (A) 3 %; HCT 26.4 % (34.0-46.0); HGB 8.9 gm/dL (11.4-16.0); Lymphocytes # (A) 0.3 k/uL (1.0-4.8); Lymphocytes % (A) 9 %; MCH 30.2 pg (25.0-35.0); MCHC 33.5 g/dL (31.0-37.0); MCV 90.3 fL (80.0-100.0); Mean Platelet Volume 8.9; Monocytes # (A) 0.3 k/uL (0-1.0); Monocytes % (A) 7 %; Neutrophils # (A) 2.7 k/uL (1.3-7.7); Neutrophils % (A) 78 %; Platelet Count 103 k/uL (150-450); RBC 2.93 m/uL (3.80-5.40); WBC 3.5 k/uL (3.8-10.6)
[2021-02-14 09:26] LABS: Prothrombin Time 10.8 sec (9.0-12.0)
[2021-02-14] MEDS: SENNOSIDES-DOCUSATE SODIUM 1 EACH TAB PO SCH ×2 (09:28→20:33)
[2021-02-14] MEDS: METOPROLOL TARTRATE 50 MG TAB PO SCH ×2 (09:28→20:33)
[2021-02-14] MEDS: ASPIRIN 81 MG PO SCH (09:28)
[2021-02-14] MEDS: amLODIPine 10 MG TAB PO SCH (09:28)
[2021-02-14] MEDS: APIXABAN 5 MG TAB PO SCH ×2 (09:28→20:33)
[2021-02-14] MEDS: CLOPIDOGREL 75 MG TAB PO SCH (09:28)
[2021-02-14 12:05] LABS: Glucose,Whole Blood 251 mg/dL (75-99)
--- NOTE | 2021-02-14 14:31 | P.PN ---
<Emmanuel Deleon - Last Filed: 02/14/21 14:19> Subjective Progress Note Date: 02/14/21 Hospital course: Patient is a 80-year-old female with a past medical history of CAD, hypertensi on, hyperlipidemia, paroxysmal atrial fibrillation on Eliquis, congestive heart failure, and metastatic breast cancer status post bilateral mastectomy. She presented to the hospital on 05/22 with a chief complaint of chest pain/pressure. In the emergency department an EKG was completed revealing a trial fibrillation with RVR to [address] depression in leads I, II, aVL, V4, V5, and V6 as well as slight ST elevation in leads III and aVR showing concerns for global ischemia. Troponins drawn and were elevated at 0.159, 5.800, and 16.500. Cardiology evaluated patient had bedside in the emergency department and after long discussion with patient and family, due to patient's breast cancer with metastasis and poor prognosis patient and family decided against cardiac catheterization and opting for medical management. Patient was admitted under our services for NSTEMI and cardiology following. Echocardiogram completed showing a preserved ejection fraction between 50 and 55% with left ventricular wall hypokinesis, no significant valvular abnormalities reported. Pt anticoagulated on Eliquis and placed on aspirin and Nitropaste. Physical exam: Patient seen and fully evaluated at the bedside this morning. Patient reports chest pain has improved but does have intermittent episodes in which she states she will feel the pain/pressure. Patient currently resting comfortably. I had a long talk with patient and her at bedside yesterday afternoon and per their request patient was changed from a full code to a DO NOT RESUSCITATE. Patient states she would like to continue to receive conservative medical management but did not want CPR or intubation if ever needed. The patient and her also requesting to speak with Dr. Ojeda, pt's oncologist and a consultation was placed. patient denies having any headache, lightheadedness, diaphoresis, nausea, dizziness, palpitations, shortness of breath, or experiencing any numbness/tingling/weakness in extremities. General: non toxic, appears chronically ill. Derm: warm, dry, pale Head: Atraumatic, normocephalic, symmetric Eyes: EOMI, no lid lag, anicteric sclera Mouth: no lip lesion, mucus membranes moist Cardiovascular: S1S2 reg, no murmur, positive posterior tibial pulse bilaterally, cap refill less than 2 seconds. Lungs: CTA bilateral, no rhonchi, no rales , no accessory muscle use Abdominal: soft, nontender to palpation, no guarding, no appreciable organome nette Ext: no gross muscle atrophy, 2+ pitting edema on left and 1+ pitting edema on right lower extremity, no contractures Neuro: CN II-XI grossly intact, no focal neuro deficits Psych: Alert, oriented, appropriate affect Plan of care: NSTEMI Paroxysmal Atrial fibrillation with RVR Acute kidney injury, Likely cardiorenal, medical management for NSTEMI Anemia of chronic disease Hypertension Hyperlipidemia -EKG was completed revealing atrial fibrillation with RVR to [address] depression in leads I, II, aVL, V4, V5, and V6 as well as slight ST elevation in leads III and aVR showing concerns for global ischemia. -Troponins drawn and were elevated at 0.159, 5.800, and 16.500. -Echocardiogram completed showing a preserved ejection fraction between 50 and 55% with left ventricular wall hypokinesis, no significant valvular abnormalities reported -Cardiology following, patient and family declining cardiac cath and requesting medical management. -Continue anticoagulation with eliquis -Telemetry monitoring -Aspirin daily -Nitropaste -Monitor vital signs and continue daily medication regimen with amlodipine, Plavix, and metoprolol. Metastatic breast cancer -Dr. Ojeda, oncologist consulted. -Supportive measures and pain management. CODE STATUS: DO NOT RESUSCITATE/DO NOT INTUBATE DVT prophylaxis: Eliquis Discussed with: Patient, , and RN Anticipated discharge date: Clinical course to determine Anticipated discharge place: Home A total of 45 minutes was spent on the care of this complex patient more than 50% of the time was spent in counseling and care coordination. Objective - Vital Signs Vital signs: Vital Signs Temp 98.3 F 02/14/21 08:00 Pulse 76 02/14/21 08:00 Resp 18 02/14/21 11:53 BP 133/63 02/14/21 11:53 Pulse Ox 95 02/14/21 11:53 Intake & Output 02/13/21 02/14/21 02/14/21 18:59 06:59 18:59 Intake Total 699 480 Balance 699 480 Weight 77 kg 85 kg Intake: Oral 699 480 Other: Voiding Method Toilet # Voids 2 1 1 - Labs CBC & Chem 7: 02/14/21 08:34 02/13/21 07:05 Labs: Abnormal Lab Results - Last 24 Hours (Table) 02/13/21 02/13/21 02/14/21 Range/Units 16:51 20:28 06:00 WBC (3.8-10.6) k/uL RBC (3.80-5.40) m/uL Hgb (11.4-16.0) gm/dL Hct (34.0-46.0) % Plt Count (150-450) k/uL Lymphocytes # (1.0-4.8) k/uL POC Glucose (mg/dL) 181 H 206 H 172 H (75-99) mg/dL 02/14/21 02/14/21 Range/Units 08:34 11:56 WBC 3.5 L (3.8-10.6) k/uL RBC 2.93 L (3.80-5.40) m/uL Hgb 8.9 L (11.4-16.0) gm/dL Hct 26.4 L (34.0-46.0) % Plt Count 103 L (150-450) k/uL Lymphocytes # 0.3 L (1.0-4.8) k/uL POC Glucose (mg/dL) 251 H (75-99) mg/dL <Marychuy Alicea - Last Filed: 02/14/21 22:10> Subjective Emmanuel Deleon NP rendered care for this patient independently, reviewed the findings and plan as documented in the note above. I did not physically speak with or examine the patient on this date. Additional diagnosis: Thrombocytopenia, likely reactive Patient was taken off of nitro ointment and started on Ranexa. Continue to monitor for chest pain. Objective - Vital Signs Vital signs: Vital Signs Temp 97.7 F 02/14/21 20:12 Pulse 101 H 02/14/21 20:12 Resp 18 02/14/21 20:12 BP 120/67 02/14/21 20:12 Pulse Ox 93 L 02/14/21 20:12 Intake & Output 02/14/21 02/14/21 02/15/21 06:59 18:59 06:59 Intake Total 720 Output Total 110 Balance 720 -110 Weight 85 kg Intake: Oral 720 Output: Urine 110 Other: Voiding Method Toilet # Voids 1 1 1 - Labs CBC & Chem 7: 02/14/21 08:34 02/13/21 07:05 Labs: Abnormal Lab Results - Last 24 Hours (Table) 02/14/21 02/14/21 02/14/21 Range/Units 06:00 08:34 11:56 WBC 3.5 L (3.8-10.6) k/uL RBC 2.93 L (3.80-5.40) m/uL Hgb 8.9 L (11.4-16.0) gm/dL Hct 26.4 L (34.0-46.0) % Plt Count 103 L (150-450) k/uL Lymphocytes # 0.3 L (1.0-4.8) k/uL POC Glucose (mg/dL) 172 H 251 H (75-99) mg/dL 02/14/21 02/14/21 Range/Units 16:59 20:01 WBC (3.8-10.6) k/uL RBC (3.80-5.40) m/uL Hgb (11.4-16.0) gm/dL Hct (34.0-46.0) % Plt Count (150-450) k/uL Lymphocytes # (1.0-4.8) k/uL POC Glucose (mg/dL) 140 H 210 H (75-99) mg/dL
--- NOTE | 2021-02-14 14:34 | P.PN ---
Subjective Progress Note Date: 02/14/21 HISTORY OF PRESENT ILLNESS: This is a very pleasant 80-year-old female patient who unfortunately was diagnosed with metastatic breast cancer as well as history of coronary artery di sease and prior revascularization with does heart catheterization was performed a few weeks ago showing chronic total occlusion of the right coronary artery which fills by bridging collateral as well as paroxysmal atrial fibrillation as well as diabetes and hypertension and dyslipidemia. We asked to see the patient in a consultation in the emergency department for chest discomfort and abnormal EKG. She has been experiencing intermittent episodes of chest discomfort for the last 24-48 hours. She described the discomfort as a pressure across the chest. No radiation to the arms or neck or shoulders or back. An EKG was performed and showed ST segment elevation about 1 mm in aVR was diffuse ST segment depression concerning for global ischemia. Initially the plan was to take the patient to the cardiac clinical laboratory aide for emergent heart catheterization but giving care breast cancer with metastasis and giving her prognosis and also talking to the family the family would like the patient to be treated medically. Please note that the patient currently also is in atrial fibrillation with rapid ventricular response which is known to have paroxysmal atrial fibrillation. Currently had heart rate around 120 bpm. Currently she is on Cardizem IV. With that being sedated and after we discuss that with the family was going to treat her medically. We'll continue Cardizem IV. Restart her home medication. Restart her on oral anticoagulation after we obtain an echocardiogram to rule out any pericardial effusion from her metastatic breast cancer. Also would hold on any heparin at this point. We'll continue following up with her 02/13/2021 This is a 80 year old female who follows with Dr. Us. Patient has a history of intervention to the RCA initially in 2012 and subsequently in January 2020 which was a chronic total occlusion. Patient was transferred to [facility] where she underwent stenting of that vessel at that time. Patient recently underwent cardiac catheterization on 01/08/2021 revealing chronic occlusion of the right coronary artery with extensive collaterals to the distal right than the left. No significant disease in the LAD and ostial stenosis in the small nondominant circumflex coronary artery. Medical management was recommended. Patient examined this morning at the bedside. Patient denies shortness of breath. She reports intermittent chest pain overnight. At the time of examination, the patient currently denies chest pain and appears comfortable. However, shortly after I left the patients room the patient apparently started having some chest discomfort. Patient has converted to sinus mechanism. Her cardizem drip has been discontinued. IV heparin and/or Eliquis remain on hold. Hemoglobin today down 2 grams from 10.9 to 8.9. 02/14/2021 Patient examined this morning at the bedside. Patient denies shortness of breath. She denies chest pain or pressure. Echocardiogram completed revealed ejection fraction 50-55%, basal inferior and basal inferior septal LV wall hypokinesis. Venous Doppler negative for DVT. PHYSICAL EXAM: VITAL SIGNS: Reviewed. GENERAL: Well-developed in no acute distress. NECK: Supple. No JVD or thyromegaly LUNGS: Respirations even and unlabored. Lungs diminished bilaterally. HEART: Regular rate and rhythm. S1 and S2 heard. Systolic murmur. EXTREMITIES: Normal range of motion. No clubbing or cyanosis. Peripheral pulses intact. 1-2+ bilateral lower extremity edema ASSESSMENT: Paroxysmal atrial fibrillation with RVR, on anticoagulations with Eliquis Non-STEMI Metastatic breast cancer Acute kidney injury Coronary artery disease with previous PCI of RCA Hypertension Hyperlipidemia Diabetes mellitus PLAN: Continue current cardiac medications Discontinue Nitropaste. Begin Imdur 30 mg daily Further recommendations pending patient course Nurse practitioner note has been reviewed by physician. Signing provider agrees with the documented findings, assessment, and plan of care. Objective - Vital Signs Vital signs: Vital Signs Temp 98.3 F 02/14/21 08:00 Pulse 76 02/14/21 08:00 Resp 18 02/14/21 11:53 BP 133/63 02/14/21 11:53 Pulse Ox 95 02/14/21 11:53 Intake & Output 02/13/21 02/14/21 02/14/21 18:59 06:59 18:59 Intake Total 699 480 Balance 699 480 Weight 77 kg 85 kg Intake: Oral 699 480 Other: Voiding Method Toilet # Voids 2 1 1 - Labs CBC & Chem 7: 02/14/21 08:34 02/13/21 07:05 Labs: Abnormal Lab Results - Last 24 Hours (Table) 02/13/21 02/13/21 02/14/21 Range/Units 16:51 20:28 06:00 WBC (3.8-10.6) k/uL RBC (3.80-5.40) m/uL Hgb (11.4-16.0) gm/dL Hct (34.0-46.0) % Plt Count (150-450) k/uL Lymphocytes # (1.0-4.8) k/uL POC Glucose (mg/dL) 181 H 206 H 172 H (75-99) mg/dL 02/14/21 02/14/21 Range/Units 08:34 11:56 WBC 3.5 L (3.8-10.6) k/uL RBC 2.93 L (3.80-5.40) m/uL Hgb 8.9 L (11.4-16.0) gm/dL Hct 26.4 L (34.0-46.0) % Plt Count 103 L (150-450) k/uL Lymphocytes # 0.3 L (1.0-4.8) k/uL POC Glucose (mg/dL) 251 H (75-99) mg/dL
--- NOTE | 2021-02-14 16:09 | P.CONS ---
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 She also has known history of Breast and ovarian cancer. Recent progression evidenced by a CT lumbar spine showing right paraspinal mass with extension into the foramen. She started radiation therapy for palliative measures and dexamethsone. Molecular testing was resent for additional targeted therapy options, however in the interim Dr. Ojeda did recommend treatment with Carboplatin, Irinotecan and tecentriq. THis has not started as we are waiting on molecular reporting to result and her recent/interval history resulted with admission for NSTEMI. She presented to emergency with complaints of chest pain and pressure. She has a known cardiac history and underwent Cardiac stenting January 2020 for the same. She also had a cardiac cath with deployment of stent a couple weeks ago. OUTSIDE NOTES to detail more of her complex Oncologic History: This is a very pleasant post menopausal WF , who developed some dark colored drainage from the left nipple since 10/11. This was initially off and on but became more persistent this summer. She contacted Dr Lagos and ewsadie referred to Dr Sullivan. Her fluid cytology was non-diagnostic, but mammogram and ultrasound did show a suspicious lesion. 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 She then had a MRI which revealed possible area of suspicion in the right breast also. The pt opted for bilateral mastectomy with sentinel node biopsy on the left, without reconstruction, and underwent that on 03/31/12. She tolerated surgery well without any major post-op complications. 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 She was referred here for evaluation and recommendations re adjuvant therapy. Due to the small mesenchymal component she was referred to [facility] for an opinion. It was recommended by the [facility] to essentially ignore the small mesenchymal component and proceed with Oncotype Dx testing. This put her in the low intermediate risk category. After detailed discussion , we decided to treat with hormonal manipulation alone and she was initiated on Anastrozole in 06/13. Baseline bone density was normal. She was last seen in 12/12. She then developed cardiac issues, and had to have stents. Due to the same, and other family health issues, she did not follow up. She developed problems with obstruction due to kidney stones in 05/15, and had to have percutaneous and cystoscopic removal. She then felt a mass in her LLQ in the latter half of 06/15. She was seen by Dr Lagos, and then Dr Baca, with imaging revealing a LLQ pelvic mass. She was referred to Dr Chayito Ybarra at [facility], and underwent radical resection on 07/03. She was found to have a large pelvic mass 22cm x 16 cm, with pathology actually showing small cell carcinoma. There was extensive disease with inolvement of the mesentry, retroperitoneum and diaphragm. Post surgery she developed respiratory failure, requiring ICU care. Post dis charge, she did require rehab. She was seen for f/u for this new diagnosis. Given the extent and type of cancer, she was advised that her disease was not curable. She had a PET scan, and underwent a thoracentesis on 08/06/14 for a right pleural effusion, that was negative for malignancy. Her PS did improve, and she started palliative chemo with SURVIVAL SPECIALIST 16 and Carboplatin. She is s/p 4 cycles, completing those in 10/14 While in [place], in 11/14, she was admitted overnight with n/v/sweating. This resolved within 24 hrs, and apparently pancreatitis was diagnosed. F/U CT in 03/18 raised the possibility of progression in the omentum. However, PET and tumor ,markers were negative . CT scans showed further growth of soft tissue in the rt pararenal space. PET scan showed increased uptake in this area, as well as a long segment of sigmoid colon. Her tumor markers were again negative. She had a biopsy of the rt pararenal mass, positive for high grade ca with NE features. She was started back on SURVIVAL SPECIALIST 16 and Carboplatin on 03/23/18 and is s/p 4 cycles. completing those on 05/27/18. She was then referred back to [facility], but was not felt to be a candidate for repeat surgery. They recommended continuation of chemo. Thus her regimen was resumed on 07/13/18. She completed s/p 5 cycles, and then left for [place]. She continued chemo there and completed 8 cycles by early 10/18. Ct scans in 12/18 indicated increased nodularity in the rt pararenal density PET scan however showed decreased uptake, with new uptake in the rectum. She however had had a colonoscopy in 01/17 , with PET positivity in rectum, which was negative. She was referred to Rad Onc for consolidative RT to the rt pararenal area. However per Rad Onc after detailed discussion, she initially declined the same. on repeat follow-up she subsequently agreed to radiation and had 1 dose of SB RT in 05/20, prior to leaving for [place] for the winter. Telemedicine audiovisual 12/14/19: The patient had a fairly uneventful winter in [place]. However on coming back to [place], she was admitted in early 12/19 with shortness of breath, orthopnea, lower extremity swelling and palpitations. She also reported a cough. She was felt to have congestive heart failure with ongoing a flutter. There was also possibility of underlying pneumonia, with coronavirus testing being negative. CT scans were negative for PE. However there was evidence of borderline adenopathy and some peripheral nodularity that was overall small nonspecific. CT of the abdomen and pelvis showed urther decrease in size of the pararenal mass with no new findings. The patient was discharged on 12/07/19. She denies any fever/chil ls/nausea/vomiting at this time. Respiratory status is back to normal. She is not having any palpitations or chest pain ae tolerating eliquis well. She reports fair appetite. No lower extremity swelling at this time. Endurance is still somewhat diminished but improving. Review of systems otherwise as per HPI and negative out of 10 telemedicine audiovisual 12/26/19: Due to the findings on the CT scan in the hospital, the patient proceeded to a PET scan on 12/22/19. This was negative for any evidence of recurrent malignancy. She denied any fevers/chills/nausea or vomiting. She is tolerating eliquis well. Respiratory status is stable. She has had no recurrent symptoms nikko tive of active CHF. She continues anastrozole with good tolerance. endurance is improving slowly. She has been evaluated by cardiology, and cardiac catheterization is planned. Review of systems otherwise as per HPI and negative out of 10 As above. the patient had a CT scan of the chest abdomen and pelvis ordered by her PCP in late 05/21. This was prompted by right flank pain which actually turned out to be due to a UTI. However the CT scans showed enlarging right epicardial lymph nodes, as well as some increase in the right pararenal soft tissue. The patient then had a PET scan which showed hypermetabolic uptake in the left supraclavicular node, right internal mammary node, the above-mentioned epicardial notes, as well as in the right pararenal nodular soft tissue. at this point the patient was referred to cardiology thoracic surgery for biopsy. She states that she was anxious about the same and initially delayed it. She was seen by radiation oncology, and had radiation to one of the right retrocrural nodes that was felt to be impinging on the T12 nerve roots. Acc ording to the patient the biopsy was then delayed as she contracted Covid. Subsequently she states that she started feeling overwhelmed and just decided to "take off". [place]. She came back to [place] in 12/20 and called the office to reestablish follow-up. the patient was subsequently admitted to the hospital twice starting late 12/20, and then in 01/20, iinitially due to progressive shortness of breath. She was found to have a and STEMI, and underwent cardiac catheterization. Medical management was recommended. She was then admitted with progressive back pain. During this time period, she had restaging studies with MRI of the brain, MRI of the T-spine, CT scans as well as PET scans. This revealed further progression of disease now involving left supraclavicular, epicardial, and left pelvic lymph nodes as well as evidence of liver metastasis, and bilateral pulmonary nodules. In addition bone metastasis were noted in T11-12, with paraspinal extension. MRI brain was negative. Biopsy of the paraspinal mass on 01/14/21 confirmed recurrence of for poorly differentiated neuroendocrine cancer. The patient was started on steroids, and recommended radiation. She initially refused the same but then did follow-up with radiation oncology and decided to proceed with that. This is scheduled to start on 01/31/21. She denied any fevers/chills/nausea or vomiting. midback pain is now reasonably controlled with the use of [place], and fentanyl. She is tolerating eliquis well. she has not had recurrence of significant chest pain. Endurance is stable. She continues anastrozole with good tolerance. 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 These were again discussed in detail with her and daughter. They were advised that the patient now appears to have widespread metastatic disease. She is no longer a candidate for treatment with a definite approach. Treatment will forward would be palliative in nature, with an intent to prolong life, and palliate symptoms as well as possible. - The patient and we strongly recommended to take radiation for her thoracic spine disease, to improve her pain as well as reduce risk of spinal cord damage. She had initially refused follow-up with radiation oncology but subsequently agreed to radiation and is to start the same in the near future. She has no evidence of cord compression at this time. Continue steroids. Case has been discussed with radiation oncology. We'll discuss with him further to start the patient on a steroid taper once she starts radiation - It was also discussed that radiation in this case is purely a palliative procedure. For prolongation of life, the main stay of treatment would be systemic, usually chemotherapy. The patient has had several cycles of SURVIVAL SPECIALIST-16 and carboplatin in the past with good tolerance. She has had recurrence with progression both times shorter intervals. I therefore suggested trying carboplatin and IV irinotecan combination along with Tecentriq, if approved by her insurance. Biomarker testing will also be ordered to check for any non- chemotherapy options. - The patient and her daughter were also advised, that chances of response, as well as duration of response with successive lines of treatment would be expected to be progressively lower. In addition given the patient's increasing age, other medical problems, as well as several cycles of chemotherapy in the past, the risk of adverse events from treatment which could adversely affect her quality of life, and also quality of life, would be higher. Therefore comfort care approach after radiation was also discussed. We also discussed average life expectancy with and without active treatment - At this time the patient is inclined to try active treatment. She will her discussed this further with her family and then let us know her decision. In the meantime she will proceed with radiation. Molecular testing requested on 01/29/2021 Review of Systems All systems: negative Constitutional: Reports as per HPI Past Medical History Past Medical History: Cancer, Chest Pain / Angina, Heart Failure, Diabetes Mellitus, Hyperlipidemia, Hypertension, Myocardial Infarction (MS), Osteoarthritis (OA) Additional Past Medical History / Comment(s): Breast CA 2011- bilateral mastect randal-radiation to the spine tx last treatment was 07/2020 & chemo last 2017, some SOB w/exertion, chest pain w/exertion recently Last Myocardial Infarction Date:: 11/2020 History of Any Multi-Drug Resistant Organisms: None Reported Past Surgical History: Breast Surgery, Cholecystectomy, Heart Catheterization, Heart Catheterization With Stent, Hysterectomy Additional Past Surgical History / Comment(s): Last heart cath 2012 with stent times 7, left TKA 2008, Cataract 2000, Left Lithotripsy ([facility]) 2001, Blepharoplasty 2006, percutaneous nephrostolithomy 04/25/14, 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 Past Anesthesia/Blood Transfusion Reactions: No Reported Reaction Date of Last Stent Placement:: January 2020 Past Psychological History: Depression Smoking Status: Former smoker Past Alcohol Use History: None Reported Additional Past Alcohol Use History / Comment(s): quit smoking 25 yrs. ago, smoked for 10 yrs. <ppd Past Drug Use History: None Reported - Past Family History Mother Sister(s) Family Medical History: Cancer Sister(s) Family Medical History: Cancer Additional Family Medical History / Comment(s): 2 had Breast CA, 1 had Kidney cancer Mother Family Medical History: Cancer Additional Family Medical History / Comment(s): kidney, breast cancer Medications and Allergies Home Medications Medication Instructions Recorded Confirmed Type Sertraline [Zoloft] 50 mg PO DAILY tab 12/08/19 02/12/21 Rx metFORMIN HCL [Glucophage] 500 mg PO DAILY 01/09/20 02/12/21 History Clopidogrel [Plavix] 75 mg PO DAILY 08/09/20 02/12/21 History Furosemide [Lasix] 40 mg PO DAILY 08/09/20 02/12/21 History Metoprolol Tartrate [Lopressor] 50 mg PO BID 12/31/20 02/12/21 History lisinopriL [Zestril] 10 mg PO BID 12/31/20 02/12/21 History metFORMIN HCL [Glucophage] 1,000 mg PO HS 12/31/20 02/12/21 History amLODIPine [Norvasc] 10 mg PO DAILY #30 tab 01/03/21 02/12/21 Rx Ondansetron Odt [Zofran Odt] 4 mg PO Q8HR PRN #12 tab 01/06/21 02/12/21 Rx Sennosides/Docusate Sodium [Senna 1 tab PO BID 01/14/21 02/12/21 History Plus 8.6-50 mg Softgel] fentaNYL 50MCG/HR PATCH [Duragesic 1 patch TRANSDERM Q72H 01/14/21 02/12/21 History 50MCG/HR] oxyCODONE HCL [OxyIR] 5 - 10 mg PO Q4H PRN 01/14/21 02/12/21 History Apixaban [Eliquis] 5 mg PO BID 02/12/21 02/12/21 History Allergies Allergy/AdvReac Type Severity Reaction Status Date / Time Penicillins Allergy Intermediate Swelling Verified 01/14/21 08:36 Physical Exam Vitals: Vital Signs Temp Pulse Resp BP Pulse Ox 02/14/21 11:53 18 133/63 95 02/14/21 08:00 98.3 F 76 18 139/66 95 02/14/21 07:53 94 L 02/14/21 04:00 98.0 F 73 18 109/62 94 L 02/14/21 02:00 73 17 02/14/21 00:00 98.1 F 73 17 107/59 02/13/21 20:00 98.6 F 72 19 107/56 96 02/13/21 16:00 98.0 F 60 18 140/61 98 Intake and Output 02/14/21 02/14/21 02/14/21 06:59 14:59 22:59 Intake Total 480 Balance 480 Intake: Oral 480 Other: Voiding Method Toilet # Voids 1 1 Weight 85 kg - Constitutional General appearance: cooperative, no acute distress - EENT Eyes: EOMI, PERRLA ENT: hard of hearing, NA/AT, normal oropharynx - Respiratory Respiratory: bilateral: diminished - Cardiovascular Rhythm: irregularly irregular leg Peripheral Edema: right: 1+, left: 2+ - Gastrointestinal General gastrointestinal: normal bowel sounds, soft - Integumentary Integumentary: pale - Neurologic Neurologic: CNII-XII intact - Musculoskeletal Musculoskeletal: generalized weakness, left sided weakness - Psychiatric Psychiatric: A&O x's 3, appropriate affect, intact judgment & insight Results CBC & Chem 7: 02/14/21 08:34 02/13/21 07:05 Labs: Abnormal Lab Results - Last 24 Hours (Table) 02/13/21 02/13/21 02/14/21 Range/Units 16:51 20:28 06:00 WBC (3.8-10.6) k/uL RBC (3.80-5.40) m/uL Hgb (11.4-16.0) gm/dL Hct (34.0-46.0) % Plt Count (150-450) k/uL Lymphocytes # (1.0-4.8) k/uL POC Glucose (mg/dL) 181 H 206 H 172 H (75-99) mg/dL 02/14/21 02/14/21 Range/Units 08:34 11:56 WBC 3.5 L (3.8-10.6) k/uL RBC 2.93 L (3.80-5.40) m/uL Hgb 8.9 L (11.4-16.0) gm/dL Hct 26.4 L (34.0-46.0) % Plt Count 103 L (150-450) k/uL Lymphocytes # 0.3 L (1.0-4.8) k/uL POC Glucose (mg/dL) 251 H (75-99) mg/dL Venous US: report reviewed (Negative BLE DVT. Unilateral swelling likely related to paraspinal metastatic disease) Assessment and Plan (1) Neuroendocrine cancer Current Visit: Yes Status: Acute Code(s): C7A.8 - OTHER MALIGNANT NEUROENDOCRINE TUMORS SNOMED Code(s): 884789746306737 (2) Paraspinal mass Current Visit: Yes Status: Acute Code(s): R22.2 - LOCALIZED SWELLING, MASS AND LUMP, TRUNK SNOMED Code(s): 557895994 (3) NSTEMI (non-ST elevated myocardial infarction) Current Visit: No Status: Acute Code(s): I21.4 - NON-ST ELEVATION (NSTEMI) MYOCARDIAL INFARCTION SNOMED Code(s): 79943499 Plan: LAst time we spoke with patient she was undecided if she wanted to pursue chemotherapy again. Dr. Ojeda thoroughly explained clear risks, expectations, and recommendations if she does decide to pursue active chemo when stable (not for at least 3 weeks and after re-assessment in office) Physician Attest: I have completed the full history and physical and agree with the above dictation. Dictated as a scribe
[2021-02-14 17:02] LABS: Glucose,Whole Blood 140 mg/dL (75-99)
[2021-02-14] MEDS ORDERED: DILTIAZEM 125 MG in SODIUM CHLORIDE 0.9% 100 ML IV SCH (17:30)
[2021-02-14] MEDS: INSULIN ASPART (NovoLOG) 100 UNIT/ML VIAL SQ SCH (18:11)
[2021-02-14 20:02] LABS: Glucose,Whole Blood 210 mg/dL (75-99)
[2021-02-14] MEDS: RANOLAZINE 500 MG TAB.ER.12H PO SCH (20:33)
[2021-02-15] MEDS: INSULIN ASPART (NovoLOG) 100 UNIT/ML VIAL SQ SCH ×3 (06:07→16:37)
[2021-02-15 06:08] LABS: Glucose,Whole Blood 127 mg/dL (75-99)
[2021-02-15] MEDS: amLODIPine 10 MG TAB PO SCH (08:41)
[2021-02-15] MEDS: ASPIRIN 81 MG PO SCH (08:41)
[2021-02-15] MEDS: METOPROLOL TARTRATE 50 MG TAB PO SCH ×2 (08:41→19:55)
[2021-02-15] MEDS: SENNOSIDES-DOCUSATE SODIUM 1 EACH TAB PO SCH ×2 (08:41→19:54)
[2021-02-15] MEDS: CLOPIDOGREL 75 MG TAB PO SCH (08:41)
[2021-02-15] MEDS: APIXABAN 5 MG TAB PO SCH ×2 (08:42→19:54)
[2021-02-15] MEDS: ISOSORBIDE MONONITRATE ER 30 MG TAB.ER.24H PO SCH (08:42)
[2021-02-15] MEDS: RANOLAZINE 500 MG TAB.ER.12H PO SCH ×2 (08:42→19:55)
[2021-02-15 08:51] LABS: HCT 28.2 % (34.0-46.0); Hypochromasia Slight; MCH 28.9 pg (25.0-35.0); MCHC 32.1 g/dL (31.0-37.0); MCV 90.3 fL (80.0-100.0); Mean Platelet Volume 8.3; Platelet Count 106 k/uL (150-450); RBC 3.12 m/uL (3.80-5.40); RDW 15.1 % (11.5-15.5); WBC 3.8 k/uL (3.8-10.6)
[2021-02-15 08:58] LABS: Potassium 3.4 mmol/L (3.5-5.1)
[2021-02-15 08:59] LABS: Calcium 8.6 mg/dL (8.4-10.2); Magnesium 1.7 mg/dL (1.6-2.3)
[2021-02-15 11:42] LABS: Glucose,Whole Blood 349 mg/dL (75-99)
[2021-02-15 11:42] LABS: Glucose,Whole Blood 359 mg/dL (75-99)
--- NOTE | 2021-02-15 12:35 | P.PN ---
<Emmanuel Deleon - Last Filed: 02/15/21 15:30> Subjective Progress Note Date: 02/15/21 Hospital course: Patient is a 80-year-old female with a past medical history of CAD, hypertensi on, hyperlipidemia, paroxysmal atrial fibrillation on Eliquis, congestive heart failure, and metastatic breast cancer status post bilateral mastectomy. She presented to the hospital on 05/22 with a chief complaint of chest pain/pressure. In the emergency department an EKG was completed revealing a trial fibrillation with RVR to [address] depression in leads I, II, aVL, V4, V5, and V6 as well as slight ST elevation in leads III and aVR showing concerns for global ischemia. Troponins drawn and were elevated at 0.159, 5.800, and 16.500. Cardiology evaluated patient had bedside in the emergency department and after long discussion with patient and family, due to patient's breast cancer with metastasis and poor prognosis patient and family decided against cardiac catheterization and opting for medical management. Patient was admitted under our services for NSTEMI and cardiology following. Echocardiogram completed showing a preserved ejection fraction between 50 and 55% with left ventricular wall hypokinesis, no significant valvular abnormalities reported. Pt anticoagulated on Eliquis and placed on aspirin and Nitropaste. Physical exam: Patient seen and fully evaluated at the bedside this morning. Patient reports chest pain has improved but does have intermittent episodes in which she states she will feel the pain/pressure. Patient currently resting comfortably. I had a long talk with patient and her at bedside yesterday afternoon and per their request patient was changed from a full code to a DO NOT RESUSCITATE. Patient states she would like to continue to receive conservative medical management but did not want CPR or intubation if ever needed. The patient and her also requesting to speak with Dr. Ojeda, pt's oncologist and a consultation was placed. patient denies having any headache, lightheadedness, diaphoresis, nausea, dizziness, palpitations, shortness of breath, or experiencing any numbness/tingling/weakness in extremities. General: non toxic, appears chronically ill. Derm: warm, dry, pale Head: Atraumatic, normocephalic, symmetric Eyes: EOMI, no lid lag, anicteric sclera Mouth: no lip lesion, mucus membranes moist Cardiovascular: S1S2 reg, no murmur, positive posterior tibial pulse bilaterally, cap refill less than 2 seconds. Lungs: CTA bilateral, no rhonchi, no rales , no accessory muscle use Abdominal: soft, nontender to palpation, no guarding, no appreciable organome nette Ext: no gross muscle atrophy, 2+ pitting edema on left and 1+ pitting edema on right lower extremity, no contractures Neuro: CN II-XI grossly intact, no focal neuro deficits Psych: Alert, oriented, appropriate affect Plan of care: NSTEMI Paroxysmal Atrial fibrillation with RVR Acute kidney injury, Likely cardiorenal, medical management for NSTEMI Anemia of chronic disease Hypertension Hyperlipidemia -EKG was completed revealing atrial fibrillation with RVR to [address] depression in leads I, II, aVL, V4, V5, and V6 as well as slight ST elevation in leads III and aVR showing concerns for global ischemia. -Troponins drawn and were elevated at 0.159, 5.800, and 16.500. -Echocardiogram completed showing a preserved ejection fraction between 50 and 55% with left ventricular wall hypokinesis, no significant valvular abnormalities reported -Cardiology following, patient and family declining cardiac cath and requesting medical management. -Continue anticoagulation with eliquis. -Telemetry monitoring -Continue daily Aspirin, Eliquis, amlodipine, Plavix, and metoprolol. Cardiology added on Imdur this morning. -Nitropaste. -Monitor vital signs and continue daily medication regimen with amlodipine, Plavix, and metoprolol. Metastatic breast cancer -Dr. Ojeda, oncologist consulted. -Supportive measures and pain management. CODE STATUS: DO NOT RESUSCITATE/DO NOT INTUBATE DVT prophylaxis: Eliquis Discussed with: Patient, , and RN Anticipated discharge date: Clinical course to determine Anticipated discharge place: Home A total of 45 minutes was spent on the care of this complex patient more than 50% of the time was spent in counseling and care coordination. Objective - Vital Signs Vital signs: Vital Signs Temp 97.8 F 02/15/21 03:32 Pulse 46 L 02/15/21 12:00 Resp 16 02/15/21 12:00 BP 134/64 02/15/21 12:00 Pulse Ox 94 L 02/15/21 12:00 Intake & Output 02/14/21 02/15/21 02/15/21 18:59 06:59 18:59 Intake Total 720 90 240 Output Total 290 Balance 720 -200 240 Weight 71.4 kg Intake: IV 90 0.9 90 Oral 720 240 Output: Urine 290 Other: Voiding Method Toilet # Voids 1 1 1 # Bowel Movements 1 - Labs CBC & Chem 7: 02/15/21 07:59 02/15/21 07:59 Labs: Abnormal Lab Results - Last 24 Hours (Table) 02/14/21 02/14/21 02/15/21 Range/Units 16:59 20:01 06:06 RBC (3.80-5.40) m/uL Hgb (11.4-16.0) gm/dL Hct (34.0-46.0) % Plt Count (150-450) k/uL Potassium (3.5-5.1) mmol/L BUN (7-17) mg/dL Creatinine (0.52-1.04) mg/dL Glucose (74-99) mg/dL POC Glucose (mg/dL) 140 H 210 H 127 H (75-99) mg/dL 02/15/21 02/15/21 02/15/21 Range/Units 07:59 07:59 11:38 RBC 3.12 L (3.80-5.40) m/uL Hgb 9.0 L (11.4-16.0) gm/dL Hct 28.2 L (34.0-46.0) % Plt Count 106 L (150-450) k/uL Potassium 3.4 L (3.5-5.1) mmol/L BUN 42 H (7-17) mg/dL Creatinine 1.70 H (0.52-1.04) mg/dL Glucose 188 H (74-99) mg/dL POC Glucose (mg/dL) 349 H (75-99) mg/dL 02/15/21 Range/Units 11:39 RBC (3.80-5.40) m/uL Hgb (11.4-16.0) gm/dL Hct (34.0-46.0) % Plt Count (150-450) k/uL Potassium (3.5-5.1) mmol/L BUN (7-17) mg/dL Creatinine (0.52-1.04) mg/dL Glucose (74-99) mg/dL POC Glucose (mg/dL) 359 H (75-99) mg/dL <DeanneMarychuy - Last Filed: 02/15/21 19:23> Subjective Patient seen and examined independently. Patient was also seen by Emmanuel Deleon NP and case was discussed. I am in agreement with subjective, physical exam, assessment and plan as written above and amended below. Patient complains of feeling very tired. She denies any chest discomfort with deep aspiration on a consistent basis. Her chest pain overall feels better now. She denies any current shortness of breath. General: non toxic, no distress, appears at stated age Derm: warm, dry Head: atraumatic, normocephalic, symmetric Eyes: EOMI, no lid lag, anicteric sclera Mouth: no lip lesion, mucus membranes moist Cardiovascular: S1S2 reg, no murmur, positive posterior tibial pulse bilateral, Lungs: CTA bilateral, no rhonchi, no rales , no accessory muscle use Abdominal: soft, nontender to palpation, no guarding, no appreciable organomegaly Ext: no gross muscle atrophy, no edema, no contractures Psych: Alert, oriented, appropriate affect Additional diagnoses: Diabetes mellitus type 2, [id number] with hyperglycemia -Patient's blood sugar dropped precipitously today will stop insulin sliding scale -Continue to monitor blood sugars -Resume metformin with no plans for cardiac cath at this time Anemia, appears to be chronic -Undetermined etiology -Follow CBC -No indication for transfusion at this time Thrombocytopenia -Undetermined etiology -No indication for transfusion -Follow CBC Appears that patient may have a paraspinal mass on an outpatient basis that oncology had suggested a radiating -Continue outpatient follow-up. Objective - Vital Signs Vital signs: Vital Signs Temp 97.8 F 02/15/21 03:32 Pulse 67 02/15/21 16:00 Resp 16 02/15/21 16:00 BP 145/66 02/15/21 16:00 Pulse Ox 94 L 02/15/21 16:00 Intake & Output 02/15/21 02/15/21 02/16/21 06:59 18:59 06:59 Intake Total 90 1010 Output Total 290 Balance -200 1010 Weight 71.4 kg Intake: IV 90 0.9 90 Intake, IV Titration 50 Amount cefTRIAXone 1 gm In 50 Sodium Chloride 0.9% 50 ml @ 100 mls/hr IVPB Q24HR COUNT [facility] Rx#:[id number] Oral 960 Output: Urine 290 Other: Voiding Method Toilet # Voids 1 1 # Bowel Movements 1 - Labs CBC & Chem 7: 02/15/21 07:59 02/15/21 07:59 Labs: Abnormal Lab Results - Last 24 Hours (Table) 02/14/21 02/15/21 02/15/21 Range/Units 20:01 06:06 07:59 RBC 3.12 L (3.80-5.40) m/uL Hgb 9.0 L (11.4-16.0) gm/dL Hct 28.2 L (34.0-46.0) % Plt Count 106 L (150-450) k/uL Potassium (3.5-5.1) mmol/L BUN (7-17) mg/dL Creatinine (0.52-1.04) mg/dL Glucose (74-99) mg/dL POC Glucose (mg/dL) 210 H 127 H (75-99) mg/dL 02/15/21 02/15/21 02/15/21 Range/Units 07:59 11:38 11:39 RBC (3.80-5.40) m/uL Hgb (11.4-16.0) gm/dL Hct (34.0-46.0) % Plt Count (150-450) k/uL Potassium 3.4 L (3.5-5.1) mmol/L BUN 42 H (7-17) mg/dL Creatinine 1.70 H (0.52-1.04) mg/dL Glucose 188 H (74-99) mg/dL POC Glucose (mg/dL) 349 H 359 H (75-99) mg/dL 02/15/21 Range/Units 16:37 RBC (3.80-5.40) m/uL Hgb (11.4-16.0) gm/dL Hct (34.0-46.0) % Plt Count (150-450) k/uL Potassium (3.5-5.1) mmol/L BUN (7-17) mg/dL Creatinine (0.52-1.04) mg/dL Glucose (74-99) mg/dL POC Glucose (mg/dL) 73 L (75-99) mg/dL
--- NOTE | 2021-02-15 13:43 | P.PN ---
Subjective Progress Note Date: 02/15/21 HISTORY OF PRESENT ILLNESS: This is a very pleasant 80-year-old female patient who unfortunately was diagnosed with metastatic breast cancer as well as history of coronary artery di sease and prior revascularization with does heart catheterization was performed a few weeks ago showing chronic total occlusion of the right coronary artery which fills by bridging collateral as well as paroxysmal atrial fibrillation as well as diabetes and hypertension and dyslipidemia. We asked to see the patient in a consultation in the emergency department for chest discomfort and abnormal EKG. She has been experiencing intermittent episodes of chest discomfort for the last 24-48 hours. She described the discomfort as a pressure across the chest. No radiation to the arms or neck or shoulders or back. An EKG was performed and showed ST segment elevation about 1 mm in aVR was diffuse ST segment depression concerning for global ischemia. Initially the plan was to take the patient to the cardiac quality assurance/r&d lab technician for emergent heart catheterization but giving care breast cancer with metastasis and giving her prognosis and also talking to the family the family would like the patient to be treated medically. Please note that the patient currently also is in atrial fibrillation with rapid ventricular response which is known to have paroxysmal atrial fibrillation. Currently had heart rate around 120 bpm. Currently she is on Cardizem IV. With that being sedated and after we discuss that with the family was going to treat her medically. We'll continue Cardizem IV. Restart her home medication. Restart her on oral anticoagulation after we obtain an echocardiogram to rule out any pericardial effusion from her metastatic breast cancer. Also would hold on any heparin at this point. We'll continue following up with her 02/13/2021 This is a 80 year old female who follows with Dr. Us. Patient has a history of intervention to the RCA initially in 2012 and subsequently in January 2020 which was a chronic total occlusion. Patient was transferred to [facility] where she underwent stenting of that vessel at that time. Patient recently underwent cardiac catheterization on 01/08/2021 revealing chronic occlusion of the right coronary artery with extensive collaterals to the distal right than the left. No significant disease in the LAD and ostial stenosis in the small nondominant circumflex coronary artery. Medical management was recommended. Patient examined this morning at the bedside. Patient denies shortness of breath. She reports intermittent chest pain overnight. At the time of examination, the patient currently denies chest pain and appears comfortable. However, shortly after I left the patients room the patient apparently started having some chest discomfort. Patient has converted to sinus mechanism. Her cardizem drip has been discontinued. IV heparin and/or Eliquis remain on hold. Hemoglobin today down 2 grams from 10.9 to 8.9. 02/14/2021 Patient examined this morning at the bedside. Patient denies shortness of breath. She denies chest pain or pressure. Echocardiogram completed revealed ejection fraction 50-55%, basal inferior and basal inferior septal LV wall hypokinesis. Venous Doppler negative for DVT. 02/15/2021 Patient examined this morning at the bedside. Patient denies shortness of breath. She currently denies chest pain. Patient went into A. fib with RVR overnight. She was started on IV Cardizem. At the time of examination she is in sinus mechanism with a heart rate in the 60s. PHYSICAL EXAM: VITAL SIGNS: Reviewed. GENERAL: Well-developed in no acute distress. NECK: Supple. No JVD or thyromegaly LUNGS: Respirations even and unlabored. Lungs diminished bilaterally. HEART: Regular rate and rhythm. S1 and S2 heard. Systolic murmur. EXTREMITIES: Normal range of motion. No clubbing or cyanosis. Peripheral pulses intact. 1-2+ bilateral lower extremity edema ASSESSMENT: Paroxysmal atrial fibrillation with RVR, on anticoagulations with Eliquis Non-STEMI Metastatic breast cancer Acute kidney injury Coronary artery disease with previous PCI of RCA Hypertension Hyperlipidemia Diabetes mellitus PLAN: Continue current cardiac medications Discontinue IV Cardizem Patient is stable from a cardiac perspective Further recommendations pending patient course Nurse practitioner note has been reviewed by physician. Signing provider agrees with the documented findings, assessment, and plan of care. Objective - Vital Signs Vital signs: Vital Signs Temp 97.8 F 02/15/21 03:32 Pulse 46 L 02/15/21 12:00 Resp 16 02/15/21 13:19 BP 134/64 02/15/21 12:00 Pulse Ox 94 L 02/15/21 12:00 Intake & Output 02/14/21 02/15/21 02/15/21 18:59 06:59 18:59 Intake Total 720 90 240 Output Total 290 Balance 720 -200 240 Weight 71.4 kg Intake: IV 90 0.9 90 Oral 720 240 Output: Urine 290 Other: Voiding Method Toilet # Voids 1 1 1 # Bowel Movements 1 - Labs CBC & Chem 7: 02/15/21 07:59 02/15/21 07:59 Labs: Abnormal Lab Results - Last 24 Hours (Table) 02/14/21 02/14/21 02/15/21 Range/Units 16:59 20:01 06:06 RBC (3.80-5.40) m/uL Hgb (11.4-16.0) gm/dL Hct (34.0-46.0) % Plt Count (150-450) k/uL Potassium (3.5-5.1) mmol/L BUN (7-17) mg/dL Creatinine (0.52-1.04) mg/dL Glucose (74-99) mg/dL POC Glucose (mg/dL) 140 H 210 H 127 H (75-99) mg/dL 02/15/21 02/15/21 02/15/21 Range/Units 07:59 07:59 11:38 RBC 3.12 L (3.80-5.40) m/uL Hgb 9.0 L (11.4-16.0) gm/dL Hct 28.2 L (34.0-46.0) % Plt Count 106 L (150-450) k/uL Potassium 3.4 L (3.5-5.1) mmol/L BUN 42 H (7-17) mg/dL Creatinine 1.70 H (0.52-1.04) mg/dL Glucose 188 H (74-99) mg/dL POC Glucose (mg/dL) 349 H (75-99) mg/dL 02/15/21 Range/Units 11:39 RBC (3.80-5.40) m/uL Hgb (11.4-16.0) gm/dL Hct (34.0-46.0) % Plt Count (150-450) k/uL Potassium (3.5-5.1) mmol/L BUN (7-17) mg/dL Creatinine (0.52-1.04) mg/dL Glucose (74-99) mg/dL POC Glucose (mg/dL) 359 H (75-99) mg/dL
[2021-02-15] MEDS ORDERED: POTASSIUM CHLORIDE ER 20 MEQ TAB.ER PO STA (15:31)
[2021-02-15 16:40] LABS: Glucose,Whole Blood 73 mg/dL (75-99)
[2021-02-15] MEDS: metFORMIN 500 MG TAB PO SCH (18:49)
[2021-02-15 20:22] LABS: Glucose,Whole Blood 185 mg/dL (75-99)
[2021-02-16 06:11] LABS: Glucose,Whole Blood 150 mg/dL (75-99)
[2021-02-16] MEDS: metFORMIN 500 MG TAB PO SCH (06:38)
[2021-02-16] MEDS: CLOPIDOGREL 75 MG TAB PO SCH (09:04)
[2021-02-16] MEDS: ASPIRIN 81 MG PO SCH (09:04)
[2021-02-16] MEDS: SENNOSIDES-DOCUSATE SODIUM 1 EACH TAB PO SCH ×2 (09:04→21:33)
[2021-02-16] MEDS: amLODIPine 10 MG TAB PO SCH (09:04)
[2021-02-16] MEDS: RANOLAZINE 500 MG TAB.ER.12H PO SCH ×2 (09:04→21:33)
[2021-02-16] MEDS: METOPROLOL TARTRATE 50 MG TAB PO SCH ×2 (09:04→21:33)
[2021-02-16] MEDS: ISOSORBIDE MONONITRATE ER 30 MG TAB.ER.24H PO SCH (09:05)
[2021-02-16] MEDS: APIXABAN 5 MG TAB PO SCH ×2 (09:05→21:33)
--- NOTE | 2021-02-16 09:32 | P.PN ---
<Emmanuel Deleon - Last Filed: 02/16/21 14:26> Subjective Progress Note Date: 02/16/21 Hospital course: Patient is a 80-year-old female with a past medical history of CAD, hypertensi on, hyperlipidemia, paroxysmal atrial fibrillation on Eliquis, congestive heart failure, and metastatic breast cancer status post bilateral mastectomy. She presented to the hospital on 05/22 with a chief complaint of chest pain/pressure. In the emergency department an EKG was completed revealing a trial fibrillation with RVR to [address] depression in leads I, II, aVL, V4, V5, and V6 as well as slight ST elevation in leads III and aVR showing concerns for global ischemia. Troponins drawn and were elevated at 0.159, 5.800, and 16.500. Cardiology evaluated patient had bedside in the emergency department and after long discussion with patient and family, due to patient's breast cancer with metastasis and poor prognosis patient and family decided against cardiac catheterization and opting for medical management. Patient was admitted under our services for NSTEMI and cardiology following. Echocardiogram completed showing a preserved ejection fraction between 50 and 55% with left ventricular wall hypokinesis, no significant valvular abnormalities reported. Pt anticoagulated on Eliquis and placed on aspirin and Nitropaste. Physical exam: Patient seen and fully evaluated at the bedside this morning. Patient was getting up and into the shower at this time. She reports feeling a "little better today." She does report continued CP, but states that it is now only sometimes with exertion. She denies having any headache, lightheadedness, diaphoresis, nausea, dizziness, palpitations, shortness of breath, or experiencing any numbness/tingling/weakness in extremities. General: non toxic, appears chronically ill. Derm: warm, dry, pale Head: Atraumatic, normocephalic, symmetric Eyes: EOMI, no lid lag, anicteric sclera Mouth: no lip lesion, mucus membranes moist Cardiovascular: S1S2 reg, no murmur, positive posterior tibial pulse bilaterally, cap refill less than 2 seconds. Lungs: CTA bilateral, no rhonchi, no rales , no accessory muscle use. Bilateral massectomy. Abdominal: soft, nontender to palpation, no guarding, no appreciable organomegaly Ext: no gross muscle atrophy, 2+ pitting edema on left and 1+ pitting edema on right lower extremity, no contractures Neuro: CN II-XI grossly intact, no focal neuro deficits Psych: Alert, oriented, appropriate affect Plan of care: NSTEMI Paroxysmal Atrial fibrillation with RVR Acute kidney injury, Likely cardiorenal, medical management for NSTEMI Anemia of chronic disease Hypertension Hyperlipidemia -EKG was completed revealing atrial fibrillation with RVR to [address] depression in leads I, II, aVL, V4, V5, and V6 as well as slight ST elevation in leads III and aVR showing concerns for global ischemia. -Troponins drawn and were elevated at 0.159, 5.800, and 16.500. -Echocardiogram completed showing a preserved ejection fraction between 50 and 55% with left ventricular wall hypokinesis, no significant valvular abnormalities reported -Cardiology following, patient and family declining cardiac cath and requesting medical management. -Continue anticoagulation with eliquis. -Telemetry monitoring -Continue daily Aspirin, Eliquis, amlodipine, Plavix, and metoprolol. Cardiology added on Imdur this morning. -Monitor vital signs and continue daily medication regimen with amlodipine, Plavix, and metoprolol. Type II non-insulin dependent diabetes with hyperglycemia -Resume metformin 1000 mg twice daily with meals. -Monitor blood glucose levels before meals at bedtime -Heart healthy carb consistent diet Metastatic breast cancer -Dr. Ojeda, oncologist consulted. -Supportive measures and pain management. CODE STATUS: DO NOT RESUSCITATE/DO NOT INTUBATE DVT prophylaxis: Eliquis Discussed with: Patient, , and RN Anticipated discharge date: Likely tomorrow. Anticipated discharge place: Home A total of 45 minutes was spent on the care of this complex patient more than 50% of the time was spent in counseling and care coordination. Objective - Vital Signs Vital signs: Vital Signs Temp 96.4 F L 02/16/21 04:52 Pulse 90 02/16/21 07:59 Resp 16 02/16/21 07:59 BP 195/75 02/16/21 07:59 Pulse Ox 100 02/16/21 07:59 Intake & Output 02/15/21 02/16/21 02/16/21 18:59 06:59 18:59 Intake Total 1010 Output Total 460 Balance 1010 -460 Weight 71.2 kg Intake: Intake, IV Titration 50 Amount cefTRIAXone 1 gm In 50 Sodium Chloride 0.9% 50 ml @ 100 mls/hr IVPB Q24HR [facility] Rx#:[id number] Oral 960 Output: Urine 460 Other: Voiding Method Toilet Toilet # Voids 1 1 - Labs CBC & Chem 7: 02/15/21 07:59 02/15/21 07:59 Labs: Abnormal Lab Results - Last 24 Hours (Table) 02/15/21 02/15/21 02/15/21 Range/Units 07:59 07:59 11:38 RBC 3.12 L (3.80-5.40) m/uL Hgb 9.0 L (11.4-16.0) gm/dL Hct 28.2 L (34.0-46.0) % Plt Count 106 L (150-450) k/uL Potassium 3.4 L (3.5-5.1) mmol/L BUN 42 H (7-17) mg/dL Creatinine 1.70 H (0.52-1.04) mg/dL Glucose 188 H (74-99) mg/dL POC Glucose (mg/dL) 349 H (75-99) mg/dL 02/15/21 02/15/21 02/15/21 Range/Units 11:39 16:37 20:21 RBC (3.80-5.40) m/uL Hgb (11.4-16.0) gm/dL Hct (34.0-46.0) % Plt Count (150-450) k/uL Potassium (3.5-5.1) mmol/L BUN (7-17) mg/dL Creatinine (0.52-1.04) mg/dL Glucose (74-99) mg/dL POC Glucose (mg/dL) 359 H 73 L 185 H (75-99) mg/dL 02/16/21 Range/Units 06:09 RBC (3.80-5.40) m/uL Hgb (11.4-16.0) gm/dL Hct (34.0-46.0) % Plt Count (150-450) k/uL Potassium (3.5-5.1) mmol/L BUN (7-17) mg/dL Creatinine (0.52-1.04) mg/dL Glucose (74-99) mg/dL POC Glucose (mg/dL) 150 H (75-99) mg/dL <Marychuy Alicea A - Last Filed: 02/16/21 18:51> Subjective Patient seen and examined independently. Patient was also seen by Emmanuel Deleon NP and case was discussed. I am in agreement with subjective, physical exam, assessment and plan as written above and amended below. Discussed with patient. She now reports that her chest hurts every time she takes a deep breath. When she moves in bed. It is not just with ambulation. We went over the results of her outpatient CT head, MRI findings from prior. I suspect that she has a component of bony disease with discomfort related to malignancy pain. She is in agreement. We discussed uptitrating her fentanyl patch and adding Madison. She is in agreement with this plan. She does not feel comfortable going home at this time as she is afraid she'll come right back due to the severity of her pain. We will watch her one more day and likely home in a.m. if pain is controlled. General: non toxic, no distress, appears at stated age Derm: warm, dry Head: atraumatic, normocephalic, symmetric Eyes: EOMI, no lid lag, anicteric sclera Mouth: no lip lesion, mucus membranes moist Cardiovascular: S1S2 reg, no murmur, positive posterior tibial pulse bilateral, Lungs: Decreased breath sounds bilateral, no rhonchi, no rales , no accessory muscle use Abdominal: soft, nontender to palpation, no guarding, no appreciable organomegaly Psych: Alert, oriented, appropriate affect Additional diagnoses: Intractable pain related to malignancy -Increase fentanyl patch to 75 g. Added Madison 5 every 6 hours when necessary pain. Asked patient to get up and ambulate to see if these medications are working. Objective - Vital Signs Vital signs: Vital Signs Temp 96.4 F L 02/16/21 04:52 Pulse 79 02/16/21 16:00 Resp 16 02/16/21 16:00 BP 136/68 02/16/21 16:00 Pulse Ox 90 L 02/16/21 16:00 Intake & Output 02/15/21 02/16/21 02/16/21 18:59 06:59 18:59 Intake Total 1010 480 Output Total 460 Balance 1010 -460 480 Weight 71.2 kg Intake: Intake, IV Titration 50 Amount cefTRIAXone 1 gm In 50 Sodium Chloride 0.9% 50 ml @ 100 mls/hr IVPB Q24HR [facility] Rx#:[id number] Oral 960 480 Output: Urine 460 Other: Voiding Method Toilet Toilet Toilet # Voids 1 1 1 - Labs CBC & Chem 7: 02/15/21 07:59 02/15/21 07:59 Labs: Abnormal Lab Results - Last 24 Hours (Table) 02/15/21 02/16/21 02/16/21 Range/Units 20:21 06:09 11:56 POC Glucose (mg/dL) 185 H 150 H 254 H (75-99) mg/dL 02/16/21 Range/Units 16:59 POC Glucose (mg/dL) 177 H (75-99) mg/dL
[2021-02-16] MEDS ORDERED: dexAMETHasone 4 MG TAB PO SCH (10:00)
--- NOTE | 2021-02-16 10:41 | P.PN ---
Subjective Progress Note Date: 02/16/21 HISTORY OF PRESENT ILLNESS: This is a very pleasant 80-year-old female patient who unfortunately was diagnosed with metastatic breast cancer as well as history of coronary artery di sease and prior revascularization with does heart catheterization was performed a few weeks ago showing chronic total occlusion of the right coronary artery which fills by bridging collateral as well as paroxysmal atrial fibrillation as well as diabetes and hypertension and dyslipidemia. We asked to see the patient in a consultation in the emergency department for chest discomfort and abnormal EKG. She has been experiencing intermittent episodes of chest discomfort for the last 24-48 hours. She described the discomfort as a pressure across the chest. No radiation to the arms or neck or shoulders or back. An EKG was performed and showed ST segment elevation about 1 mm in aVR was diffuse ST segment depression concerning for global ischemia. Initially the plan was to take the patient to the cardiac lab clerk for emergent heart catheterization but giving care breast cancer with metastasis and giving her prognosis and also talking to the family the family would like the patient to be treated medically. Please note that the patient currently also is in atrial fibrillation with rapid ventricular response which is known to have paroxysmal atrial fibrillation. Currently had heart rate around 120 bpm. Currently she is on Cardizem IV. With that being sedated and after we discuss that with the family was going to treat her medically. We'll continue Cardizem IV. Restart her home medication. Restart her on oral anticoagulation after we obtain an echocardiogram to rule out any pericardial effusion from her metastatic breast cancer. Also would hold on any heparin at this point. We'll continue following up with her 02/13/2021 This is a 80 year old female who follows with Dr. Us. Patient has a history of intervention to the RCA initially in 2012 and subsequently in January 2020 which was a chronic total occlusion. Patient was transferred to [facility] where she underwent stenting of that vessel at that time. Patient recently underwent cardiac catheterization on 01/08/2021 revealing chronic occlusion of the right coronary artery with extensive collaterals to the distal right than the left. No significant disease in the LAD and ostial stenosis in the small nondominant circumflex coronary artery. Medical management was recommended. Patient examined this morning at the bedside. Patient denies shortness of breath. She reports intermittent chest pain overnight. At the time of examination, the patient currently denies chest pain and appears comfortable. However, shortly after I left the patients room the patient apparently started having some chest discomfort. Patient has converted to sinus mechanism. Her cardizem drip has been discontinued. IV heparin and/or Eliquis remain on hold. Hemoglobin today down 2 grams from 10.9 to 8.9. 02/14/2021 Patient examined this morning at the bedside. Patient denies shortness of breath. She denies chest pain or pressure. Echocardiogram completed revealed ejection fraction 50-55%, basal inferior and basal inferior septal LV wall hypokinesis. Venous Doppler negative for DVT. 02/15/2021 Patient examined this morning at the bedside. Patient denies shortness of breath. She currently denies chest pain. Patient went into A. fib with RVR overnight. She was started on IV Cardizem. At the time of examination she is in sinus mechanism with a heart rate in the 60s. 02/16/2021 Patient examined this morning at the bedside. Patient denies chest pain or pressure. She denies shortness of breath. Telemetry reveals sinus mechanism. Her IV Cardizem has been discontinued. Patient does report nausea this morning. Patient did have an episode of vomiting. Patient states she received some Zof ran and is feeling better at the time of my examination. PHYSICAL EXAM: VITAL SIGNS: Reviewed. GENERAL: Well-developed in no acute distress. NECK: Supple. No JVD or thyromegaly LUNGS: Respirations even and unlabored. Lungs diminished bilaterally. HEART: Regular rate and rhythm. S1 and S2 heard. Systolic murmur. EXTREMITIES: Normal range of motion. No clubbing or cyanosis. Peripheral pulses intact. 1-2+ bilateral lower extremity edema ASSESSMENT: Paroxysmal atrial fibrillation with RVR, on anticoagulations with Eliquis Non-STEMI Metastatic breast cancer Acute kidney injury Coronary artery disease with previous PCI of RCA Hypertension Hyperlipidemia Diabetes mellitus PLAN: Continue current cardiac medications Patient is stable from a cardiac perspective We will sign off. Please reconsult if needed Nurse practitioner note has been reviewed by physician. Signing provider agrees with the documented findings, assessment, and plan of care. Objective - Vital Signs Vital signs: Vital Signs Temp 96.4 F L 02/16/21 04:52 Pulse 81 02/16/21 09:08 Resp 16 02/16/21 09:08 BP 147/79 02/16/21 09:08 Pulse Ox 96 02/16/21 09:08 Intake & Output 02/15/21 02/16/21 02/16/21 18:59 06:59 18:59 Intake Total 1010 Output Total 460 Balance 1010 -460 Weight 71.2 kg Intake: Intake, IV Titration 50 Amount cefTRIAXone 1 gm In 50 Sodium Chloride 0.9% 50 ml @ 100 mls/hr IVPB Q24HR [facility] Rx#:[id number] Oral 960 Output: Urine 460 Other: Voiding Method Toilet Toilet Toilet # Voids 1 1 - Labs CBC & Chem 7: 02/15/21 07:59 02/15/21 07:59 Labs: Abnormal Lab Results - Last 24 Hours (Table) 02/15/21 02/15/21 02/15/21 Range/Units 11:38 11:39 16:37 POC Glucose (mg/dL) 349 H 359 H 73 L (75-99) mg/dL 02/15/21 02/16/21 Range/Units 20:21 06:09 POC Glucose (mg/dL) 185 H 150 H (75-99) mg/dL
[2021-02-16 12:05] LABS: Glucose,Whole Blood 254 mg/dL (75-99)
[2021-02-16] MEDS ORDERED: HYDROcodone/APAP 5-325MG 1 EACH TAB PO PRN (16:10)
[2021-02-16 17:01] LABS: Glucose,Whole Blood 177 mg/dL (75-99)
[2021-02-16 20:11] LABS: Glucose,Whole Blood 195 mg/dL (75-99)
[2021-02-17 06:40] LABS: Glucose,Whole Blood 129 mg/dL (75-99)
[2021-02-17] MEDS: amLODIPine 10 MG TAB PO SCH (08:53)
[2021-02-17] MEDS: CLOPIDOGREL 75 MG TAB PO SCH (08:54)
[2021-02-17] MEDS: APIXABAN 5 MG TAB PO SCH ×2 (08:54→20:50)
[2021-02-17] MEDS: SENNOSIDES-DOCUSATE SODIUM 1 EACH TAB PO SCH ×2 (08:54→20:50)
[2021-02-17] MEDS: ISOSORBIDE MONONITRATE ER 30 MG TAB.ER.24H PO SCH (08:54)
[2021-02-17] MEDS: RANOLAZINE 500 MG TAB.ER.12H PO SCH ×2 (08:54→20:50)
[2021-02-17] MEDS: METOPROLOL TARTRATE 50 MG TAB PO SCH ×2 (08:54→20:50)
--- NOTE | 2021-02-17 11:31 | P.PN ---
<Emmanuel Deleon - Last Filed: 02/17/21 11:24> Subjective Progress Note Date: 02/17/21 Hospital course: Patient is a 80-year-old female with a past medical history of CAD, hypertensi on, hyperlipidemia, paroxysmal atrial fibrillation on Eliquis, congestive heart failure, and metastatic breast cancer status post bilateral mastectomy. She presented to the hospital on 05/22 with a chief complaint of chest pain/pressure. In the emergency department an EKG was completed revealing a trial fibrillation with RVR to [address] depression in leads I, II, aVL, V4, V5, and V6 as well as slight ST elevation in leads III and aVR showing concerns for global ischemia. Troponins drawn and were elevated at 0.159, 5.800, and 16.500. Cardiology evaluated patient had bedside in the emergency department and after long discussion with patient and family, due to patient's breast cancer with metastasis and poor prognosis patient and family decided against cardiac catheterization and opting for medical management. Patient was admitted under our services for NSTEMI and cardiology following. Echocardiogram completed showing a preserved ejection fraction between 50 and 55% with left ventricular wall hypokinesis, no significant valvular abnormalities reported. Pt anticoagulated on Eliquis and placed on aspirin and Nitropaste. Patient cleared from cardiac standpoint. Currently patient continues to have back pain and rib pain with movement and upon taking a deep breath believed to be secondary to cancerous lesions as it is reproducible each and every time. Patient's fentanyl patch was increased, PT/OT consulted due to reports of weakness and pain, discussed palliative care with patient and possible placement in rehab, patient declining rehab stating she wants to go home with her just wants to have her pain controlled first. Discussed with oncology, we will discontinue Orange and place patient on Percocet 7.5/325 every 4 hours and continue to monitor patient overnight. Oncology to be in to see the patient this evening to further evaluate patient. Physical exam: Patient seen and fully evaluated at the bedside this morning. Patient resting in bed reports improvement of pain, but tearfully states she is still in pain. Patient states she would like to go home with her but would like to have pain controlled first. Discussed with oncology, we will discontinue Orange and place patient on Percocet 7.5/325 every 4 hours and continue to monitor patient overnight. Oncology to be in to see the patient this evening to further evaluate patient. General: non toxic, appears chronically ill. Derm: warm, dry, pale Head: Atraumatic, normocephalic, symmetric Eyes: EOMI, no lid lag, anicteric sclera Mouth: no lip lesion, mucus membranes moist Cardiovascular: S1S2 reg, no murmur, positive posterior tibial pulse bilaterally, cap refill less than 2 seconds. Lungs: CTA bilateral, no rhonchi, no rales , no accessory muscle use. Bilateral massectomy. Abdominal: soft, nontender to palpation, no guarding, no appreciable organomegaly Ext: no gross muscle atrophy, 2+ pitting edema on left and 1+ pitting edema on right lower extremity, no contractures Neuro: CN II-XI grossly intact, no focal neuro deficits Psych: Alert, oriented, appropriate affect Plan of care: Metastatic breast cancer with uncontrolled pain -Dr. Ojeda, oncologist consulted. -Supportive measures and pain management. -Fentanyl patch dosage increased. Orange discontinued in place and paced on Percocet at this time. -PT/OT consulted NSTEMI Paroxysmal Atrial fibrillation with RVR Acute kidney injury, Likely cardiorenal, medical management for NSTEMI Anemia of chronic disease Hypertension Hyperlipidemia -EKG was completed revealing atrial fibrillation with RVR to [address] depression in leads I, II, aVL, V4, V5, and V6 as well as slight ST elevation in leads III and aVR showing concerns for global ischemia. -Troponins drawn and were elevated at 0.159, 5.800, and 16.500. -Echocardiogram completed showing a preserved ejection fraction between 50 and 55% with left ventricular wall hypokinesis, no significant valvular abnormalities reported -Cardiology following, patient cleared from cardiac standpoint for discharge home. -Telemetry monitoring -Continue daily Aspirin, Imdur, Eliquis, amlodipine, Plavix, and metoprolol. Type II non-insulin dependent diabetes with hyperglycemia -Resume metformin 1000 mg twice daily with meals. -Monitor blood glucose levels before meals at bedtime -Heart healthy carb consistent diet CODE STATUS: DO NOT RESUSCITATE/DO NOT INTUBATE DVT prophylaxis: Eliquis Discussed with: Patient and RN Anticipated discharge date: Likely tomorrow. Anticipated discharge place: Home A total of 45 minutes was spent on the care of this complex patient more than 50% of the time was spent in counseling and care coordination. Objective - Vital Signs Vital signs: Vital Signs Temp 99.2 F 02/17/21 03:27 Pulse 74 02/17/21 03:27 Resp 18 02/17/21 03:27 BP 152/72 02/17/21 03:27 Pulse Ox 95 02/17/21 03:27 Intake & Output 02/16/21 02/17/21 02/17/21 18:59 06:59 18:59 Intake Total 480 480 Output Total 0 Balance 480 0 480 Weight 71.2 kg Intake: Oral 480 480 Output: Urine 0 Other: Voiding Method Toilet # Voids 1 1 - Labs CBC & Chem 7: 02/15/21 07:59 02/15/21 07:59 Labs: Abnormal Lab Results - Last 24 Hours (Table) 02/16/21 02/16/21 02/16/21 Range/Units 11:56 16:59 20:10 POC Glucose (mg/dL) 254 H 177 H 195 H (75-99) mg/dL 02/17/21 Range/Units 06:14 POC Glucose (mg/dL) 129 H (75-99) mg/dL <Marychuy Alicea A - Last Filed: 02/17/21 15:50> Objective - Vital Signs Vital signs: Vital Signs Temp 97.7 F 02/17/21 12:00 Pulse 72 02/17/21 14:00 Resp 18 02/17/21 14:00 BP 133/62 02/17/21 12:00 Pulse Ox 97 02/17/21 12:00 Intake & Output 02/16/21 02/17/21 02/17/21 18:59 06:59 18:59 Intake Total 480 960 Output Total 0 Balance 480 0 960 Weight 71.2 kg 71.2 kg Intake: Oral 480 960 Output: Urine 0 Other: Voiding Method Toilet Toilet # Voids 1 1 1 - Labs CBC & Chem 7: 02/17/21 11:24 02/17/21 11:24 Labs: Abnormal Lab Results - Last 24 Hours (Table) 02/16/21 02/16/21 02/17/21 Range/Units 16:59 20:10 06:14 RBC (3.80-5.40) m/uL Hgb (11.4-16.0) gm/dL Hct (34.0-46.0) % Plt Count (150-450) k/uL Lymphocytes # (1.0-4.8) k/uL Sodium (137-145) mmol/L Carbon Dioxide (22-30) mmol/L BUN (7-17) mg/dL Creatinine (0.52-1.04) mg/dL Glucose (74-99) mg/dL POC Glucose (mg/dL) 177 H 195 H 129 H (75-99) mg/dL Total Bilirubin (0.2-1.3) mg/dL Total Protein (6.3-8.2) g/dL Albumin (3.5-5.0) g/dL 02/17/21 02/17/21 02/17/21 Range/Units 11:24 11:24 11:48 RBC 3.13 L (3.80-5.40) m/uL Hgb 9.0 L (11.4-16.0) gm/dL Hct 28.1 L (34.0-46.0) % Plt Count 123 L (150-450) k/uL Lymphocytes # 0.4 L (1.0-4.8) k/uL Sodium 136 L (137-145) mmol/L Carbon Dioxide 35 H (22-30) mmol/L BUN 37 H (7-17) mg/dL Creatinine 2.03 H (0.52-1.04) mg/dL Glucose 239 H (74-99) mg/dL POC Glucose (mg/dL) 247 H (75-99) mg/dL Total Bilirubin 0.1 L (0.2-1.3) mg/dL Total Protein 5.0 L (6.3-8.2) g/dL Albumin 2.6 L (3.5-5.0) g/dL Assessment and Plan Assessment: Emmanuel Deleon NP rendered care for this patient independently, reviewed the findings and plan as documented in the note above. I did not physically speak with or examine the patient on this date.
[2021-02-17 11:49] LABS: Basophils % (A) 0 %; Eosinophils # (A) 0.1 k/uL (0-0.7); Eosinophils % (A) 2 %; HCT 28.1 % (34.0-46.0); Lymphocytes # (A) 0.4 k/uL (1.0-4.8); Lymphocytes % (A) 9 %; MCH 28.8 pg (25.0-35.0); MCHC 32.1 g/dL (31.0-37.0); MCV 89.9 fL (80.0-100.0); Mean Platelet Volume 9.1; Monocytes # (A) 0.2 k/uL (0-1.0); Monocytes % (A) 5 %; Neutrophils # (A) 3.5 k/uL (1.3-7.7); Neutrophils % (A) 81 %; Platelet Count 123 k/uL (150-450); RBC 3.13 m/uL (3.80-5.40); RDW 15.1 % (11.5-15.5); WBC 4.4 k/uL (3.8-10.6)
[2021-02-17 11:56] LABS: Glucose,Whole Blood 247 mg/dL (75-99)
[2021-02-17] MEDS ORDERED: INSULIN ASPART (NovoLOG) 100 UNIT/ML VIAL SQ ONE (12:16)
[2021-02-17 12:26] LABS: Albumin 2.6 g/dL (3.5-5.0); Calcium 8.6 mg/dL (8.4-10.2); Potassium 4.3 mmol/L (3.5-5.1); Total Bilirubin 0.1 mg/dL (0.2-1.3)
[2021-02-17 13:40] VITALS: BMI 30.7
[2021-02-17] MEDS: oxyCODONE-APAP 7.5-325MG 1 EACH TAB PO PRN ×2 (16:33→23:36)
[2021-02-17] MEDS ORDERED: NITROGLYCERIN SL TABS 0.4 MG TAB SUBLINGUAL ONE (16:42)
[2021-02-17] MEDS ORDERED: NITROGLYCERIN SL TABS 0.4 MG TAB SUBLINGUAL PRN (16:45)
[2021-02-17 17:16] LABS: Glucose,Whole Blood 155 mg/dL (75-99)
[2021-02-17 20:55] LABS: Glucose,Whole Blood 201 mg/dL (75-99)
[2021-02-18 06:40] LABS: Glucose,Whole Blood 111 mg/dL (75-99)
[2021-02-18 07:58] LABS: Calcium 8.7 mg/dL (8.4-10.2); Potassium 4.6 mmol/L (3.5-5.1)
[2021-02-18] MEDS: ISOSORBIDE MONONITRATE ER 30 MG TAB.ER.24H PO SCH (09:59)
[2021-02-18] MEDS: SENNOSIDES-DOCUSATE SODIUM 1 EACH TAB PO SCH (09:59)
[2021-02-18] MEDS: METOPROLOL TARTRATE 50 MG TAB PO SCH (09:59)
[2021-02-18] MEDS: APIXABAN 5 MG TAB PO SCH (09:59)
[2021-02-18] MEDS: RANOLAZINE 500 MG TAB.ER.12H PO SCH (09:59)
[2021-02-18] MEDS: amLODIPine 10 MG TAB PO SCH (09:59)
[2021-02-18] MEDS: CLOPIDOGREL 75 MG TAB PO SCH (10:01)
[2021-02-18 12:08] LABS: Glucose,Whole Blood 233 mg/dL (75-99)
[2021-02-18 13:06] VITALS: BP 90/54; PULSE 56; RESP 18; TEMP 98.5
--- NOTE | 2021-02-18 14:13 | P.DS ---
<Emmanuel Deleon - Last Filed: 02/18/21 15:23> Providers Expected date of discharge: 02/18/21 Hospital Course: Discharge Diagnosis: NSTEMI Metastatic breast cancer with uncontrolled pain Paroxysmal Atrial fibrillation with RVR Acute kidney injury, Likely cardiorenal, improving Anemia of chronic disease Hypertension Hyperlipidemia Type II non-insulin dependent diabetes with hyperglycemia Hospital Course: Patient is a 80-year-old female with a past medical history of CAD, hypertension, hyperlipidemia, paroxysmal atrial fibrillation on Eliquis, congestive heart failure, and metastatic breast cancer status post bilateral mastectomy. She presented to the hospital on 05/22 with a chief complaint of chest pain/pressure. In the emergency department an EKG was completed revealing atrial fibrillation with RVR to [address] depression in leads I, II, aVL, V4, V5, and V6 as well as slight ST elevation in leads III and aVR showing concerns for global ischemia. Troponins drawn and were elevated at 0.159, 5.800, and 16.500. Cardiology evaluated patient had bedside in the emergency department and after long discussion with patient and family, due to patient's breast cancer with metastasis and poor prognosis patient and family decided against cardiac catheterization and opting for medical management. Patient was admitted under our services for NSTEMI and cardiology following. E chocardiogram completed showing a preserved ejection fraction between 50 and 55% with left ventricular wall hypokinesis, no significant valvular abnormalities reported. Pt anticoagulated on Eliquis and placed on aspirin and Nitropaste. Patient cleared from cardiac standpoint. Currently patient continues to have back pain and rib pain with movement and upon taking a deep breath believed to be secondary to cancerous lesions as it is reproducible each and every time. Patient's fentanyl patch was increased, PT/OT consulted due to reports of weakness and pain, discussed palliative care with patient and possible placement in rehab, patient declining rehab stating she wants to go home with her just wants to have her pain controlled first. Patient has a poor overall prognosis secondary to metastatic process and poor overall health condition. Patient and requesting consultation to hospice, palliative care and hospice consult to take place in pt's home per family's request. Patient being discharged home with her at this time. Patient discharged home on oxycodone 10 mg every 4 hours as needed for breakthrough pain and fentanyl patches 100 mg every 72 hours. Physical exam: General: non toxic, appears chronically ill. Derm: warm, dry, pale Head: Atraumatic, normocephalic, symmetric Eyes: EOMI, no lid lag, anicteric sclera Mouth: no lip lesion, mucus membranes moist Cardiovascular: S1S2 reg, no murmur, positive posterior tibial pulse bilaterally, cap refill less than 2 seconds. Lungs: CTA bilateral, no rhonchi, no rales , no accessory muscle use. Bilateral massectomy. Abdominal: soft, nontender to palpation, no guarding, no appreciable organomegaly Ext: no gross muscle atrophy, 2+ pitting edema on left and 1+ pitting edema on right lower extremity, no contractures Neuro: CN II-XI grossly intact, no focal neuro deficits Psych: Alert, oriented, appropriate affect A total of 45 minutes of time were spent preparing this complex discharge summary. Patient Condition at Discharge: Poor Plan - Discharge Summary Discharge Rx Participant: No New Discharge Prescriptions: New Isosorbide Mononitrate ER [Imdur] 30 mg PO DAILY 30 Days #30 tab.er.24h oxyCODONE HCL [OxyIR] 10 mg PO Q4H PRN 7 Days #84 tab PRN Reason: Pain Ranolazine [Ranexa] 500 mg PO Q12HR 30 Days #60 tab.er.12h fentaNYL 50MCG/HR PATCH [Duragesic 50MCG/HR] 2 patch TRANSDERM Q72H 7 Days #2 box Continue Sertraline [Zoloft] 50 mg PO DAILY tab metFORMIN HCL [Glucophage] 500 mg PO DAILY Clopidogrel [Plavix] 75 mg PO DAILY Furosemide [Lasix] 40 mg PO DAILY Metoprolol Tartrate [Lopressor] 50 mg PO BID amLODIPine [Norvasc] 10 mg PO DAILY #30 tab Sennosides/Docusate Sodium [Senna Plus 8.6-50 mg Softgel] 1 tab PO BID lisinopriL [Zestril] 10 mg PO BID metFORMIN HCL [Glucophage] 1,000 mg PO HS Ondansetron Odt [Zofran ODT] 4 mg PO Q8HR PRN #12 tab PRN Reason: Nausea Apixaban [Eliquis] 5 mg PO BID Discontinued fentaNYL 50MCG/HR PATCH [Duragesic 50MCG/HR] 1 patch TRANSDERM Q72H oxyCODONE HCL [OxyIR] 5 - 10 mg PO Q4H PRN PRN Reason: Pain Discharge Medication List Sertraline [Zoloft] 50 mg PO DAILY tab 12/08/19 [Rx] metFORMIN HCL [Glucophage] 500 mg PO DAILY 01/09/20 [History] Clopidogrel [Plavix] 75 mg PO DAILY 08/09/20 [History] Furosemide [Lasix] 40 mg PO DAILY 08/09/20 [History] Metoprolol Tartrate [Lopressor] 50 mg PO BID 12/31/20 [History] lisinopriL [Zestril] 10 mg PO BID 12/31/20 [History] metFORMIN HCL [Glucophage] 1,000 mg PO HS 12/31/20 [History] amLODIPine [Norvasc] 10 mg PO DAILY #30 tab 01/03/21 [Rx] Ondansetron Odt [Zofran ODT] 4 mg PO Q8HR PRN #12 tab 01/06/21 [Rx] Sennosides/Docusate Sodium [Senna Plus 8.6-50 mg Softgel] 1 tab PO BID 01/14/21 [History] Apixaban [Eliquis] 5 mg PO BID 02/12/21 [History] Isosorbide Mononitrate ER [Imdur] 30 mg PO DAILY 30 Days #30 tab.er.24h 02/18/21 [Rx] Ranolazine [Ranexa] 500 mg PO Q12HR 30 Days #60 tab.er.12h 02/18/21 [Rx] fentaNYL 50MCG/HR PATCH [Duragesic 50MCG/HR] 2 patch TRANSDERM Q72H 7 Days #2 box 02/18/21 [Rx] oxyCODONE HCL [OxyIR] 10 mg PO Q4H PRN 7 Days #84 tab 02/18/21 [Rx] Follow up Appointment(s)/Referral(s): [facility] [NON-STAFF] - Quique Ulloa MD [Primary Care Provider] - 02/19/21 10:30 am [facility], [NON-STAFF] - [facility] [NON-STAFF] - Patient Instructions/Handouts: Chest Pain (DC), Urinary Tract Infection in Women (DC) Activity/Diet/Wound Care/Special Instructions: Patient will require 4L O2, N/c due to breast CA with metastatic disease to lungs and heart failure. Discharge Disposition: HOME WITH HOME HEALTH SERVICES <Marychuy Alicea - Last Filed: 02/18/21 18:27> Providers Date of admission: 02/12/21 18:42 Attending physician: Clarice Roger Consults: 02/14/21 10:14 Consult Physician Routine Consulting Provider: Caleb Ojeda Consult Reason/Comments: cancer. known to service Do you want consulting provider notified?: Yes Primary care physician: Quique Ulloa MD Hospital Course: Patient seen and examined independently. Patient was also seen by Emmanuel Deleon NP and case was discussed. I am in agreement with discharge diagnosis, hospital course, and physical exam as written above and amended below. States her pain is much better controlled. Has been able to get up and move. He will be talking with hospice and palliative after discharge. General: non toxic, no distress, appears at stated age Derm: warm, dry Head: atraumatic, normocephalic, symmetric Eyes: EOMI, no lid lag, anicteric sclera Mouth: no lip lesion, mucus membranes moist Cardiovascular: S1S2 reg, no murmur, positive posterior tibial pulse bilateral, Neuro: CN II-XI grossly intact, no focal neuro deficits Psych: Alert, oriented, appropriate affect
[2021-02-18] MEDS: oxyCODONE-APAP 7.5-325MG 1 EACH TAB PO PRN (16:50)
[2021-02-18] MEDS ORDERED: SENNOSIDES-DOCUSATE SODIUM 1 EACH TAB PO SCH (21:00)
== END 2021-02-18 17:42 | disposition home health service (06) | DRG 281 ==
LOC: EC 15:55 → 3SCARD 18:42
PROVIDERS: ADMIT Internal Medicine; ATTEND Internal Medicine
DX: I21.4 Non-ST elevation (NSTEMI) myocardial infarction (principal); N17.9 Acute kidney failure, unspecified; N39.0 Urinary tract infection, site not specified; C79.51 Secondary malignant neoplasm of bone; C78.7 Secondary malignant neoplasm of liver and intrahepatic bile duct; C7A.8 Other malignant neuroendocrine tumors; I25.10 Atherosclerotic heart disease of native coronary artery without angina pectoris; Z95.5 Presence of coronary angioplasty implant and graft; E11.65 Type 2 diabetes mellitus with hyperglycemia; Z79.84 Long term (current) use of oral hypoglycemic drugs; Z79.02 Long term (current) use of antithrombotics/antiplatelets; Z79.01 Long term (current) use of anticoagulants; Z88.0 Allergy status to penicillin; Z85.43 Personal history of malignant neoplasm of ovary; Z92.21 Personal history of antineoplastic chemotherapy; Z90.13 Acquired absence of bilateral breasts and nipples; Z87.891 Personal history of nicotine dependence; Z80.51 Family history of malignant neoplasm of kidney; I48.0 Paroxysmal atrial fibrillation; E78.5 Hyperlipidemia, unspecified; Z51.5 Encounter for palliative care; Z66 Do not resuscitate; C50.919 Malignant neoplasm of unspecified site of unspecified female breast; F32.9 Major depressive disorder, single episode, unspecified; Z80.3 Family history of malignant neoplasm of breast; D69.6 Thrombocytopenia, unspecified; D63.8 Anemia in other chronic diseases classified elsewhere; Z79.811 Long term (current) use of aromatase inhibitors; Z79.899 Other long term (current) drug therapy; I50.9 Heart failure, unspecified; I11.0 Hypertensive heart disease with heart failure; E83.42 Hypomagnesemia; G89.3 Neoplasm related pain (acute) (chronic); Z87.442 Personal history of urinary calculi; I25.2 Old myocardial infarction; Z96.652 Presence of left artificial knee joint; Z90.710 Acquired absence of both cervix and uterus; Z85.3 Personal history of malignant neoplasm of breast
CPT/HCPCS: 36415; 71045; 80048; 80053; 81001; 83735; 84484; 85025; 85027; 85610; 85730; 93005; 93308; 93970; 94760; 96361; 96374; 96375; 96376; 99285